=== PATIENT | female | born 1950 | race Caucasian/White ===

== ENCOUNTER 2019-11-17 14:35 | Emergency (ER) | payer OTHER, SELFPAY ==
--- NOTE | ~2019-11-17 | XR_ITS ---
XR chest 2V 11/17/2019 15:33 Indication: Cough for 2 weeks Procedure: 2 view chest Comparison: No prior studies for comparison. Findings: There are spinal rods overlying the thoracic spine. There is a defibrillator lead, presumab ly in the right ventricle. Heart size normal. No focal air space disease, pulmonary edema, pleural ef fusion or suspected pneumothorax. There are compression fractures of the mid thoracic spine which killian ear chronic. Impression: 1: No acute cardiopulmonary disease. Reviewed, dictated and finalized at location A. Impression: 1: No acute cardiopulmonary disease.
[2019-11-17 14:52] VITALS: BP 100/62; PULSE 72; RESP 20; TEMP 37.1; O2SAT 97
--- NOTE | 2019-11-17 15:07 | ED.URI ---
HPI - URI/Sore Throat General Chief Complaint: Upper Respiratory Infection Stated Complaint: cough Time Seen by Provider: 11/17/19 15:07 Source: patient and RN notes reviewed History of Present Illness HPI Narrative: Patient is a 69-year-old female that presents the urgent care with complaints of a cough. Patient states is been ongoing for approximately 1 month. Patient states that it has gotten deeper and is now coughing up productive yellow phlegm . Patient denies any shortness of breath or wheezing that is consistent. However, she says she does hear herself wheeze at times . Patient and daughter state that her inhalers do help. 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 Patient denies any fever, chills, nausea, vomiting, upper respiratory type symptoms. Denies of any recent use of antibiotics. States that she has spoke to her PCP regarding her symptoms and they advised her to use Coricidin HBP [id number]. Daughter states that that has not been helping her and she has been up all night coughing . Patient denies of any chest pain. No other acute complaints. No acute distress noted. Patient and daughter aware of the plan of care. Related Data Home Medications Medication Instructions Recorded Confirmed amitriptyline 75 mg tablet 75 mg PO ONCE 09/14/19 11/17/19 atorvastatin 40 mg tablet 40 mg PO DAILY 09/14/19 11/17/19 calcium carbonate 600 mg calcium 600 mg PO DAILY 09/14/19 11/17/19 (1,500 mg) tablet cholecalciferol (vitamin D3) 10 10 mcg PO DAILY 09/14/19 11/17/19 mcg (400 unit) capsule cyanocobalamin (vitamin B-12) 500 500 mcg PO DAILY 09/14/19 11/17/19 mcg lozenges lisinopril 2.5 mg tablet 1.25 mg PO DAILY 09/14/19 11/17/19 omega 5-dll-vmf-fish oil 1,000 mg 1 cap PO DAILY 09/14/19 11/17/19 (120 mg-180 mg) capsule spironolactone 25 mg tablet 25 mg PO DAILY 09/14/19 11/17/19 Adult One Daily Multivitamin 1 tab/day PO DAILY 11/17/19 11/17/19 acetaminophen [Tylenol] 325 mg PO ONCE PRN 11/17/19 11/17/19 albuterol sulfate 2 puff INHALATION QID PRN 11/17/19 11/17/19 aspirin [Aspirin Childrens] 81 mg PO DAILY 11/17/19 11/17/19 carvedilol 25 mg PO BID 11/17/19 11/17/19 cranberry 500 mg PO BID 11/17/19 11/17/19 donepezil 10 mg PO HS 11/17/19 11/17/19 ferrous sulfate [High Potency Iron] 27 mg PO DAILY 11/17/19 11/17/19 fluticasone furoate-vilanterol 1 inh INHALATION DAILY 11/17/19 11/17/19 [Breo Ellipta] furosemide 20 mg PO DAILY 11/17/19 11/17/19 furosemide 40 mg PO DAILY 11/17/19 11/17/19 melatonin 5 mg PO HS PRN 11/17/19 11/17/19 metoclopramide HCl 5 mg PO DAILY 11/17/19 11/17/19 pregabalin [Lyrica] 75 mg PO BID 11/17/19 11/17/19 Allergies Allergy/AdvReac Type Severity Reaction Status Date / Time ibuprofen Allergy Unknown Verified 06/29/11 14:28 morphine AdvReac Intermediate Nausea and Verified 04/22/17 15:50 Vomiting Review of Systems Review of Systems: Narrative: CONSTITUTIONAL: Denies fever, chills, or sweats. EYES: Denies visual changes, redness, or discharge. ENT: Denies rhinorrhea, congestion, sore throat, or otalgia. CARDIOVASCULAR: Denies chest pain, palpitations, or edema. RESPIRATORY: Reports a persistent cough with intermittent wheezing GASTROINTESTINAL: Denies abdominal pain, nausea, vomiting, or diarrhea. GENITOURINARY: Denies dysuria or hematuria. SKIN: Denies rash or itching. MUSCULOSKELETAL: Denies back pain, joint pain, or myalgia. NEUROLOGIC: Denies headache, numbness, or weakness. All other systems reviewed are negative, except as documented in HPI. ON LICENSE OF [facility] Past Medical History Medical History (Updated 11/17/19 @ 15:46 by RANDEE Morelos) Arthritis Back pain Carotid artery disease Headache Hx of migraines Stroke Surgical History Surgical History (Updated 09/14/19 @ 11:39 by Ashley Bass [employer]ET[employer]) History of back surgery Family History Family History (Updated 02/10
== END 2019-11-17 15:55 | disposition home or self-care (01) ==
PROVIDERS: Emergency Provider Nurse Practitioner Family; PCP Family Medicine
DX: R05 Cough (principal); J98.4 Other disorders of lung; M19.90 Unspecified osteoarthritis, unspecified site; I25.10 Atherosclerotic heart disease of native coronary artery without angina pectoris; Z86.73 Personal history of transient ischemic attack (TIA), and cerebral infarction without residual deficits; Z87.891 Personal history of nicotine dependence
CPT/HCPCS: 71046; 99213; G0463

== ENCOUNTER 2021-12-11 15:14 | Emergency (ER) | payer OTHER, SELFPAY ==
[2021-12-11] VITALS (17 sets, daily range): BP systolic 102–152; BP diastolic 44–58; PULSE 56–100; RESP 13–27; TEMP 36.9; O2SAT 92–98
--- NOTE | ~2021-12-11 | CT_ITS ---
EXAMINATION: CT diagnostic chest wo con DATE: 12/11/2021 18:00 INDICATION: Left-sided chest pain TECHNIQUE: Computed tomography (CT) of the chest was performed without intravenous contrast. The dose -length product (DLP) was 366.32 mGy-cm. Automated exposure control and iterative reconstruction tech nique were employed. COMPARISON: None FINDINGS: The lungs are free of acute opacities. There is no pleural effusion or pneumothorax. Cardio megaly is noted. A single lead pacemaker of the left chest wall ends with its lead in the right ventr icle. Calcified pulmonary nodules are consistent with old granulomatous disease. There is a mildly en larged right lower paratracheal lymph node, likely reactive. Calcified coronary artery atherosclerosi s is noted. There are healed left-sided rib fractures. There is posterior thoracic orthopedic hardwar e from T6 through the upper lumbar spine except at the T9 and T10 vertebral bodies where there are ch ronic burst fractures. IMPRESSION: 1. No CT correlate for the patient's symptoms. 2. Mild mediastinal lymphadenopathy, likely reactive. Reviewed, dictated and finalized at location F.
--- NOTE | ~2021-12-11 | XR_ITS ---
EXAMINATION: XR chest 2V DATE: 12/11/2021 15:49 INDICATION: Left chest pain TECHNIQUE: AP and lateral views of the chest are obtained. COMPARISON: 11/17/2019 FINDINGS: The lungs are free of acute opacities. There is no pleural effusion or pneumothorax. Cardio megaly is noted. There are changes of posterior thoracolumbar fusion. A single lead pacemaker of the left chest wall ends with its lead in the right ventricle. IMPRESSION: 1. Cardiomegaly Reviewed, dictated and finalized at location F. IMPRESSION: 1. Cardiomegaly
--- NOTE | 2021-12-11 15:16 | ECG_ITS ---
Measurements Intervals [place] Rate: 70 P: 42 WV: 142 QRS: -24 QRSD: 139 T: 122 QT: 387 QTc: 420 Interpretive Statements SINUS RHYTHM WITH OCCASIONAL SUPRAVENTRICULAR PREMATURE COMPLEXES INTRAVENTRICULAR CONDUCTION DELAY [130+ ms QRS DURATION] LEFT VENTRICULAR HYPERTROPHY AND ST-T CHANGE [VOLTAGE CRITERIA PLUS ST/T ABNORMALITY] CANNOT RULE OUT ANTEROSEPTAL INFARCTION, OF INDETERMINATE AGE ABNORMAL ECG NO PREVIOUS ECG AVAILABLE FOR COMPARISON Electronically Signed On 12-11-2021 17:58:59 CDT by Candido Massey M.D.
--- NOTE | 2021-12-11 15:19 | ED.GENADULT ---
HPI - General Adult General Chief complaint: Unspecified Stated complaint: LEFT RIB PAIN Time Seen by Provider: 12/11/21 15:16 History of Present Illness HPI narrative: Pt presents with pain in her left lower ribs today. Pt does not remember specific injury but is worse with palpation and movement. Pt denies cough or fever or SOB. Related Data Home Medications Medication Instructions Recorded Confirmed calcium carbonate 600 mg calcium 600 mg PO DAILY 09/14/19 12/01/21 (1,500 mg) tablet (Calcium) omega 2-fmu-chv-fish oil 1,000 mg 1 cap PO DAILY 09/14/19 12/01/21 (120 mg-180 mg) capsule (Fish Oil) spironolactone 25 mg tablet 25 mg PO DAILY 09/14/19 12/01/21 Adult One Daily Multivitamin 1 tab/day PO DAILY 11/17/19 12/01/21 acetaminophen 325 mg tablet 325 mg PO ONCE PRN pain 11/17/19 12/01/21 (Tylenol) albuterol sulfate 90 mcg/actuation 2 puff inhalation QID PRN sob 11/17/19 12/01/21 aerosol inhaler aspirin 81 mg chewable tablet 81 mg PO DAILY 11/17/19 12/01/21 (Aspirin Childrens) carvedilol 25 mg tablet 25 mg PO BID 11/17/19 12/01/21 cranberry 500 mg capsule 500 mg PO BID 11/17/19 12/01/21 donepezil 10 mg tablet 10 mg PO HS 11/17/19 12/01/21 fluticasone furoate 100 1 inh inhalation DAILY 11/17/19 12/01/21 mcg-vilanterol 25 mcg/dose inhalation powder (Breo Ellipta) amitriptyline 75 mg tablet 75 mg PO QPM 11/30/19 12/01/21 atorvastatin 40 mg tablet (Lipitor) 40 mg PO QPM 11/30/19 12/01/21 cholecalciferol (vitamin D3) 10 400 unit PO DAILY 11/30/19 12/01/21 mcg (400 unit) capsule furosemide 40 mg tablet See Rx Instructions PO .COMPLEX 06/13/20 12/01/21 steroid injections IM 12/01/21 12/01/21 Allergies Allergy/AdvReac Type Severity Reaction Status Date / Time ibuprofen Allergy Unknown Nausea and Verified 12/01/21 13:02 Vomiting morphine AdvReac Intermediate Nausea and Verified 12/01/21 13:02 Vomiting Review of Systems Review of Systems: All systems reviewed & are unremarkable except as noted in HPI and below PMFSH Past Medical History Medical History Arthritis Back pain Carotid artery disease Essential hypertension Headache Hx of migraines Hyperlipidemia Peripheral neuropathy Stroke Type 2 diabetes mellitus with hyperglycemia, with long-term current use of insulin Surgical History Surgical History History of back surgery History of heart surgery defibrillator Family History Family History Father Family history of heart disease in male family member before age 55 Social History Social History Smoking packs per day: 1.5 Smoking cigarettes per day: 30.0 Years smoked: 30 Smoking pack-years: 45.00 Smoking status: Former smoker Smoking end date: 07/12/99 Alcohol intake: never Substance use: never Exam Const: General: cooperative and uncomfortable Nutritional Appearance: well nourished Orientation/consciousness: patient oriented x3 Limitations: no limitations Neck: Neck: normal visual inspection and full ROM Chest: Chest palpation & inspection: localized rib tenderness with anteroposterior compression (lower left ribs) Resp: Effort & Inspection: normal respiratory effort Auscultation: clear to auscultation bilaterally Cardio: Rate: regular rate Rhythm: regular rhythm GI: Inspection: normal to inspection GI Palp: Yes Soft to palpation Auscultation: normal bowel sounds Skin: General skin exam: normal color Neuro: General: patient oriented x3 and no focal motor deficits Extrem: General: normal to inspection and no clubbing, cyanosis or edema Psych: Appearance: grossly normal Mental Status: mental status grossly normal Speech and movement: Normal speech and movement present Affect: normal affect At
[2021-12-11] MEDS: fentaNYL CITRATE INJ (*CRX) 100 MCG/2 ML VIAL 25 MCG IV PUSH (15:28)
--- NOTE | 2021-12-11 15:43 | PC.NURSE ---
PT to xray via stretcher
[2021-12-11] MEDS: HYDROmorphone HCL INJ (*CRX) 1 MG/ML SYR 0.5 MG IV PUSH (16:42)
[2021-12-11 17:43] LABS: Glucose Point of Care 86 mg/dl (65-105)
[2021-12-11 17:50] LABS: Basophils Absolute Auto 0.1 K/mm3 (0.0-0.1); Basophils Percent Auto 0.6 % (0.2-1.2); Eosinophils Absolute Auto 0.4 K/mm3 (0-0.3); Eosinophils Percent Auto 3.9 % (0-4.4); Hematocrit 39.9 % (37.0-47.0); Hemoglobin 12.8 g/dL (12.0-15.0); Immature Granulocyte Absolute 0.04 K/mm3 (0.00-0.031); Immature Granulocyte Percent A 0.4 % (0-0.5); Lymphocytes Absolute Auto 1.67 K/mm3 (0.9-3.2); Lymphocytes Percent Auto 17.6 % (18.3-44.2); Mean Corpuscular HGB Conc 32.1 g/dl (32-36); Mean Corpuscular Volume 93.4 fl (80-100); Mean Platelet Volume 9.6 fl (7.4-10.4); Monocytes Absolute Auto 0.7 K/mm3 (0.1-0.6); Monocytes Percent Auto 7.2 % (2.6-8.5); Neutrophils Absolute Auto 6.7 K/mm3 (1.3-6.7); Neutrophils Percent Auto 70.3 % (45.5-73.1); Platelet Count Result 250 k/mm3 (150-375); Red Blood Count 4.27 M/mm3 (4.2-5.4); Red Cell Distribution Width 14.4 % (11.5-14.5); White Blood Count 9.5 K/mm3 (4.5-10.0)
[2021-12-11 18:02] LABS: Alanine Aminotransferase 29 U/L (6-35); Albumin Level 4.6 g/dL (3.5-5.1); Alkaline Phosphatase 103 U/L (38-126); Anion Gap 10 mmol/L (8-16); Aspartate Amino Transferase 30 U/L (14-36); Bilirubin,Total 0.2 mg/dL (0.2-1.3); Blood Urea Nitrogen 32 mg/dL (7-17); Calcium 10.1 mg/dL (8.4-10.2); Carbon Dioxide 29 mmol/L (22-30); Chloride 99 mmol/L (98-107); Estimated CRCL calculation 42 ml/min; Estimated Glomerular Filt Rate 40; Glucose 85 mg/dL (65-110); Potassium 4.1 mmol/L (3.4-5.0); Sodium 138 mmol/L (137-145)
[2021-12-11 18:14] LABS: Troponin I < 0.012 ng/mL (0.000-0.034)
[2021-12-11] MEDS: KETOROLAC 15 MG/ML VIAL (*BKC) IV PUSH (18:47)
== END 2021-12-11 19:21 | disposition home or self-care (01) ==
PROVIDERS: Emergency Provider Emergency Medicine; PCP Family Medicine
DX: R07.89 Other chest pain (principal); I25.10 Atherosclerotic heart disease of native coronary artery without angina pectoris; I10 Essential (primary) hypertension; E78.5 Hyperlipidemia, unspecified; E11.42 Type 2 diabetes mellitus with diabetic polyneuropathy; M19.90 Unspecified osteoarthritis, unspecified site; Z86.73 Personal history of transient ischemic attack (TIA), and cerebral infarction without residual deficits; Z95.810 Presence of automatic (implantable) cardiac defibrillator; Z87.891 Personal history of nicotine dependence; I49.1 Atrial premature depolarization; I45.9 Conduction disorder, unspecified; I51.7 Cardiomegaly; R94.31 Abnormal electrocardiogram [ECG] [EKG]; Z79.82 Long term (current) use of aspirin; Z79.84 Long term (current) use of oral hypoglycemic drugs; Z79.4 Long term (current) use of insulin
CPT/HCPCS: 36415; 71046; 71250; 80053; 82948; 84484; 85025; 93005; 96374; 96375; 99284; J1170; J1885; J3010

== ENCOUNTER 2022-02-06 12:04 | Inpatient (IN) | payer OTHER, SELFPAY ==
[2022-02-06 12:05] VITALS: BP 104/51; PULSE 83; RESP 20; TEMP 36.6; O2SAT 99
--- NOTE | 2022-02-06 12:08 | ECG_ITS ---
Measurements Intervals [place] Rate: 81 P: 47 [place]: 181 QRS: -18 QRSD: 141 T: 93 QT: 398 QTc: 465 Interpretive Statements SINUS RHYTHM INTRAVENTRICULAR CONDUCTION DELAY MINIMAL Q WAVES- HIGH LATERAL LEADS CANNOT RULE OUT SEPTAL INFARCT, AGE INDETERMINATE BORDERLINE ST-T WAVE ABNORMALITY- HIGH LATERAL LEADS BORDERLINE ECG Electronically Signed On 02-06-2022 13:27:59 CDT by Nathaniel Jeffries D.O.
[2022-02-06 12:15] LABS: Glucose Point of Care 371 mg/dl (65-105)
--- NOTE | 2022-02-06 12:32 | ED.WEAKNESS ---
HPI - Weakness General Chief complaint: Weakness Stated complaint: weak - pale, cool, diaphoretic History of Present Illness HPI Narrative: Patient is a 71-year-old female who presents to the ER with weakness and nausea. Reports she woke up this morning with nausea and has been persistent. No vomiting. No abdominal discomfort or diarrhea. No known sick contacts. She has no runny nose or sore throat or productive cough no chest pain or chest pressure. No dyspnea. No rotational dizziness. Nausea does sometimes worsen when she sits up. No alleviating factors. Related Data Home Medications Medication Instructions Recorded Confirmed calcium carbonate 600 mg calcium 600 mg PO TID PRN Heartburn 09/14/19 02/06/22 (1,500 mg) tablet (Calcium) omega 8-etp-exu-fish oil 1,000 mg 1 cap PO DAILY 09/14/19 02/06/22 (120 mg-180 mg) capsule (Fish Oil) spironolactone 25 mg tablet 25 mg PO DAILY 09/14/19 02/06/22 Adult One Daily Multivitamin 1 tab/day PO DAILY 11/17/19 02/06/22 acetaminophen 325 mg tablet 650 mg PO ONCE PRN pain 11/17/19 02/06/22 (Tylenol) albuterol sulfate 90 mcg/actuation 2 puff inhalation QID PRN sob 11/17/19 02/06/22 aerosol inhaler aspirin 81 mg chewable tablet 81 mg PO DAILY 11/17/19 02/06/22 (Aspirin Childrens) carvedilol 25 mg tablet 25 mg PO BID 11/17/19 02/06/22 cranberry 500 mg capsule 500 mg PO BID 11/17/19 02/06/22 donepezil 10 mg tablet 10 mg PO HS 11/17/19 02/06/22 fluticasone furoate 100 1 inh inhalation DAILY 11/17/19 02/06/22 mcg-vilanterol 25 mcg/dose inhalation powder (Breo Ellipta) amitriptyline 75 mg tablet 75 mg PO QPM 11/30/19 02/06/22 atorvastatin 40 mg tablet (Lipitor) 40 mg PO QPM 11/30/19 02/06/22 cholecalciferol (vitamin D3) 10 400 unit PO DAILY 11/30/19 02/06/22 mcg (400 unit) capsule furosemide 40 mg tablet 40 mg PO DAILY 06/13/20 02/06/22 clopidogrel 75 mg tablet (Plavix) 75 mg PO DAILY 02/06/22 02/06/22 insulin aspart U-100 100 unit/mL 15 unit subcut BID 02/06/22 02/06/22 subcutaneous solution metformin 500 mg tablet 500 mg PO BID 02/06/22 02/06/22 Allergies Allergy/AdvReac Type Severity Reaction Status Date / Time ibuprofen Allergy Unknown Nausea and Verified 12/01/21 13:02 Vomiting morphine AdvReac Intermediate Nausea and Verified 12/01/21 13:02 Vomiting Review of Systems Review of Systems: All systems reviewed & are unremarkable except as noted in HPI and below Constitutional: Constitutional: Denies chills, Reports fatigue, Denies fever(s) and Reports weakness ENT: Denies nasal congestion and Denies sore throat Cardiovascular: Cardiovascular: Denies chest pain, Denies rapid heart rate and Denies radiating jaw, neck or arm pain Respiratory: Respiratory: Denies cough and Denies dyspnea Gastrointestinal: Gastrointestinal: Denies abdominal pain, Denies diarrhea, Reports nausea and Denies vomiting Genitourinary: Genitourinary: Denies nocturia and Denies dysuria [facility] Past Medical History Medical History (Updated 02/07/22 @ 21:48 by Charles Sprague MD) Acute on chronic anemia Arthritis Cardiomyopathy Status post ICD insertion. Carotid artery disease Chronic kidney disease, stage 3 Coronary artery disease Depression with anxiety Essential hypertension Headache Hyperlipidemia Hypothyroidism Insulin dependent type 2 diabetes mellitus Peripheral neuropathy Peripheral vascular disease Stroke Surgical History Surgical History History of back surgery History of cardiac catheterization History of coronary artery stent placement History of hysterectomy History of implantable cardioverter-defibrillator (ICD) insertion History of vascular surgery (12/2021) Lower extremity stents. Family History Family History Father Family history of heart disease in male family member before age 55 Social History Social History (
[2022-02-06 12:43] LABS: Basophils Percent Auto 0.4 % (0.2-1.2); Eosinophils Absolute Auto 0.2 K/mm3 (0-0.3); Eosinophils Percent Auto 2.1 % (0-4.4); Hematocrit 23.9 % (37.0-47.0); Hemoglobin 7.2 g/dL (12.0-15.0); Immature Granulocyte Absolute 0.04 K/mm3 (0.00-0.031); Immature Granulocyte Percent A 0.5 % (0-0.5); Lymphocytes Absolute Auto 1.18 K/mm3 (0.9-3.2); Lymphocytes Percent Auto 13.9 % (18.3-44.2); Mean Corpuscular HGB Conc 30.1 g/dl (32-36); Mean Corpuscular Hemoglobin 29.4 pg (26-34); Mean Corpuscular Volume 97.6 fl (80-100); Mean Platelet Volume 9.8 fl (7.4-10.4); Monocytes Absolute Auto 0.5 K/mm3 (0.1-0.6); Monocytes Percent Auto 6.4 % (2.6-8.5); Neutrophils Absolute Auto 6.5 K/mm3 (1.3-6.7); Neutrophils Percent Auto 76.7 % (45.5-73.1); Platelet Count Result 156 k/mm3 (150-375); Red Blood Count 2.45 M/mm3 (4.2-5.4); Red Cell Distribution Width 14.3 % (11.5-14.5); White Blood Count 8.5 K/mm3 (4.5-10.0)
[2022-02-06 12:55] LABS: Alanine Aminotransferase 21 U/L (6-35); Albumin Level 2.7 g/dL (3.5-5.1); Alkaline Phosphatase 57 U/L (38-126); Anion Gap 6 mmol/L (8-16); Aspartate Amino Transferase 17 U/L (14-36); Bilirubin,Total 0.3 mg/dL (0.2-1.3); Blood Urea Nitrogen 53 mg/dL (7-17); Calcium 7.7 mg/dL (8.4-10.2); Carbon Dioxide 28 mmol/L (22-30); Chloride 103 mmol/L (98-107); Estimated Glomerular Filt Rate 37; Glucose 317 mg/dL (65-110); Potassium 6.3 mmol/L (3.4-5.0); Sodium 137 mmol/L (137-145)
[2022-02-06 13:17] LABS: Troponin I < 0.012 ng/mL (0.000-0.034)
[2022-02-06 13:35] LABS: Hematocrit 26.8 % (37.0-47.0); Hemoglobin 8.2 g/dL (12.0-15.0)
[2022-02-06] MEDS: INSULIN HUMAN REGULAR (*BKC) 100 UNITS/ML 10 UNITS IV PUSH (13:48)
[2022-02-06] MEDS: ONDANSETRON INJ 4 MG/2 ML VIAL IV PUSH ×2 (13:49→18:30)
[2022-02-06 14:30] LABS: SARS-CoV-2 RNA PCR Negative
[2022-02-06] MEDS: SODIUM CHLORIDE 0.9% IV 1,000 ML 999 ML IV CONT (14:59)
[2022-02-06 15:30] LABS: Anion Gap 5 mmol/L (8-16); Blood Urea Nitrogen 60 mg/dL (7-17); Calcium 8.1 mg/dL (8.4-10.2); Carbon Dioxide 30 mmol/L (22-30); Chloride 103 mmol/L (98-107); Estimated Glomerular Filt Rate 40; Glucose 272 mg/dL (65-110); Potassium 5.6 mmol/L (3.4-5.0); Sodium 138 mmol/L (137-145)
--- NOTE | 2022-02-06 16:00 | PM.IMHP ---
H&P: HPI History of Present Illness Date/Time: 02/06/22 16:00 Chief Complaint: Weak and dizzy. Narrative: This is a pleasant 71-year-old female with history of stroke, congestive heart failure, cardiomyopathy status post ICD insertion, coronary artery disease, peripheral vascular disease, hypertension, diabetes, hypothyroidism, and chronic kidney disease who presented to the emergency department via EMS from home for evaluation of weakness and dizziness. She reports feeling in her usual state of health when she went to bed last night however when she woke up this morning she was feeling weak and dizzy which he further qualifies as lightheadedness upon standing. She was also feeling quite nauseated this morning along with feelings of indigestion. She reportedly became lethargic and EMS was summoned. She was reportedly hypotensive on their arrival though I do not have any specific numbers to me at the time of this dictation, and her glucose was 400. Blood pressure was at the low end of normal on arrival to the ER and has remained stable. Pertinent findings noted on workup include a hemoglobin and hematocrit of 8.2 in 26.8% respectively, and she is down 4 g when compared to a hemoglobin taken early last month. Her kidney function was a bit elevated from baseline but not significantly so though she was found to have hyperkalemia with a potassium of 6.3. Stool was Hemoccult negative on rectal exam done in the emergency department and she has not noticed any dark stools or bright red blood in her stools. With further questioning she was recently started on clopidogrel, apparently sometime last month after having a lower extremity stent placed. She has not been started on any other new medications that she can remember. She does have occasional GERD for which she will take Pepcid but she has not noticed any significant change in those symptoms. She also denies epigastric pain, abdominal pain, bloating, and belching. Review of Systems Review of Systems: Twelve systems were reviewed. She felt presyncopal earlier today but denies syncope. No falls. No headache. No sinus congestion, sore throat, or cough. No sick contacts. She denies chest pain pleuritic pain. No palpitations. No shortness of breath. She has had some nausea but no vomiting. No melena or hematochezia. No dysuria or hematuria. Except as documented, all other systems were reviewed and are negative. [facility] Past Medical History Medical History (Updated 02/06/22 @ 23:11 by Silvana Núñez PA-C) Arthritis Cardiomyopathy Status post ICD insertion. Carotid artery disease Chronic kidney disease, stage 3 Coronary artery disease Depression with anxiety Essential hypertension Headache Hyperlipidemia Hypothyroidism Insulin dependent type 2 diabetes mellitus Peripheral neuropathy Peripheral vascular disease Stroke Surgical History Surgical History (Updated 02/06/22 @ 23:07 by Silvana Núñez PA-C) History of back surgery History of cardiac catheterization History of coronary artery stent placement History of hysterectomy History of implantable cardioverter-defibrillator (ICD) insertion History of vascular surgery (12/2021) Lower extremity stents. Family History Family History Father Family history of heart disease in male family member before age 55 Social History Social History (Updated 02/06/22 @ 23:07 by Silvana Núñez PA-C) Social History: Surrogate medical decision maker: Berny Thompson, daughter. Code status: Full code. Smoking packs per day: 1.5 Smoking cigarettes per day: 30.0 Years smoked: 30 Smoking pack-years: 45.00 Smoking status: Former smoker Smoking end date: 07/12/99 Alcohol intake: never Substance use: never Additional living arrangements comments: The patient lives in her own home in [place]. Occupation/Education: retired Spiritual care concerns: No Meds Home Medic
--- NOTE | 2022-02-06 16:24 | PC.NURSE ---
Report received from [facility]. Awaiting for pt arrival.
--- NOTE | 2022-02-06 17:16 | PC.NURSE ---
pt takes 15 units of insulin bid with lunch and dinner
--- NOTE | 2022-02-06 17:44 | PC.NURSE ---
This patient, Jeanette Thompson, was admitted to [facility] Room 329-01. Patient/family oriented to hospital policies and general routines including ID bracelet, bed and alarms, visiting hours, pain management, procedures, bathroom and other care routines, personal items, smoking policy, room service/diet, and visiting hours. Information on how to activate the Rapid Response Team has been discussed. Patient/Family are encouraged to report perceived risks to care and to ask questions if they do not understand what they are told or what they should do. arrived at 1651 report received from [facility], no fall hx, able to ambulate to restroom with walker x1 assist. Medication clarified with daughter via telephone.
--- NOTE | 2022-02-06 17:45 | PC.NURSE ---
pt states just started on plavix r/t cardiac stent placement recently
[2022-02-06 21:51] LABS: Lipase 71 U/L (23-300)
[2022-02-06 22:00] VITALS: BP 124/51; PULSE 100; RESP 20; TEMP 36.1; O2SAT 96
[2022-02-06 23:56] LABS: Iron 120 ug/dL (37-170)
[2022-02-07] VITALS (19 sets, daily range): BP systolic 112–143; BP diastolic 41–85; PULSE 89–120; RESP 14–20; TEMP 35.7–36.6; O2SAT 93–100
[2022-02-07 00:02] LABS: Hemoglobin A1C 7.4 % (<5.7)
[2022-02-07 00:06] LABS: Percent Iron Saturation 35 % (20-50)
[2022-02-07 00:48] LABS: Folic Acid > 20.0 ng/mL (2.76->20)
[2022-02-07 02:21] LABS: Anion Gap 8 mmol/L (8-16); Blood Urea Nitrogen 50 mg/dL (7-17); Calcium 8.1 mg/dL (8.4-10.2); Carbon Dioxide 25 mmol/L (22-30); Chloride 106 mmol/L (98-107); Estimated Glomerular Filt Rate 44; Glucose 196 mg/dL (65-110); Potassium 4.7 mmol/L (3.4-5.0); Sodium 139 mmol/L (137-145)
[2022-02-07 06:26] LABS: Hematocrit 23.8 % (37.0-47.0); Hemoglobin 7.3 g/dL (12.0-15.0); Mean Corpuscular HGB Conc 30.7 g/dl (32-36); Mean Corpuscular Hemoglobin 29.6 pg (26-34); Mean Corpuscular Volume 96.4 fl (80-100); Mean Platelet Volume 10.3 fl (7.4-10.4); Platelet Count Result 191 k/mm3 (150-375); Red Blood Count 2.47 M/mm3 (4.2-5.4); Red Cell Distribution Width 14.5 % (11.5-14.5); White Blood Count 7.4 K/mm3 (4.5-10.0)
[2022-02-07 06:31] LABS: Alanine Aminotransferase 22 U/L (6-35); Albumin Level 3.1 g/dL (3.5-5.1); Alkaline Phosphatase 72 U/L (38-126); Anion Gap 6 mmol/L (8-16); Aspartate Amino Transferase 20 U/L (14-36); Bilirubin,Total 0.1 mg/dL (0.2-1.3); Blood Urea Nitrogen 42 mg/dL (7-17); Calcium 8.2 mg/dL (8.4-10.2); Carbon Dioxide 24 mmol/L (22-30); Chloride 108 mmol/L (98-107); Estimated Glomerular Filt Rate 49; Glucose 183 mg/dL (65-110); Magnesium 2.1 mg/dL (1.6-2.3); Potassium 4.3 mmol/L (3.4-5.0); Sodium 138 mmol/L (137-145)
[2022-02-07] MEDS: ALBUTEROL SULFATE (*SP) AEROSOL 1 PUFF 2 PUFF INHALATION (07:53)
[2022-02-07] MEDS: FLUTICASONE/SALMETEROL 115-21 MCG INHALER 1 PUFF 2 PUFF INHALATION ×2 (07:53→20:40)
[2022-02-07 08:05] LABS: Glucose Point of Care 194 mg/dl (65-105)
[2022-02-07] MEDS: FAMOTIDINE 20 MG/2 ML VIAL IV PUSH ×2 (08:12→20:12)
--- NOTE | 2022-02-07 11:23 | PC.NURSE ---
no plans for gi scope today or tomorrow, trending H&H, pt ok'd to have diet, possible Scope Wednesday per MD Albright
[2022-02-07 11:43] LABS: Glucose Point of Care 240 mg/dl (65-105)
--- NOTE | 2022-02-07 12:00 | PM.IMPN ---
Progress Note: A&P Assessment and Plan (1) Symptomatic anemia: Code(s): D64.9 - Anemia, unspecified Status: Acute Assessment and Plan: - Likely an acute on chronic issue for patient. - Steady decline in Hgb noted with a decline just from yesterday 8.2-->7.3. - Transfuse prn - Stool for occult blood. - GI consult is pending. Appreciate their recommendations as I suspicion pt is losing blood slowly per GI tract since starting Plavix. - Anemia panel ordered. - Avoid any blood thinning agents for now and hold Plavix in light of current Hgb. (2) Hyperkalemia: Code(s): E87.5 - Hyperkalemia Status: Resolved Assessment and Plan: - Spironolactone and Lasix are currently being held. Restart tomorrow. Currently does not appear fluid overloaded and she does not have IVF running. - Potassium is normal today at 4.3. - Continue to monitor. (3) Protein calorie malnutrition: Code(s): E46 - Unspecified protein-calorie malnutrition Status: Acute Assessment and Plan: - Dietitian consulted for recommendations. (4) Type 2 diabetes mellitus with hyperglycemia, with long-term current use of insulin: Code(s): E11.65 - Type 2 diabetes mellitus with hyperglycemia; Z79.4 - rn long term care (current) use of insulin Status: Chronic Assessment and Plan: - Continue SSI - Continue accu checks. - Continue diabetic diet - Continue hyperglycemic protocol. - Check A1C, was last checked in 05/2021 and was 7.3 then. (5) Essential hypertension: Code(s): I10 - Essential (primary) hypertension Status: Chronic Assessment and Plan: - Blood pressures have been running on the low end of normal and her antihypertensives are currently being held. Monitor. (6) Chronic kidney disease, stage 3: Code(s): N18.30 - Chronic kidney disease, stage 3 unspecified Status: Chronic Assessment and Plan: - Appears to be currently at baseline. - Monitor labs and VS (7) Cardiomyopathy: Code(s): I42.9 - Cardiomyopathy, unspecified Status: Chronic Assessment and Plan: - Status post ICD insertion. She is euvolemic currently. (8) Hypothyroidism: Code(s): E03.9 - Hypothyroidism, unspecified Status: Chronic Assessment and Plan: - Continue levothyroxine and check TSH. (9) Peripheral vascular disease: Code(s): I73.9 - Peripheral vascular disease, unspecified Status: Chronic Assessment and Plan: - Patient reportedly had a stent placed in her lower extremities about a month ago. Due to the drop in hemoglobin and concerns for occult GI blood loss, her clopidogrel will be held but we will continue with the aspirin. Time Spent With Patient Time: 25 minutes Subjective Date/time seen: 02/07/22 1006 this very pleasant 71-year-old female patient is examined at the bedside today in interval assessment after being admitted to the hospital for feeling weak and dizzy and then further being admitted for acute on chronic anemia as well as hyperkalemia. Patient's hemoglobin has slowly declined and even from yesterday to today it further declined to 7.3. There has been no overt bleeding identified, in patient denies any melena, hematochezia any even denies any gum bleeding. She denies any acute pain at this current time. She does note that she has been recently started on Plavix for stents placed in her legs. Occult blood was negative. A GI consult was placed and is currently pending. Suspicious for acute GI bleed given that she has been on Plavix. Patient denies any chest pain, dyspnea, nausea, vomiting, diarrhea, dizziness, lightheadedness, headache, urinary complaints of burning, urgency, frequency, hematuria or dysuria in general. She is agreeable to transfusion if necessary. Review of Systems Review of Systems: A 12 point review of systems was performed. All systems reviewed & are unremarkable exce
[2022-02-07 12:26] LABS: Hematocrit 23.6 % (37.0-47.0); Hemoglobin 7.1 g/dL (12.0-15.0)
[2022-02-07 12:44] LABS: Transferrin 234 mg/dL (206-381)
[2022-02-07 12:46] LABS: Hemoglobin A1C 7.3 % (<5.7)
--- NOTE | 2022-02-07 13:13 | WPDGICN ---
Assessment and Plan Assessment and plan (1) Acute on chronic anemia: Code(s): D64.9 - Anemia, unspecified Status: Acute Assessment and Plan: no overt gib but hb down since using plavix will do egd and colonoscopy wednesday to assess if any source of gi loss (2) Chronic kidney disease, stage 3: Code(s): N18.30 - Chronic kidney disease, stage 3 unspecified Status: Chronic (3) Cardiomyopathy: Code(s): I42.9 - Cardiomyopathy, unspecified Status: Chronic Assessment and Plan: more symptomatic because anemia (4) Type 2 diabetes mellitus with hyperglycemia, with long-term current use of insulin: Code(s): E11.65 - Type 2 diabetes mellitus with hyperglycemia; Z79.4 - correction (current) use of insulin Status: Chronic Assessment and Plan: on treatment GI Consult Note Consult date/time: 02/07/22 13:13 Reason for consult: symptomatic anemia HPI: Jeanette Thompson is a 71 year old female with history of stroke, congestive heart failure, DM, cardiomyopathy status post ICD insertion, coronary artery disease, peripheral vascular disease started on plavix about 2 months ago who presented to the emergency department via EMS from home for progressive weakness and dizziness. Recently also has been lightheaded upon standing and nauseated, EMS found glucose was 400. She had worsening anemia with hemoglobin 8.2, hyperkalemia with a potassium of 6.3. Never had EGD and says that last colonoscopy 10 years ago, denies overt gib Review of Systems Constitutional: Constitutional: Reports fatigue, Denies headache(s) and Reports lethargy Eyes: Eyes: Denies blurry vision ENT: Reports Normal hearing present, Denies headache(s) and Denies neck pain Cardiovascular: Cardiovascular: Denies chest pain and Denies dyspnea Respiratory: Respiratory: Denies dyspnea Gastrointestinal: Gastrointestinal: Reports no additional gastrointestinal complaints Genitourinary: Genitourinary: Denies dysuria Musculoskeletal: Musculoskeletal: Denies neck pain Integumentary/Breasts: Skin/Breast: Denies dry skin Neurologic: Reports Normal hearing present, Denies headache(s) and Denies weakness Psychiatric: Psychiatric: Denies anxiety Endocrine: Endocrine: Denies change in body appearance Hematologic/Lymphatic: Hematologic/Lymphatic: Denies easy bleeding Allergic/Immunologic: Allergic/Immunologic: Denies urticaria PMFSH Past Medical History Medical History (Updated 02/07/22 @ 13:16 by Rico Jones MD) Acute on chronic anemia Arthritis Cardiomyopathy Status post ICD insertion. Carotid artery disease Chronic kidney disease, stage 3 Coronary artery disease Depression with anxiety Essential hypertension Headache Hyperlipidemia Hypothyroidism Insulin dependent type 2 diabetes mellitus Peripheral neuropathy Peripheral vascular disease Stroke Surgical History Surgical History History of back surgery History of cardiac catheterization History of coronary artery stent placement History of hysterectomy History of implantable cardioverter-defibrillator (ICD) insertion History of vascular surgery (12/2021) Lower extremity stents. Family History Family History Father Family history of heart disease in male family member before age 55 Social History Social History Social History: Surrogate medical decision maker: Berny Thompson, daughter. Code status: Full code. Smoking packs per day: 1.5 Smoking cigarettes per day: 30.0 Years smoked: 30 Smoking pack-years: 45.00 Smoking status: Former smoker Smoking end date: 07/12/99 Alcohol intake: never Substance use: never Additional living arrangements comments: The patient lives in her own home in [place]. Occupation/Education: retired Spi
--- NOTE | 2022-02-07 13:20 | PC.NURSE ---
recollected wound swab r ring finger sent to lab for analysis
--- NOTE | 2022-02-07 13:28 | PC.NURSE ---
occult stool sent to lab for analysis
[2022-02-07 14:07] LABS: Iron 34 ug/dL (37-170)
[2022-02-07 14:17] LABS: Percent Iron Saturation 9 % (20-50)
[2022-02-07] MEDS: SODIUM CHLORIDE 0.9% IV 250 ML 30 ML IV CONT (14:20)
[2022-02-07 14:27] LABS: IFOB Positive Control Positive; Immunochemical Fecal Occult Bl Positive (N)
--- NOTE | 2022-02-07 14:59 | PC.NURSE ---
awaiting blood to be ready.
--- NOTE | 2022-02-07 16:01 | PC.NURSE ---
occult stool positive this shift
--- NOTE | 2022-02-07 16:03 | PC.NURSE ---
consent signed for blood.
[2022-02-07] MEDS: INSULIN ASPART (*BKC) 100 UNITS/ML SUB-Q (17:03)
[2022-02-07] MEDS: ATORVASTATIN 40 MG TABLET PO (17:04)
[2022-02-07 17:05] LABS: Glucose Point of Care 303 mg/dl (65-105)
--- NOTE | 2022-02-07 17:23 | PC.NURSE ---
1 unit of blood started, no s/s of distress. No complaints after x15 minutes. tolerating tx well. Encouraged to use call light for assistance to restroom.
--- NOTE | 2022-02-07 17:42 | PC.NURSE ---
H&h ordered for 2100
--- NOTE | 2022-02-07 18:17 | PC.NURSE ---
lying 112/41 99% ra 97.1 113 18 sitting 143/51 110 98% RA 20 standing 135/43 100% RA 108 18 ortho's negative 02/07/22
--- NOTE | 2022-02-07 19:20 | PC.NURSE ---
blood finished H&H moved to 2018
[2022-02-07 20:05] LABS: Glucose Point of Care 411 mg/dl (65-105)
[2022-02-07] MEDS: GABAPENTIN 300 MG CAPSULE PO (20:12)
[2022-02-07] MEDS: AMITRIPTYLINE HCL 25 MG TABLET 75 MG PO (20:12)
[2022-02-07] MEDS: DONEPEZIL HCL 10 MG TABLET PO (20:12)
[2022-02-07 20:30] LABS: Hematocrit 25.3 % (37.0-47.0); Hemoglobin 7.9 g/dL (12.0-15.0)
[2022-02-07] MEDS: INSULIN GLARGINE (*BKC) 100 UNITS/ML 50 UNITS SUB-Q (20:31)
[2022-02-07] MEDS: INSULIN ASPART (*BKC) 100 UNITS/ML 12 UNITS SUB-Q (20:32)
[2022-02-07 22:26] LABS: Glucose Point of Care 300 mg/dl (65-105)
[2022-02-08] VITALS (13 sets, daily range): BP systolic 111–147; BP diastolic 42–71; PULSE 75–96; RESP 16; TEMP 36.1–37.4; O2SAT 90–100
[2022-02-08 06:30] LABS: Basophils Absolute Auto 0.1 K/mm3 (0.0-0.1); Basophils Percent Auto 0.8 % (0.2-1.2); Eosinophils Absolute Auto 0.4 K/mm3 (0-0.3); Eosinophils Percent Auto 4.7 % (0-4.4); Hematocrit 26.1 % (37.0-47.0); Hemoglobin 8.1 g/dL (12.0-15.0); Immature Granulocyte Absolute 0.07 K/mm3 (0.00-0.031); Immature Granulocyte Percent A 0.9 % (0-0.5); Lymphocytes Absolute Auto 1.63 K/mm3 (0.9-3.2); Mean Corpuscular Hemoglobin 29.8 pg (26-34); Mean Platelet Volume 9.7 fl (7.4-10.4); Monocytes Absolute Auto 0.6 K/mm3 (0.1-0.6); Monocytes Percent Auto 8.2 % (2.6-8.5); Neutrophils Absolute Auto 4.7 K/mm3 (1.3-6.7); Neutrophils Percent Auto 63.4 % (45.5-73.1); Platelet Count Result 166 k/mm3 (150-375); Red Blood Count 2.72 M/mm3 (4.2-5.4); Red Cell Distribution Width 14.8 % (11.5-14.5); White Blood Count 7.4 K/mm3 (4.5-10.0)
[2022-02-08 06:41] LABS: Alanine Aminotransferase 23 U/L (6-35); Albumin Level 3.4 g/dL (3.5-5.1); Alkaline Phosphatase 81 U/L (38-126); Anion Gap 5 mmol/L (8-16); Aspartate Amino Transferase 26 U/L (14-36); Bilirubin,Total 0.4 mg/dL (0.2-1.3); Blood Urea Nitrogen 23 mg/dL (7-17); Calcium 7.8 mg/dL (8.4-10.2); Carbon Dioxide 25 mmol/L (22-30); Chloride 110 mmol/L (98-107); Estimated Glomerular Filt Rate 55; Glucose 222 mg/dL (65-110); Magnesium 2.2 mg/dL (1.6-2.3); Sodium 140 mmol/L (137-145)
[2022-02-08 08:01] LABS: Glucose Point of Care 207 mg/dl (65-105)
[2022-02-08] MEDS: FAMOTIDINE 20 MG/2 ML VIAL IV PUSH ×2 (08:02→20:17)
[2022-02-08] MEDS: INSULIN ASPART (*BKC) 100 UNITS/ML SUB-Q ×3 (08:02→17:07)
[2022-02-08] MEDS: ASPIRIN 81 MG CHEWABLE TABLET PO (08:02)
[2022-02-08] MEDS: FLUTICASONE/SALMETEROL 115-21 MCG INHALER 1 PUFF 2 PUFF INHALATION ×2 (08:25→21:19)
[2022-02-08 11:40] LABS: Glucose Point of Care 364 mg/dl (65-105)
--- NOTE | 2022-02-08 11:54 | PC.NURSE ---
bowel prep ordered for pt.
--- NOTE | 2022-02-08 11:55 | WPDGIPROGNO ---
Progress Note: A&P Assessment and Plan (1) Acute on chronic anemia: Code(s): D64.9 - Anemia, unspecified Status: Acute Assessment and Plan: will assess with egd and colonoscopy tomorrow to check if any source of gi loss (2) Acute hyperkalemia: Code(s): E87.5 - Hyperkalemia Status: Acute Assessment and Plan: treated (3) Chronic kidney disease, stage 3: Code(s): N18.30 - Chronic kidney disease, stage 3 unspecified Status: Chronic Assessment and Plan: monitor (4) Cardiomyopathy: Code(s): I42.9 - Cardiomyopathy, unspecified Status: Chronic Assessment and Plan: plavix on hold in setting of acute anemia (5) Type 2 diabetes mellitus with hyperglycemia, with long-term current use of insulin: Code(s): E11.65 - Type 2 diabetes mellitus with hyperglycemia; Z79.4 - remote computer terminal operator (current) use of insulin Status: Chronic Subjective Date/time seen: 02/08/22 11:55 Interval history: no changes, denies overt gib Review of Systems Review of Systems: All systems reviewed & are unremarkable except as noted in HPI and below Exam Narrative: General: Chronically ill-appearing female sitting up in bed. HEENT: PERRL, EOMI. Pale conjunctiva. Tacky mucous membranes. Neck: Supple. Respiratory: Lungs are clear to auscultation bilaterally. Cardiovascular: Regular rate and rhythm with S1-S2. Gastrointestinal: Abdomen is soft, nontender, and nondistended with positive bowel sounds. Skin: Warm and dry. Generalized pallor. Extremities: No cyanosis, clubbing, or edema. Peripheral pulses intact; pedal pulses diminished but palpable. Feet are cool but perfused with capillary refill of approximately 3 seconds. Neurological: Alert. Cranial nerves 2-12 are grossly intact. No gross focal deficits to casual conversation. Psychiatric: Pleasant and cooperative with appropriate mood and affect. Objective Data Vital Signs Vital Signs: Vital Signs - 24 hr 02/07/22 12:00 02/07/22 16:00 02/07/22 16:59 Temperature 96.9 F L Pulse Rate 93 94 120 H Respiratory Rate 20 Blood Pressure 125/44 L Pulse Oximetry 98 Oxygen Delivery 02/07/22 14:00 02/07/22 17:16 02/07/22 18:19 Temperature 97.9 F 96.5 F L 97.1 F L Pulse Rate 94 101 H 113 H Respiratory Rate 18 20 18 Blood Pressure 112/44 L 138/85 112/41 L Pulse Oximetry 93 98 99 Oxygen Delivery 02/07/22 18:21 02/07/22 18:21 02/07/22 18:16 Temperature 97.1 F L 97.1 F L 97.1 F L Pulse Rate 110 H 108 H 108 H Respiratory Rate 20 18 20 Blood Pressure 143/51 H 135/43 L 135/43 L Pulse Oximetry 98 100 100 Oxygen Delivery 02/07/22 19:16 02/07/22 20:40 02/07/22 22:00 Temperature 96.3 F L 97.2 F L Pulse Rate 92 89 93 Respiratory Rate 20 17 14 Blood Pressure 118/55 L 143/51 H Pulse Oximetry 97 96 Oxygen Delivery 02/07/22 20:16 02/07/22 20:00 02/07/22 20:00 Temperature 97.0 F L Pulse Rate 91 90 Respiratory Rate 18 Blood Pressure 124/54 L Pulse Oximetry 96 Oxygen Delivery Room Air 02/08/22 00:00 02/08/22 04:00 02/08/22 06:00 Temperature 99.4 F Pulse Rate 90 88 96 Respiratory Rate 16 Blood Pressure 112/71 Pulse Oximetry 90 Oxygen Delivery 02/08/22 07:30 02/08/22 08:27 02/08/22 10:30 Temperature Pulse Rate 96 Respiratory Rate 16 Blood Pressure 127/53 L Pulse Oximetry 90 96 Oxygen Delivery Room Air Room Air 02/08/22 10:30 02/08/22 10:30 02/08/22 08:00 Temperature Pulse Rate 80 Respiratory Rate Blood Pressure 126/53 L 129/42 L Pulse Oximetry Oxygen Delivery Intake/Output Intake/Output: Intake & Output 02/05/22 02/06/22 02/07/22 02/08/22 23:59 23:59 23:59 23:59 Intake Total 1790 1490 580 Output Total 2500 400 Balance 1790 -1010 180 Meds/Results Medications: Active Medications Generic Name Dose Route Start Last Admin Trade Name Freq PRN Reason Stop Dose Admin Acetaminophen 650
--- NOTE | 2022-02-08 12:25 | PM.IMPN ---
Progress Note: A&P Assessment and Plan (1) Symptomatic anemia: Code(s): D64.9 - Anemia, unspecified Status: Acute Assessment and Plan: - Likely an acute on chronic issue for patient. - Transfused 1 unit last evening. - Stool for occult blood was positive. - GI consulted and pt. will be having a bi-directional scope tomorrow. - Anemia panel ordered. - Avoid any blood thinning agents for now and hold Plavix in light of current Hgb. - Iron and ferritin are marginally low. Will start supplemental iron. (2) Hyperkalemia: Code(s): E87.5 - Hyperkalemia Status: Resolved Assessment and Plan: - Spironolactone and Lasix are currently being held. Restart tomorrow. Currently does not appear fluid overloaded and she does not have IVF running. - Potassium is normal today at 4.0. - Continue to monitor. (3) Protein calorie malnutrition: Code(s): E46 - Unspecified protein-calorie malnutrition Status: Acute Assessment and Plan: - Dietitian consulted for recommendations. (4) Type 2 diabetes mellitus with hyperglycemia, with long-term current use of insulin: Code(s): E11.65 - Type 2 diabetes mellitus with hyperglycemia; Z79.4 - rodent exterminator (current) use of insulin Status: Chronic Assessment and Plan: - Continue SSI - Continue accu checks. - Continue diabetic diet - Continue hyperglycemic protocol. - Check A1C, was last checked in 05/2021 and was 7.3 then. (5) Essential hypertension: Code(s): I10 - Essential (primary) hypertension Status: Chronic Assessment and Plan: - Blood pressures have been running on the low end of normal and her antihypertensives are currently being held. Monitor. (6) Chronic kidney disease, stage 3: Code(s): N18.30 - Chronic kidney disease, stage 3 unspecified Status: Chronic Assessment and Plan: - Appears to be currently at baseline. - Monitor labs and VS (7) Cardiomyopathy: Code(s): I42.9 - Cardiomyopathy, unspecified Status: Chronic Assessment and Plan: - Status post ICD insertion. She is euvolemic currently. (8) Hypothyroidism: Code(s): E03.9 - Hypothyroidism, unspecified Status: Chronic Assessment and Plan: - Normal at 1.160. (9) Peripheral vascular disease: Code(s): I73.9 - Peripheral vascular disease, unspecified Status: Chronic Assessment and Plan: - Patient reportedly had a stent placed in her lower extremities about a month ago. Due to the drop in hemoglobin and concerns for occult GI blood loss, her clopidogrel will be held but we will continue with the aspirin. Time Spent With Patient Time: 15 minutes Subjective Date/time seen: 02/08/22 0983 This pleasant female patient was examined at the bedside today in interval assessment. She received one unit of PRBC's yesterday for an acute drop in Hgb from 8.2-->7.3-->7.1-->then after transfusion was 7.9 and this morning is 8.1. She had an occult stool sample obtained that was positive for Occult blood. She has been evaluated by GI and is going to have a Bi-directional scope tomorrow according to their notes. The patient denies any abdominal pain, overt bleeding or any other complaints at this time such as CP, dyspnea, N/V/D or any urinary complaints. Review of Systems Review of Systems: All systems reviewed & are unremarkable except as noted in HPI and below Exam Const: General: comfortable and no acute distress Other: obese HENMT: Ears: TM's normal bilaterally General nose exam: Normal nares present and no epistaxis Mouth: Yes moist mucous membranes Other: no ulcerations or lesions in the oral mucosa. Eyes: General: appearance normal, both eyes and all related structures Sclera: sclerae normal and normal sclerae Pupils: Equal, round and reactive pupils present EOM: EOMs intact bilaterally Neck: Neck: supple and no JVD Thyroid: thyroid no
[2022-02-08] MEDS: BISACODYL 5 MG TABLET EC 20 MG PO (16:24)
[2022-02-08] MEDS: polyethylene glycoL 3350 238 GM BOTTLE PO (16:42)
[2022-02-08 16:53] LABS: Glucose Point of Care 255 mg/dl (65-105)
--- NOTE | 2022-02-08 18:49 | PC.NURSE ---
bowel prep start this evening, EGD and colonoscopy planned for tomorrow, consents signed.
[2022-02-08] MEDS: ATORVASTATIN 40 MG TABLET PO (19:01)
[2022-02-08] MEDS: AMITRIPTYLINE HCL 25 MG TABLET 75 MG PO (20:20)
[2022-02-08] MEDS: GABAPENTIN 300 MG CAPSULE PO (20:20)
[2022-02-08] MEDS: DONEPEZIL HCL 10 MG TABLET PO (20:20)
[2022-02-08] MEDS: INSULIN GLARGINE (*BKC) 100 UNITS/ML 50 UNITS SUB-Q (20:22)
[2022-02-08 20:48] LABS: Glucose Point of Care 356 mg/dl (65-105)
[2022-02-09] VITALS (16 sets, daily range): BP systolic 105–149; BP diastolic 55–72; PULSE 77–100; RESP 16–30; TEMP 36.6–36.9; O2SAT 94–100; BMI 33.1
[2022-02-09] MEDS: polyethylene glycoL 3350 238 GM BOTTLE PO (05:13)
[2022-02-09 06:16] LABS: Basophils Percent Auto 0.5 % (0.2-1.2); Eosinophils Absolute Auto 0.4 K/mm3 (0-0.3); Eosinophils Percent Auto 4.6 % (0-4.4); Hematocrit 27.8 % (37.0-47.0); Hemoglobin 8.7 g/dL (12.0-15.0); Immature Granulocyte Absolute 0.06 K/mm3 (0.00-0.031); Immature Granulocyte Percent A 0.7 % (0-0.5); Lymphocytes Absolute Auto 1.52 K/mm3 (0.9-3.2); Lymphocytes Percent Auto 17.9 % (18.3-44.2); Mean Corpuscular HGB Conc 31.3 g/dl (32-36); Mean Corpuscular Volume 95.9 fl (80-100); Mean Platelet Volume 9.9 fl (7.4-10.4); Monocytes Absolute Auto 0.6 K/mm3 (0.1-0.6); Monocytes Percent Auto 6.5 % (2.6-8.5); Neutrophils Absolute Auto 5.9 K/mm3 (1.3-6.7); Neutrophils Percent Auto 69.8 % (45.5-73.1); Platelet Count Result 205 k/mm3 (150-375); Red Cell Distribution Width 14.5 % (11.5-14.5); White Blood Count 8.5 K/mm3 (4.5-10.0)
[2022-02-09 06:39] LABS: Alanine Aminotransferase 32 U/L (6-35); Alkaline Phosphatase 97 U/L (38-126); Anion Gap 7 mmol/L (8-16); Aspartate Amino Transferase 33 U/L (14-36); Bilirubin,Total 0.4 mg/dL (0.2-1.3); Blood Urea Nitrogen 12 mg/dL (7-17); Calcium 8.9 mg/dL (8.4-10.2); Carbon Dioxide 29 mmol/L (22-30); Chloride 102 mmol/L (98-107); Estimated Glomerular Filt Rate 55; Glucose 270 mg/dL (65-110); Magnesium 2.2 mg/dL (1.6-2.3); Potassium 3.8 mmol/L (3.4-5.0); Sodium 138 mmol/L (137-145)
[2022-02-09 07:59] LABS: Glucose Point of Care 448 mg/dl (65-105)
[2022-02-09] MEDS: FLUTICASONE/SALMETEROL 115-21 MCG INHALER 1 PUFF 2 PUFF INHALATION ×2 (08:48→22:15)
[2022-02-09 11:35] LABS: Glucose Point of Care 319 mg/dl (65-105)
[2022-02-09 12:05] LABS: Glucose Point of Care 330 mg/dl (65-105)
--- NOTE | 2022-02-09 12:06 | PM.IMPN ---
Progress Note: A&P Assessment and Plan (1) Symptomatic anemia: Code(s): D64.9 - Anemia, unspecified Status: Acute Assessment and Plan: - Likely an acute on chronic issue for patient. - Transfused 1 unit PRBC's two days ago. Her Hgb has interval increase today from 8.1 yesterday, and is 8.7 today. - Stool for occult blood was positive. - GI consulted and evaluated and pt. is having a Bi-directional scope today. - Anemia panel ordered. - Avoid any blood thinning agents for now and hold Plavix in light of current Hgb. - GI please advise on restarting of Plavix. - Continue supplemental Iron. (2) Hyperkalemia: Code(s): E87.5 - Hyperkalemia Status: Resolved Assessment and Plan: - Potassium is normal today at 3.8. - Diuretics have been restarted. - Continue to monitor. (3) Protein calorie malnutrition: Code(s): E46 - Unspecified protein-calorie malnutrition Status: Acute Assessment and Plan: - Dietitian consulted for recommendations. (4) Type 2 diabetes mellitus with hyperglycemia, with long-term current use of insulin: Code(s): E11.65 - Type 2 diabetes mellitus with hyperglycemia; Z79.4 - floatlight powder mixer (current) use of insulin Status: Chronic Assessment and Plan: - Continue SSI - Continue accu checks. - Continue diabetic diet - Continue hypoglycemic protocol. - A1C remains 7.3. - Glucose levels are still running high here. Will change from low dose insulin to moderate dose insulin sliding scale. (5) Essential hypertension: Code(s): I10 - Essential (primary) hypertension Status: Chronic Assessment and Plan: - Stable at 105/59 (6) Chronic kidney disease, stage 3: Code(s): N18.30 - Chronic kidney disease, stage 3 unspecified Status: Chronic Assessment and Plan: - Appears to be currently at baseline. - Monitor labs and VS (7) Cardiomyopathy: Code(s): I42.9 - Cardiomyopathy, unspecified Status: Chronic Assessment and Plan: - Status post ICD insertion. She is euvolemic currently. (8) Hypothyroidism: Code(s): E03.9 - Hypothyroidism, unspecified Status: Chronic Assessment and Plan: - Normal at 1.160. (9) Peripheral vascular disease: Code(s): I73.9 - Peripheral vascular disease, unspecified Status: Chronic Assessment and Plan: - Patient reportedly had a stent placed in her lower extremities about a month ago. Due to the drop in hemoglobin and concerns for occult GI blood loss, her clopidogrel will be held but we will continue with the aspirin. - Appreciate GI input for when to restart Plavix. Time Spent With Patient Time with patient: 15 - 25 minutes Subjective Date/time seen: 02/09/22 1030 This patient is examined at the bedside today in interval assessment. She has no acute complaints of pain, specifically abdominal pain. She also has no overt melena or hematochezia. She has no other issues to report. She is having a Bi-directional scope today to assess for her GI bleed. Review of Systems Review of Systems: All systems reviewed & are unremarkable except as noted in HPI and below Exam Const: General: comfortable and no acute distress Other: obese HENMT: Ears: TM's normal bilaterally General nose exam: Normal nares present and no epistaxis Mouth: Yes moist mucous membranes Other: no ulcerations or lesions in the oral mucosa. Eyes: General: appearance normal, both eyes and all related structures Sclera: sclerae normal and normal sclerae Pupils: Equal, round and reactive pupils present EOM: EOMs intact bilaterally Neck: Neck: supple and no JVD Thyroid: thyroid normal Carotids: no bruits Lymphatic: lymphadenopathy not noted Resp: Effort & Inspection: normal respiratory effort Auscultation: clear to auscultation bilaterally Cardio: Rate: regular rate Rhythm: regular rhythm Heart sounds: no gallops, no mu
[2022-02-09] MEDS: LACTATED RINGERS 1,000 ML 150 ML IV CONT (12:09)
--- NOTE | 2022-02-09 12:26 | WPDANESEPPF ---
Anes - Initial Pre Proc Eval Procedure: Operation Date: 02/09/22 14:30 Proposed Procedures p Esophagogastroduodenoscopy & Colonoscopy - Rico Jones MD Date/Time: 02/09/22 12:26 Surgeon: GABRIEL Solo Pre Op Diagnosis: Hyperkalemia/dehydration/anemia Patient Data Age: 71 Gender: F Height: Weight: 96 kg Last Vital Signs Temp 97.8 F 02/09/22 12:07 Pulse 95 02/09/22 12:07 Resp 17 02/09/22 12:07 BP 105/59 L 02/09/22 12:07 Pulse Ox 97 02/09/22 12:07 O2 Del Method Room Air 02/09/22 12:07 Allergies Allergy/AdvReac Type Severity Reaction Status Date / Time ibuprofen Allergy Unknown Nausea and Verified 12/01/21 13:02 Vomiting morphine AdvReac Intermediate Nausea and Verified 12/01/21 13:02 Vomiting Home Medications Medication Instructions Recorded Confirmed Type calcium carbonate 600 mg calcium 600 mg PO TID PRN Heartburn 09/14/19 02/06/22 History (1,500 mg) tablet (Calcium) omega [id number]-nyy-[id number]-fish oil 1,000 mg 1 cap PO DAILY 09/14/19 02/06/22 History (120 mg-180 mg) capsule (Fish Oil) spironolactone 25 mg tablet 25 mg PO DAILY 09/14/19 02/06/22 History Adult One Daily Multivitamin 1 tab/day PO DAILY 11/17/19 02/06/22 History acetaminophen 325 mg tablet 650 mg PO ONCE PRN pain 11/17/19 02/06/22 History (Tylenol) albuterol sulfate 90 mcg/actuation 2 puff inhalation QID PRN sob 11/17/19 02/06/22 History aerosol inhaler aspirin 81 mg chewable tablet 81 mg PO DAILY 11/17/19 02/06/22 History (Aspirin Childrens) carvedilol 25 mg tablet 25 mg PO BID 11/17/19 02/06/22 History cranberry 500 mg capsule 500 mg PO BID 11/17/19 02/06/22 History donepezil 10 mg tablet 10 mg PO HS 11/17/19 02/06/22 History fluticasone furoate 100 1 inh inhalation DAILY 11/17/19 02/06/22 History mcg-vilanterol 25 mcg/dose inhalation powder (Breo Ellipta) amitriptyline 75 mg tablet 75 mg PO QPM 11/30/19 02/06/22 History atorvastatin 40 mg tablet (Lipitor) 40 mg PO QPM 11/30/19 02/06/22 History cholecalciferol (vitamin D3) 10 400 unit PO DAILY 11/30/19 02/06/22 History mcg (400 unit) capsule furosemide 40 mg tablet 40 mg PO DAILY 06/13/20 02/06/22 History gabapentin 300 mg capsule 300 mg PO QHS 90 days #90 caps 12/01/21 02/06/22 Rx insulin glargine 100 unit/mL 50 unit (0.5 mL) subcut DAILY 90 01/09/22 02/06/22 Rx subcutaneous solution (Lantus days #50 mL U-100 Insulin) clopidogrel 75 mg tablet (Plavix) 75 mg PO DAILY 02/06/22 02/06/22 History insulin aspart U-100 100 unit/mL 15 unit subcut BID 02/06/22 02/06/22 History subcutaneous solution metformin 500 mg tablet 500 mg PO BID 02/06/22 02/06/22 History Laboratory Tests 02/08/22 02/08/22 02/09/22 16:50 20:16 05:45 WBC 8.5 K/mm3 K/mm3 (4.5-10.0) RBC 2.90 M/mm3 L M/mm3 (4.2-5.4) Hgb 8.7 g/dL L g/dL (12.0-15.0) Hct 27.8 % L % (37.0-47.0) MCV 95.9 fl fl (80-100) MCH 30.0 pg pg (26-34) MCHC 31.3 g/dl L g/dl (32-36) RDW 14.5 % % (11.5-14.5) Plt Count 205 k/mm3 k/mm3 (150-375) MPV 9.9 fl fl (7.4-10.4) Immature Gran % (Auto) 0.7 % H % (0-0.5) Neut % (Auto) 69.8 % % (45.5-73.1) Lymph % (Auto) 17.9 % L % (18.3-44.2) [place] % (Auto) 6.5 % % (2.6-8.5) Eos % (Auto) 4.6 % H % (0-4.4) Baso % (Auto) 0.5 % % (0.2-1.2) Lymph # (Auto) 1.52 K/mm3 K/mm3 (0.9-3.2) [place] # (Auto) 0.6 K/mm3 K/mm3 (0.1-0.6) Eos # (Auto) 0.4 K/mm3 H K/mm3 (0-0.3) Baso # (Auto) 0.0 K/mm3 K/mm3 (0.0-0.1) Abs Immat Gran (auto) 0.06 K/mm3 H K/mm3 (0.00-0.031) Absolute Neuts (auto) 5.9 K/mm3 K/mm3 (1.3-6.7) Absolute Nucleated RBC 0.0 K/mm3 K/mm3 (0.0-0.012) Nucleated RBC % 0.0 % % (0.0-0.2) Sodium Potassium Chloride Carbon
[2022-02-09] MEDS: INSULIN ASPART (*BKC) 100 UNITS/ML SUB-Q ×2 (12:31→17:36)
--- NOTE | 2022-02-09 13:10 | SUR.OPER ---
EGD [id number] COLON [id number]
--- NOTE | 2022-02-09 13:18 | SUR.OPER ---
NOTIFIED DR. DRISCOLL OF POSITIVE [facility]
[2022-02-09 13:28] LABS: Glucose Point of Care 267 mg/dl (65-105)
[2022-02-09 16:53] LABS: Glucose Point of Care 212 mg/dl (65-105)
[2022-02-09] MEDS: ATORVASTATIN 40 MG TABLET PO (17:35)
[2022-02-09] MEDS: AMITRIPTYLINE HCL 25 MG TABLET 75 MG PO (20:55)
[2022-02-09] MEDS: GABAPENTIN 300 MG CAPSULE PO (20:55)
[2022-02-09] MEDS: CLARITHROMYCIN 500 MG TABLET PO (20:56)
[2022-02-09] MEDS: AMOXICILLIN 500 MG CAPSULE 1000 MG PO (20:56)
[2022-02-09] MEDS: PANTOPRAZOLE 40 MG TABLET PO (20:57)
[2022-02-09] MEDS: DONEPEZIL HCL 10 MG TABLET PO (20:58)
[2022-02-09] MEDS: INSULIN GLARGINE (*BKC) 100 UNITS/ML 50 UNITS SUB-Q (21:02)
[2022-02-09 21:08] LABS: Glucose Point of Care 304 mg/dl (65-105)
[2022-02-10] VITALS (11 sets, daily range): BP systolic 123–135; BP diastolic 46–94; PULSE 87–124; RESP 18–20; TEMP 35.8–37.4; O2SAT 90–97
[2022-02-10 06:47] LABS: Basophils Percent Auto 0.5 % (0.2-1.2); Eosinophils Absolute Auto 0.3 K/mm3 (0-0.3); Eosinophils Percent Auto 4.1 % (0-4.4); Hematocrit 25.6 % (37.0-47.0); Hemoglobin 7.8 g/dL (12.0-15.0); Immature Granulocyte Absolute 0.04 K/mm3 (0.00-0.031); Immature Granulocyte Percent A 0.6 % (0-0.5); Lymphocytes Absolute Auto 1.42 K/mm3 (0.9-3.2); Lymphocytes Percent Auto 21.8 % (18.3-44.2); Mean Corpuscular HGB Conc 30.5 g/dl (32-36); Mean Corpuscular Hemoglobin 29.4 pg (26-34); Mean Corpuscular Volume 96.6 fl (80-100); Monocytes Absolute Auto 0.5 K/mm3 (0.1-0.6); Monocytes Percent Auto 7.1 % (2.6-8.5); Neutrophils Absolute Auto 4.3 K/mm3 (1.3-6.7); Neutrophils Percent Auto 65.9 % (45.5-73.1); Platelet Count Result 196 k/mm3 (150-375); Red Blood Count 2.65 M/mm3 (4.2-5.4); Red Cell Distribution Width 14.6 % (11.5-14.5); White Blood Count 6.5 K/mm3 (4.5-10.0)
[2022-02-10 07:12] LABS: Alanine Aminotransferase 30 U/L (6-35); Albumin Level 3.5 g/dL (3.5-5.1); Alkaline Phosphatase 89 U/L (38-126); Anion Gap 4 mmol/L (8-16); Aspartate Amino Transferase 36 U/L (14-36); Bilirubin,Total 0.4 mg/dL (0.2-1.3); Blood Urea Nitrogen 5 mg/dL (7-17); Calcium 8.5 mg/dL (8.4-10.2); Carbon Dioxide 29 mmol/L (22-30); Chloride 105 mmol/L (98-107); Estimated CRCL calculation 53 ml/min; Estimated Glomerular Filt Rate 55; Glucose 184 mg/dL (65-110); Magnesium 1.9 mg/dL (1.6-2.3); Potassium 3.8 mmol/L (3.4-5.0); Sodium 138 mmol/L (137-145)
--- NOTE | 2022-02-10 07:14 | WPDANESPN ---
Anes - Prog Note Post-Op Date/Time: 02/10/22 07:14 Cardiovascular status: normal Respiratory status: normal Airway patency: baseline Mental status: baseline Post-Op hydration status: normal Vital Signs: Last Vital Signs Temp 37.0 C 02/10/22 05:41 Pulse 124 H 02/10/22 05:41 Resp 20 02/10/22 05:41 BP 123/94 H 02/10/22 05:41 Pulse Ox 93 02/10/22 05:41 O2 Del Method Room Air 02/09/22 22:18 Pain Score (VAS): 1 I/O: Intake & Output 02/09/22 02/09/22 02/10/22 15:59 23:59 07:59 Intake Total 0 400 Balance 0 400 Laboratory Tests 02/10/22 05:57 02/10/22 05:57 02/09/22 02/09/22 02/09/22 07:56 11:27 12:03 WBC RBC Hgb Hct MCV MCH MCHC RDW Plt Count MPV Immature Gran % (Auto) Neut % (Auto) Lymph % (Auto) [place] % (Auto) Eos % (Auto) Baso % (Auto) Lymph # (Auto) [place] # (Auto) Eos # (Auto) Baso # (Auto) Abs Immat Gran (auto) Absolute Neuts (auto) Absolute Nucleated RBC Nucleated RBC % Sodium Potassium Chloride Carbon Dioxide Anion Gap BUN Creatinine Estim Creat Clear Calc Estimated GFR Glucose POC Capillary Glucose 448 H 319 H 330 H Calcium Magnesium Total Bilirubin AST ALT Alkaline Phosphatase Total Protein Albumin 02/09/22 02/09/22 02/09/22 13:26 16:51 21:01 WBC RBC Hgb Hct MCV MCH MCHC RDW Plt Count MPV Immature Gran % (Auto) Neut % (Auto) Lymph % (Auto) [place] % (Auto) Eos % (Auto) Baso % (Auto) Lymph # (Auto) [place] # (Auto) Eos # (Auto) Baso # (Auto) Abs Immat Gran (auto) Absolute Neuts (auto) Absolute Nucleated RBC Nucleated RBC % Sodium Potassium Chloride Carbon Dioxide Anion Gap BUN Creatinine Estim Creat Clear Calc Estimated GFR Glucose POC Capillary Glucose 267 H 212 H 304 H Calcium Magnesium Total Bilirubin AST ALT Alkaline Phosphatase Total Protein Albumin 02/10/22 02/10/22 05:57 05:57 WBC 6.5 RBC 2.65 L Hgb 7.8 L Hct 25.6 L MCV 96.6 MCH 29.4 MCHC 30.5 L RDW 14.6 H Plt Count 196 MPV 10.0 Immature Gran % (Auto) 0.6 H Neut % (Auto) 65.9 Lymph % (Auto) 21.8 [place] % (Auto) 7.1 Eos % (Auto) 4.1 Baso % (Auto) 0.5 Lymph # (Auto) 1.42 [place] # (Auto) 0.5 Eos # (Auto) 0.3 Baso # (Auto) 0.0 Abs Immat Gran (auto) 0.04 H Absolute Neuts (auto) 4.3 Absolute Nucleated RBC 0.0 Nucleated RBC % 0.0 Sodium 138 Potassium 3.8 Chloride 105 Carbon Dioxide 29 Anion Gap 4 L BUN 5 L D Creatinine 1.00 Estim Creat Clear Calc 53 Estimated GFR 55 L Glucose 184 H POC Capillary Glucose Calcium 8.5 Magnesium 1.9 Total Bilirubin 0.4 AST 36 ALT 30 Alkaline Phosphatase 89 Total Protein 6.0 L Albumin 3.5 Patient Feedback: Patient satisfied with anesthetic care.
[2022-02-10 07:54] LABS: Glucose Point of Care 167 mg/dl (65-105)
[2022-02-10] MEDS: FUROSEMIDE 40 MG TABLET PO (08:24)
[2022-02-10] MEDS: AMOXICILLIN 500 MG CAPSULE 1000 MG PO (08:24)
[2022-02-10] MEDS: CLARITHROMYCIN 500 MG TABLET PO (08:25)
[2022-02-10] MEDS: SPIRONOLACTONE 25 MG TABLET PO (08:25)
[2022-02-10] MEDS: CLOPIDOGREL BISULFATE 75 MG TABLET PO (08:25)
[2022-02-10] MEDS: PANTOPRAZOLE 40 MG TABLET PO (08:25)
[2022-02-10] MEDS: POLYSACCHARIDE IRON COMPLEX 150 MG CAPSULE PO (08:25)
[2022-02-10] MEDS: FLUTICASONE/SALMETEROL 115-21 MCG INHALER 1 PUFF 2 PUFF INHALATION (08:33)
[2022-02-10 11:49] LABS: Glucose Point of Care 442 mg/dl (65-105)
[2022-02-10] MEDS: INSULIN ASPART (*BKC) 100 UNITS/ML 11 UNITS SUB-Q (12:03)
[2022-02-10 12:08] LABS: Hematocrit 27.5 % (37.0-47.0); Hemoglobin 8.4 g/dL (12.0-15.0)
--- NOTE | 2022-02-10 14:19 | PM.DS ---
DS: Admitting Diagnosis Discharge Date 02/10/2022 Admitting Diagnosis Symptomatic Anemia, Hyperkalemia, CKD3, DM2, Protein Calorie Malnutrition, HTN, Cardiomyopathy, Hypothyroidism, PVD DS: Discharge Diagnosis Discharge Diagnosis (1) Symptomatic anemia: Code(s): D64.9 - Anemia, unspecified Status: Acute Assessment and Plan: - Pt. with low Hgb here on admission. Was transfused 1 unit PRBC's. She had EGD and Colonoscopy that showed a Gastric ulcer without any active bleeding. Biopsy sent for H.pylori. Pt. started on Biaxin and Amoxicillin by GI until 02/23/22. Hgb has remained stable and even increased on it's own today. She is stable, without complaint and is being discharged at this time. Will have pt. follow up with GI services in three months for a repeat EGD to evaluate for healing of ulceration. She will continue to use her PPI, eat a bland diet as well as also have a CBC checked in three days as an outpatient and pt. is to follow up with her PCP. (2) Hyperkalemia: Code(s): E87.5 - Hyperkalemia Status: Resolved Assessment and Plan: - Resolved (3) Protein calorie malnutrition: Code(s): E46 - Unspecified protein-calorie malnutrition Status: Acute Assessment and Plan: - Diabetic diet as outpatient. (4) Type 2 diabetes mellitus with hyperglycemia, with long-term current use of insulin: Code(s): E11.65 - Type 2 diabetes mellitus with hyperglycemia; Z79.4 - senior living (current) use of insulin Status: Chronic Assessment and Plan: - Continue home diabetic treatment regimen. - A1C remains 7.3. - Glucose levels are still running high here. Will change from low dose insulin to moderate dose insulin sliding scale. (5) Essential hypertension: Code(s): I10 - Essential (primary) hypertension Status: Chronic Assessment and Plan: - Stable during admission. (6) Chronic kidney disease, stage 3: Code(s): N18.30 - Chronic kidney disease, stage 3 unspecified Status: Chronic Assessment and Plan: - Remained at baseline during admission. (7) Cardiomyopathy: Code(s): I42.9 - Cardiomyopathy, unspecified Status: Chronic Assessment and Plan: - Pt. remained Euvolemic. (8) Hypothyroidism: Code(s): E03.9 - Hypothyroidism, unspecified Status: Chronic Assessment and Plan: - Normal TSH at 1.160. (9) Peripheral vascular disease: Code(s): I73.9 - Peripheral vascular disease, unspecified Status: Chronic Assessment and Plan: - Patient reportedly had a stent placed in her lower extremities about a month ago. Due to the drop in hemoglobin and concerns for occult GI blood loss, her clopidogrel was held until this AM. It will be continued for home use daily as her Hgb has stabilized and increased on it's own. DS: Summary Hospital Course Reason for hospitalization: Weakness and anemia Hospital Course: See above Plan of Care for complete Hospital Course. Status at Discharge Functional status at discharge: independent ambulation Overall status at discharge: patient is back to baseline Time Spent with Patient Time attestation: Total time spent providing and/or coordinating discharge services: Time spent: Greater than 30 minutes Exam Const: General: comfortable and no acute distress Other: obese HENMT: Ears: TM's normal bilaterally General nose exam: Normal nares present and no epistaxis Mouth: Yes moist mucous membranes Other: no ulcerations or lesions in the oral mucosa. Eyes: General: appearance normal, both eyes and all related structures Sclera: sclerae normal and normal sclerae Pupils: Equal, round and reactive pupils present EOM: EOMs intact bilaterally Neck: Neck: supple and no JVD Thyroid: thyroid normal Carotids: no bruits Lymphatic: lymphadenopathy not noted Resp: Effort & Inspection: normal respiratory effort Auscultation: paresh
== END 2022-02-10 15:05 | disposition home or self-care (01) | DRG 384 ==
LOC: ANHED 13:20 → ANH3MEDSUR 15:31
PROVIDERS: Internal Medicine Gastroenterology; Physician Assistant; Admitting Provider Chiropractor; Emergency Provider Emergency Medicine; PCP Family Medicine; Visit Provider Nurse Practitioner Adult Health
PROC: 0DJ08ZZ Inspection of Upper Intestinal Tract, Via Natural or Artificial Opening Endoscopic (ICD-10-PCS; CPT 43235; principal; 2022-02-09 14:30)
DX: K25.9 Gastric ulcer, unspecified as acute or chronic, without hemorrhage or perforation (principal); I42.9 Cardiomyopathy, unspecified; I13.0 Hypertensive heart and chronic kidney disease with heart failure and stage 1 through stage 4 chronic kidney disease, or unspecified chronic kidney disease; E46 Unspecified protein-calorie malnutrition; D64.9 Anemia, unspecified; E87.5 Hyperkalemia; E11.22 Type 2 diabetes mellitus with diabetic chronic kidney disease; N18.30 Chronic kidney disease, stage 3 unspecified; I50.9 Heart failure, unspecified; E86.0 Dehydration; E11.65 Type 2 diabetes mellitus with hyperglycemia; E03.9 Hypothyroidism, unspecified; K63.5 Polyp of colon; I73.9 Peripheral vascular disease, unspecified; Z20.822 Contact with and (suspected) exposure to COVID-19; M19.90 Unspecified osteoarthritis, unspecified site; I25.10 Atherosclerotic heart disease of native coronary artery without angina pectoris; F41.8 Other specified anxiety disorders; E78.5 Hyperlipidemia, unspecified; E11.42 Type 2 diabetes mellitus with diabetic polyneuropathy; Z79.4 Long term (current) use of insulin; Z79.82 Long term (current) use of aspirin; Z95.820 Peripheral vascular angioplasty status with implants and grafts; Z95.810 Presence of automatic (implantable) cardiac defibrillator; Z86.73 Personal history of transient ischemic attack (TIA), and cerebral infarction without residual deficits; Z95.5 Presence of coronary angioplasty implant and graft; Z90.710 Acquired absence of both cervix and uterus; Z87.891 Personal history of nicotine dependence
CPT/HCPCS: 36415; 36430; 80048; 80053; 82274; 82607; 82728; 82746; 82948; 83036; 83540; 83550; 83690; 83735; 84443; 84466; 84484; 85014; 85018; 85025; 85027; 86850; 86900; 86901; 86920; 87081; 88305; 88312; 88342; 93005; 94640; 96361; 96374; 96375; 96376; 99285; A9270; C9803; G0378; J1815; J2405; J2704; J7030; J7050; J7120; P9016; U0003; U0005

== ENCOUNTER 2022-02-11 13:28 | Inpatient (IN) | payer OTHER, SELFPAY ==
[2022-02-11] VITALS (9 sets, daily range): BP systolic 92–115; BP diastolic 33–58; PULSE 63–82; RESP 14–24; TEMP 36.3–36.7; O2SAT 95–99; BMI 31.4
--- NOTE | ~2022-02-11 | XR_ITS ---
EXAMINATION: XR chest 2V DATE: 02/13/2022 11:45 INDICATION: Dyspnea. TECHNIQUE: Frontal and lateral views of the chest were obtained. COMPARISON: Chest 2 views 12/11/2021, chest CT 12/11/2021 FINDINGS: There is a diffuse interstitial pattern, consistent with mild pulmonary edema. There are ai rspace opacities at left lung base. There are small pleural effusions. No pneumothorax. The heart siz e is normal. There is a left chest pacer/defibrillator with lead in right ventricle. There are change s of posterior fusion procedure in thoracolumbar spine. IMPRESSION: 1. Mild pulmonary edema. 2. Airspace opacities at left lung base, consistent with atelectasis versus pneumonia. 3. Small pleural effusions. Reviewed, dictated and finalized at location A. IMPRESSION: 1. Mild pulmonary edema. 2. Airspace opacities at left lung base, consistent with atelectasis versus pne umonia. 3. Small pleural effusions.
[2022-02-11 14:33] LABS: Basophils Percent Auto 0.5 % (0.2-1.2); Eosinophils Absolute Auto 0.2 K/mm3 (0-0.3); Eosinophils Percent Auto 3.3 % (0-4.4); Hematocrit 23.6 % (37.0-47.0); Hemoglobin 7.5 g/dL (12.0-15.0); Immature Granulocyte Absolute 0.08 K/mm3 (0.00-0.031); Immature Granulocyte Percent A 1.1 % (0-0.5); Lymphocytes Absolute Auto 0.78 K/mm3 (0.9-3.2); Lymphocytes Percent Auto 10.6 % (18.3-44.2); Mean Corpuscular HGB Conc 31.8 g/dl (32-36); Mean Corpuscular Hemoglobin 30.2 pg (26-34); Mean Corpuscular Volume 95.2 fl (80-100); Mean Platelet Volume 9.9 fl (7.4-10.4); Monocytes Absolute Auto 0.6 K/mm3 (0.1-0.6); Monocytes Percent Auto 7.5 % (2.6-8.5); Neutrophils Absolute Auto 5.7 K/mm3 (1.3-6.7); Nucleated Red Blood Cells Perc 0.5 % (0.0-0.2); Platelet Count Result 177 k/mm3 (150-375); Red Blood Count 2.48 M/mm3 (4.2-5.4); Red Cell Distribution Width 14.8 % (11.5-14.5); White Blood Count 7.4 K/mm3 (4.5-10.0)
[2022-02-11 14:45] LABS: Alanine Aminotransferase 34 U/L (6-35); Albumin Level 3.1 g/dL (3.5-5.1); Alkaline Phosphatase 79 U/L (38-126); Anion Gap 6 mmol/L (8-16); Aspartate Amino Transferase 42 U/L (14-36); Bilirubin,Total 0.5 mg/dL (0.2-1.3); Blood Urea Nitrogen 13 mg/dL (7-17); Calcium 8.1 mg/dL (8.4-10.2); Carbon Dioxide 24 mmol/L (22-30); Chloride 102 mmol/L (98-107); Estimated CRCL calculation 44 ml/min; Estimated Glomerular Filt Rate 44; Glucose 217 mg/dL (65-110); Lipase 66 U/L (23-300); Potassium 3.7 mmol/L (3.4-5.0); Sodium 132 mmol/L (137-145)
[2022-02-11 14:53] LABS: INR 1.1
[2022-02-11 14:54] LABS: Partial Thromboplastin Time 25.2 SECONDS (22.3-36.8)
[2022-02-11] MEDS: SODIUM CHLORIDE 0.9% IV 1,000 ML 999 ML IV CONT (15:20)
--- NOTE | 2022-02-11 15:33 | ED.GIBLEED ---
HPI - GI Bleed General Chief complaint: GI Bleed Stated complaint: weakness, ?GI bld Time Seen by Provider: 02/11/22 13:38 Source: RN notes reviewed History of Present Illness HPI Narrative: Patient presents emergency department from home for blood in stool. Patient states that this morning she had 2 black bowel movements. States that with this she has been feeling generally weak. The patient was just discharged from the hospital yesterday for a GI bleed she states at that time she had been transfused 1 unit of packed red blood cells she states she had not had any black bowel movement so she had been in the hospital. She denies any fevers or chills chest pain shortness of breath she denies any abdominal pain Related Data Home Medications Medication Instructions Recorded Confirmed calcium carbonate 600 mg calcium 600 mg PO TID PRN Heartburn 09/14/19 02/06/22 (1,500 mg) tablet (Calcium) omega 4-vdj-cdb-fish oil 1,000 mg 1 cap PO DAILY 09/14/19 02/06/22 (120 mg-180 mg) capsule (Fish Oil) spironolactone 25 mg tablet 25 mg PO DAILY 09/14/19 02/06/22 Adult One Daily Multivitamin 1 tab/day PO DAILY 11/17/19 02/06/22 acetaminophen 325 mg tablet 650 mg PO ONCE PRN pain 11/17/19 02/06/22 (Tylenol) albuterol sulfate 90 mcg/actuation 2 puff inhalation QID PRN sob 11/17/19 02/06/22 aerosol inhaler aspirin 81 mg chewable tablet 81 mg PO DAILY 11/17/19 02/06/22 (Aspirin Childrens) carvedilol 25 mg tablet 25 mg PO BID 11/17/19 02/06/22 cranberry 500 mg capsule 500 mg PO BID 11/17/19 02/06/22 donepezil 10 mg tablet 10 mg PO HS 11/17/19 02/06/22 fluticasone furoate 100 1 inh inhalation DAILY 11/17/19 02/06/22 mcg-vilanterol 25 mcg/dose inhalation powder (Breo Ellipta) amitriptyline 75 mg tablet 75 mg PO QPM 11/30/19 02/06/22 atorvastatin 40 mg tablet (Lipitor) 40 mg PO QPM 11/30/19 02/06/22 cholecalciferol (vitamin D3) 10 400 unit PO DAILY 11/30/19 02/06/22 mcg (400 unit) capsule furosemide 40 mg tablet 40 mg PO DAILY 06/13/20 02/06/22 clopidogrel 75 mg tablet (Plavix) 75 mg PO DAILY 02/06/22 02/06/22 insulin aspart U-100 100 unit/mL 15 unit subcut BID 02/06/22 02/06/22 subcutaneous solution metformin 500 mg tablet 500 mg PO BID 02/06/22 02/06/22 Allergies Allergy/AdvReac Type Severity Reaction Status Date / Time ibuprofen Allergy Unknown Nausea and Verified 12/01/21 13:02 Vomiting morphine AdvReac Intermediate Nausea and Verified 12/01/21 13:02 Vomiting Review of Systems Review of Systems: Gen.: Denies fevers or chills ENT: Denies congestion Respiratory: Denies shortness of breath or cough CV: Denies chest pain or palpitations GI: See HPI denies burning, urgency, frequency or hematuria Musculoskeletal: Denies back pain or muscle pain Neuro: Denies numbness, tingling, weakness or focal weakness Skin: Denies rash Except as documented, all other systems reviewed and negative [facility] Past Medical History Medical History Acute on chronic anemia Arthritis Cardiomyopathy Status post ICD insertion. Carotid artery disease Chronic kidney disease, stage 3 Coronary artery disease Depression with anxiety Essential hypertension Headache Hyperlipidemia Hypothyroidism Insulin dependent type 2 diabetes mellitus Peripheral neuropathy Peripheral vascular disease Stroke Surgical History Surgical History History of back surgery History of cardiac catheterization History of coronary artery stent placement History of hysterectomy History of implantable cardioverter-defibrillator (ICD) insertion History of vascular surgery (12/2021) Lower extremity stents. Family History Family History Father Family history of heart disease in male family member before age 55 Social History Social History (Reviewed 02/11/22 @ 15:34 by John Diop
[2022-02-11] MEDS: PANTOPRAZOLE SODIUM IV 40 MG VIAL IV PUSH ×2 (15:34→20:52)
[2022-02-11 15:40] LABS: Lactic Acid Reflex 1.2 mmol/L (0.7-2.0)
[2022-02-11] MEDS: TUBING, BLOOD SET 1 EACH XX (15:55)
[2022-02-11] MEDS: SODIUM CHLORIDE 0.9% IV 250 ML 30 ML IV CONT (15:56)
--- NOTE | 2022-02-11 16:36 | ADMGEN ---
This patient, Jeanette Thompson, was admitted to 2 Medical Room 242-. Patient/family oriented to hospital policies and general routines including ID bracelet, bed and alarms, visiting hours, pain management, procedures, bathroom and other care routines, personal items, smoking policy, room service/diet, and visiting hours. Information on how to activate the Rapid Response Team has been discussed. Patient/Family are encouraged to report perceived risks to care and to ask questions if they do not understand what they are told or what they should do.
[2022-02-11 21:04] LABS: Glucose Point of Care 163 mg/dl (65-105)
--- NOTE | 2022-02-11 21:53 | PM.IMHP ---
H&P: HPI History of Present Illness Date/Time: 02/11/22 21:53 Chief Complaint: black stool Narrative: this is a 71-year-old female patient who was just discharged from the hospitalist services on 02/10/2022. she is here with symptomatic anemia. She had an EGD and colonoscopy that showed a gastric ulcer without any active bleeding. She had a biopsy that was sent for H pylori eye. She was started on Biaxin and amoxicillin by GI on 02/23/2022. According to the notes the patient's H&H remained stable and she was discharged to home and to continue with her PPI in eat bland diet as well as having her CBG checked in 3 days. She was also treated for hyperkalemia at that time. The patient had been on Plavix for stent that was placed in her leg. That was on hold until the day of discharge. Today the patient had 2 black bowel movements and she stated that she felt really weak and dizzy. Patient was transfused today. She denies any fever chills or any shortness of breath. Her H&H is 7.5 in 23.6 yesterday he had been 8.4 And 27.5. creatinine came back up to 1. 2. Blood sugar 270. patient's potassium was normal. GI has been consulted and the patient is being admitted for observation status on 02/11/22 Review of Systems Review of Systems: All systems reviewed & are unremarkable except as noted in HPI and below Constitutional: Constitutional: Reports as per HPI and Reports no additional constitutional complaints Eyes: Eyes: Reports as per HPI and Reports no additional eye complaints ENT: Reports system reviewed and no additional complaints, except as documented and Reports Normal hearing present Cardiovascular: Cardiovascular: Reports no additional cardiovascular complaints Respiratory: Respiratory: Reports no additional respiratory complaints and Reports no additional respiratory complaints Gastrointestinal: Gastrointestinal: Reports as per HPI and Reports no additional gastrointestinal complaints Musculoskeletal: Musculoskeletal: Reports no additional musculoskeletal complaints Integumentary/Breasts: Skin/Breast: Reports system reviewed and no additional complaints, except as docu and Reports as per HPI Neurologic: Reports system reviewed and no additional complaints, except as documented, Reports as per HPI and Reports Normal hearing present Psychiatric: Psychiatric: Reports no additional psychiatric complaints and Reports as per HPI Endocrine: Endocrine: Reports no additional endocrine complaints Hematologic/Lymphatic: Hematologic/Lymphatic: Reports no additional hematologic/lymphatic complaints Allergic/Immunologic: Allergic/Immunologic: Reports no additional allergic/immunologic complaints [facility] Past Medical History Medical History (Updated 02/11/22 @ 22:29 by Cece Herrera NP) Acute on chronic anemia Arthritis Cardiomyopathy Status post ICD insertion. Carotid artery disease Chronic kidney disease, stage 3 Coronary artery disease Dementia Depression with anxiety Essential hypertension Headache Hyperlipidemia Hypothyroidism Insulin dependent type 2 diabetes mellitus Peptic ulcer Peripheral neuropathy Peripheral vascular disease Stroke Surgical History Surgical History History of back surgery History of cardiac catheterization History of coronary artery stent placement History of hysterectomy History of implantable cardioverter-defibrillator (ICD) insertion History of vascular surgery (12/2021) Lower extremity stents. Family History Family History Father Family history of heart disease in male family member before age 55 Social History Social History Social History: Surrogate medical decision maker: Berny Thompson, daughter. Code status: Full code. Smoking packs per day: 1.5 Smoking cigarettes per day: 30.0 Years smoked: 30
[2022-02-11] MEDS: GABAPENTIN 300 MG CAPSULE PO (23:30)
[2022-02-11] MEDS: carvediloL 25 MG TABLET PO (23:30)
[2022-02-11] MEDS: AMOXICILLIN 500 MG CAPSULE 1000 MG PO (23:30)
[2022-02-11] MEDS: ATORVASTATIN 40 MG TABLET PO (23:31)
[2022-02-11] MEDS: DONEPEZIL HCL 10 MG TABLET PO (23:31)
[2022-02-11] MEDS: CLARITHROMYCIN 500 MG TABLET PO (23:31)
[2022-02-11] MEDS: AMITRIPTYLINE HCL 25 MG TABLET 75 MG PO (23:31)
[2022-02-11 23:45] LABS: Hematocrit 28.1 % (37.0-47.0); Hemoglobin 8.9 g/dL (12.0-15.0)
[2022-02-12] VITALS (15 sets, daily range): BP systolic 109–132; BP diastolic 31–66; PULSE 64–82; RESP 18; TEMP 36.4–36.9; O2SAT 90–96
[2022-02-12 05:31] LABS: Basophils Absolute Auto 0.1 K/mm3 (0.0-0.1); Basophils Percent Auto 0.7 % (0.2-1.2); Eosinophils Absolute Auto 0.5 K/mm3 (0-0.3); Hematocrit 27.8 % (37.0-47.0); Hemoglobin 8.7 g/dL (12.0-15.0); Immature Granulocyte Absolute 0.07 K/mm3 (0.00-0.031); Immature Granulocyte Percent A 0.9 % (0-0.5); Lymphocytes Absolute Auto 1.22 K/mm3 (0.9-3.2); Lymphocytes Percent Auto 16.2 % (18.3-44.2); Mean Corpuscular HGB Conc 31.3 g/dl (32-36); Mean Corpuscular Hemoglobin 29.7 pg (26-34); Mean Corpuscular Volume 94.9 fl (80-100); Mean Platelet Volume 9.3 fl (7.4-10.4); Monocytes Absolute Auto 0.6 K/mm3 (0.1-0.6); Monocytes Percent Auto 7.5 % (2.6-8.5); Neutrophils Absolute Auto 5.2 K/mm3 (1.3-6.7); Neutrophils Percent Auto 68.7 % (45.5-73.1); Nucleated Red Blood Cells Perc 0.4 % (0.0-0.2); Platelet Count Result 214 k/mm3 (150-375); Red Blood Count 2.93 M/mm3 (4.2-5.4); Red Cell Distribution Width 15.7 % (11.5-14.5); White Blood Count 7.6 K/mm3 (4.5-10.0)
[2022-02-12 05:47] LABS: Anion Gap 5 mmol/L (8-16); Blood Urea Nitrogen 10 mg/dL (7-17); Calcium 8.5 mg/dL (8.4-10.2); Carbon Dioxide 29 mmol/L (22-30); Chloride 107 mmol/L (98-107); Estimated CRCL calculation 44 ml/min; Estimated Glomerular Filt Rate 44; Glucose 129 mg/dL (65-110); Potassium 3.7 mmol/L (3.4-5.0); Sodium 141 mmol/L (137-145)
[2022-02-12 06:08] LABS: Glucose Point of Care 132 mg/dl (65-105)
[2022-02-12] MEDS: ACETAMINOPHEN 325 MG TABLET 650 MG PO (07:11)
[2022-02-12] MEDS: carvediloL 25 MG TABLET PO ×2 (08:39→17:17)
[2022-02-12] MEDS: AMOXICILLIN 500 MG CAPSULE 1000 MG PO (08:39)
[2022-02-12] MEDS: CLARITHROMYCIN 500 MG TABLET PO (08:40)
[2022-02-12] MEDS: FUROSEMIDE 40 MG TABLET PO (08:40)
[2022-02-12] MEDS: PANTOPRAZOLE SODIUM IV 40 MG VIAL IV PUSH ×2 (08:40→17:17)
--- NOTE | 2022-02-12 09:00 | PM.IMPN ---
Progress Note: A&P Assessment and Plan (1) Symptomatic anemia: Code(s): D64.9 - Anemia, unspecified Status: Acute Assessment and Plan: - Interval drop in Hgb since her discharge the day prior in the setting of prescribed Plavix for vascular stents. - Continue H&H every 6 hours. - Continue PPI Therapy - Hold Plavix in presence and setting of reported black, tarry stools. - GI service is consulted for co-management and we appreciate their input. - Pt. received one unit of PRBC's in ED for Hgb of 7.5. She was 8.4 the day prior at the time of discharge. - Will obtain another stool to test for occult blood. (2) Peptic ulcer: Code(s): K27.9 - Peptic ulcer, site unspecified, unspecified as acute or chronic, without hemorrhage or perforation Status: Acute Assessment and Plan: - continue with PPI therapy. - GI consult with Dr. Love. Appreciate continued recommendations. - NS at 75 ml/hr. - STOP BIAXIN AND AMOXICILLIN THE PATHOLOGY REPORT FROM THE EGD AND COLON ARE NEGATIVE FOR H.PYLORI. (3) Peripheral vascular disease: Code(s): I73.9 - Peripheral vascular disease, unspecified Status: Chronic Assessment and Plan: - Patient had been on Plavix and aspirin for recent vascular stent <3 mos ago. - Plavix and aspirin are on hold at this time secondary to suspected GI bleed. (4) Chronic kidney disease, stage 3: Code(s): N18.30 - Chronic kidney disease, stage 3 unspecified Status: Chronic Assessment and Plan: - creatinine at baseline of 1.2 currently. - Monitor labs and vitals and adjust plan of care accordingly. 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 - HgbA1C = 7.0. (6) Essential hypertension: Code(s): I10 - Essential (primary) hypertension Status: Chronic Assessment and Plan: - continue home medications and monitor. (7) Hyperlipidemia: Code(s): E78.5 - Hyperlipidemia, unspecified Status: Acute Assessment and Plan: - Continue home medications. (8) Peripheral neuropathy: Code(s): G62.9 - Polyneuropathy, unspecified Status: Acute Assessment and Plan: - continue with gabapentin (9) Dementia: Code(s): F03.90 - Unspecified dementia without behavioral disturbance Status: Acute Assessment and Plan: - amitriptyline - continue with Aricept Time Spent With Patient Time with patient: 15 - 25 minutes Subjective Date/time seen: 02/12/22 0800 This pt. was examined at the bedside today in interval assessment after being admitted with a GI bleed. She was previously discharged two days ago for the same diagnosis, and at the time of her discharge, she had been restarted on her Plavix for her vascular stents in her legs and her Hgb had increased on it's own from 7.8-->8.4, even after restarting the Plavix. She was given Amoxicillin and Clarithromycin for the findings of her Gastric ulcer that was found on Bi-directional scope performed 02/09/[address] Love. There was no identification of any acute bleeding on either the EGD or the Colonoscopy on that day. She currently reports feeling weak and having two black appearing stools. Her Plavix is back on hold again. She needs some type of anti-platelet aggregator as she has new vascular stents in the lower extremities that are <3 mos old. She was transfused one unit in the ER for her Hgb of 7.5 and admitted to the hospitalist service for continued management. Review of Systems Review of Systems: All systems reviewed & are unremarkable except as noted in HPI and below Exam Const: General: comfortable and no acute distress Other: l
[2022-02-12 09:53] LABS: Hematocrit 27.3 % (37.0-47.0); Hemoglobin 8.6 g/dL (12.0-15.0)
[2022-02-12] MEDS: FLUTICASONE/SALMETEROL 115-21 MCG INHALER 1 PUFF 2 PUFF INHALATION ×2 (10:04→21:15)
[2022-02-12] MEDS: SODIUM CHLORIDE 0.9% IV 1,000 ML 75 ML IV CONT ×2 (10:29→23:23)
[2022-02-12 12:03] LABS: Glucose Point of Care 229 mg/dl (65-105)
[2022-02-12] MEDS: INSULIN ASPART (*BKC) 100 UNITS/ML SUB-Q ×2 (12:04→17:22)
[2022-02-12] MEDS: ATORVASTATIN 40 MG TABLET PO (17:18)
[2022-02-12 17:22] LABS: Glucose Point of Care 255 mg/dl (65-105)
[2022-02-12 17:32] LABS: Hematocrit 30.9 % (37.0-47.0); Hemoglobin 9.6 g/dL (12.0-15.0)
[2022-02-12] MEDS: AMITRIPTYLINE HCL 25 MG TABLET 75 MG PO (20:22)
[2022-02-12] MEDS: DONEPEZIL HCL 10 MG TABLET PO (20:23)
[2022-02-12] MEDS: GABAPENTIN 300 MG CAPSULE PO (20:23)
[2022-02-12 21:05] LABS: Glucose Point of Care 296 mg/dl (65-105)
[2022-02-13] VITALS (14 sets, daily range): BP systolic 100–116; BP diastolic 40–42; PULSE 61–92; RESP 17–20; TEMP 36.4–36.8; O2SAT 89–97
[2022-02-13] MEDS: ALBUTEROL SULFATE (*SP) AEROSOL 1 PUFF 2 PUFF INHALATION (03:40)
--- NOTE | 2022-02-13 03:54 | PCRCNOTE ---
RN called to inform RT of pt's desat. When Sp02 was checked, it was 79%. Pt was instructed to take deep breaths, where pt increased to 87%. Pt was placed on 2L at this time where pt increased to 93%.
[2022-02-13 05:53] LABS: Basophils Percent Auto 0.4 % (0.2-1.2); Eosinophils Absolute Auto 0.4 K/mm3 (0-0.3); Eosinophils Percent Auto 5.4 % (0-4.4); Hematocrit 27.3 % (37.0-47.0); Hemoglobin 8.4 g/dL (12.0-15.0); Immature Granulocyte Absolute 0.04 K/mm3 (0.00-0.031); Immature Granulocyte Percent A 0.6 % (0-0.5); Lymphocytes Absolute Auto 0.99 K/mm3 (0.9-3.2); Lymphocytes Percent Auto 13.7 % (18.3-44.2); Mean Corpuscular HGB Conc 30.8 g/dl (32-36); Mean Corpuscular Hemoglobin 29.7 pg (26-34); Mean Corpuscular Volume 96.5 fl (80-100); Mean Platelet Volume 9.8 fl (7.4-10.4); Monocytes Absolute Auto 0.6 K/mm3 (0.1-0.6); Monocytes Percent Auto 8.9 % (2.6-8.5); Neutrophils Absolute Auto 5.1 K/mm3 (1.3-6.7); Nucleated Red Blood Cells Perc 0.3 % (0.0-0.2); Platelet Count Result 222 k/mm3 (150-375); Red Blood Count 2.83 M/mm3 (4.2-5.4); Red Cell Distribution Width 15.4 % (11.5-14.5); White Blood Count 7.2 K/mm3 (4.5-10.0)
[2022-02-13 06:08] LABS: Alanine Aminotransferase 30 U/L (6-35); Albumin Level 3.3 g/dL (3.5-5.1); Alkaline Phosphatase 88 U/L (38-126); Anion Gap 5 mmol/L (8-16); Aspartate Amino Transferase 29 U/L (14-36); Bilirubin,Total 0.6 mg/dL (0.2-1.3); Blood Urea Nitrogen 9 mg/dL (7-17); Calcium 8.1 mg/dL (8.4-10.2); Carbon Dioxide 29 mmol/L (22-30); Chloride 102 mmol/L (98-107); Estimated CRCL calculation 48 ml/min; Estimated Glomerular Filt Rate 49; Glucose 246 mg/dL (65-110); Magnesium 1.6 mg/dL (1.6-2.3); Sodium 136 mmol/L (137-145)
[2022-02-13] MEDS: FLUTICASONE/SALMETEROL 115-21 MCG INHALER 1 PUFF 2 PUFF INHALATION ×2 (07:52→20:21)
[2022-02-13] MEDS: FUROSEMIDE 40 MG TABLET PO (08:31)
[2022-02-13] MEDS: carvediloL 25 MG TABLET PO ×2 (08:31→16:35)
[2022-02-13] MEDS: PANTOPRAZOLE SODIUM IV 40 MG VIAL IV PUSH ×2 (08:32→16:36)
[2022-02-13] MEDS: INSULIN ASPART (*BKC) 100 UNITS/ML SUB-Q ×3 (08:36→16:44)
[2022-02-13 08:48] LABS: Glucose Point of Care 232 mg/dl (65-105)
--- NOTE | 2022-02-13 10:58 | PM.IMPN ---
Progress Note: A&P Assessment and Plan (1) Symptomatic anemia: Code(s): D64.9 - Anemia, unspecified Status: Acute Assessment and Plan: - Interval drop in Hgb since her discharge the day prior in the setting of prescribed Plavix for vascular stents. Her surgeon who placed the stent is Dr. Bobby Judd from [facility]. His phone number for existing patients is [phone]. - Continue H&H every 6 hours. - Continue PPI Therapy - Hold Plavix in presence and setting of reported black, tarry stools. - GI service is consulted for co-management and we appreciate their input. - Pt. received one unit of PRBC's in ED for Hgb of 7.5. She was 8.4 the day prior at the time of discharge. Yesterday her Hgb had risen to 9.6, but it is now back to 8.4. - No overt bleeding identified. - Will obtain another stool to test for occult blood, it was positive prior to previous scope. - Monitor labs and VS. (2) Peptic ulcer: Code(s): K27.9 - Peptic ulcer, site unspecified, unspecified as acute or chronic, without hemorrhage or perforation Status: Acute Assessment and Plan: - continue with PPI therapy. - GI consult with Dr. Love. Appreciate continued recommendations. - Fluids being discontinued at this time. - STOP BIAXIN AND AMOXICILLIN THE PATHOLOGY REPORT FROM THE EGD AND COLON ARE NEGATIVE FOR H.PYLORI. (3) Peripheral vascular disease: Code(s): I73.9 - Peripheral vascular disease, unspecified Status: Chronic Assessment and Plan: - Patient had been on Plavix and aspirin for recent vascular stent <3 mos ago. - Plavix and aspirin are on hold at this time secondary to suspected GI bleed. - See Problem #1 for vascular surgeon name and contact information. (4) Chronic kidney disease, stage 3: Code(s): N18.30 - Chronic kidney disease, stage 3 unspecified Status: Chronic Assessment and Plan: - creatinine at baseline of 1.10 currently. - Monitor labs and vitals and adjust plan of care accordingly. 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 - HgbA1C = 7.0. - We verified patients dose of home Lantus and she confirmed that it was 54 units at bedtime. This is re-ordered at this time. I discussed with Kaya in pharmacy. (6) Essential hypertension: Code(s): I10 - Essential (primary) hypertension Status: Chronic Assessment and Plan: - continue home medications and monitor. (7) Hyperlipidemia: Code(s): E78.5 - Hyperlipidemia, unspecified Status: Acute Assessment and Plan: - Continue home medications. (8) Peripheral neuropathy: Code(s): G62.9 - Polyneuropathy, unspecified Status: Acute Assessment and Plan: - continue with gabapentin (9) Dementia: Code(s): F03.90 - Unspecified dementia without behavioral disturbance Status: Acute Assessment and Plan: - amitriptyline - continue with Aricept (10) Dyspnea: Code(s): R06.00 - Dyspnea, unspecified Status: Acute Assessment and Plan: - Overnight patient began requiring supplemental oxygen as her sats were found to be at 89%. She endorses some occasional wheezing and also some occasional dyspnea. - Pt. reports that she is very tired because she goes to sleep late, took her Gabapentin last evening and she is being woke up all night. - No cough or infectious symptoms. WBC count is normal at 7.2. - CXR 2-view ordered stat and IVF discontinued at this time. - Continue to monitor VS. Time Spent With Patient Time with patient: 25 - 35 minutes Subjective Date/time seen: 02/13/22 1015 This pt. was examined at the bedside
[2022-02-13 12:04] LABS: Glucose Point of Care 380 mg/dl (65-105)
[2022-02-13] MEDS: ACETAMINOPHEN 325 MG TABLET 650 MG PO (14:51)
[2022-02-13 16:46] LABS: Glucose Point of Care 383 mg/dl (65-105)
[2022-02-13] MEDS: FUROSEMIDE INJ 40 MG/4 ML VIAL IV PUSH (17:00)
[2022-02-13] MEDS: ATORVASTATIN 40 MG TABLET PO (17:02)
[2022-02-13] MEDS: AMITRIPTYLINE HCL 25 MG TABLET 75 MG PO (21:32)
[2022-02-13] MEDS: GABAPENTIN 300 MG CAPSULE PO (21:33)
[2022-02-13] MEDS: DONEPEZIL HCL 10 MG TABLET PO (21:33)
[2022-02-13] MEDS: INSULIN GLARGINE (*BKC) 100 UNITS/ML 54 UNITS SUB-Q (21:34)
[2022-02-13 22:37] LABS: Glucose Point of Care 393 mg/dl (65-105)
[2022-02-14] VITALS (9 sets, daily range): BP systolic 112–121; BP diastolic 60–87; PULSE 60–82; RESP 16; TEMP 36–36.7; O2SAT 91–98
[2022-02-14 05:03] LABS: Basophils Percent Auto 0.5 % (0.2-1.2); Eosinophils Absolute Auto 0.3 K/mm3 (0-0.3); Eosinophils Percent Auto 5.2 % (0-4.4); Hematocrit 27.4 % (37.0-47.0); Hemoglobin 8.9 g/dL (12.0-15.0); Immature Granulocyte Absolute 0.02 K/mm3 (0.00-0.031); Immature Granulocyte Percent A 0.4 % (0-0.5); Lymphocytes Absolute Auto 1.12 K/mm3 (0.9-3.2); Lymphocytes Percent Auto 20.1 % (18.3-44.2); Mean Corpuscular HGB Conc 32.5 g/dl (32-36); Mean Corpuscular Hemoglobin 29.9 pg (26-34); Mean Corpuscular Volume 91.9 fl (80-100); Mean Platelet Volume 9.6 fl (7.4-10.4); Monocytes Absolute Auto 0.6 K/mm3 (0.1-0.6); Monocytes Percent Auto 10.6 % (2.6-8.5); Neutrophils Absolute Auto 3.5 K/mm3 (1.3-6.7); Neutrophils Percent Auto 63.2 % (45.5-73.1); Platelet Count Result 219 k/mm3 (150-375); Red Blood Count 2.98 M/mm3 (4.2-5.4); White Blood Count 5.6 K/mm3 (4.5-10.0)
[2022-02-14 05:17] LABS: Alanine Aminotransferase 27 U/L (6-35); Albumin Level 3.4 g/dL (3.5-5.1); Alkaline Phosphatase 86 U/L (38-126); Anion Gap 4 mmol/L (8-16); Aspartate Amino Transferase 41 U/L (14-36); Bilirubin,Total 0.6 mg/dL (0.2-1.3); Blood Urea Nitrogen 10 mg/dL (7-17); Calcium 8.3 mg/dL (8.4-10.2); Carbon Dioxide 35 mmol/L (22-30); Chloride 96 mmol/L (98-107); Estimated CRCL calculation 44 ml/min; Estimated Glomerular Filt Rate 44; Glucose 289 mg/dL (65-110); Magnesium 1.5 mg/dL (1.6-2.3); Potassium 3.5 mmol/L (3.4-5.0); Sodium 135 mmol/L (137-145)
[2022-02-14 07:41] LABS: Glucose Point of Care 245 mg/dl (65-105)
[2022-02-14] MEDS: FLUTICASONE/SALMETEROL 115-21 MCG INHALER 1 PUFF 2 PUFF INHALATION (08:17)
[2022-02-14] MEDS: carvediloL 25 MG TABLET PO (08:52)
[2022-02-14] MEDS: PANTOPRAZOLE SODIUM IV 40 MG VIAL IV PUSH (08:52)
[2022-02-14] MEDS: FUROSEMIDE 40 MG TABLET PO (08:52)
[2022-02-14] MEDS: MAGNESIUM SULF 1 GM/D5W 100 ML 1 GM/100 ML BAG IVPB (08:52)
[2022-02-14] MEDS: INSULIN ASPART (*BKC) 100 UNITS/ML SUB-Q ×2 (08:53→12:22)
--- NOTE | 2022-02-14 09:42 | WPDGICN ---
Assessment and Plan Assessment and plan (1) Gastric ulcer: Code(s): K25.9 - Gastric ulcer, unspecified as acute or chronic, without hemorrhage or perforation Status: Acute Assessment and Plan: Patient found to have a gastric ulcer 1 week ago. Readmitted to the hospital with weakness, persistent anemia, and dark stools. This is likely elimination of old blood. Low hemoglobin likely related to equilabration at the present time would recommend advancing to a bland diet. Continue proton pump inhibitors. Avoid NSAIDs. Follow-up EGD suggested in 2-3 months under the direction of Dr. Love. May discharge if diet tolerated in no bleeding. As she has not had recent stools perhaps a suppository may be beneficial or milk of magnesia. (2) History of colon polyps: Code(s): Z86.010 - Personal history of colonic polyps Status: Acute Assessment and Plan: Patient identified as having colon polyps at time of endoscopy earlier this week. These were benign. Suggest follow-up colonoscopy at 5 year intervals. (3) Acute on chronic anemia: Code(s): D64.9 - Anemia, unspecified Status: Acute Assessment and Plan: Patient with chronic anemia. Appears to have worsened with recent bleeding from Gastric ulcer. Plan to monitor conservatively as an outpatient. Perhaps follow-up CBC 1 week after discharge and then as per primary care service. (4) Chronic kidney disease, stage 3: Code(s): N18.30 - Chronic kidney disease, stage 3 unspecified Status: Chronic (5) Dementia: Code(s): F03.90 - Unspecified dementia without behavioral disturbance Status: Acute GI Consult Note Consult date/time: 02/14/22 09:42 Reason for consult: Gastric ulcer. HPI: Jeanette Thompson is a 71 year old female I am asked to see in the absence of Dr. Love because of a gastric ulcer. Patient presented to the hospital 1 week ago with GI blood loss and anemia. GI endoscopy was performed on Wednesday. Patient found to have a gastric ulcer with clean base. It was felt this was the source of recent GI blood loss. Colonoscopy revealed small benign colon polyp that was removed. Patient did well and was sent home Wednesday. Patient ultimately readmit to the hospital on 02/11/2022. Patient at that point had continued to pass black stools and anemia remained. Patient was transfused in initial unit of packed red blood cells. Patient subsequently has done well. She has minimal to no abdominal pain. Currently tolerating liquid diet. She has had no recent bowel movements. Review of Systems Review of Systems: Review of systems noncontributory. [facility] Past Medical History Medical History (Updated 02/14/22 @ 09:47 by Jaydon Waters MD) Acute on chronic anemia Arthritis Cardiomyopathy Status post ICD insertion. Carotid artery disease Chronic kidney disease, stage 3 Coronary artery disease Dementia Depression with anxiety Essential hypertension Headache Hyperlipidemia Hypothyroidism Insulin dependent type 2 diabetes mellitus Peptic ulcer Peripheral neuropathy Peripheral vascular disease Stroke Surgical History Surgical History History of back surgery History of cardiac catheterization History of coronary artery stent placement History of hysterectomy History of implantable cardioverter-defibrillator (ICD) insertion History of vascular surgery (12/2021) Lower extremity stents. Family History Family History Father Family history of heart disease in male family member before age 55 Social History Social History Social History: Surrogate medical decision maker: Berny Thompson, daughter. Code status: Full code. Smoking packs per day: 1.5 Smoking cigarettes per day: 30.0 Years smoked: 30 Smoking pack-years: 4
[2022-02-14 12:19] LABS: Glucose Point of Care 306 mg/dl (65-105)
--- NOTE | 2022-02-14 13:48 | PM.DS ---
DS: Admitting Diagnosis Discharge Date 02/14/2022 Admitting Diagnosis Symptomatic Anemia, PUD, Anemia, PVD, CKD3, Hypothyroidism, DM2, HTN, HLD, Neuropathy DS: Discharge Diagnosis Discharge Diagnosis Plan Assessment and Plan (1) Symptomatic anemia: ?Code(s): D64.9 - Anemia, unspecified ?Status:?Acute ?Assessment and Plan: - Interval drop in Hgb since her discharge the day prior in the setting of prescribed Plavix for vascular stents. Her surgeon who placed the stent is?Dr. Bobby Judd from [facility]. His phone number for existing patients is [phone]. - GI finally consulted again and recommendations are to proceed with repeat EGD in two weeks time. They recommend that the patient not have Plavix if at all possible. So, I called the patient's Vascular surgeon and spoke with the electrician supervisor substation physician, Dr. Decker, and he recommends that it is OK to hold the Plavix for two weeks until the pt. has a repeat EGD. - Pt. is stable for discharge at this time. -? Continue PPI Therapy - Pt. received one unit of PRBC's in ED for Hgb of 7.5. She received a unit of blood and has been waxing and waning with Hgb levels since then. Her Plavix has been held and her Hgb is maintaining with it being 8.9 today. - No overt bleeding identified. (2) Peptic ulcer: ?Code(s): K27.9 - Peptic ulcer, site unspecified, unspecified as acute or chronic, without hemorrhage or perforation ?Status:?Acute ?Assessment and Plan: - continue with PPI therapy. - STOP BIAXIN AND AMOXICILLIN THE PATHOLOGY REPORT FROM THE EGD AND COLON ARE NEGATIVE FOR H.PYLORI. (3) Peripheral vascular disease: ?Code(s): I73.9 - Peripheral vascular disease, unspecified ?Status:?Chronic ?Assessment and Plan: -? Patient had been on Plavix and aspirin for recent vascular stent <3 mos ago. - Plavix and aspirin are on hold at this time secondary to suspected GI bleed. - See Problem #1 for vascular surgeon name and contact information. (4) Chronic kidney disease, stage 3: ?Code(s): N18.30 - Chronic kidney disease, stage 3 unspecified ?Status:?Chronic ?Assessment and Plan: - creatinine at baseline of 1.20 currently. (5) Type 2 diabetes mellitus with hyperglycemia, with long-term current use of insulin: ?Code(s): E11.65 - Type 2 diabetes mellitus with hyperglycemia; Z79.4 - medical terminologist (current) use of insulin ?Status:?Chronic ?Assessment and Plan: -Continue home regimen. (6) Essential hypertension: ?Code(s): I10 - Essential (primary) hypertension ?Status:?Chronic ?Assessment and Plan: - continue home medications (7) Hyperlipidemia: ?Code(s): E78.5 - Hyperlipidemia, unspecified ?Status:?Acute ?Assessment and Plan: - Continue home medications. (8) Peripheral neuropathy: ?Code(s): G62.9 - Polyneuropathy, unspecified ?Status:?Acute ?Assessment and Plan: - continue with gabapentin (9) Dementia: ?Code(s): F03.90 - Unspecified dementia without behavioral disturbance ?Status:?Acute ?Assessment and Plan: - amitriptyline - continue with Aricept (10) Dyspnea: ?Code(s): R06.00 - Dyspnea, unspecified ?Status:?Acute ?Assessment and Plan: - Pt. without any signs of acute infection to continue with IV abx. She also received 40 mg Lasix last evening and she has had interval improvement with the ability to wean oxygen to room air. She is stable. DS: Summary Hospital Course Reason for hospitalization: Weakness, Symptomatic Anemia. Hospital Course: This 71 year old female patient with significant PMH of acute on chronic anemia with GI bleed, arthritis, Cardiomypathy s/p ICD insertion, Carotid artery disease, Dementia, Depression, HTN, Headache, HLD, hypothyroidism, IDDM, PUD, PN, PVD and Stroke was re-admitted to the hospital for a second time in two weeks with weakness, and symptomatic anemia. She had returned home after an acut
== END 2022-02-14 16:06 | disposition home or self-care (01) | DRG 812 ==
LOC: ANHED 15:35 → ANH2MED 15:55
PROVIDERS: Nurse Practitioner; Nurse Practitioner Adult Health; Admitting Provider Internal Medicine; Emergency Provider Emergency Medicine; PCP Family Medicine; Visit Provider Family Medicine
DX: D64.9 Anemia, unspecified (principal); I42.9 Cardiomyopathy, unspecified; K27.9 Peptic ulcer, site unspecified, unspecified as acute or chronic, without hemorrhage or perforation; R06.00 Dyspnea, unspecified; E11.65 Type 2 diabetes mellitus with hyperglycemia; E11.22 Type 2 diabetes mellitus with diabetic chronic kidney disease; I12.9 Hypertensive chronic kidney disease with stage 1 through stage 4 chronic kidney disease, or unspecified chronic kidney disease; E11.51 Type 2 diabetes mellitus with diabetic peripheral angiopathy without gangrene; E11.42 Type 2 diabetes mellitus with diabetic polyneuropathy; N18.30 Chronic kidney disease, stage 3 unspecified; F03.90 Unspecified dementia, unspecified severity, without behavioral disturbance, psychotic disturbance, mood disturbance, and anxiety; E78.5 Hyperlipidemia, unspecified; E03.9 Hypothyroidism, unspecified; F41.8 Other specified anxiety disorders; I25.10 Atherosclerotic heart disease of native coronary artery without angina pectoris; M19.90 Unspecified osteoarthritis, unspecified site; Z79.02 Long term (current) use of antithrombotics/antiplatelets; Z79.4 Long term (current) use of insulin; Z79.82 Long term (current) use of aspirin; Z79.84 Long term (current) use of oral hypoglycemic drugs; Z79.899 Other long term (current) drug therapy; Z86.010 Personal history of colon polyps; Z86.73 Personal history of transient ischemic attack (TIA), and cerebral infarction without residual deficits; Z95.5 Presence of coronary angioplasty implant and graft; Z95.810 Presence of automatic (implantable) cardiac defibrillator; Z95.828 Presence of other vascular implants and grafts
CPT/HCPCS: 36415; 36430; 71046; 80048; 80053; 82948; 83036; 83605; 83690; 83735; 85014; 85018; 85025; 85610; 85730; 86850; 86900; 86901; 86920; 94640; 96361; 96374; 96376; 99285; A9270; C9113; G0378; J0456; J0696; J1815; J1940; J3475; J7030; J7050; P9016

== ENCOUNTER 2022-05-18 00:20 | Day surgery (SDC) | payer OTHER, SELFPAY ==
[2022-05-13 14:41] VITALS: BMI 28.3
[2022-05-18 12:37] VITALS: BP 146/55; PULSE 71; RESP 18; TEMP 36.1; O2SAT 94; BMI 30.1
[2022-05-18] MEDS: LACTATED RINGERS 1,000 ML 150 ML IV CONT (12:47)
[2022-05-18 12:48] LABS: Glucose Point of Care 132 mg/dl (65-105)
--- NOTE | 2022-05-18 13:13 | PM.HPGS ---
History of Present Illness History of Present Illness Consent: Risks, benefits, and alternatives have been discussed and questions answered. Patient agrees to proceed with procedure. Chief complaint: gastric ulcer Narrative: Jeanette Thompson is a 71 year old female with gastric ulcers 02/2022, not longer using ppi, denies gib Review of Systems Constitutional: Constitutional: Denies headache(s) and Denies weakness Eyes: Eyes: Denies blurry vision ENT: Reports Normal hearing present, Denies headache(s) and Denies neck pain Cardiovascular: Cardiovascular: Denies chest pain and Denies dyspnea Respiratory: Respiratory: Denies dyspnea Gastrointestinal: Gastrointestinal: Reports no additional gastrointestinal complaints Genitourinary: Genitourinary: Denies dysuria Musculoskeletal: Musculoskeletal: Denies neck pain Integumentary/Breasts: Skin/Breast: Denies dry skin Neurologic: Reports Normal hearing present, Denies headache(s) and Denies weakness Psychiatric: Psychiatric: Denies anxiety Endocrine: Endocrine: Denies change in body appearance Hematologic/Lymphatic: Hematologic/Lymphatic: Denies easy bleeding Allergic/Immunologic: Allergic/Immunologic: Denies urticaria PMFSH Past Medical History Medical History Acute hyperkalemia Acute on chronic anemia Arthritis Cardiomyopathy Status post ICD insertion. Carotid artery disease Chronic kidney disease, stage 3 Coronary artery disease Dementia Depression with anxiety Essential hypertension Gastric ulcer Headache History of colon polyps Hyperlipidemia Hypothyroidism Insulin dependent type 2 diabetes mellitus Peptic ulcer Peripheral neuropathy Peripheral vascular disease Stroke Type 2 diabetes mellitus with hyperglycemia, with long-term current use of insulin Surgical History Surgical History History of back surgery History of cardiac catheterization History of coronary artery stent placement History of hysterectomy History of implantable cardioverter-defibrillator (ICD) insertion History of intravascular stent placement 12/2021, bilaterally in legs History of vascular surgery (12/2021) Lower extremity stents. Family History Family History Father Family history of heart disease in male family member before age 55 Social History Social History Social History: Surrogate medical decision maker: Berny Thompson, daughter. Code status: Full code. Smoking packs per day: 1.5 Smoking cigarettes per day: 30.0 Years smoked: 30 Smoking pack-years: 45.00 Smoking status: Never smoker Tobacco type: cigarettes Alcohol intake: never Substance use: never Substance use type: does not use Living arrangements: with family Additional living arrangements comments: The patient lives in her own home in [place]. Spiritual care concerns: No Meds Home Medications and Allergies Home Medications Medication Instructions Recorded Confirmed Type calcium carbonate 600 mg calcium 600 mg PO BID 09/14/19 05/18/22 History (1,500 mg) tablet (Calcium) omega 2-mma-owe-fish oil 1,000 mg 1 cap PO BID 09/14/19 05/18/22 History (120 mg-180 mg) capsule (Fish Oil) spironolactone 25 mg tablet 25 mg PO DAILY 09/14/19 05/18/22 History Adult One Daily Multivitamin 1 tab/day PO DAILY 11/17/19 05/18/22 History acetaminophen 325 mg tablet 650 mg PO ONCE PRN pain 11/17/19 05/18/22 History (Tylenol) albuterol sulfate 90 mcg/actuation 2 puff inhalation QID PRN sob 11/17/19 05/18/22 History aerosol inhaler aspirin 81 mg chewable tablet 81 mg PO DAILY 11/17/19 05/18/22 History (Aspirin Childrens) carvedilol 25 mg tablet 25 mg PO BID 11/17/19 05/18/22 History cranberry 500 mg capsule 500 mg PO DAILY 11/17/19 1
--- NOTE | 2022-05-18 13:16 | WPDANESEPPF ---
Anes - Initial Pre Proc Eval Procedure: Operation Date: 05/18/22 13:45 Proposed Procedures p Esophagogastroduodenoscopy EGD - Rico Jones MD Date/Time: 05/18/22 13:16 Surgeon: Rico Jones MD Pre Op Diagnosis: gastric ulcer Patient Data Age: 71 Gender: F Height: 1.7 m Weight: 87.2 kg Last Vital Signs Temp 96.9 F L 05/18/22 12:37 Pulse 71 05/18/22 12:37 Resp 18 05/18/22 12:37 BP 146/55 H 05/18/22 12:37 Pulse Ox 94 05/18/22 12:37 O2 Del Method Room Air 05/18/22 12:37 Allergies Allergy/AdvReac Type Severity Reaction Status Date / Time morphine AdvReac Intermediate Nausea and Verified 05/18/22 12:35 Vomiting clopidogrel [From Plavix] AdvReac Unknown GI bleeding Verified 05/18/22 12:35 ibuprofen AdvReac Unknown Nausea and Verified 05/18/22 12:35 Vomiting Home Medications Medication Instructions Recorded Confirmed Type calcium carbonate 600 mg calcium 600 mg PO BID 09/14/19 05/18/22 History (1,500 mg) tablet (Calcium) omega 6-qsf-zmw-fish oil 1,000 mg 1 cap PO BID 09/14/19 05/18/22 History (120 mg-180 mg) capsule (Fish Oil) spironolactone 25 mg tablet 25 mg PO DAILY 09/14/19 05/18/22 History Adult One Daily Multivitamin 1 tab/day PO DAILY 11/17/19 05/18/22 History acetaminophen 325 mg tablet 650 mg PO ONCE PRN pain 11/17/19 05/18/22 History (Tylenol) albuterol sulfate 90 mcg/actuation 2 puff inhalation QID PRN sob 11/17/19 05/18/22 History aerosol inhaler aspirin 81 mg chewable tablet 81 mg PO DAILY 11/17/19 05/18/22 History (Aspirin Childrens) carvedilol 25 mg tablet 25 mg PO BID 11/17/19 05/18/22 History cranberry 500 mg capsule 500 mg PO DAILY 11/17/19 05/18/22 History donepezil 10 mg tablet 10 mg PO HS 11/17/19 05/18/22 History fluticasone furoate 100 1 inh inhalation HS 11/17/19 05/18/22 History mcg-vilanterol 25 mcg/dose inhalation powder (Breo Ellipta) amitriptyline 75 mg tablet 75 mg PO QHS 11/30/19 05/18/22 History atorvastatin 40 mg tablet (Lipitor) 40 mg PO QPM 11/30/19 05/18/22 History furosemide 40 mg tablet 40 mg PO DAILY 06/13/20 05/18/22 History gabapentin 300 mg capsule 300 mg PO QHS 90 days #90 caps 12/01/21 05/18/22 Rx insulin glargine 100 unit/mL 50 unit subcut QHS 02/11/22 05/18/22 History subcutaneous solution (Lantus U-100 Insulin) insulin syringe-needle U-100 0.5 #400 ea 03/03/22 05/18/22 Rx mL 31 gauge x 5/16 (BD Insulin Syringe Ultra-Fine) metformin 500 mg tablet 500 mg PO BID 90 days #180 tabs 03/03/22 05/18/22 Rx insulin aspart U-100 100 unit/mL 15 unit (0.15 mL) subcut BID 90 04/06/22 05/18/22 Rx subcutaneous solution days #30 mL blood sugar diagnostic (Contour #450 strips 04/23/22 05/18/22 Rx Next Test Strips) Laboratory Tests 05/18/22 12:42 POC Capillary Glucose 132 mg/dl H mg/dl (65-105) Patient hx anesthesia problems: none Family hx anesthesia problems: none Results Review: All pre-operative results and documents have been reviewed as part of the pre-operative evaluation. [facility] Past Medical History Medical History Acute hyperkalemia Acute on chronic anemia Arthritis Cardiomyopathy Status post ICD insertion. Carotid artery disease Chronic kidney disease, stage 3 Coronary artery disease Dementia Depression with anxiety Essential hypertension Gastric ulcer Headache History of colon polyps Hyperlipidemia Hypothyroidism Insulin dependent type 2 diabetes mellitus Peptic ulcer Peripheral neuropathy Peripheral vascular disease Stroke Type 2 diabetes mellitus with hyperglycemia, with long-term current use of insulin Surgical History Surgical History History of back surgery History of cardiac catheterization History of coronary artery stent placement History of hysterectomy History of implantable cardioverter-defi
[2022-05-18 13:25] VITALS: BP 135/90; PULSE 89; RESP 31; TEMP 36.1; O2SAT 100
[2022-05-18 13:35] VITALS: BP 155/61; PULSE 89; RESP 16; TEMP 36.1; O2SAT 97
[2022-05-18 13:45] VITALS: BP 159/68; PULSE 63; RESP 14; TEMP 36.1; O2SAT 99
[2022-05-18 13:53] LABS: Glucose Point of Care 124 mg/dl (65-105)
== END 2022-05-18 14:00 | disposition home or self-care (01) ==
PROVIDERS: PCP Family Medicine; Visit Provider Internal Medicine Gastroenterology
PROC: 0DJ08ZZ Inspection of Upper Intestinal Tract, Via Natural or Artificial Opening Endoscopic (ICD-10-PCS; CPT 43235; principal; 2022-05-18 13:45)
DX: K25.9 Gastric ulcer, unspecified as acute or chronic, without hemorrhage or perforation (principal); K29.70 Gastritis, unspecified, without bleeding; N18.30 Chronic kidney disease, stage 3 unspecified; I25.10 Atherosclerotic heart disease of native coronary artery without angina pectoris; I12.9 Hypertensive chronic kidney disease with stage 1 through stage 4 chronic kidney disease, or unspecified chronic kidney disease; E78.5 Hyperlipidemia, unspecified; E03.9 Hypothyroidism, unspecified; E11.22 Type 2 diabetes mellitus with diabetic chronic kidney disease; Z79.4 Long term (current) use of insulin
CPT/HCPCS: 43235; 82948; J7120

== ENCOUNTER 2022-10-11 16:37 | Emergency (ER) | payer OTHER, SELFPAY ==
[2022-10-11 16:48] VITALS: BP 104/46; PULSE 67; RESP 18; TEMP 36.3; O2SAT 98
--- NOTE | 2022-10-11 17:27 | ECG_ITS ---
Measurements Intervals [place] Rate: 70 P: 32 [place]: 150 QRS: -42 QRSD: 136 T: 121 QT: 422 QTc: 456 Interpretive Statements SINUS RHYTHM WITH OCCASIONAL SUPRAVENTRICULAR PREMATURE COMPLEXES MARKED LEFT AXIS DEVIATION [QRS AXIS < -30] INTRAVENTRICULAR CONDUCTION DELAY [130+ ms QRS DURATION] LEFT VENTRICULAR HYPERTROPHY AND ST-T CHANGE [VOLTAGE CRITERIA PLUS ST/T ABNORMALITY] ANTEROLATERAL MYOCARDIAL INFARCTION , OF INDETERMINATE AGE [40+ ms Q WAVE IN I/aVL/V3- V6] COMPARED TO ECG 02/06/2022 12:10:53 NO SIGNIFICANT CHANGES Electronically Signed On 10-12-2022 12:16:29 CDT by Luis Angel Morocho M.D.
[2022-10-11 17:44] LABS: Basophils Percent Auto 0.5 % (0.2-1.2); Eosinophils Absolute Auto 0.3 K/mm3 (0-0.3); Eosinophils Percent Auto 3.6 % (0-4.4); Hematocrit 34.9 % (37.0-47.0); Hemoglobin 11.2 g/dL (12.0-15.0); Immature Granulocyte Absolute 0.03 K/mm3 (0.00-0.031); Immature Granulocyte Percent A 0.4 % (0-0.5); Lymphocytes Percent Auto 24.5 % (18.3-44.2); Mean Corpuscular HGB Conc 32.1 g/dl (32-36); Mean Corpuscular Hemoglobin 26.9 pg (26-34); Mean Corpuscular Volume 83.9 fl (80-100); Mean Platelet Volume 9.9 fl (7.4-10.4); Monocytes Absolute Auto 0.8 K/mm3 (0.1-0.6); Monocytes Percent Auto 9.7 % (2.6-8.5); Neutrophils Absolute Auto 4.8 K/mm3 (1.3-6.7); Neutrophils Percent Auto 61.3 % (45.5-73.1); Platelet Count Result 275 k/mm3 (150-375); Red Blood Count 4.16 M/mm3 (4.2-5.4); Red Cell Distribution Width 17.6 % (11.5-14.5); White Blood Count 7.8 K/mm3 (4.5-10.0)
[2022-10-11 17:55] LABS: Alanine Aminotransferase 32 U/L (6-35); Albumin Level 4.3 g/dL (3.5-5.1); Alkaline Phosphatase 107 U/L (38-126); Anion Gap 8 mmol/L (8-16); Aspartate Amino Transferase 31 U/L (14-36); Bilirubin,Total 0.4 mg/dL (0.2-1.3); Blood Urea Nitrogen 20 mg/dL (7-17); Calcium 10.2 mg/dL (8.4-10.2); Carbon Dioxide 33 mmol/L (22-30); Chloride 95 mmol/L (98-107); Estimated Glomerular Filt Rate 34; Glucose 93 mg/dL (65-110); Potassium 4.1 mmol/L (3.4-5.0); Sodium 136 mmol/L (137-145)
--- NOTE | 2022-10-11 18:54 | PC.NURSE ---
Pt seen being wheeled out to the parking lot by daughter.
== END 2022-10-11 19:00 | disposition left against medical advice (07) ==
LOC: ANHED 19:09
PROVIDERS: Family Medicine; PCP Family Medicine
DX: R53.1 Weakness (principal)
CPT/HCPCS: 36415; 80053; 85025; 93005; 99199

== ENCOUNTER 2025-02-20 21:42 | Emergency (ER) | payer OTHER, SELFPAY ==
--- NOTE | ~2025-02-20 | CT_ITS ---
EXAMINATION: CT lumbar spine wo con DATE: 02/21/2025 01:51 INDICATION: Low back pain TECHNIQUE: Computed tomography (CT) of the lumbar spine was performed without intravenous contrast. T he dose-length product was 1263.93 mGy-cm. Automated exposure control and iterative reconstruction te chnique were employed. COMPARISON: No prior studies for comparison. FINDINGS: There is a compression fracture of T10 transfixed by spinal rods and pedicular screws. Spin al rods only partially visualized. There is severe disc narrowing at L4-5 with mild endplate hypertro phy. Lung bases unremarkable. At L3-4 there is severe facet degenerative change and hypertrophy with annular disc bulging causing central canal and mild neural foraminal stenosis. There is additional fa cet degenerative changes at multiple lower lumbar levels. No acute fracture or traumatic malalignment is identified. IMPRESSION: 1. No acute abnormality of the lumbar spine. 2: Moderate-severe lumbar spondylosis. 3: Chronic T10 compression fracture transfixed by spinal rods and pedicular screws. Reviewed, dictated and finalized at location A. IMPRESSION: 1. No acute abnormality of the lumbar spine. 2: Moderate-severe lumbar spondylosis. 3: Chronic T10 compression fracture transfixed by spinal rods and pedicular scr ews.
[2025-02-20 21:44] VITALS: BP 131/56; PULSE 78; RESP 18; TEMP 36.8; O2SAT 100
--- OUTSIDE RECORDS SUMMARY | 2025-02-20 21:45 | XMS_ITS | Encounter Summary ---
Author Organization [facility] Healthcare Address [address] [place] [address] Care Team Providers Care Private Duty Lpn Name Role Phone Delilah Allison Primary Care Provider [phone] Marlene Oates MD Unavailable [phone] Jamil Syed MD Unavailable [phone] Nikole MartinezM Unavailable [phone] Aletha Arreola MD Unavailable [phone] Marilin Garcia Unavailable [phone] Natalie Denson [facility] Unavailable Leanne Martinez RN Unavailable [phone] Marika Gerardo RN Unavailable [phone] Kylee Gómez RN Unavailable Mone Dumont NP Primary Care Provider [phone] Emmanuel Thomas MD Primary Care Provider + Jacinta Dubois MA Unavailable Encounter Details Date Type Department Care Team (Late st Contact Info) Description 11/19/2021 Telephone [facility] [address] [place] [address] Leela Meredith, RT Social History Tobacco Use Types Packs/Day Years Used Date Smoking Tobacco: Former Cigarettes 1.5 30 1 970 - 2000 Smokeless Tobacco: Never Alcohol Use Standard Drinks/Week Comments No 0 (1 standard drink = 0.6 oz pur e alcohol) PHQ-2 Answer Date Recorded PHQ-2 Total Score (If total score is 3 or more points, staff should administer the PHQ-9) 0 06/13/2021 Comments No Sex and Gender Information Value Date Recorded Sex Assigned at Not on file Legal Sex Female 12:18 AM RECRUITING INTERN Gender Identity Not on file Sexual Orientation Not on file 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 Not on file Not on file Not on file documented as of this encounter Plan of Treatment Upcoming Encounters Date Type Department Care Team (Late st Contact Info) Description 02/21/2025 1:00 PM CDT Hospital Encounter [facility] [address] [place] [id number] Marlene Oates MD [address] [facility] [address] [place] [id number] PVT (paroxysmal ventricular tachycardia) (HCC); Chronic ischemic heart disease; 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) 02/21/2025 1:00 PM CDT Anesthesia Event [facility] [address] [place] [address] [place] [address] [address] 02/21/2025 1:00 PM CDT - 02/21/2025 4:05 PM CDT Surgery [facility] [address] [place] [address] Marlene Oates MD [address] [facility] [address] [place] [address] INSERT/REPLACE IMPLANTABLE CARDIOVERTER-DEFI BRILLATOR (ICD) DUAL CHAMBER SYSTEM [id number] documented as of this encounter Visit Diagnoses Not on filedocumented in this encounter Additional Health Concerns Infection Onset Date Last Indicated Resolved Time COVID: Suspected 01/12/2025 01/12/202501/12/2025 10:26 PM CDT documented as of this encounter Care Teams Private Duty Lpn Relationship Specialty Start Date End Date Delilah Allison DO PCP - General 10/08/17 12/08/23 Mone Dumont, RENUKA [address] [facility] [address] [place] [address] PCP - General Family Medicine 12/09/23 12/04/24 Emmanuel Thomas MD [address] [facility] [address] [place] [address] PCP - General Family Medicine 12/05/24 Marlene Oates MD [address] [place] [address] Consulting Physician Cardiology 11/01/18 Jamil Syed MD [address] [place] [address] Consulting Physician Neurology 11/01/18 Nikole Martinez, DPJoshua [address] [facility] [place] [address] Consulting Physician Foot and Ankle Surg 11/01/18 Aletha Arreola MD [address] [place] [address] [address] [place] [address] Consulting Physician Gastroenterology 04/29/20 Marilin Garcia PA [address] [place] [address] [address] [place] [address] Physician Scooter Mechanic Endocrinology 12/06/20 Natalie Denson, [address] [place] [address] Pharmacist Pharmacy 01/02/22 01/19/22 Leanne Martinez, RN [address] [place] [address] [address] [place] [address] Branch Operations Manager 02/11/22 02/11/22 Marika Gerardo, RN [address] [place] [address] [address] [place] [address] Branch Operations Manager 02/17/22 02/26/22 Kylee Gómez RN [address] [place] [address] [address] [place] [address] Branch Operations Manager 12/29/22 01/18/23 Jacinta Dubois MA [address] [place] [address] [address] [place] [address] [employer] Software Design Manager 01/17/25 01/17/25 documented as of this encounter
--- OUTSIDE RECORDS SUMMARY | 2025-02-20 21:45 | XMS_ITS | Encounter Summary ---
Author Organization [facility] Healthcare Address [address] [place] [address] Care Team Providers Care Lock Assembler Name Role Phone Marlene Oates MD Unavailable Jamil Syed MD Unavailable [phone] Nikole MartinezM Unavailable [phone] Aletha Arreola MD Unavailable [phone] Marilin Garcia Unavailable [phone] Emmanuel Thomas MD Primary Care Provider + Reason for Visit * Reason Onset Date Comments Med Refill 02/14/2025 Encounter Details Date Type Department Care Team (Late st Contact Info) Description 02/14/[address] [facility] Medical [facility] Primary Care at [address] [place] [address] Emmanuel Thomas MD [address] [place] [address] [address] [place] [address] Med Refill Social History Tobacco Use Types Packs/Day Years Used Date Smoking Tobacco: Former Cigarettes 1.5 30 1 970 - 1999 Smokeless Tobacco: Never Alcohol Use Standard Drinks/Week Comments No 0 (1 standard drink = 0.6 oz pur e alcohol) [facility] Utilities Answer Date Recorded In the past 12 months has [employer] gas, oil, or water company threatened to shut off services in your home? No 01/15/2025 Social Connection and Isolation Panel Answer Date Recorded In a typical week, how many times do you talk on the phone with family, friends, or neighbors? More than three times a week 01/15/2025 How often do you get togethe r with friends or relatives? Twice a week 01/15/2025 How often do you attend chur ch or hindu services? Never 01/15/2025 Do you belong to any clubs o r organizations such as restorationism groups, unions, fraternal or athletic groups, or school groups? No 01/15/2025 How often do you attend meet ings of the clubs or organizations you belong to? Never 01/15/2025 Are you , , di vorced, , never , or living with a partner? 01/15/2025 AUDIT-C Answer Date Recorded Q1: How often do you have a drink containing alc ohol? Never 12/19/2021 Average Number of Drinks Not on file 022 Q3: How often do you have si x or more drinks on one occasion? Never 12/19/2021 Overall Financial Resource Strain (CARDIA) Answe r Date Recorded How hard is it for you to pa y for the very basics like food, housing, medical care, and heating? Not hard at all 01/15/2025 PHQ-2 Answer Date Recorded PHQ-2 Total Score (If total score is 3 or more points, staff should administer the PHQ-9) 0 02/09/2025 Hunger Vital Sign Answer Date Recorded Within the past 12 months, y ou worried that your food would run out before you got the money to buy more. Never true 01/16/20 25 Within the past 12 months, t he food you bought just didn't last and you didn't have money to get more. Never true 01/15/2025 PRAPARE - Transportation Answer Date Re corded In the past 12 months, has l ack of transportation kept you from medical appointments or from getting medications? No 01/2025 In the past 12 months, has l ack of transportation kept you from meetings, work, or from getting things needed for daily living? No 01/15/2025 PHQ-9 Answer Date Recorded PHQ-9 Total Score 0 02/09/2025 Housing Stability Vital Sign Answer Rony e Recorded In the last 12 months, was t here a time when you were not able to pay the mortgage or rent on time? No 01/15/2025 In the past 12 months, how m any times have you moved where you were living? 0 01/15/2025 At any time in the past 12 m onths, were you homeless or living in a jail (including now)? No 01/15/2025 Personal Safety Answer Date Recorded Have you ever been in or are you currently in a harmful physical or emotional relationship or is someone making you feel afraid or unsafe? 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 Patient seen on 02/09 in our office and it is not on her med list. Will defer. * Telephone Encounter - Monserrat Crawford MA - 02/14/2025 3:51 PM CDT You seen her on 02/09 and according to your note she is on Jardiance. Please advise if she needs to be on Kerendia too? * Telephone Encounter - Kim Saucedo - 02/14/2025 9:24 AM CDT Prior Authorization for Medication Medication(s) Name/Dose: Kerendia 10mg Is the patient out of the medication? NA Pharmacy that medication was sent to: On file Is insurance in chart accurate? yes Additional Comments: Priya SANCHEZ with Cover My meds is calling because patient needs a PA renewal because the PA she has 12/10/24 and the refill was sent to [facility] on 02/01. Please call Priya back with any questions. The cover my meds fay code for this is [id number] Does message need to be routed? 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) 02/21/2025 1:00 PM CDT Anesthesia Event [facility] Electrophysiology Lab [address] [place] [address] [place] [address] [place] [address] 02/21/2025 1:00 PM CDT - 02/21/2025 4:05 PM CDT Surgery [facility] Electrophysiology Lab [address] [place] [id number] Marlene Oates MD [address] [place]IM [address] [place] [id number] INSERT/REPLACE IMPLANTABLE CARDIOVERTER-DEFI BRILLATOR (ICD) DUAL CHAMBER SYSTEM 6[address] documented as of this encounter Visit Diagnoses Not on filedocumented in this encounter Care Teams Lock Assembler Relationship Specialty Start Date End Date Emmanuel Thomas MD [address] [facility] [address] [place] [address] PCP - General Family Medicine 12/05/24 Marlene Oates MD [address] [place] [address] Consulting Physician Cardiology 11/01/18 Jamil Syed MD [address] [place] [address] Consulting Physician Neurology 11/01/18 Nikole Martinez DPM [address] [place] [address] Consulting Physician Foot and Ankle Surg 11/01/18 Aletha Arreola MD [address] [place] [address] Consulting Physician Gastroenterology 04/29/20 Marilin Garcia PA [address] [place] [address] Physician Assurance Sourcing Manager Endocrinology 12/06/20 documented as of this encounter
--- OUTSIDE RECORDS SUMMARY | 2025-02-20 21:45 | XMS_ITS | Clinical Summary ---
Author Organization [facility] Address [address] [place] [address] Care Team Providers [place] Scaler Name Role Phone Marlene Oates MD Unavailable Jamil Syed MD Unavailable [phone] Nikole Martinez DPM Unavailable [phone] Aletha Arreola MD Unavailable [phone] Marilin Garcia Unavailable [phone] Emmanuel Thomas MD Primary Care Provider + Allergies Active Allergy Reactions Criticality Noted Date Comments Ibuprofen Other (See comments),Nausea only,Vomiting Low Reaction: NAUSEA;, , Reaction: Nausea, , , , , Reaction: other, , Morphine Other (See comments),Vomiting,Nause a only Low Reaction: NAUSEA;, , Reaction: vomit, Medications fish oil-dha-epa 1,200-144-216 mg capsule otc 1 capsule 017 Active Additional Information Patient taking differently: 1 capsule oral Daily, otc, Informant: Child, Reported on 02/19/2025 calcium carbonate-vitamin D3 1,250mg (500mg elemental) - 5 mcg (200 units) per tablet Take 1 tablet by mouth 2 (two) times a day with meals Active meclizine (ANTIVERT) 25 mg tablet Take 1 tablet (25 mg total) by mouth daily Active albuterol HFA (PROVENTIL HFA,VENTOLIN HFA,PROAIR HFA) 90 mcg/actuation inhalerIndications :Centrilobular emphysema (HCC) TAKE 2 PUFFS BY MOUTH EVERY 4 HOURS NEEDED FOR WHEEZE 25.5 each 2 Active spironolactone (ALDACTONE) 25 mg tablet Take 1 tablet (25 mg total) by mouth daily 90 tablet 3 024 2024 Active Breo Ellipta 100-25 mcg/dose diskus inhalerIndications :Centrilobular emphysema (HCC) INHALE 1 PUFF BY MOUTH DAILY. RINSE MOUTH WITH WATER AFTER USE. DO NOT SWALLOW. 180 each 3 Active SEMGLEE-yfgn 100 unit/mL vial for injection Inject 25 Units under the skin nightly Active gabapentin (NEURONTIN) 300 mg capsule Take 1 capsule (300 mg total) by mouth nightly as needed Active semaglutide (OZEMPIC) 1 mg/dose (4 mg/3 mL) pen injector injection Inject 1 mg under the skin once a week Wednesday Active memantine (NAMENDA) 10 mg tabletIndications: Late onset Alzheimer's dementia without behavioral disturbance TAKE 1 TABLET BY MOUTH TWICE A DAY 180 tablet 025 Active atorvastatin (LIPITOR) 40 mg tabletIndications: Atherosclerosis of [place] coronary artery of [place] heart with stable angina pectoris TAKE 1 TABLET BY MOUTH EVERY DAY 90 tablet 1 025 Active amitriptyline (ELAVIL) 75 mg tabletIndications: Diabetic polyneuropathy associated with type 2 diabetes mellitus (HCC) TAKE 1 TABLET BY MOUTH EVERY DAY AT NIGHT 90 tablet 025 Active apixaban (ELIQUIS) 5 mg tablet Take 1 tablet (5 mg total) by mouth 2 (two) times a day 60 tablet 11 025 2025 Active carvediloL (COREG) 25 mg tabletIndications: Essential hypertension TAKE 1 TABLET BY MOUTH TWICE A DAY WITH FOOD 180 tablet 3 025 Active furosemide (LASIX) 40 mg tablet TAKE 1 TABLET BY MOUTH EVERY MORNING AND 1/2 TABLET EVERY EVENING 135 tablet 3 025 Active donepeziL (ARICEPT) 10 mg tabletIndications: Late onset Alzheimer's dementia without behavioral disturbance Take 1 tablet (10 mg total) by mouth nightly 90 tablet 1 025 2024 Active levothyroxine (SYNTHROID) 50 mcg tablet Take 1 tablet (50 mcg total) by mouth daily 30 tablet 1 025 2024 Active hydrALAZINE (APRESOLINE) 10 mg tabletIndications: hypertension Take 1 tablet (10 mg total) by mouth 3 (three) times a day Active midodrine (PROAMATINE) 5 mg tabletIndications: Symptomatic Orthostatic Hypotension Take 1 tablet (5 mg total) by mouth 3 (three) times a day 270 tablet 3 025 2025 Active isosorbide dinitrate (ISORDIL) 5 mg tablet Take 1 tablet (5 mg total) by mouth 2 (two) times a day 60 tablet 025 Active empagliflozin (JARDIANCE) 10 mg tabletIndications: Heart Failure,heart failure associated with type 2 diabetes mellitus Take 1 tablet (10 mg total) by mouth daily 30 tablet 025 Active sacubitriL-valsart an (ENTRESTO) 24-26 mg tabletIndications: chronic heart failure Take 1 tablet by mouth 2 (two) times a day 60 tablet 025 Active sertraline (ZOLOFT) 50 mg tabletIndications: Generalized Anxiety Disorder Take 1/2 tab (25mg) for 7 days and then take full tab (50mg) daily after. 180 tablet 025 Active Additional Information Patient taking differently: 50 mg oral Daily, Take 1/2 tab (25mg) for 7 days and then take full tab (50mg) daily after., Indications: Generalized Anxiety Disorder, Informant: Child, Reported on 02/19/2025 insulin lispro (HumaLOG, ADMELOG) 100 unit/mL vial for injection Inject 10 Units under the skin 2 (two) times a day with lunch and dinner Active famotidine (PEPCID) 20 mg tablet Take 1 tablet (20 mg total) by mouth daily Active multivitamin tabletIndications: Vitamin Deficiency Prevention Take 1 tablet by mouth daily Active cranberry fruit extract (CRANBERRY CONCENTRATE ORAL) Take 1 capsule by mouth daily Active aspirin 81 mg enteric coated tabletIndications: Cerebral Thromboembolism Prevention Take 1 tablet (81 mg total) by mouth daily 90 tablet 3 023 2024 Discontinued FIASP 100 unit/mL (3 mL) pen for injection Inject 10 Units under the skin 2 (two) times a day 024 2024 Discontinued levothyroxine (SYNTHROID) 25 mcg tabletIndications: Acquired hypothyroidism TAKE 1 TABLET (25 MCG TOTAL) BY MOUTH [employer] SUPER[employer]OR BEFORE BREAKFAST 30 tablet 025 2024 Discontinued(O ther) isosorbide dinitrate (ISORDIL) 5 mg tablet Take 1 tablet (5 mg total) by mouth 2 (two) times a day 60 tablet 025 2024 Discontinued(R eorder) empagliflozin (JARDIANCE) 10 mg tabletIndications: Heart Failure,heart failure associated with type 2 diabetes mellitus Take 1 tablet (10 mg total) by mouth daily 30 tablet 025 2024 Discontinued(R eorder) sacubitriL-valsart an (ENTRESTO) 24-26 mg tabletIndications: chronic heart failure Take 1 tablet by mouth 2 (two) times a day 60 tablet 025 2024 Discontinued(R eorder) sertraline (ZOLOFT) 50 mg tabletIndications: Anxiety with Depression Take 1/2 tab (25mg) for 7 days and then take full tab (50mg) daily after. 90 tablet 025 2024 Discontinued(R eorder) Active Problems Problem Noted Date Diagnosed Date PVT (paroxysmal ventricular tachycardia) Assessment & Plan (02/11/2025 10:14 AM CDT): Chronic combined systolic and diastolic heart fa ilure 02/09/2025 Assessment & Plan (02/11/2025 10:07 AM CDT): A-fib 01/14/2025 Assessment & Plan (02/11/2025 10:07 AM CDT): Shortness of breath 01/13/2025 COPD (chronic obstructive pulmonary disease) 11/2024 High serum lactate 01/13/2025 Elevated troponin 01/13/2025 Elevated brain natriuretic peptide (BNP) level 0 01/13/2025 Microalbuminuria due to type 2 diabetes mellitus 12/10/2023 Diabetes mellitus with stage 3 chronic kidney di sease 12/10/2023 Assessment & Plan (02/11/2025 10:14 AM CDT): Mixed hyperlipidemia 12/09/2023 Assessment & Plan (12/09/2023 3:50 PM CDT): Continue to limit fats in diet and take atorvastatin 40 mg daily PVD (peripheral vascular disease) 12/17/2021 Overview (12/17/2021): Added automatically from request for surgery [id number] Assessment & Plan (02/11/2025 10:14 AM CDT): Trochanteric bursitis 10/07/2021 Radiculopathy, lumbosacral region 07/31/2021 Postlaminectomy syndrome, lumbar 07/31/2021 Spinal stenosis of lumbar re gion with neurogenic claudication 07/31/2021 Electrolyte abnormality 06/16/2021 Acquired hypothyroidism 06/16/2021 Assessment & Plan (12/09/2023 3:49 PM CDT): Patient reports that she picked up the medication from the pharmacy but has not started taking it yet. She was waiting to come back from a vacation before taking it in case she had a reaction. She will resume it and contact our office to get her TSH level drawn in about 8 weeks. Assessment & Plan (06/10/2023 1:04 PM MENTAL HEALTH UNIT LEAD PSYCHOLOGIST): Asymptomatic. Stable. Continue current prescription medications, levothyroxine. Left hip pain 06/13/2021 Assessment & Plan (06/18/2021 2:34 PM MENTAL HEALTH UNIT LEAD PSYCHOLOGIST): X-rays ordered of lumbar spine, left hip, in left knee. Medrol Dosepak prescribed. Referred pain management. Elevated TSH 06/13/2021 Assessment & Plan (06/18/2021 2:34 PM MENTAL HEALTH UNIT LEAD PSYCHOLOGIST): Repeat TSH. Chronic left-sided low back pain with left-sided sciatica 06/13/2021 Assessment & Plan (06/18/2021 2:34 PM MENTAL HEALTH UNIT LEAD PSYCHOLOGIST): X-rays ordered of lumbar spine, left hip, in left knee. Medrol Dosepak prescribed. Referred pain management. DDD (degenerative disc disease), lumbar 06/13/20 Assessment & Plan (06/18/2021 2:34 PM MENTAL HEALTH UNIT LEAD PSYCHOLOGIST): X-rays ordered of lumbar spine, left hip, in left knee. Medrol Dosepak prescribed. Referred pain management. BMI 28.0-28.9,adult 04/29/2020 Assessment & Plan (12/09/2023 3:53 PM CDT): BMI 28.65. Continue healthy diet, increase exercise, encourage weight loss Assessment & Plan (06/18/2021 2:34 PM MENTAL HEALTH UNIT LEAD PSYCHOLOGIST): Weight reduction, daily exercise and dietary modifications recommended. Assessment & Plan (11/25/2020 10:34 PM CDT): Weight reduction, daily exercise and dietary modifications recommended. Tremor 09/13/2018 Assessment & Plan (06/10/2023 1:02 PM MENTAL HEALTH UNIT LEAD PSYCHOLOGIST): Stable. On B-andrew. Assessment & Plan (04/29/2020 4:17 PM CDT): Unchanged, no meds. No further f/u with neurology. Assessment & Plan (04/05/2019 9:32 AM CDT): Stable. Monitored by neurology. Presence of automatic (implantable) cardiac defi brillator 10/25/2017 Assessment & Plan (04/29/2020 4:21 PM CDT): Managed by cardiology. Assessment & Plan (04/05/2019 9:23 AM CDT): No discharges, monitored by cardiology. Assessment & Plan (10/25/2017 12:05 PM CDT): No discharges since implantation. History of myocardial infarction 10/25/2017 Assessment & Plan (02/11/2025 10:14 AM CDT): Assessment & Plan (04/05/2019 9:23 AM CDT): Asx. Assessment & Plan (10/25/2017 12:05 PM CDT): Asx. Chronic bilateral thoracic back pain 10/25/2017 Overview (10/25/2017): s/p thoracic surgery requiring plates Assessment & Plan (04/29/2020 4:16 PM CDT): Managed with occasional acetaminophen, maybe weekly. Assessment & Plan (04/05/2019 9:24 AM CDT): Tolerable, takes acetaminophen prn. Assessment & Plan (10/25/2017 12:04 PM CDT): Unable to take NSAIDs secondary to CKD. Referred to pain mgmt for further eval/tx. Centrilobular emphysema 03/05/2017 Assessment & Plan (12/09/2023 3:52 PM CDT): Stable. Has albuterol HFA rescue inhaler p.r.n. Assessment & Plan (06/10/2023 1:03 PM MENTAL HEALTH UNIT LEAD PSYCHOLOGIST): Asymptomatic, at baseline, continue albuterol, Breo. Assessment & Plan (06/18/2021 2:33 PM MENTAL HEALTH UNIT LEAD PSYCHOLOGIST): At baseline, continue current prescription medications. Assessment & Plan (11/25/2020 10:29 PM CDT): At baseline, cont current meds. Assessment & Plan (04/29/2020 4:29 PM CDT): Clinically improved, continue current meds. Assessment & Plan (12/08/2019 11:08 AM CDT): Clinically improved, continue current meds. Assessment & Plan (08/02/2019 2:23 PM MENTAL HEALTH UNIT LEAD PSYCHOLOGIST): Asx. Continue current therapy. Assessment & Plan (04/05/2019 9:27 AM CDT): More trouble at night, has been using albuterol HFA daily 2 - 4 times a day. Does not have a maintenance inhaler, use to be on Advair years ago. Willing to try new maintenance inhaler. Will prescribe Breo. Assessment & Plan (12/03/2018 8:45 PM CDT): She has 40 pack year smoking history. She was diagnosed with COPD long time ago based on history of smoking and clinical examination; however Pulmonary function testing on September 14, 2018 has shown no evidence of emphysema: 1. No obstructive or restrictive ventilatory defect, 2. Moderate impairment of diffusion capacity, 3. Normal airway resistance. Assessment & Plan (08/22/2018 9:56 PM MENTAL HEALTH UNIT LEAD PSYCHOLOGIST): She has 40 pack year smoking history. She quit in 1999. She was diagnosed with COPD long time ago based on history of smoking and clinical examination however she has never had a PFT done. Currently she is on combination of Combivent and albuterol inhaler as needed. Her inhaler technique was reviewed and correct technique was clearly explained and demonstrated. Pulmonary function testing, 6 min walk test and chest x-ray were ordered. Assessment & Plan (06/23/2018 2:04 PM MENTAL HEALTH UNIT LEAD PSYCHOLOGIST): Referred to Pulmonology for further mgmt of COPD. Discussed appropriate use of rescue inhaler. Will defer maintenance treatment until after patient has been seen and eval. By Pulmonology. Assessment & Plan (10/25/2017 11:59 AM CDT): COPD is improving with treatment. Warning signs of respiratory distress were reviewed with the patient. Continue current medications. Osteopenia of both lower legs 03/05/2017 Assessment & Plan (04/29/2020 4:30 PM CDT): On calcium. Assessment & Plan (04/05/2019 9:30 AM CDT): On calcium and vit d supp. Stable. Stage 3b chronic kidney disease 05/18/2016 Overview (10/15/2016): Stage 3 chronic kidney disease Assessment & Plan (06/10/2023 12:58 PM MENTAL HEALTH UNIT LEAD PSYCHOLOGIST): Worsening, on Losartan, admits to drinking 64 ounces of water daily, continue. Labs ordered, will follow. Assessment & Plan (06/18/2021 2:36 PM MENTAL HEALTH UNIT LEAD PSYCHOLOGIST): Increase water intake. Managed blood pressure and keep tight control of blood sugars. Continue current prescription medications. Assessment & Plan (11/25/2020 10:33 PM CDT): Increase water intake, cont current meds. Assessment & Plan (04/29/2020 4:19 PM CDT): Stable, increase daily water intake. Cont Losartan. Assessment & Plan (12/08/2019 11:07 AM CDT): Stable. Increase daily water intake. Assessment & Plan (04/05/2019 9:34 AM CDT): Stable, on TABITHA-I. Assessment & Plan (04/27/2018 12:29 PM CDT): Stable, cont current medications, avoid NSAIDs. Assessment & Plan (10/25/2017 12:04 PM CDT): Consider referral to nephrology. History of CVA (cerebrovascular accident) 2015 Overview (10/15/2016): Stroke Assessment & Plan (02/11/2025 10:14 AM CDT): Assessment & Plan (04/05/2019 9:23 AM CDT): No residual effects affecting ADLs. Monitored by neurology. Assessment & Plan (10/25/2017 12:03 PM CDT): Asx. Stenosis of carotid artery 02/20/2015 Assessment & Plan (04/29/2020 4:26 PM CDT): F/u with neurology for further eval/mgmt. Diabetic neuropathy 10/08/2014 Overview (10/15/2016): Diabetic neuropathy Assessment & Plan (12/09/2023 3:50 PM CDT): Scored 8 of 10 bilaterally on monofilament test. Continue gabapentin 100 mg daily. New Rx sent to pharmacy Assessment & Plan (06/18/2021 2:35 PM MENTAL HEALTH UNIT LEAD PSYCHOLOGIST): Currently on gabapentin. Encourage tight control of blood sugars. Assessment & Plan (11/25/2020 10:34 PM CDT): On amitriptyline, managed, cont current meds. Assessment & Plan (08/02/2019 2:24 PM MENTAL HEALTH UNIT LEAD PSYCHOLOGIST): Stable. Cont. Current meds. Assessment & Plan (04/05/2019 9:29 AM CDT): Unchanged, on Vit B12 supp and amitriptyline. Assessment & Plan (10/25/2017 12:02 PM CDT): On Lyrica and amitriptyline, doing well, refill given. Atherosclerosis of [place] co ronary artery of [place] heart with stable angina pectoris 11/25/2013 Overview (10/14/2016): CAD (coronary artery disease) Assessment & Plan (02/11/2025 10:07 AM CDT): Assessment & Plan (06/10/2023 1:03 PM MENTAL HEALTH UNIT LEAD PSYCHOLOGIST): Asymptomatic. Stable. Continue current prescription medications, carvedilol, atorvastatin. ASA. Assessment & Plan (06/18/2021 2:35 PM MENTAL HEALTH UNIT LEAD PSYCHOLOGIST): Asymptomatic. Continue current prescription medications. Assessment & Plan (11/25/2020 10:30 PM CDT): Asx. Cont current meds. Assessment & Plan (04/29/2020 4:20 PM CDT): Stable. Cont. Current meds. Managed by cardiology. Assessment & Plan (12/08/2019 11:09 AM CDT): Asx. Continue current therapy. Managed by cardiology. Assessment & Plan (04/05/2019 9:24 AM CDT): Stable, continue current meds. Assessment & Plan (04/27/2018 12:30 PM CDT): Cont daily ASA, followed by cardiology. Assessment & Plan (10/25/2017 12:03 PM CDT): Coronary artery disease is improving with treatment. Continue current treatment regimen. Dietary sodium restriction. Weight loss. Regular aerobic exercise. Continue current medications. Cardiac status will be reassessed in 6 months. Managed by cardiology. Osteoarthritis 11/25/2013 Overview (10/14/2016): Osteoarthritis Assessment & Plan (04/29/2020 4:16 PM CDT): Managed with occasional acetaminophen, maybe weekly. Assessment & Plan (04/05/2019 9:34 AM CDT): Exercise as tolerated, cont acetaminophen a\prn. Hypertension associated with diabetes 11/25/2013 Overview (04/27/2018): Assessment & Plan (02/11/2025 10:14 AM CDT): Assessment & Plan (12/09/2023 3:51 PM CDT): At goal. BP 122/68. Continue to limit salt in diet and continue current medications. This is managed per Cardiology Assessment & Plan (06/10/2023 12:59 PM MENTAL HEALTH UNIT LEAD PSYCHOLOGIST): Blood pressure at goal less than 140/90, continue current prescription medications, carvedilol, furosemide, losartan, spironolactone. Assessment & Plan (06/18/2021 2:36 PM MENTAL HEALTH UNIT LEAD PSYCHOLOGIST): Clinically improved, continue current prescription medications. Assessment & Plan (11/25/2020 10:30 PM CDT): Controlled, cont current meds. Assessment & Plan (04/29/2020 4:21 PM CDT): Stable. Cont. Current meds. Managed by cardiology. Assessment & Plan (12/08/2019 11:07 AM CDT): Stable. Cont. Current meds. Assessment & Plan (08/02/2019 2:22 PM MENTAL HEALTH UNIT LEAD PSYCHOLOGIST): Within normal range. Cont current meds. Assessment & Plan (04/05/2019 9:30 AM CDT): Clinically improved, continue current meds. Assessment & Plan (04/27/2018 12:27 PM CDT): Hypertension is improving with treatment. Continue current treatment regimen. Dietary sodium restriction. Regular aerobic exercise. Continue current medications. carvedilol 25 mg bid, furosemide 40mg qd, lisinopril 2.5mg qd, spironolactone 25 mg qd Blood pressure will be reassessed at the next regular appointment. Assessment & Plan (10/25/2017 11:58 AM CDT): Hypertension is improving with treatment. Continue current treatment regimen. Dietary sodium restriction. Weight loss. Regular aerobic exercise. Continue current medications. Blood pressure will be reassessed at the next regular appointment. Type 2 diabetes mellitus, [facility] long-term current use of insulin 11/25/2013 Overview (11/25/2020): Managed by Endocrinology Assessment & Plan (12/09/2023 3:48 PM CDT): Well controlled. Continue present medications. This is managed by endocrinology Assessment & Plan (06/10/2023 1:05 PM MENTAL HEALTH UNIT LEAD PSYCHOLOGIST): A1c at goal of less than 8.0, continue current prescription medications, Insulin, losartan, Ozempic. Assessment & Plan (02/16/2023 4:13 PM CDT): Suspect hypoglycemia. Recommend that they discontinue NovoLog, the mealtime insulin of 6 units at lunch and dinner. Encouraged daughter to contact patient's bag machine adjuster to let them know what occurred today. Recommend a quicker wean of Semglee. Patient's daughter last reduce her Semglee by 2 units about a month ago. Patient is currently on Ozempic 1 mg weekly. Go to nearest emergency room if signs or symptoms do not improve or if they worsen. Encouraged patient to eat a meal, as soon as she gets home. Assessment & Plan (06/18/2021 2:35 PM MENTAL HEALTH UNIT LEAD PSYCHOLOGIST): A1c well controlled. Managed by Endocrinology. Continue current prescription medications. Assessment & Plan (11/25/2020 10:32 PM CDT): Keep upcoming new pt appt with Endocrinology. Labs ordered, will follow. Assessment & Plan (05/01/2020 8:55 AM CDT): Stable. Managed by Endocrinology. Assessment & Plan (12/08/2019 11:08 AM CDT): Managed by endocrinology. Assessment & Plan (08/02/2019 2:23 PM MENTAL HEALTH UNIT LEAD PSYCHOLOGIST): Managed by endocrinology. Assessment & Plan (04/05/2019 9:33 AM CDT): Clinically improved, continue current meds. Managed by endocrinology. Assessment & Plan (04/27/2018 12:28 PM CDT): Managed by Endocrinology. Cont current meds Assessment & Plan (10/25/2017 12:00 PM CDT): Diabetes is unchanged. Continue current treatment regimen. Discussed foot care. Reminded to get yearly retinal exam. Managed by Endocrinology. Diabetes will be reassessed in 6 months. Late onset Alzheimer's demen tia without behavioral disturbance 08/01/2012 Overview (06/13/2021): Assessment & Plan (12/09/2023 3:48 PM CDT): Her daughter reports that she seems to be remaining stable with no further decline. Continue Aricept and Namenda. Assessment & Plan (06/10/2023 1:02 PM MENTAL HEALTH UNIT LEAD PSYCHOLOGIST): Stable. Cont. Current prescription medications, donepezil, memantine. Assessment & Plan (06/18/2021 2:33 PM MENTAL HEALTH UNIT LEAD PSYCHOLOGIST): Add Namenda, continued Aricept. Assessment & Plan (11/25/2020 10:30 PM CDT): Stable. Cont. Current meds. Assessment & Plan (04/29/2020 4:19 PM CDT): On donepezil Assessment & Plan (12/08/2019 11:07 AM CDT): Stable. Cont. Current meds. Assessment & Plan (04/05/2019 9:37 AM CDT): Stable. Cont. Current meds. Paroxysmal ventricular tachycardia 07/26/2012 Assessment & Plan (12/09/2023 3:53 PM CDT): Patient is asymptomatic with RRR upon examination. Managed per Cardiology Assessment & Plan (11/25/2020 10:31 PM CDT): RR currently. Asx. Cont current meds. Assessment & Plan (04/29/2020 4:21 PM CDT): Rate-controlled. Cont. Current meds. Managed by cardiology. Assessment & Plan (04/05/2019 9:33 AM CDT): Stable, on Beta-andrew, managed by cardiology. Weakness generalized Assessment & Plan (02/16/2023 4:14 PM CDT): Recommended going to the emergency room, patient refused. Most likely having hypoglycemic episodes. Patient is currently on Ozempic as well as seemingly and NovoLog. She is been working with her bag machine adjuster to try to wean off insulin. Adjustments have not been made for about 1 month. Resolved Problems Problem Noted Date Diagnosed Date Resolved Date SIRS (systemic inflammatory response syndrome) 01/13/2025 01/14/2025 Increased anion gap metabolic acidosis 01/13/2025 01/14/2025 Chronic diastolic congestive heart failure 01/13/2025 02/11/2025 Cough 12/06/2019 04/29/2020 Class 1 obesity due to exces s calories with serious comorbidity and body mass index (BMI) of 30.0 to 30.9 in adult 08/22/2018 04/29/2020 Assessment & Plan (08/02/2019 2:24 PM MENTAL HEALTH UNIT LEAD PSYCHOLOGIST): Worsening. Encouraged patient to decrease weight, increase daily exercise, and modify diet. Assessment & Plan (12/03/2018 8:36 PM CDT): Stable BMI. No significant weight loss over the past 6 months. Assessment & Plan (08/22/2018 9:58 PM MENTAL HEALTH UNIT LEAD PSYCHOLOGIST): BMI is 30.22 kg/m2. Weight management counseling was provided for 10 min. Lifestyle change and diet modification were discussed with the patient in detail. Slow transit constipation 10/25/2017 Overview (10/25/2017): Followed by GI Assessment & Plan (10/25/2017 12:00 PM CDT): Doing well on Miralax, refill given. Hyperlipidemia associated wi th type 2 diabetes mellitus 10/08/2014 04/05/2019 Overview (04/27/2018): Assessment & Plan (04/27/2018 12:28 PM CDT): Lipid abnormalities are improving with treatment. Nutritional counseling was provided. and Pharmacotherapy as ordered. lipitor 40mg qd Lipids will be reassessed 4 months. Assessment & Plan (10/25/2017 11:58 AM CDT): Lipid abnormalities are improving with treatment. Nutritional counseling was provided. and Pharmacotherapy as ordered. Lipids will be reassessed in 6 months. Migraine 01/23/2014 04/05/2019 Overview (10/15/2016): MIGRNE UNSP WO NTRC MGRN Gastroesophageal reflux disease 11/25/2013 04/29/2020 Overview (10/14/2016): ESOPHAGEAL REFLUX Assessment & Plan (04/05/2019 9:36 AM CDT): Clinically improved, OTC meds prn. Assessment & Plan (10/25/2017 11:59 AM CDT): Stable. Cont. Current meds. Asthma 11/25/2013 03/05/2017 Overview (10/16/2016): Asthma Heart failure with preserved left ventricular function 11/25/2013 02/11/2025 Overview (06/23/2018): s/p implantable defibrillator; managed by cardiology- Dr. aOtes Assessment & Plan (12/09/2023 3:51 PM CDT): Stable. Managed by Cardiology Assessment & Plan (11/25/2020 10:31 PM CDT): At baseline, cont current meds. Managed by cardiology. Assessment & Plan (04/29/2020 4:20 PM CDT): Stable. Cont. Current meds. Managed by cardiology. Assessment & Plan (04/05/2019 9:36 AM CDT): Stable. Cont. Current meds. Managed by cardiology. Assessment & Plan (12/03/2018 8:47 PM CDT): Echocardiogram on September 07, 2018 has shown: 1. Estimated ejection fraction 45-50%, 2. Diastolic dysfunction stage I, The patient was advised to continue with combination of carvedilol and furosemide. Assessment & Plan (08/22/2018 9:53 PM MENTAL HEALTH UNIT LEAD PSYCHOLOGIST): Currently the patient is on combination of carvedilol, furosemide and spironolactone. We will obtain a copy of his echocardiogram for review. Assessment & Plan (06/23/2018 2:07 PM MENTAL HEALTH UNIT LEAD PSYCHOLOGIST): Appears to be at baseline. Rx given for furosemide, patient nor her daughter knew if patient has been taking it. Cautioned patient's daughter to check home medications against the list printed on her AVS today prior to given new dose of furosemide 20 mg qd. Patient will f/u with Cardiology for medical mgmt of her CHF. Assessment & Plan (04/27/2018 12:29 PM CDT): At baseline, managed by Cardiology. Assessment & Plan (10/25/2017 12:03 PM CDT): Congestive heart failure due to coronary artery disease (CAD) and hypertension. Heart failure is improving with treatment. Continue current treatment regimen. Dietary sodium restriction. Encouraged daily monitoring of the patient's weight. Regular aerobic exercise. Continue current medications. Heart failure will be reassessed in 6 months. Managed by Cardiology. Chronic ischemic heart disease 11/25/2013 02/11/2025 Overview (10/16/2016): CHR ISCHEMIC HRT DIS NOS Assessment & Plan (04/29/2020 4:20 PM CDT): Stable. Cont. Current meds. Managed by cardiology. Assessment & Plan (04/05/2019 9:34 AM CDT): Stable, cont current meds. Diabetic gastroparesis 11/25/201304/29 Overview (10/25/2017): Followed by GI Assessment & Plan (04/05/2019 9:35 AM CDT): Clinically improved. Assessment & Plan (04/27/2018 12:34 PM CDT): Improved with Reglan and Zofran. Refill given. Assessment & Plan (10/25/2017 12:01 PM CDT): Reglan helps, Refill given. Vitamin B deficiency 11/25/2013 019 Overview (10/16/2016): VITAMIN B DEFICIENCY NOS Vitamin D deficiency 11/25/2013 019 Overview (10/16/2016): VITAMIN D DEFICIENCY NOS Acute cystitis without hematuria 04/05/2019 Encounters Date Type Department Care Team Description 02/14/2025 Telephone [facility] at [address] [phone] Emmanuel Thomas MD Med Refill 02/12/2025 ACO Outreach [facility] Accountable Care Organization [address] [place] [id number] Gigi Morrison RN 02/09/2025 10:00 AM CDT Office Visit [facility] at [address] [phone] Emmanuel Thomas MD Atherosclerosis of [place] coronary artery of [place] heart with stable angina pectoris (Primary Dx); Chronic combined systolic and diastolic heart failure (HCC); Longstanding persistent atrial fibrillation (HCC); PVT (paroxysmal ventricular tachycardia) (HCC); PVD (peripheral vascular disease); History of CVA (cerebrovascular accident); History of myocardial infarction; Hypertension associated with diabetes (HCC); Diabetes mellitus with stage 3 chronic kidney disease (HCC); Hyperlipidemia associated with type 2 diabetes mellitus (HCC); Anxiety 02/08/2025 9:00 AM CDT Ancillary Procedure [place] at [address] [place] [address] Cardiomyopathy, ischemic; Paroxysmal VT (HCC); Automatic implantable cardiac defibrillator in situ 02/08/2025 9:00 AM CDT Office Visit [place] [employer] at [address] [place] [address] Marlene Oates MD Chronic ischemic heart disease (Primary Dx); Heart failure with preserved left ventricular function (HCC); Bilateral carotid bruits; Atherosclerosis of [place] arteries of extremities with intermittent claudication, bilateral legs 02/05/2025 Telephone [facility] at [address] [phone] Emmanuel Thomas MD 01/29/2025 Orders Only [facility] at [address] [phone] Mone Dumont NP Acquired hypothyroidism (Primary Dx) 01/17/2025 Telephone [facility] at [address] [phone] Emmanuel Thomas MD [facility] appointment 01/17/2025 [facility] IP Outreach [facility] Accountable Care Organization [address] [place] [phone] Jacinta Dubois MA 01/17/2025 [facility] IP Outreach [address] [address] Jacinta Dubois MA 01/16/2025 11:10 AM CDT - 01/16/2025 12:15 PM CDT Surgery [facility] Cardiac Catheterization [address] [place] [address] Marianela Denson MD LEFT HEART CATHETERIZATION WITH CORONARY ANGIOGRAPHY AND WITH OR WITHOUT LEFT VENTRICULOGRAM [id number] 01/12/2025 9:18 PM CDT - 01/16/2025 6:35 PM CDT Hospital Encounter [facility] Acute Medicine [address] [place] [address] Yulisa Franklin MD Galicia, Edgar E., MD Huynh, Kiet T., Lelea Donaldson, MD Valente, Sandeep Zambrano Jr., MD Shortness of breath (Primary Dx); Acute on chronic systolic congestive heart failure (HCC); SIRS (systemic inflammatory response syndrome) (HCC); Elevated brain natriuretic peptide (BNP) level; Chronic obstructive pulmonary disease, unspecified COPD type (HCC); Chronic diastolic congestive heart failure (HCC); Elevated troponin; Hypertension associated with diabetes (HCC); Increased anion gap metabolic acidosis; High serum lactate; Stage 3b chronic kidney disease (HCC); Mixed hyperlipidemia; History of myocardial infarction; Presence of automatic (implantable) cardiac defibrillator; Acute on chronic diastolic (congestive) heart failure (HCC); Acute on chronic combined systolic and diastolic congestive heart failure (HCC); History of CVA (cerebrovascular accident) [Z86.73] Discharge Disposition: Discharge to home or self care 12/27/2024 Results Follow-Up [place] [employer] [facility] at [address] [place] [phone] Linda Bates MA DEVICE CHECK - REMOTE 12/27/2024 Orders Only [place] [employer] at [address] [phone] Marlene Oates MD Heart failure with preserved left ventricular function (HCC) (Primary Dx); Chronic ischemic heart disease; Atherosclerosis of [place] coronary artery of [place] heart with stable angina pectoris 12/25/2024 8:15 AM CDT Ancillary Procedure [place] [address] [place] [phone] Cardiomyopathy, ischemic; Paroxysmal VT (HCC); Automatic implantable cardiac defibrillator in situ 12/06/2024 Results Follow-Up [facility] Primary Care at [address] [place] [phone] Emmanuel Thomas MD Hemoglobin A1c, Thyroid Function [place], Lipid panel, Additional followed-up results: 10 12/05/2024 9:30 AM CDT Lab [facility] Outpatient Lab - Outpatient Center at [address] [address] Type 2 diabetes mellitus with diabetic polyneuropathy, with long-term current use of insulin (HCC); Elevated TSH; Mixed hyperlipidemia; Stage 3b chronic kidney disease (HCC); History of CVA (cerebrovascular accident); Iron deficiency anemia due to chronic blood loss; Vitamin D deficiency 12/05/2024 9:00 AM CDT Office Visit [facility] Primary Care at [address] [phone] Emmanuel Thomas MD Encounter for screening mammogram for malignant neoplasm of breast (Primary Dx); History of CVA (cerebrovascular accident); History of myocardial infarction; Heart failure with preserved left ventricular function (HCC); Hypertension associated with diabetes (HCC); Diabetes mellitus treated with insulin (HCC); Type 2 diabetes mellitus with diabetic polyneuropathy, with long-term current use of insulin (HCC); Hyperlipidemia associated with type 2 diabetes mellitus (HCC); Microalbuminuria due to type 2 diabetes mellitus (HCC); Diabetes mellitus with stage 3 chronic kidney disease (HCC); Weakness generalized; Centrilobular emphysema (HCC); Elevated TSH; Iron deficiency anemia due to chronic blood loss; Vitamin B12 deficiency; Vitamin D deficiency; Late onset Alzheimer's dementia without behavioral disturbance (HCC) from Last 3 Months Immunizations Immunization Administration Dates Next Due Influenza, Quadrivalent, Hig h Dose, Preservative Free, Intrr 06/13/2021,04/29/2020 Influenza, Quadrivalent, Spl it, Intramuscular 04/06/2014 Influenza, Quadrivalent, Spl it, Preservative Free, Intradermal 06/21/2015 Influenza, Split 04/14/2012,06/25/2011, 0 Influenza, Trivalent, High D ose, Split, Preservative Free, Intramuscular 04/05/2019,04/27/2018,05/17/2017,04/1204/27/2019 Influenza, Trivalent, IM (MDV) 05/17/2008,2006 Influenza, Unspecified 06/06/2024(Deferr ed: Patient Refused),06/10/2023(Deferred: Patient Refused),04/19/2023(Deferred: Patient Refused),02/16/2023(Deferred: Patient Refused),02/09/2023(Deferred: Patient Refused),09/16/2022(Deferred: Patient Refused),06/10/2022(Deferred: Patient Refused),04/11/2016 Pfizer SARS-CoV-2 Monovalent Vaccination (12+ Yrs) PURPLE 11/28/2020,11/22/2020,10/31/2020 Pneumococcal Conjugate PCV 13 01/04/2015 Pneumococcal Polysaccharide PPV23 04/27/2018,07/2004 Tdap 04/03/2010,04/03/2010 ZOSTER LIVE 12/29/2013 Surgical History Surgery Date Site/Laterality Comments OTHER SURGICAL HISTORY knee problem: Knee surgery OTHER SURGICAL HISTORY fibroids: Hysterectomy OTHER SURGICAL HISTORY CHF: defibrillator placed OTHER SURGICAL HISTORY 07/12/2007 - 07/11/2008 right foot disorder: surgical repair OTHER SURGICAL HISTORY CHF ischemic: defibrillater OTHER SURGICAL HISTORY rt heel surgery FOOT SURGERY 07/12/2007 - 07/11/2008 foot surgery KNEE SURGERY 07/12/2004 - 07/11/2005 Knee surgery OTHER SURGICAL HISTORY 07/12/2006 - 07/11/2007 cardiac surgery OTHER SURGICAL HISTORY Cardiac arrythmia: ICD insertion KNEE ARTHROSCOPY Arthroscopy knee CATARACT EXTRACTION Cataract extraction OTHER SURGICAL HISTORY 07/12/2011 - 07/11/2012 b/l cataract sx OTHER SURGICAL HISTORY left knee sx OTHER SURGICAL HISTORY laser surgery to eyes for scar tissue TOTAL ABDOMINAL HYSTERECTOMY W/ BILATERAL SALPINGOOPHORECTOMY Hysterectomy, total abdominal, BSO OTHER SURGICAL HISTORY 07/12/1988 - 07/11/1989 : TOTAL ABDOMINAL HYSTERECTOMY W/ BILATERAL SALPINGOOPHORECTOMY NATHANIEL with BSO OTHER SURGICAL HISTORY Defibrillator Implant OTHER SURGICAL HISTORY Dr. Palomino/gyne OTHER SURGICAL HISTORY Dr. Quiñones/nephrology CARDIAC DEFIBRILLATOR PLACEMENT 12/30/2016 SPINAL FUSION 05/12/2016 - 06/10/2016 T6-L1 fusion s/p fracture from falling down steps. CARDIAC STENT PLACEMENT LAD CARDIAC CATHETERIZATION 01/16/2025 Groin/Right Procedure: LEFT HEART CATHETERIZATION WITH CORONARY ANGIOGRAPHY AND WITH OR WITHOUT LEFT VENTRICULOGRAM 22561; Surgeon: Marianela Denson MD; Location: [facility] CARDIAC LOCATOR; Service: Cardiovascular; Laterality: Right; Medical devices from this surgery are in the Medical Devices section. Medical History Medical History Date Comments Hx Other Medical knee problem Hx Other Medical fibroids Hx Other Medical CHF Hx Other Medical right foot diso rder Diabetes mellitus (HCC) Diabetes Hx Other Medical neuropathy Hx Other Medical foot and knee s urgery Hx Other Medical defribilator Hypertension Hypertension Hx Other Medical Headache, migra ine Chronic coronary artery disease Coronary artery disease Hyperlipidemia Hyperlipidemia Hx Other Medical Vitamin D Defic iency Hx Other Medical vit B12 deficie ncy Hx Other Medical chronic cough s yndrome Hx Other Medical diabetic neurop athy Hx Other Medical Hypertension re solved Hx Other Medical CHF ischemic Chronic obstructive pulmonary disease (HCC) COPD Myocardial infarction (HCC) Myoc ardial infarction Gastroesophageal reflux disease GERD Type 2 diabetes mellitus Diabete s type 2 Diabetes mellitus (HCC) 1999 Diabetes mellitus Myocardial infarction (HCC) 1999 Myoc ardial infarction Congestive heart failure (HCC) C ongestive heart failure Cerebrovascular accident (CVA) (HCC) Cerebrovascular accident Atrial arrhythmia Cardiac arryth radha Hx Other Medical CVA (Stroke) Hx Other Medical Dr. Arreola/G I Hx Other Medical Dr. Hurst/Endo Hx Other Medical Dr. Narciso Orozco/N eurology. Hx Other Medical ; Outc ome: 8lb(s) Female Hx Other Medical Dr. Oates/Car diology Hx Other Medical Spinal fusion PONV (postoperative nausea and vomiting) Motion sickness Atrial fibrillation (HCC) VT (ventricular tachycardia) Chronic kidney disease Hypothyroidism History of transfusion Family History Medical History Relation Name Comments Heart attack Brother 1 jillian Other Brother 1 jillian Alive and well; Coronary artery disease Brother 3 Grace nary artery disease; Hypertension Brother 4 Hypertension; Coronary artery disease Brother 5 jami Grace nary artery disease, premature; Heart attack Brother 5 jami Stroke Brother 6 evelin Stroke; Neuropathy Brother 7 Neuropathy; Cau se of : Neuropathy COPD Father COPD; Coronary artery disease Father Gracepeggy deleon artery disease; Diabetes Father Diabetes mellit us; Diabetes type II Father Diabetes -T ype II; Heart disease Father Heart disease; Cause of : Heart disease Coronary artery disease Mother Grace nary artery disease; Heart attack Mother Myocardial infa rction; Cause of : Myocardial infarction/Myocardial infarction; Hypertension Mother Hypertension; Diabetes type II Other 1 Family hist ory of Diabetes -Type II; Hyperlipidemia Other 2 Family histor y of Hyperlipidemia; Hypertension Other 3 Family history of Hypertension; Relation Name Status Comments Brother 1 jillian Brother 2 Brother 3 Brother 4 Brother 5 jami Brother 6 evelin Brother 7 Father Mother Other 1 Other 2 Other 3 Social History Tobacco Use Types Packs/Day Years Used Date Smoking Tobacco: Former Cigarettes 1.5 30 1 970 - 1999 Smokeless Tobacco: Never Tobacco Cessation:Counseling Given: Not Answered Alcohol Use Standard Drinks/Week Comments Never 0 (1 standard drink = 0.6 oz pur e alcohol) [facility] Utilities Answer Date Recorded In the past 12 months has [employer], oil, or water [employer] threatened to shut off services in your [...] often do you attend chur ch or restorationist services? Never 01/15/2025 Do you belong to any clubs o r organizations such as baptism groups, unions, fraternal or athletic groups, or school groups? No 01/15/2025 How often do you attend meet ings of the clubs or organizations you belong to? Never 01/15/2025 Are you , , di vorced, , never , or living with a partner? 01/15/2025 Overall Financial Resource Strain (CARDIA) Answe r [...] any time in the past 12 m [facility], were you homeless or living in a alf (including now)? No 01/15/2025 AUDIT-C Answer Date Recorded Q1: How often do you have a drink containing alcohol? Never 02/19/2025 Q2: How many drinks containi ng alcohol do you have on a typical day when you are drinking? Patient does not drink Q3: How often do you have si x or more drinks on one occasion? Never 02/19/2025 Personal Safety Answer Date Recorded Have you ever been in or are you currently in a harmful physical or emotional relationship or is someone making you feel afraid or unsafe? 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 Not on file Not on file Not on file Obstetrics History Last Filed Vital Signs Vital Sign Reading Time Taken Comments Blood Pressure 98/72 02/09/2025 9:55 AM CDT Pulse 66 02/09/2025 9:55 AM CDT Temperature 36.5 C (97.7 F) 02/09/2025 9:55 AM CDT Respiratory Rate 16 02/09/2025 9:55 AM CDT Oxygen Saturation 98% 02/09/2025 9:55 AM CDT Inhaled Oxygen Concentration - - Weight 79.8 kg (176 lb) 02/09/2025 9:55 AM CDT Height 170.2 cm (5' 7) 02/09/2025 9:55 AM CDT Body Mass Index 27.57 02/09/2025 9:55 AM CDT Plan of Treatment Upcoming Encounters Date Type Department Care Team (Late st Contact Info) Description 02/21/2025 1:00 PM CDT Hospital Encounter [facility] Electrophysiology Lab [address] [place] [phone] Marlene Oates MD [address] [facility] [address] [place] [id number] PVT (paroxysmal ventricular tachycardia) (HCC); Chronic ischemic heart disease; 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) 02/21/2025 1:00 PM CDT Anesthesia Event [facility] Electrophysiology Lab [address] [place] [address] [place] [address] [address] 02/21/2025 1:00 PM CDT - 02/21/2025 4:05 PM CDT Surgery [facility] Electrophysiology Lab [address] [place] [phone] Marlene Oates MD [address] [facility] [address] [place] [id number] INSERT/REPLACE IMPLANTABLE CARDIOVERTER-DEFI BRILLATOR (ICD) DUAL CHAMBER SYSTEM 58398 Health Maintenance Due Date Last Done Comments Hepatitis B Screening 1968 Breast Cancer Screening-Mammogram 04/23/2016 04/23/2015, 04/23/2015 DTaP/Tdap/Td Vaccine (3 - Td or Tdap) 04/03/2020 04/03/2010, 04/03/2010 Colon Cancer Screening-Colonoscopy 05/19/2020 05/19/2017, 05/19/2017, 12/08/2011, Additional history exists Dilated Eye Exam 12/18/2021 12/18/2020, 08/2018, 02/28/2018, Additional history exists Covid-19 Vaccine ( season) 2024 11/28/2020, 11/22/2020, 10/31/2020 Well Visit 65+ 06/10/2024 06/10/2023, 1209/2020, 04/29/2020, Additional history exists Foot Exam 12/08/2024 12/09/2023, 1209/2020, 04/05/2019, Additional history exists Influenza Vaccine (#1) 2025 , 04/29/2020, 04/05/2019, Additional history exists Zoster Vaccine (2 of 3) 06/06/2025 12/29/2013 Post poned from 02/23/2014 (Patient declined, but will receive in the future) Hemoglobin A1C 06/07/2025 12/05/2024, 3 , 06/13/2021, Additional history exists Albumin Creatinine Ratio, Urine 12/05/2025 12/05/2024, 12/09/2023, 06/13/2021 Lipid Panel 12/05/2025 12/05/2024, 3 , 06/13/2021, Additional history exists TSH Level 12/05/2025 12/05/2024, 053 , 06/13/2021, Additional history exists eGFR 01/16/2026 01/16/2025, 07/0 12/2024, 01/13/2025, Additional history exists Depression Screening 02/09/2026 02/09/2025, 02/09/2025, 12/05/2024, Additional history exists Fall Risk Assessment 02/19/2026 02/19/2025, 12/05/2024, 06/10/2023, Additional history exists Osteoporosis Screening-Bone Density Scan 05/28/2027 05/29/2015 Postponed from 05/29/2017 (Patient does not have time) Hepatitis C Screening Completed 05/04/2016, 016 Colon Cancer Screening-CT Colonography Discontinued 05/19/2017, 05/19/2017, 12/08/2011, Additional history exists Colon Cancer Screening-DNA Stool Discontinued 05/19/2017, 05/19/2017, 12/08/2011, Additional history exists Colon Cancer Screening-FIT Discontinued 05/19, 05/19/2017, 12/08/2011, Additional history exists Colon Cancer Screening-Sigmoidoscopy Discontinued 05/19/2017, 05/19/2017, 12/08/2011, Additional history exists Pneumococcal vaccine 65+ Completed 018, 01/04/2015, 07/12/2004 Medical Devices Implanted Type [employer] Device Identifier Shelf Expiration Date Model / Serial / Lot [employer] Lifestream 8mm 58mm 80cm Balloon Expandable Low Profile Cover [id number] - [id number] Implanted:Qty: 1 on 12/19/2021 by Bobby Judd MD at [facility] [employer] 09/08/2024 [id number] / / [id number] [employer] Lifestream 8mm 26mm 80cm Balloon Expandable Low Profile Cover [id number] - [id number] Implanted:Qty: 1 on 12/19/2021 by Bobby Judd MD at [facility] [employer] 04/10/2024 [id number] / / [id number] Angio-Seal Evolution 6fr Vascular Closure [id number] - [id number] Implanted:Qty: 1 on 12/19/2021 by Bobby Judd MD at [facility] [employer] 06/10/2022 [id number] / / [id number] [employer] Angio-Seal Vip 6fr Closere Device [id number] - [id number] Implanted:Qty: 1 on 01/16/2025 by Marianela Denson MD at [facility] Right: Groin [employer] 07/25/2025 [id number] / / [id number] Procedures Procedure Name Priority Date/Time Associated Diagnosis Comments DEVICE CHECK - IN OFFICE Routine 02/08/2025 8:52 AM CDT Cardiomyopathy, ischemic Paroxysmal VT (HCC) Automatic implantable cardiac defibrillator in situ POCT GLUCOSE DEVICE Routine 01/16/2025 4 :41 PM CDT POCT GLUCOSE DEVICE Routine 01/16/2025 1 :01 PM CDT LEFT HEART CATHETERIZATION WITH CORONARY ANGIOGRAPHY AND WITH AND WITHOUT LEFT VENTRICULOGRAM Routine 01/16/2025 12:06 PM CDT Acute on chronic combined systolic and diastolic congestive heart failure (HCC) POCT GLUCOSE DEVICE Routine 01/16/2025 1 1:08 AM CDT POCT GLUCOSE DEVICE Routine 01/16/2025 8 :51 AM CDT EGFR Routine 01/16/2025 3:02 AM CDT BASIC METABOLIC PANEL Routine 01/16/2025 3:02 AM CDT POCT GLUCOSE DEVICE Routine 01/16/2025 2 :31 AM CDT POCT GLUCOSE DEVICE Routine 01/15/2025 8 :00 PM CDT POCT GLUCOSE DEVICE Routine 01/15/2025 4 :42 PM CDT POCT GLUCOSE DEVICE Routine 01/15/2025 1 1:28 AM CDT TRANSTHORACIC ECHO (TTE) COMPLETE W DOPPLER/CF WO CONTRAST Routine 01/15/2025 8:15 AM CDT POCT GLUCOSE DEVICE Routine 01/15/2025 8 :05 AM CDT POCT GLUCOSE DEVICE Routine 01/15/2025 2 :54 AM CDT POCT GLUCOSE DEVICE Routine 01/14/2025 8 :24 PM CDT POCT GLUCOSE DEVICE Routine 01/14/2025 4 :46 PM CDT POCT GLUCOSE DEVICE Routine 01/14/2025 4 :43 PM CDT POCT GLUCOSE DEVICE Routine 01/14/2025 1 1:13 AM CDT SEPSIS LACTATE WITH REFLEX Add-On 01/14/2025 9:43 AM CDT POCT GLUCOSE DEVICE Routine 01/14/2025 7 :36 AM CDT EGFR Routine 01/14/2025 4:14 AM CDT BASIC METABOLIC PANEL Routine 01/14/2025 4:14 AM CDT POCT GLUCOSE DEVICE Routine 01/14/2025 3 :38 AM CDT POCT GLUCOSE DEVICE Routine 01/13/2025 7 :55 PM CDT POCT GLUCOSE DEVICE Routine 01/13/2025 4 :04 PM CDT POCT GLUCOSE DEVICE Routine 01/13/2025 1 1:28 AM CDT POCT GLUCOSE DEVICE Routine 01/13/2025 7 :[address] CHEST PE W CONTRAST IP Routine 7:01 AM CDT EGFR Routine 01/13/2025 4:14 AM CDT BASIC METABOLIC PANEL Routine 01/13/2025 4:14 AM CDT D-DIMER, QUANTITATIVE Routine 01/13/2025 4:14 AM CDT TROPONIN T HIGH-SENSITIVITY 6-HOUR Timed 01/13/2025 4:14 AM CDT POCT GLUCOSE DEVICE Routine 01/13/2025 2 :02 AM CDT TROPONIN T HIGH-SENSITIVITY 4-HR Timed 01/13/2025 1:27 AM CDT SEPSIS LACTATE WITH REFLEX Timed 01/13/2025 12:58 AM CDT URINALYSIS AND REFLEX TO MICROSCOPIC AND CULTURE STAT 01/12/2025 11:50 PM CDT TROPONIN T HIGH-SENSITIVITY 2-HOUR Timed 01/12/2025 11:38 PM CDT ECG 12-LEAD STAT 01/12/2025 11:32 PM CDT XR CHEST 1 VIEW ED 01/12/2025 10:02 PM CDT SEPSIS LACTATE WITH REFLEX Timed 01/12/2025 9:46 PM CDT EGFR STAT 01/12/2025 9:35 PM CDT DIFFERENTIAL AUTO STAT 01/12/2025 9:3 5 PM CDT MAGNESIUM Routine 01/12/2025 9:35 PM CDT TROPONIN T HIGH-SENSITIVITY SERIES (BASELINE, 2HR, 4HR, 6HR) STAT 01/12/2025 9:35 PM CDT SEPSIS LACTATE WITH REFLEX STAT 01/12/2025 9:35 PM CDT PROTIME-INR STAT 01/12/2025 9:35 PM CDT COMPREHENSIVE METABOLIC PANEL STAT 01/12/2025 9:35 PM CDT CBC WITH AUTO DIFFERENTIAL STAT 01/12/2025 9:35 PM CDT PRO B-TYPE NATRIURETIC PEPTIDE STAT 01/12/2025 9:35 PM CDT INFLUENZA A/B, RSV, AND COVID-19 PCR STAT 01/12/2025 9:35 PM CDT ECG 12-LEAD STAT 01/12/2025 9:32 PM CDT DEVICE CHECK - REMOTE Routine 12/25/2024 11:22 AM CDT Cardiomyopathy, ischemic Paroxysmal VT (HCC) Automatic implantable cardiac defibrillator in situ EGFR Routine 12/05/2024 9:33 AM CDT Stage 3b chronic kidney disease (HCC) T4, FREE Routine 12/05/2024 9:33 AM CDT Elevated TSH DIFFERENTIAL AUTO Routine 12/05/2024 9:3 3 AM CDT History of CVA (cerebrovascular accident) VITAMIN B12 Routine 12/05/2024 9:33 AM CDT Iron deficiency anemia due to chronic blood loss VITAMIN D 25 HYDROXY Routine 12/05/2024 9:33 AM CDT Iron deficiency anemia due to chronic blood loss Vitamin D deficiency FERRITIN Routine 12/05/2024 9:33 AM CDT Iron deficiency anemia due to chronic blood loss IRON PROFILE W/ IBC Routine 12/05/2024 9 :33 AM CDT Iron deficiency anemia due to chronic blood loss CBC WITH AUTO DIFFERENTIAL Routine 12/05/2024 9:33 AM CDT History of CVA (cerebrovascular accident) ALBUMIN CREATININE RATIO, URINE Routine 12/05/2024 9:33 AM CDT Type 2 diabetes mellitus with diabetic polyneuropathy, with long-term current use of insulin (HCC) COMPREHENSIVE METABOLIC PANEL Routine 12/05/2024 9:33 AM CDT Stage 3b chronic kidney disease (HCC) LIPID PANEL Routine 12/05/2024 9:33 AM CDT Mixed hyperlipidemia THYROID FUNCTION CASCADE Routine 12/05/2024 9:33 AM CDT Elevated TSH HEMOGLOBIN A1C Routine 12/05/2024 9:33 AM CDT Type 2 diabetes mellitus with diabetic polyneuropathy, with long-term current use of insulin (HCC) DIABETIC EYE EXAM Routine 12/18/2020 DIABETES FOOT EXAM Routine 04/05/2019 COLONOSCOPY REPORT 05/19/2017 HM HEPATITIS C SCREENING Routine 05/04/2016 DEXA SCAN Routine 05/29/2015 MAMMOGRAPHY Routine 04/23/2015 from Last 3 Months or Most Recently Relevant to Health Maintenance Results * DEVICE CHECK - IN OFFICE (02/08/2025 8:52 AM CDT) Anatomical Region Laterality Modality Other Narrative 02/08/2025 2:03 PM CDT Images from the original result were not included. 02/08/2025 [employer] [facility] in-office device check The complete report is attached to this R esult Text in Substitute Teacher us Marlene Oates MD CV CARDIAC SERVICES MT OCEDURES Final Result * POCT glucose (01/16/2025 4:41 PM CDT) Glucose, POC 157 70 - 199 mg/dL Blood 01/16/2025 4:41 PM CDT 01/16/2025 4:41 PM CDT us Sandeep Valente Jr., MD LAB POCT ORDERABLES - DEVICE Final Result [facility] ([place]) [facility] [place] [address] * POCT glucose (01/16/2025 1:01 PM CDT) Glucose, POC 147 70 - 199 mg/dL Blood 01/16/2025 1:01 PM CDT 01/16/2025 1:01 PM CDT Sandeep Valente Jr., MD LAB POCT ORDERABLES - DEVICE Final Result [facility] ([place]) [facility] [place] [address] * LEFT HEART CATHETERIZATION WITH CORONARY ANGIOGRAPHY AND WITH AND WITHOUT LEFT VENTRICULOGRAM (01/16/2025 12:06 PM CDT) Anatomical Region Laterality Modality X-Ray Angiograph y Narrative 01/17/2025 11:36 AM CDT CARDIAC CATHETERIZATION BRIEF CLINICAL HISTORY Ms. Juan Thompson is a very pleasant 74-year-old woman referred for a cardiac catheterization following her presentation with history of cardiomyopathy, status post ICD, coronary artery disease status post stent to screen for progressive coronary artery disease. Cardiac catheterization/intervention procedures were discussed in detail with the patient. The indications, risks, benefits and alternatives were discussed. The risks include, but are not limited to, , stroke, myocardial infarction, need for emergency bypass surgery, pericardial tamponade, allergy to contrast/ anaesthetic agents, contrast induced nephropathy that may require temporary or permanent dialysis, radiation injury, vascular complications, including bleeding that may require blood transfusions, retroperitoneal hematoma that may be fatal, pseudoaneurysm formation, loss of limb; arrhythmias/ respiratory failure that may need cardioversion, intubation, CPR; and possible need for repeat procedures. Patient verbalizes understanding of the risks and benefits and patient is willing to proceed with it. PROCEDURES PERFORMED 1. Left heart catheterization. 2. Selective coronary angiography. 3. Angio-Seal/manual closure device/manual compression for hemostasis to the right femoral arteriotomy site. GROIN Right groin. SHEATH A 5-Cuban sheath in the right femoral artery. MODERATE SEDATION: Patient received 2 mg of Versed and 50 mcg of fentanyl were utilized to induce moderate sedation for a procedure duration of 15 minutes that was completely supervised. PROCEDURE DETAILS After obtaining informed consent and administering lidocaine to the right groin, a 5-Cuban sheath was introduced into the right femoral artery using modified Selinger technique. Over a J-tip guidewire, a left Sherry catheter, a right Sherry catheter and a pigtail catheter were used in sequence to perform left coronary angiography, right coronary angiography and left ventriculography. Left ventricular hemodynamic studies were performed including pressure gradient across the aortic valve. Patient in general tolerated the procedure well. No immediate complications were noted. FINDINGS 1. Left main is a large caliber vessel, has an ostial stenosis of maybe about 40-50% but eccentric, only visible in one view, rest of the view showing a large vessel with no obstructive anatomy. 2. Left anterior descending artery shows a good caliber vessel with a type 1 anatomy that wraps around the apex. There is a stent in the mid segment possibly encompassing both the diagonal branches, appears patent. First diagonal branch is angiographically normal. Second diagonal branch may have an ostial stenosis of about 90% as it is jailed in the stent. The distal left anterior descending artery shows a small caliber but no angiographically observable plaque. 3. Left circumflex artery is good calibered and possibly co dominant, has angiographic normal appearance including a 1st obtuse marginal branch, a 2nd obtuse marginal branch and a distal circumflex artery then continues into the posterolateral ventricular branch distribution to a certain extent. 4. Right coronary artery is a good caliber vessel, dominant, has what appears to be a chronic total occlusion in the mid segment over a short length, with a large bridging collateral reconstituting the distal right coronary artery. There was a 40-50% stenosis in the distal vessel. Other than calcification through most of its length, otherwise angiographically normal. Posterior descending artery small caliber normal. Posterolateral branch is a relatively good caliber vessel and is angiographically normal. 5. [id number]-[id number] collaterals show competitive flow in what appears to be a posterior descending artery branch of the RCA. 6. Elevated left ventricle filling pressures, end-diastolic pressure 15-20 millimeter of mercury. SUMMARY OF FINDINGS 1. Widely patent stent in the mid left anterior descending artery. 2. RUBBER WASHER RCA mid segment, with a large bridging collateral reconstituting the distal vessel. 3. Possibly intermediate severe ostial left main coronary artery disease, does not appear flow limiting. 4. Elevated LV filling pressures, LVEDP 15-20 millimeter of mercury PLAN Angio-Seal did not deploy, right femoral arteriotomy site is managed with manual compression with hemostasis. Bed rest for 4 hours. IVF 0.9 NS 100 cc/hr for 2 hours. Risk factor modification strategy discussed with the patient. It included weight reduction through exercise and dietary discretion, optimal control of hypertension, lipid status. Discussed with the patient about the details of the procedure, the results, post cath care instructions including activity limitations explained. The right coronary artery stenosis appears complex not only from a calcific vessel but also with a large bridging collateral reconstituting a RUBBER WASHER. Needs a high-risk PCI. Marianela Denson MD John Domínguez MD CV CARDIAC CATH PROCEDURES Fi nal Result * (ABNORMAL) POCT glucose (01/16/2025 11:08 AM CDT) Glucose, POC 225(H) 70 - 199 mg/dL Blood 01/16/2025 11:0 8 AM CDT 01/16/2025 11:08 AM CDT Sandeep Valente Jr., MD LAB POCT ORDERABLES - DEVICE Final Result Performing Organization Address [facility] Co de Phone Number [facility] ([place]) [address] [place] [address] [place] [address] * POCT glucose (01/16/2025 8:51 AM CDT) [facility] Glucose, POC 182 70 - 199 mg/dL Blood 01/16/2025 8:51 AM CDT 01/16/2025 8:51 AM CDT Sandeep Valente Jr., MD LAB POCT ORDERABLES - DEVICE Final Result Performing Organization Address City/[facility] Co de Phone Number [facility] ([place]) 1 [facility] [place] [address] * (ABNORMAL) eGFR (01/16/2025 3:02 AM CDT) eGFR 48(L) >=60 mL/min/1. 73 m2 Comment: Interpretive Data Reference Interval Normal >/= 90 mL/min/1.73m2 Mildly decreased* 60 - 89 mL/min/1.73m2 Mildly to moderately decreased 45 - 59 mL/min/1.73m2 Moderately to severely decreased 30 - 44 mL/min/1.73m2 Severely decreased 15 - 29 mL/min/1.73m2 Kidney Failure < 15 mL/min/1.73m2 *Relative to young adult level Estimated glomerular filtration rate is determined by the 2020 CKD-EPI equation recommended by the National Kidney Foundation (A Unifying Approach to GFR Estimation: Recommendations of the NKF-ASK Task Force on Reassessing the Inclusion of Race in Diagnosing Kidney Disease, JASN 2020). The CKD-EPI equation should not be used for patients with unstable renal function and has not been validated in children and those over 70. Current interpretive data was last reviewed 2021. Blood 01/16/2025 3:02 AM CDT 01/16/2025 4:14 AM CDT us Leela Tobin MD LAB BLOOD ORDERABLES Susan benz Result [facility] ([place]) 1 [facility] Department of Laboratories [place], [place] [id number] * (ABNORMAL) Basic metabolic panel (01/16/2025 3:02 AM CDT) Sodium 143 135 - 145 mmol/L Potassium, pl 4.2 3.3 - 4.9 mmol/L [facility] ([place]) Chloride 102 97 - 110 mmol/L [facility] ([place] CO2 27 22 - 32 mmol/L [facility] ([place]) Anion gap 14 2 - 15 mmol/L [facility] ([place] BUN 19 6 - 25 mg/dL [facility] ([place]) Creatinine 1.20(H) 0.60 - 1.10 mg/dL [facility] ([place]) Glucose 157 70 - 199 mg/dL [facility] ([place]) Comment: Interpretive Data Fasting glucose >/= 126 mg/dl is diagnostic for diabetes. Fasting is defined as no caloric intake for at least 8 hours. Fasting glucose between 100 mg/dl to 125 mg/dl is diagnostic of prediabetes. In a patient with classic symptoms of hyperglycemia or hyperglycemic crisis, a random glucose >/= 200 mg/dl is diagnostic for diabetes. In the absence of unequivocal hyperglycemia, results should be confirmed by repeat testing. The classification and Diagnosis of Diabetes Diabetes Care 2021; 46: S19-S40. Current interpretive data was last revised 2022. Calcium 10.2 8.5 - 10.3 mg/dL [facility] ([place]) Blood 01/16/2025 3:02 AM CDT 01/16/2025 4:14 AM CDT Leela Tobin MD LAB BLOOD ORDERABLES Susan l Result [facility] ([place]) [address] [facility] [employer] [place] [id number] * POCT glucose (01/16/2025 2:31 AM CDT) Glucose, POC 160 70 - 199 mg/dL Blood 01/16/2025 2:31 AM CDT 01/16/2025 2:31 AM CDT Sandeep Valente Jr., MD LAB POCT ORDERABLES - DEVICE Final Result [facility] ([place]) [address] [facility] [place] [address] * (ABNORMAL) POCT glucose (01/15/2025 8:00 PM CDT) Glucose, POC 258(H) 70 - 199 mg/dL Blood 01/15/2025 8:00 PM CDT 01/15/2025 8:00 PM CDT Leela Tobin MD LAB POCT ORDERABLES - DEV ICE Final Result [facility] ([place]) [address] [place] [address] * POCT glucose (01/15/2025 4:42 PM CDT) Glucose, POC 194 70 - 199 mg/dL Blood 01/15/2025 4:42 PM CDT 01/15/2025 4:42 PM CDT Leela Tobin MD LAB POCT ORDERABLES - DEV ICE Final Result Performing Organization Address [facility]/ZIP Co de Phone Number [facility] ([place]) [address] [place] [address] * (ABNORMAL) POCT glucose (01/15/2025 11:28 AM CDT) [facility] Glucose, POC 283(H) 70 - 199 mg/dL Blood 01/15/2025 11:2 8 AM CDT 01/15/2025 11:28 AM CDT Leela Tobin MD LAB POCT ORDERABLES - DEV ICE Final Result Performing Organization Address City/[facility] Co de Phone Number [facility] ([place]) [address] [place] [address] * TRANSTHORACIC ECHO (TTE) COMPLETE W DOPPLER/CF WO CONTRAST (01/15/2025 8:15 AM CDT) [facility] Estimated EF 20-25 % CONS SCIMAGE Anatomical Region Laterality Modality Ultrasound 01/15/2025 7:47 AM CDT Narrative 01/15/2025 2:46 PM CDT [address] [address] Echocardiogram Report Patient Name: JUAN THOMPSON : 1950 Study Date: 01/15/2025 7:47:03 AM Gender: F Tech: NABIL Location: [id number] Ref Provider: WILLI GUZMAN Height(Cm): BSA: Weight(Kg): Quality: Adequate Order Provider: WILLI GUZMAN PROCEDURES: Echocardiographic Report: Transthoracic echocardiogram with complete 2D, M-Mode, and color Doppler examination. INDICATIONS: Heart Failure; Shortness of breath; SOB at rest with elevated proBNP, concern for worsening heart failure - MEASUREMENTS: 2D/MM Value Range Doppler Value Range EF Teich MM 34.3 % [ 54.0 - 74.0 ] NATHANIEL Vmax 2.02 cm2 Estimated EF 20-25 % AV Mean PG 4 mmHg LVIDd MM 6.35 cm [ 3.80 - 5.20 ] AV Peak Benny 1.31 m/s [ 1.00 - 1.70 ] LVIDs MM 5.28 cm [ 2.20 - 3.50 ] AV VTI 33.54 cm LVPWd MM 1.00 cm [ 0.60 - 0.90 ] LVOT Diam 2.12 cm IVSd MM 1.15 cm [ 0.60 - 0.90 ] LVOT Peak Benny 0.75 m/s [ 0.70 - 1.10 ] LA Dimension MM 3.07 cm [ 2.70 - 3.80 ] LVOT VTI 19.86 cm AoR Diam MM 3.22 cm [ 2.70 - 3.70 ] MV E Peak Benny 1.40 m/s [ 0.60 - 1.30 ] ACS MM 1.88 cm MV A Peak Benny 1.28 m/s [ 1.00 - 1.20 ] MV Mean PG 2 mmHg MV PHT 34 msec [ 20 - 100 ] MVA 6.40 MV Decel Time 119 msec [ 104 - 258 ] PV Peak Benny 0.96 m/s [ 0.40 - 0.80 ] MT Peak Benny 0.96 m/s TR Peak Benny 1.05 m/s [ 1.00 - 2.80 ] TR Peak PG 4 mmHg RVSP 12.00 mmHg [ 10.00 - 36.00 ] E` 0.04 m/s E/E` 33.82 [ <= 10.00 ] PA Pressure 12.00 mmHg [ 10.00 - 36.00 ] 2D/MM Value Range Doppler Value Range - FINDINGS: Atrial Septum: Normal atrial septum. Left Ventricle: Mild concentric left ventricular hypertrophy. Moderate enlargement of left ventricle cavity. Severe global left ventricular systolic dysfunction. Normal left ventricular diastolic function. Ejection Fraction is estimated to be 20-25 %. There is global hypokinesis involving all segments of the LV. Left Atrium: The left atrium is normal in size. Right Ventricle: Normal right ventricular size. Normal right ventricular systolic function. Linear artifact in right ventricle suggestive of catheter(s), pacemaker lead(s), or ICD lead(s). Right Atrium: The right atrium is normal in size. Linear artifact in right atrium suggestive of catheter(s), pacemaker lead(s), or ICD lead(s). Aortic Valve: No evidence of hemodynamically significant aortic stenosis by Doppler. Aortic cusps appear mildly sclerotic. Mitral Valve: Mitral valve leaflets appear mildly thickened. Mild to moderate mitral valve regurgitation. Pulmonic Valve: Normal structure of the pulmonic valve. Trivial regurgitation in the pulmonic valve. Tricuspid Valve: Normal structure of the tricuspid valve. Normal right ventricular systolic pressure. Trivial regurgitation in the tricuspid valve. Pericardium: Normal pericardium with no significant pericardial effusion. Aorta: There is mild atherosclerosis in the aortic root. IVC: Normal size and normal respiratory collapse consistent with normal right atrial pressure (<5 mmHg). Pulmonary Artery: Pulmonary artery not well visualized. CONCLUSIONS: Mild concentric left ventricular hypertrophy. Moderate enlargement of left ventricle cavity. Severe global left ventricular systolic dysfunction. Normal left ventricular diastolic function. Ejection Fraction is visually estimated to be 20-25 %. There is global hypokinesis involving all segments of the LV. No definite left ventricular thrombus noted. Normal right ventricular size. Normal right ventricular systolic function. Linear artifact in right ventricle suggestive of catheter(s), pacemaker lead(s), or ICD lead(s). Mitral valve leaflets appear mildly thickened. Mild to moderate mitral valve regurgitation. No evidence of hemodynamically significant aortic stenosis by Doppler. Aortic cusps appear mildly sclerotic. Normal structure of the tricuspid valve. Normal right ventricular systolic pressure. Trivial regurgitation in the tricuspid valve. Normal pericardium with no significant pericardial effusion. Electronically Signed By: Marianela Denson MD 01/15/2025 2:45:16 PM CDT Procedure Note Marianela Denson MD - 01/15/[address] [address] Echocardiogram Report Patient Name: JUAN THOMPSON : 1950 Study Date: 01/15/2025 7:47:03 AM Gender: F Tech: NABIL Location: [id number] Ref Provider: WILLI GUZMAN Height(Cm): BSA: Weight(Kg): Quality: Adequate Order Provider: WILLI GUZMAN PROCEDURES: Echocardiographic Report: Transthoracic echocardiogram with complete 2D, M-Mode, and color Dopplerexamination. INDICATIONS: Heart Failure; Shortness of breath; SOB at rest with elevated proBNP,concern for worsening heart failure - MEASUREMENTS: 2D/MM Value Range Doppler ValueRange EF Teich MM 34.3 % [ 54.0 - 74.0 ] NATHANIEL Vmax 2.02cm2 Estimated EF 20-25 % AV Mean PG 4 mmHg LVIDd MM 6.35 cm [ 3.80 - 5.20 ] AV Peak Benny 1.31 m/s[ 1.00 - 1.70 ] LVIDs MM 5.28 cm [ 2.20 - 3.50 ] AV VTI 33.54cm LVPWd MM 1.00 cm [ 0.60 - 0.90 ] LVOT Diam 2.12cm IVSd MM 1.15 cm [ 0.60 - 0.90 ] LVOT Peak Benny 0.75 m/s[ 0.70 - 1.10 ] LA Dimension MM 3.07 cm [ 2.70 - 3.80 ] LVOT VTI 19.86cm AoR Diam MM 3.22 cm [ 2.70 - 3.70 ] MV E Peak Benny 1.40 m/s[ 0.60 - 1.30 ] ACS MM 1.88 cm MV A Peak Benny 1.28 m/s[ 1.00 - 1.20 ] MV Mean PG 2 mmHg MV PHT 34 msec [ 20 - 100 ] MVA 6.40 MV Decel Time 119 msec [ 104 - 258 ] PV Peak Benny 0.96 m/s [ 0.40 - 0.80 ] MT Peak Benny 0.96 m/s TR Peak Benny 1.05 m/s [ 1.00 - 2.80 ] TR Peak PG 4 mmHg RVSP 12.00 mmHg [ 10.00 - 36.00 ] E` 0.04 m/s E/E` 33.82 [ <= 10.00 ] PA Pressure 12.00 mmHg [ 10.00 - 36.00 ] 2D/MM Value Range Doppler ValueRange - FINDINGS: Atrial Septum: Normal atrial septum. Left Ventricle: Mild concentric left ventricular hypertrophy. Moderate enlargement of leftventricle cavity. Severe global left ventricular systolic dysfunction. Normal leftventricular diastolic function. Ejection Fraction is estimated to be 20-25 %. There isglobal hypokinesis involving all segments of the LV. Left Atrium: The left atrium is normal in size. Right Ventricle: Normal right ventricular size. Normal right ventricular systolic function.Linear artifact in right ventricle suggestive of catheter(s), pacemaker lead(s),or ICD lead(s). Right Atrium: The right atrium is normal in size. Linear artifact in right atriumsuggestive of catheter(s), pacemaker lead(s), or ICD lead(s). Aortic Valve: No evidence of hemodynamically significant aortic stenosis by Doppler.Aortic cusps appear mildly sclerotic. Mitral Valve: Mitral valve leaflets appear mildly thickened. Mild to moderate mitralvalve regurgitation. Pulmonic Valve: Normal structure of the pulmonic valve. Trivial regurgitation in thepulmonic valve. Tricuspid Valve: Normal structure of the tricuspid valve. Normal right ventricular systolicpressure. Trivial regurgitation in the tricuspid valve. Pericardium: Normal pericardium with no significant pericardial effusion. Aorta: There is mild atherosclerosis in the aortic root. IVC: Normal size and normal respiratory collapse consistent with normal rightatrial pressure (<5 mmHg). Pulmonary Artery: Pulmonary artery not well visualized. CONCLUSIONS: Mild concentric left ventricular hypertrophy. Moderate enlargement of leftventricle cavity. Severe global left ventricular systolic dysfunction. Normal leftventricular diastolic function. Ejection Fraction is visually estimated to be 20-25 %.There is global hypokinesis involving all segments of the LV. No definite leftventricular thrombus noted. Normal right ventricular size. Normal right ventricular systolic function.Linear artifact in right ventricle suggestive of catheter(s), pacemaker lead(s),or ICD lead(s). Mitral valve leaflets appear mildly thickened. Mild to moderate mitralvalve regurgitation. No evidence of hemodynamically significant aortic stenosis by Doppler.Aortic cusps appear mildly sclerotic. Normal structure of the tricuspid valve. Normal right ventricular systolicpressure. Trivial regurgitation in the tricuspid valve. Normal pericardium with no significant pericardial effusion. Electronically Signed By: Marianela Denson MD 01/15/2025 2:45:16 PM CDT Willi Guzman MD CV ECHO PROCEDURES Final Result * POCT glucose (01/15/2025 8:05 AM CDT) Glucose, POC 171 70 - 199 mg/dL Blood 01/15/2025 8:05 AM CDT 01/15/2025 8:05 AM CDT us Leela Tobin MD LAB POCT ORDERABLES - DEV ICE Final Result [facility] [place] [facility] [place] [address] * POCT glucose (01/15/2025 2:54 AM CDT) Glucose, POC 177 70 - 199 mg/dL Blood 01/15/2025 2:5 4 AM CDT 01/15/2025 2:54 AM CDT Leela Tobin MD LAB POCT ORDERABLES - DEV ICE Final Result Performing Organization Address City/[facility] Co de Phone Number [facility] ([place]) 1 [facility] [place] [address] * (ABNORMAL) POCT glucose (01/14/2025 8:24 PM CDT) Glucose, POC 298(H) 70 - 199 mg/dL Comment:Glu2: RN/MD Notified Blood 01/14/2025 8:24 PM CDT 01/14/2025 8:24 PM CDT Leela Tobin MD LAB POCT ORDERABLES - DEV ICE Final Result Performing Organization Address [facility] Co de Phone Number [facility] ([place]) 1 [facility] [place] [address] * (ABNORMAL) POCT glucose (01/14/2025 4:46 PM CDT) Glucose, POC 252(H) 70 - 199 mg/dL Blood 01/14/2025 4:46 PM CDT 01/14/2025 4:46 PM CDT Leela Tobin MD LAB POCT ORDERABLES - DEV ICE Final Result Performing Organization Address City/[facility] Co de Phone Number [facility] ([place]) 1 [facility] [place] [address] * (ABNORMAL) POCT glucose (01/14/2025 4:43 PM CDT) Glucose, POC 301(H) 70 - 199 mg/dL Blood 01/14/2025 4:43 PM CDT 01/14/2025 4:43 PM CDT Leela Tobin MD LAB POCT ORDERABLES - DEV ICE Final Result [facility] ([place]) 1 [facility] [place] [address] * POCT glucose (01/14/2025 11:13 AM CDT) Glucose, POC 184 70 - 199 mg/dL Blood 01/14/2025 11:1 3 AM CDT 01/14/2025 11:13 AM CDT Leela Tobin MD LAB POCT ORDERABLES - DEV ICE Final Result Performing Organization Address City/[facility]/ZIP Co de Phone Number [facility] ([place]) 1 [facility] [place] [address] * Sepsis Lactate w/ Reflex (01/14/2025 9:43 AM CDT) Sepsis Lactate 1.4 0.7 - 2.0 mmol/L Blood 01/14/2025 9:43 AM CDT 01/14/2025 9:55 AM CDT Leela Tobin MD LAB BLOOD ORDERABLES Susan l Result Performing Organization Address City/[facility]/ZIP Co de Phone Number [facility] ([place]) 1 [facility] [place] [address] * POCT glucose (01/14/2025 7:36 AM CDT) Glucose, POC 161 70 - 199 mg/dL Blood 01/14/2025 7:36 AM CDT 01/14/2025 7:36 AM CDT Leela Tobin MD LAB POCT ORDERABLES - DEV ICE Final Result [facility] ([place]) 1 [facility] [place] [address] * (ABNORMAL) eGFR (01/14/2025 4:14 AM CDT) eGFR 41(L) >=60 mL/min/1. 73 m2 Comment: Interpretive Data Reference Interval Normal >/= 90 mL/min/1.73m2 Mildly decreased* 60 - 89 mL/min/1.73m2 Mildly to moderately decreased 45 - 59 mL/min/1.73m2 Moderately to severely decreased 30 - 44 mL/min/1.73m2 Severely decreased 15 - 29 mL/min/1.73m2 Kidney Failure < 15 mL/min/1.73m2 *Relative to young adult level Estimated glomerular filtration rate is determined by the 2020 CKD-EPI equation recommended by the National Kidney Foundation (A Unifying Approach to GFR Estimation: Recommendations of the NKF-ASK Task Force on Reassessing the Inclusion of Race in Diagnosing Kidney Disease, JASN 2020). The CKD-EPI equation should not be used for patients with unstable renal function and has not been validated in children and those over 70. Current interpretive data was last reviewed 2021. Blood 01/14/2025 4:14 AM CDT 01/14/2025 4:18 AM CDT us Willi Guzman MD LAB BLOOD ORDERABLES Final Resu lt [facility] ([place]) [facility] [place] [address] * (ABNORMAL) Basic metabolic panel (01/14/2025 4:14 AM CDT) Sodium 139 135 - 145 mmol/L Potassium, pl 3.7 3.3 - 4.9 mmol/L [facility] ([place]) Chloride 101 97 - 110 mmol/L [facility] CO2 24 22 - 32 mmol/L [facility] [place]) Anion gap 14 2 - 15 mmol/L [facility] [place] BUN 19 6 - 25 mg/dL [facility] Creatinine 1.36(H) 0.60 - 1.10 mg/dL [facility] [place] Glucose 142 70 - 199 mg/dL [facility] [place] Comment: Interpretive Data Fasting glucose >/= 126 mg/dl is diagnostic for diabetes. Fasting is defined as no caloric intake for at least 8 hours. Fasting glucose between 100 mg/dl to 125 mg/dl is diagnostic of prediabetes. In a patient with classic symptoms of hyperglycemia or hyperglycemic crisis, a random glucose >/= 200 mg/dl is diagnostic for diabetes. In the absence of unequivocal hyperglycemia, results should be confirmed by repeat testing. The classification and Diagnosis of Diabetes Diabetes Care 2021; 46: S19-S40. Current interpretive data was last revised 2022. Calcium 9.4 8.5 - 10.3 mg/dL [facility] ([place]) Blood 01/14/2025 4:14 AM CDT 01/14/2025 4:18 AM CDT us Willi Guzman MD LAB BLOOD ORDERABLES Final Resu lt Performing Organization Address City/[facility]/ZIP Co de Phone Number [facility] ([place]) [address] [facility] [place] [address] * POCT glucose (01/14/2025 3:38 AM CDT) Glucose, POC 173 70 - 199 mg/dL Blood 01/14/2025 3:38 AM CDT 01/14/2025 3:38 AM CDT us Leela Tobin MD LAB POCT ORDERABLES - DEV ICE Final Result [facility] ([place]) [address] [facility] [place] [address] * (ABNORMAL) POCT glucose (01/13/2025 7:55 PM CDT) Glucose, POC 257(H) 70 - 199 mg/dL Blood 01/13/2025 7:55 PM CDT 01/13/2025 7:55 PM CDT Leela Tobin MD LAB POCT ORDERABLES - DEV ICE Final Result [facility] ([place]) 1 [facility] [place] [address] * POCT glucose (01/13/2025 4:04 PM CDT) Glucose, POC 186 70 - 199 mg/dL Blood 01/13/2025 4:04 PM CDT 01/13/2025 4:04 PM CDT us Leela oTbin MD LAB POCT ORDERABLES - DEV ICE Final Result Performing Organization Address [facility] Co de Phone Number [facility] ([place]) [address] [facility] [place] [address] * (ABNORMAL) POCT glucose (01/13/2025 11:28 AM CDT) Glucose, POC 315(H) 70 - 199 mg/dL Blood 01/13/2025 11:2 8 AM CDT 01/13/2025 11:28 AM CDT Leela Tobin MD LAB POCT ORDERABLES - DEV ICE Final Result Performing Organization Address City/[facility]/ZIP Co de Phone Number [facility] ([place]) [address] [facility] [place] [address] * POCT glucose (01/13/2025 7:30 AM CDT) Glucose, POC 145 70 - 199 mg/dL Blood 01/13/2025 7:30 AM CDT 01/13/2025 7:30 AM CDT us Willi Guzman MD LAB POCT ORDERABLES - DEVICE Fi nal Result [facility] ([place]) [address] [facility] [place] [address] * CT Chest PE (CTA) W Contrast (01/13/2025 7:01 AM CDT) Anatomical Region Laterality Modality Body N/A Computed Tomogra phy 01/13/2025 2:43 PM CDT Narrative 01/13/2025 2:50 PM CDT EXAM DESCRIPTION: CT CHEST PE (CTA) W CONTRAST REASON FOR STUDY: Pulmonary embolism (PE) suspected, high prob R/o blood clots in chest TECHNIQUE: CT angiogram of the chest performed with intravenous contrast using helical scanning technique with dynamic intravenous contrast injection. Reconstructed coronal and sagittal MPR images reviewed. All images stored on PACS. 3D MIP images rendered on scanning unit and reviewed at time of interpretation. Automated exposure control was used as a dose optimization technique for this examination. CONTRAST TYPE/DOSE: 75mL of IOVERSOL 350 MG IODINE/ML INTRAVENOUS SYRINGE injected via intravenous COMPARISON: CT chest 06/06/2016 FINDINGS: VASCULATURE: No identified pulmonary emboli. No thoracic aortic aneurysm or dissection. LUNGS: Mild pulmonary emphysema. No evidence of pneumonia. No suspicious pulmonary nodules. PLEURA: No effusion. No pneumothorax. MEDIASTINUM/ОЛЬГА: No identified masses or abnormal nodes. HEART: Heart size is normal with no pericardial effusion. Left chest cardiac pacer device. AXILLA: No adenopathy. CHEST WALL: No masses. No subcutaneous air. HARDWARE/LINES/TUBES: None. UPPER ABDOMEN: No significant abnormality. MUSCULOSKELETAL: No acute fracture or suspicious osseous lesions. Chronic compression fractures of the T9 and T10 vertebral bodies, posterior instrumented fusion of the thoracolumbar spine. OTHER: No significant abnormality. IMPRESSION: No evidence of pulmonary embolism. No acute findings of the chest. THIS IS AN ELECTRONICALLY VERIFIED FINAL REPORT 01/13/2025 2:50 PM - Electronically signed by William Holbrook M.D. KR: XAVIER Report ID: [id number] Reading Location: [id number] Procedure Note William Holbrook MD - 01/13/2025 EXAM DESCRIPTION: CT CHEST PE (CTA) W CONTRAST REASON FOR STUDY: Pulmonary embolism (PE) suspected, high prob R/o blood clots in chest TECHNIQUE: CT angiogram of the chest performed with intravenous contrastusing helical scanning technique with dynamic intravenous contrast injection. Reconstructed coronal and sagittal MPR images reviewed. All images storedon PACS. 3D MIP images rendered on scanning unit and reviewed at time of interpretation. Automated exposure control was used as a doseoptimization technique for this examination. CONTRAST TYPE/DOSE: 75mL of IOVERSOL 350 MG IODINE/ML INTRAVENOUSSYRINGE injected via intravenous COMPARISON: CT chest 06/06/2016 FINDINGS: VASCULATURE: No identified pulmonary emboli. No thoracic aorticaneurysm or dissection. LUNGS: Mild pulmonary emphysema. No evidence of pneumonia. Nosuspicious pulmonary nodules. PLEURA: No effusion. No pneumothorax. MEDIASTINUM/ОЛЬГА: No identified masses or abnormal nodes. HEART: Heart size is normal with no pericardial effusion. Left chest cardiac pacer device. AXILLA: No adenopathy. CHEST WALL: No masses. No subcutaneous air. HARDWARE/LINES/TUBES: None. UPPER ABDOMEN: No significant abnormality. MUSCULOSKELETAL: No acute fracture or suspicious osseous lesions.Chronic compression fractures of the T9 and T10 vertebral bodies, posterior instrumented fusion of the thoracolumbar spine. OTHER: No significant abnormality. IMPRESSION: No evidence of pulmonary embolism. No acute findings of the chest. THIS IS AN ELECTRONICALLY VERIFIED FINAL REPORT 01/13/2025 2:50 PM - Electronically signed by William Holbrook M.D. KR: XAVIER Report ID: [id number] Reading Location: [place] [address] us Willi Guzman MD IM CT PROCEDURES Final Result * (ABNORMAL) Troponin T high-sensitivity 6-hour (01/13/2025 4:14 AM CDT) Trop T hs 19(H) <=14 ng/L Comment: Interpretive Data For further hscTnT resources including the diagnostic algorithm and an aid in interpretation, copy and paste this link: https://nrl.testcatalog.org/show/hsTrop Current Interpretive Data last revised 2020. Trop T hs delta 2 ng/L [facility]) Trop T hs interp Insignificant [facility] Blood 01/13/2025 4:14 AM CDT 01/13/2025 4:34 AM CDT us Yulisa Franklin MD LAB BLOOD ORDERABLE S Final Result Performing Organization Address City/[facility] Co de Phone Number [facility] ([place]) [address] [facility] [place] [address] * (ABNORMAL) eGFR (01/13/2025 4:14 AM CDT) eGFR 38(L) >=60 mL/min/1. 73 m2 Comment: Interpretive Data Reference Interval Normal >/= 90 mL/min/1.73m2 Mildly decreased* 60 - 89 mL/min/1.73m2 Mildly to moderately decreased 45 - 59 mL/min/1.73m2 Moderately to severely decreased 30 - 44 mL/min/1.73m2 Severely decreased 15 - 29 mL/min/1.73m2 Kidney Failure < 15 mL/min/1.73m2 *Relative to young adult level Estimated glomerular filtration rate is determined by the 2020 CKD-EPI equation recommended by the National Kidney Foundation (A Unifying Approach to GFR Estimation: Recommendations of the NKF-ASK Task Force on Reassessing the Inclusion of Race in Diagnosing Kidney Disease, JASN 2020). The CKD-EPI equation should not be used for patients with unstable renal function and has not been validated in children and those over 70. Current interpretive data was last reviewed 2021. Blood 01/13/2025 4:14 AM CDT 01/13/2025 4:34 AM CDT us Willi Guzman MD LAB BLOOD ORDERABLES Final Resu lt Performing Organization Address City/[facility]/ZIP Co de Phone Number [facility] ([place]) [address] [facility] [place] [address] * (ABNORMAL) D-dimer, quantitative (01/13/2025 4:14 AM CDT) D-Dimer 832(H) <=499 ng/mL FEU [facility] ([place]) Comment: Interpretive data FDA approved the D-dimer, in conjunction with a low or moderate pretest probability score, to exclude venous thromboembolic events (VTE) (PE and DVT) in outpatients when the D-dimer result is < 500 ng/ml FEU. Evidence supports using an age-adjusted D-dimer cut-off for outpatients older than 50 (age x 10) to improve specificity without sacrificing sensitivity. Example: age 68, VTE cut-off 680 ng/ml FEU. References; Schouten HT et al. Brit Med J. 2013;346:f2492. Marta et al. Annals Int Med. 2015;163:701-11. Current interpretive data was last revised on 2019. Blood 01/13/2025 4:14 AM CDT 01/13/2025 4:35 AM CDT us Willi Guzman MD LAB BLOOD ORDERABLES Final Resu lt [facility] ([place]) [address] [facility] [place] [address] * (ABNORMAL) Basic metabolic panel (01/13/2025 4:14 AM CDT) Sodium 140 135 - 145 mmol/L Potassium, pl 3.6 3.3 - 4.9 mmol/L [facility] ([place]) Chloride 102 97 - 110 mmol/L [facility] [place] CO2 22 22 - 32 mmol/L [facility] ([place] Anion gap 16(H) 2 - 15 mmol/L [facility] ([place] BUN 19 6 - 25 mg/dL [facility] ([place]) Creatinine 1.44(H) 0.60 - 1.10 mg/dL [facility] ([place]) Glucose 166 70 - 199 mg/dL [facility] ([place] Comment: Interpretive Data Fasting glucose >/= 126 mg/dl is diagnostic for diabetes. Fasting is defined as no caloric intake for at least 8 hours. Fasting glucose between 100 mg/dl to 125 mg/dl is diagnostic of prediabetes. In a patient with classic symptoms of hyperglycemia or hyperglycemic crisis, a random glucose >/= 200 mg/dl is diagnostic for diabetes. In the absence of unequivocal hyperglycemia, results should be confirmed by repeat testing. The classification and Diagnosis of Diabetes Diabetes Care 2021; 46: S19-S40. Current interpretive data was last revised 2022. Calcium 9.7 8.5 - 10.3 mg/dL [facility] ([place]) Blood 01/13/2025 4:14 AM CDT 01/13/2025 4:34 AM CDT Willi Guzman MD LAB BLOOD ORDERABLES Final Resu lt Performing Organization Address [facility]/ZIP Co de Phone Number [facility] ([place]) [address] [facility] [place] [address] * POCT glucose (01/13/2025 2:02 AM CDT) Glucose, POC 143 70 - 199 mg/dL Blood 01/13/2025 2:02 AM CDT 01/13/2025 2:02 AM CDT Willi Guzman MD LAB POCT ORDERABLES - DEVICE Fi nal Result Performing Organization Address [facility]/ZIP Co de Phone Number [facility] ([place]) 1 [facility] [place] [address] * (ABNORMAL) Troponin T high-sensitivity 4-hour (01/13/2025 1:27 AM CDT) Trop T hs 21(H) <=14 ng/L Comment: Interpretive Data For further hscTnT resources including the diagnostic algorithm and an aid in interpretation, copy and paste this link: https://nrl.testcatalog.org/show/hsTrop Current Interpretive Data last revised 2020. Trop T hs delta 4 ng/L [facility] Trop T hs interp Insignificant [facility] Blood 01/13/2025 1:27 AM CDT 01/13/2025 1:32 AM CDT Yulisa Franklin MD LAB BLOOD ORDERABLE S Final Result Performing Organization Address City/[facility]/ZIP Co de Phone Number [facility] ([place]) 1 [facility] [place] [address] * (ABNORMAL) Sepsis Lactate w/ Reflex (01/13/2025 12:58 AM CDT) Sepsis Lactate 2.6(H) 0.7 - 2.0 mmol/L Blood 01/13/2025 12:5 8 AM CDT 01/13/2025 1:02 AM CDT Yulisa Franklin MD LAB BLOOD ORDERABLE S Final Result Performing Organization Address City/[facility]/ZIP Co de Phone Number [facility] ([place]) [address] [facility] [place] [address] * Urinalysis reflex to microscopic and culture Urine (01/12/2025 11:50 PM CDT) Color, ur Straw Yellow Clarity, ur Clear Clear [facility] ([place]) Specific gravity, ur 1.005 1.003 - 1.030 [facility] ([place]) pH, urine 8.0 [facility] ([place] Comment: Interpretive Data U rine pH is affected by diet, medications, systemic acid-base disturbances, and renal tubular function. pH may affect urinary stone formation. For example, urine pH below 6.0 may help reduce the tendency for calcium phosphate stones and pH greater than 6.0 may reduce the tendency for uric acid stone formation. Source: [facility] [employer] Current Interpretive Data was last revised on 2017 Protein, ur ql Negative Negative [facility] ([place] Glucose, ur ql Negative Negative [facility] ([place] Ketones, ur Negative Negative [facility] ([place]) Bilirubin, ur Negative Negative [facility] Blood, ur Negative Negative [facility] Urobilinogen, ur <2.0 <2.0 mg/dL [facility] ([place]) Nitrite, ur Negative Negative [facility]) Leukocyte esterase, ur Negative Negative [facility]) UA reflex comment Reflex conditions for microscopic UA and culture not met. [facility] Urine 01/12/2025 11:5 0 PM CDT 01/12/2025 11:53 PM CDT Yulisa Franklin MD LAB MICROBIOLOGY - GENERAL ORDERABLES Final Result Performing Organization Address City/[facility]/ZIP Co de Phone Number [facility] ([place]) [address] [facility] [place] [address] * (ABNORMAL) Troponin T high-sensitivity 2-hour (01/12/2025 11:38 PM CDT) Trop T hs 17(H) <=14 ng/L Comment: Hemolysis present. Results may be affected. Interpretive Data For further hscTnT resources including the diagnostic algorithm and an aid in interpretation, copy and paste this link: https://nrl.testcatalog.org/show/hsTrop Current Interpretive Data last revised 2020. Trop T hs delta 0 ng/L [facility] ([place] Trop T hs interp Insignificant [facility] ([place] Blood 01/12/2025 11:3 8 PM CDT 01/12/2025 11:40 PM CDT Yulisa Franklin MD LAB BLOOD ORDERABLE S Final Result [facility] ([place]) [address] [facility] [place] [address] * ECG 12 lead (01/12/2025 11:32 PM CDT) 01/12/2025 11:3 2 PM CDT Narrative [facility] - 01/13/2025 8:08 PM CDT Vent Rate: 90 bpm RR Interval: 660 msec MT Interval: 165 msec QRS Duration: 141 msec QT Interval: 354 msec QTC Interval: 402 msec P-R-T [place]: 57 - -43 - 105 degrees IMPRESSION: SINUS RHYTHM POSSIBLE LEFT ATRIAL ENLARGEMENT [-0.1mV P-WAVE IN V1/V2] LEFT AXIS DEVIATION [QRS AXIS < -30] INTRAVENTRICULAR CONDUCTION DELAY [130+ ms QRS DURATION] LATERAL MYOCARDIAL INFARCTION , PROBABLYold NO CHANGE FROM PREVIOUS TRACING NOTED Electronically Signed By: Bobby Judd MD us Yulisa Franklin MD ECG ORDERABLES Fin al Result [facility] * XR Chest 1 Vw Portable (01/12/2025 10:02 PM CDT) Anatomical Region Laterality Modality Body, Chest N/A Computed Radiogr aphy 01/12/2025 10:4 7 PM CDT Narrative 01/12/2025 10:47 PM CDT EXAM DESCRIPTION: XR CHEST 1 VIEW REASON FOR STUDY: sob SOB TECHNIQUE: Portable upright AP view of the chest. COMPARISON: 07/11/2021 FINDINGS: LUNGS AND PLEURA: No focal opacity, large effusion, or pneumothorax identified. HEART/MEDIASTINUM: Trachea midline. Cardiac silhouette normal in size. Mediastinal contours appear normal. BONES: Spinal hardware. CHEST WALL: Unremarkable. UPPER ABDOMEN: Unremarkable. IMPRESSION: No acute abnormality identified. THIS IS AN ELECTRONICALLY VERIFIED FINAL REPORT 01/12/2025 10:47 PM - Electronically signed by Aden Horn M.D. AR: BARBARA Report ID: [id number] Reading Location: [id number] Procedure Note Aden Horn MD - 01/12/2025 EXAM DESCRIPTION: XR CHEST 1 VIEW REASON FOR STUDY: sob SOB TECHNIQUE: Portable upright AP view of the chest. COMPARISON: 07/11/2021 FINDINGS: LUNGS AND PLEURA: No focal opacity, large effusion, or pneumothorax identified. HEART/MEDIASTINUM: Trachea midline. Cardiac silhouette normal in size. Mediastinal contours appear normal. BONES: Spinal hardware. CHEST WALL: Unremarkable. UPPER ABDOMEN: Unremarkable. IMPRESSION: No acute abnormality identified. THIS IS AN ELECTRONICALLY VERIFIED FINAL REPORT 01/12/2025 10:47 PM - Electronically signed by Aden Horn M.D. AR: BARBARA Report ID: [id number] Reading Location: [place] [address] Yulisa Franklin MD IMG XR PROCEDURES F inal Result * (ABNORMAL) Sepsis Lactate w/ Reflex (01/12/2025 9:46 PM CDT) Sepsis Lactate 3.0(H) 0.7 - 2.0 mmol/L Blood 01/12/2025 9:46 PM CDT 01/12/2025 9:48 PM CDT Yulisa Franklin MD LAB BLOOD ORDERABLE S Final Result Performing Organization Address [facility]/State/ZIP Co de Phone Number [facility] [place]) [address] [facility] Department of Laboratories [place] [id number] * (ABNORMAL) Troponin T high-sensitivity series (baseline, 2hr, 4hr, 6hr) (01/12/2025 9:35 PM CDT) Pathologist [facility] Trop T hs 17(H) <=14 ng/L Comment: Interpretive Data For further hscTnT resources including the diagnostic algorithm and an aid in interpretation, copy and paste this link: https://nrl.testcatalog.org/show/hsTrop Current Interpretive Data last revised 2020. Blood 01/12/2025 9:35 PM CDT 01/12/2025 9:39 PM CDT Yulisa Franklin MD LAB BLOOD ORDERABLE S Final Result Performing Organization Address [facility]/ZIP Co de Phone Number [facility] ([place]) [address] [facility] [place] [address] * Influenza A/B, RSV, and COVID-19 PCR Nasopharyngeal (01/12/2025 9:35 PM CDT) [facility] COVID-19 RNA Negative Negative Influenza A RNA Negative Negative [facility] ([place]) Influenza B RNA Negative Negative [facility] ([place]) RSV RNA Negative Negative [facility] ([place]) Comment: Interpretive data: Testing performed by [facility]. This test is performed using the [employer] Xpert Xpress CoV-2/Flu/RSV plus assay. This is a multiplex, real- time reverse transcriptase PCR assay intended for the qualitative detection of nucleic acid from SARS-CoV-2, influenza A, influenza B, and respiratory syncytial virus. This assay has been cleared by the [place] Food and Drug administration. The performance characteristics have been verified by the [facility]. Results must be considered in the clinical context, and a negative result does not rule out infection. Interpretive Data last revised 2023 Nasopharyngeal 01/12/2025 9: 35 PM CDT 01/12/2025 9:41 PM CDT Narrative [facility] - 01/12/2025 10:25 PM CDT Is the Patient experiencing symptoms consistent with COVID?->Yes us Yulisa Franklin MD LAB MICROBIOLOGY - GENERAL ORDERABLES Final Result Performing Organization Address City/[facility]/ZIP Co de Phone Number [facility] ([place]) [address] [facility] [place] [address] * (ABNORMAL) Sepsis Lactate w/ Reflex (01/12/2025 9:35 PM CDT) [facility] Sepsis Lactate 4.4(C) 0.7 - 2.0 mmol/L Comment:Critical result call ed to and read back by vanna tran (er) on 01/12/2025 21:43:52 CDT to kate salcedo. Blood 01/12/2025 9:35 PM CDT 01/12/2025 9:39 PM CDT Yulisa Franklin MD LAB BLOOD ORDERABLE S Final Result [facility] ([place]) [address] [facility] [place] [address] * (ABNORMAL) eGFR (01/12/2025 9:35 PM CDT) eGFR 41(L) >=60 mL/min/1. 73 m2 Comment: Interpretive Data Reference Interval Normal >/= 90 mL/min/1.73m2 Mildly decreased* 60 - 89 mL/min/1.73m2 Mildly to moderately decreased 45 - 59 mL/min/1.73m2 Moderately to severely decreased 30 - 44 mL/min/1.73m2 Severely decreased 15 - 29 mL/min/1.73m2 Kidney Failure < 15 mL/min/1.73m2 *Relative to young adult level Estimated glomerular filtration rate is determined by the 2020 CKD-EPI equation recommended by the National Kidney Foundation (A Unifying Approach to GFR Estimation: Recommendations of the NKF-ASK Task Force on Reassessing the Inclusion of Race in Diagnosing Kidney Disease, JASN 2020). The CKD-EPI equation should not be used for patients with unstable renal function and has not been validated in children and those over 70. Current interpretive data was last reviewed 2021. Blood 01/12/2025 9:35 PM CDT 01/12/2025 9:39 PM CDT Yulisa Franklin MD LAB BLOOD ORDERABLE S Final Result [facility] ([place]) [address] [facility] [place] [address] * Differential, auto (01/12/2025 9:35 PM CDT) Neutrophil abs 4.04 1.50 - 6.50 K/cumm Imm gran abs 0.02 0.00 - 0.10 K/cumm [facility]) Lymphocyte abs 2.29 0.80 - 3.30 K/cumm [facility] ([place] Monocyte abs 0.72 0.20 - 0.80 K/cumm [facility] ([place] Eosinophil abs 0.12 0.00 - 0.50 K/cumm [facility] ([place] Basophil abs 0.05 0.00 - 0.10 K/cumm [facility] ([place] Neutrophil pct 55.8 % [facility] ([place] Comment: Interpretive Data Percent cell count reference ranges are not reported, since discordance with absolute values may lead to misinterpretation of CBC data. Current Interpretive Data was last revised on 2017. Imm gran pct 0.3 % [facility] ([place] Comment: Interpretive Data Percent cell count reference ranges are not reported, since discordance with absolute values may lead to misinterpretation of CBC data. Current Interpretive Data was last revised on 2017. Lymphocyte pct 31.6 % [facility] ([place] Comment: Interpretive Data Percent cell count reference ranges are not reported, since discordance with absolute values may lead to misinterpretation of CBC data. Current Interpretive Data was last revised on 2017. Monocyte pct 9.9 % [facility] ([place] Comment: Interpretive Data Percent cell count reference ranges are not reported, since discordance with absolute values may lead to misinterpretation of CBC data. Current Interpretive Data was last revised on 2017. Eosinophil pct 1.7 % [facility] ([place] Comment: Interpretive Data Percent cell count reference ranges are not reported, since discordance with absolute values may lead to misinterpretation of CBC data. Current Interpretive Data was last revised on 2017. Basophil pct 0.7 % [facility] ([place] Comment: Interpretive Data Percent cell count reference ranges are not reported, since discordance with absolute values may lead to misinterpretation of CBC data. Current Interpretive Data was last revised on 2017. Blood 01/12/2025 9:35 PM CDT 01/12/2025 9:39 PM CDT Yulisa Franklin MD LAB BLOOD ORDERABLE S Final Result [facility] ([place]) [address] [facility] [place] [address] * (ABNORMAL) Pro B-type natriuretic peptide (01/12/2025 9:35 PM CDT) NT-proBNP 699(H) <=300 pg/mL Comment: Interpretive Comments: A. Dyspnea in Acute Care Setting All Ages: < 300 pg/ml, acute heart failure unlikely. < 50 yrs: 300 - 450 pg/ml, further investigation warranted. > 450 pg/ml, acute heart failure likely. 50 - 74 yrs: 300 - 900 pg/ml, further investigation warranted. > 900 pg/ml, acute heart failure likely . > or = 75 yrs: 450 - 1800 pg/ml, further investigation warranted. > 1800 pg/ml, acute heart failure likely. B. Non-acute Setting < 75 yrs < 125 pg/ml, rules out heart failure. > or = 125 pg/ml, further investigation warranted. > or = 75 yrs < 450 pg/ml, rules out heart failure. > or = 450 pg/ml, further investigation warranted. - Knowledge of each individual patient's NT-proBNP range may be more useful than using similar cut-points for every patient. Please note that marked elevations in NT-proBNP levels may be observed in state other than Left Ventricular Congestive Failure, including: acute coronary syndromes, right heart strain/failure (including pulmonary embolism and cor pulmonale), critical illness, renal failure, as well as advanced age. - References: 1. Blanca ESPINOSA et.al. Eur Heart J. 2006:27:330-337. 2. Cj RW, Ambrosio CARRION. J. AM Cathy Cardiol: Cardiovasc Imag. 2009;2: 216- 225. Interpretive Data Last Revised Date: 2018. Blood 01/12/2025 9:35 PM CDT 01/12/2025 9:39 PM CDT Yulisa Franklin MD LAB BLOOD ORDERABLE S Final Result Performing Organization Address [facility]/ZIP Co de Phone Number ELOY HILL ([place]) 1 [facility] Department [place] [address] * CBC with auto differential (01/12/2025 9:35 PM CDT) Pathologist [facility] WBC 7.24 3.80 - 9.90 K/cumm Hgb 14.0 11.9 - 15.5 g/dL [facility] ([place]) Hct 42.1 35.6 - 45.5 % [facility] ([place]) Plt 252 150 - 400 K/cumm [facility] ([place]) MPV 9.9 9.1 - 12.3 fL [facility] ([place]) RBC 4.55 3.90 - 5.20 M/cumm [facility] ([place]) MCV 92.5 81.3 - 96.4 fL [facility] ([place]) MCH 30.8 27.1 - 33.3 pg [facility] ([place]) MCHC 33.3 32.3 - 35.7 g/dL [facility] ([place]) RDW CV 12.7 11.1 - 14.9 % [facility] ([place]) RDW SD 43.6 35.7 - 48.1 fL [facility] ([place]) NRBC abs 0.00 0.00 - 0.01 K/cumm [facility] ([place]) Blood 01/12/2025 9:35 PM CDT 01/12/2025 9:39 PM CDT us Yulisa Franklin MD LAB BLOOD ORDERABLE S Final Result ELOY HILL ([place]) 1 [facility] Department [place] [address] * (ABNORMAL) Protime-INR (01/12/2025 9:35 PM CDT) Pathologist [facility] PT 16.0(H) 9.7 - 13.0 sec [facility] ([place]) INR 1.47(H) 0.90 - 1.20 [facility] ([place]) Comment: Interpretive data Oral anticoagulant therapeutic ranges: Venous thromboembolism prophylaxis or treatment: 2.0-3.0 CARDIOLOGY Standard range: 2.0-3.0 High-intensity range: 2.5-3.5 Refer to indication-specific guidelines for appropriate target ranges for prosthetic heart valve replacement. Current interpretive data was last revised on 2019. Blood 01/12/2025 9:35 PM CDT 01/12/2025 9:39 PM CDT Yulisa Franklin MD LAB BLOOD ORDERABLE S Final Result ELOY HILL ([place]) 1 [facility] [place] [address] * Magnesium (01/12/2025 9:35 PM CDT) Pathologist [facility] Magnesium 2.0 1.4 - 2.5 mg/dL Blood 01/12/2025 9:35 PM CDT 01/12/2025 9:39 PM CDT Yulisa Franklin MD LAB BLOOD ORDERABLE S Final Result Performing Organization Address City/[facility] Co de Phone Number ELOY HILL ([place]) 1 [facility] [place] [address] * (ABNORMAL) Comprehensive metabolic panel (01/12/2025 9:35 PM CDT) Sodium 135 135 - 145 mmol/L Potassium, pl 3.7 3.3 - 4.9 mmol/L [facility] Chloride 96(L) 97 - 110 mmol/L [facility] ([place]) CO2 22 22 - 32 mmol/L [facility] ([place]) Anion gap 17(H) 2 - 15 mmol/L [facility] ([place]) BUN 18 6 - 25 mg/dL [facility] ([place]) Creatinine 1.36(H) 0.60 - 1.10 mg/dL [facility] ([place]) Glucose 186 70 - 199 mg/dL [facility] ([place]) Comment: Interpretive Data Fasting glucose >/= 126 mg/dl is diagnostic for diabetes. Fasting is defined as no caloric intake for at least 8 hours. Fasting glucose between 100 mg/dl to 125 mg/dl is diagnostic of prediabetes. In a patient with classic symptoms of hyperglycemia or hyperglycemic crisis, a random glucose >/= 200 mg/dl is diagnostic for diabetes. In the absence of unequivocal hyperglycemia, results should be confirmed by repeat testing. The classification and Diagnosis of Diabetes Diabetes Care 2021; 46: S19-S40. Current interpretive data was last revised 2022. Calcium 10.0 8.5 - 10.3 mg/dL [facility] ([place]) Bilirubin, total 0.3 0.1 - 1.2 mg/dL [facility] ([place]) Protein, pl 7.3 6.5 - 8.5 g/dL [facility] ([place]) Albumin 4.5 3.5 - 5.0 g/dL [facility] ([place]) Alk phos 128 40 - 130 Units/L [facility] ([place]) ALT 43 7 - 45 Units/L [facility] ([place]) AST 41 10 - 45 Units/L [facility] ([place]) Comment: Hemolysis present. Results may be affected. Slightly Hemolyzed Specimen Blood 01/12/2025 9:35 PM CDT 01/12/2025 9:39 PM CDT us Yulisa Franklin MD LAB BLOOD ORDERABLE S Final Result ELOY [facility] ([place]) 1 [facility] Department [place] [address] * ECG 12 lead (01/12/2025 9:32 PM CDT) 01/12/2025 9:32 PM CDT Narrative [facility] - 01/13/2025 8:10 PM CDT Vent Rate: 83 bpm RR Interval: 716 msec MT Interval: 165 msec QRS Duration: 142 msec QT Interval: 404 msec QTC Interval: 444 msec P-R-T [place]: 47 - -45 - 106 degrees IMPRESSION: SINUS RHYTHM WITH baseline artifact INTRAVENTRICULAR CONDUCTION DELAY [130+ ms QRS DURATION] LATERAL MYOCARDIAL INFARCTION , PROBABLY old Recommend repeat EKG with stable baseline Electronically Signed By: Bobby Judd MD us Ronaldo Ramey MD ECG ORDERABLES Final Result [facility] * DEVICE CHECK - REMOTE (12/25/2024 11:22 AM CDT) Anatomical Region Laterality Modality Other Narrative 12/27/2024 11:42 AM CDT Images from the original result were not included. 12/25/2024 [employer] quarterly remote device check NOTE The following shows snippets from the complete quarterly report. 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 She has not been seen in-office is > 2 yrs RVp < 0.1% No Alerts Device Nurse Review and Recommendations below Reviewed By Angelina Ortiz [employer] at 9:35 AM Review and Recommendations below (please forward an in-basket message to your MA if check requires attention) Patient has atrial fibrillation needs to start Eliquis 5 mg twice a day if she is on aspirin she can discontinue it because she is also on Plavix Schedule an echocardiogram T4 TSH Office visit-with device check after the above ATTESTATION I have reviewed the device interrogation report associated with this encounter in detail. I agree with the documentation recorded/scanned into the electronic medical record. Recommendations: Continue current device follow-up. Marlene Oates MD us Marlene Oates MD CV CARDIAC SERVICES MT OCEDURES Final Result * (ABNORMAL) eGFR (12/05/2024 9:33 AM CDT) eGFR 52(L) >=60 mL/min/1. 73 m2 Comment: Interpretive Data Reference Interval Normal >/= 90 mL/min/1.73m2 Mildly decreased* 60 - 89 mL/min/1.73m2 Mildly to moderately decreased 45 - 59 mL/min/1.73m2 Moderately to severely decreased 30 - 44 mL/min/1.73m2 Severely decreased 15 - 29 mL/min/1.73m2 Kidney Failure < 15 mL/min/1.73m2 *Relative to young adult level Estimated glomerular filtration rate is determined by the 2020 CKD-EPI equation recommended by the National Kidney Foundation (A Unifying Approach to GFR Estimation: Recommendations of the NKF-ASK Task Force on Reassessing the Inclusion of Race in Diagnosing Kidney Disease, JASN 2020). The CKD-EPI equation should not be used for patients with unstable renal function and has not been validated in children and those over 70. Current interpretive data was last reviewed 2021. Testing performed by: [address] [address] Blood 12/05/2024 9:33 AM CDT 12/05/2024 2:49 PM CDT Emmanuel Thomas MD LAB BLOOD ORDERABLES [facility] al Result Performing Organization Address City/State/[facility] Co de Phone Number [facility] [address] [place] [address] * Differential, auto (12/05/2024 9:33 AM CDT) Pathologist [facility] Neutrophil abs 3.44 1.50 - 6.50 K/cumm Comment:Testing performed by : [facility], [address] [place] [address]., [address] Imm gran abs 0.02 0.00 - 0.10 K/cumm ELOY Comment:Testing performed by : [facility], [address] [place] [address]., [address] Lymphocyte abs 1.74 0.80 - 3.30 K/cumm ELOY Comment:Testing performed by : [address] [address] Monocyte abs 0.50 0.20 - 0.80 K/cumm CERNER CH Comment:Testing performed by : [facility], [address] [place] [address]., [address] Eosinophil abs 0.30 0.00 - 0.50 K/cumm [facility]ER CH Comment:Testing performed by : [facility], [address] [place] [address]., [address] Basophil abs 0.05 0.00 - 0.10 K/cumm [facility] CH Comment:Testing performed by : [address] [address] Neutrophil pct 56.8 % [facility] CH Comment: Interpretive Data Percent cell count reference ranges are not reported, since discordance with absolute values may lead to misinterpretation of CBC data. Current Interpretive Data was last revised on 2017. Testing performed by: [address] [address] Imm gran pct 0.3 % [facility] CH Comment: Interpretive Data Percent cell count reference ranges are not reported, since discordance with absolute values may lead to misinterpretation of CBC data. Current Interpretive Data was last revised on 2017. Testing performed by: [address] [address] Lymphocyte pct 28.8 % [facility] CH Comment: Interpretive Data Percent cell count reference ranges are not reported, since discordance with absolute values may lead to misinterpretation of CBC data. Current Interpretive Data was last revised on 2017. Testing performed by: [address] [address] Monocyte pct 8.3 % [facility] CH Comment: Interpretive Data Percent cell count reference ranges are not reported, since discordance with absolute values may lead to misinterpretation of CBC data. Current Interpretive Data was last revised on 2017. Testing performed by: [address] [address] Eosinophil pct 5.0 % [facility] CH Comment: Interpretive Data Percent cell count reference ranges are not reported, since discordance with absolute values may lead to misinterpretation of CBC data. Current Interpretive Data was last revised on 2017. Testing performed by: [address] [address] Basophil pct 0.8 % [facility] CH Comment: Interpretive Data Percent cell count reference ranges are not reported, since discordance with absolute values may lead to misinterpretation of CBC data. Current Interpretive Data was last revised on 2017. Testing performed by: [address] [address] Blood 12/05/2024 9:33 AM CDT 12/05/2024 2:35 PM CDT Emmanuel Thomas MD LAB BLOOD ORDERABLES Fin al Result Performing Organization Address [facility] de Phone Number ELOY [phone] [place] [address] [place] [address] * (ABNORMAL) Thyroid Function [place] (12/05/2024 9:33 AM CDT) TSH 4.25(H) 0.30 - 4.20 mcIUnit/mL Comment:Testing performed by : [address] [address] Blood 12/05/2024 9:33 AM CDT 12/05/2024 2:35 PM CDT Emmanuel Thomas MD LAB BLOOD ORDERABLES Fin al Result Performing Organization Address [facility] Co de Phone Number ELOY [address] [facility] [place] [address] * Iron profile w/ IBC (12/05/2024 9:33 AM CDT) Iron 140 35 - 145 mcg/dl Comment:Testing performed by : [address] [address] TIBC 279 250 - 400 mcg/dL ELOY Comment:Testing performed by : [address] [address] Transferrin saturation 50 20 - 50 % ELOY Comment:Testing performed by : [address] [address] Blood 12/05/2024 9:33 AM CDT 12/05/2024 2:35 PM CDT us Emmanuel Thomas MD LAB BLOOD ORDERABLES [facility] al Result [address] Department [place] [address] * CBC with auto differential (12/05/2024 9:33 AM CDT) WBC 6.05 3.80 - 9.90 K/cumm Comment:Testing performed by : [address], [address] Hgb 12.9 11.9 - 15.5 g/dL [facility] CH Comment:Testing performed by : [address], [address] Hct 40.0 35.6 - 45.5 % [facility] CH Comment:Testing performed by : [address], [address] Plt 203 150 - 400 K/cumm [facility] CH Comment:Testing performed by : [address], [address] MPV 11.0 9.1 - 12.3 fL [facility] CH Comment:Testing performed by : [address], [address] RBC 4.16 3.90 - 5.20 M/cumm [facility] CH Comment:Testing performed by : [address], [address] MCV 96.2 81.3 - 96.4 fL [facility] CH Comment:Testing performed by : [address], [address] MCH 31.0 27.1 - 33.3 pg [facility]ER CH Comment:Testing performed by : [address], [address] MCHC 32.3 32.3 - 35.7 g/dL [facility] CH Comment:Testing performed by : [address], [address] RDW CV 13.2 11.1 - 14.9 % [facility] CH Comment:Testing performed by : [address], [address] RDW SD 47.0 35.7 - 48.1 fL ELOY Comment:Testing performed by : [facility], [address] [place] [address]., [address] NRBC abs 0.00 0.00 - 0.01 K/cumm ELOY Comment:Testing performed by : [facility], [address] [place] [address]., [address] Blood 12/05/2024 9:33 AM CDT 12/05/2024 2:35 PM CDT Emmanuel Thomas MD LAB BLOOD ORDERABLES Fin al Result Performing Organization Address City/[facility]/ZIP Co de Phone Number [id number] [place] [address] * (ABNORMAL) Albumin Creatinine Ratio, Urine (12/05/2024 9:33 AM CDT) Albumin Ur 21.3 mg/L Comment: Interpretive Data No reference range established. Current interpretive data was last revised 2018. Testing performed by: [facility], [address] [place] [address]., [address] Creatinine Ur 25.2 mg/dL ELOY Comment: Interpretive Data No reference range established. Current interpretive data was last revised 2018. Testing performed by: [address] [address] Albumin Creatinine Ratio, Ur 85(H) 1 - 29 mg/g ELOY Comment:Testing performed by : [address], [address] Urine 12/05/2024 9:33 AM CDT 12/05/2024 2:35 PM CDT Emmanuel Thomas MD LAB URINE ORDERABLES Fin al Result Performing Organization Address City/[facility]/ZIP Co de Phone Number [facility] [phone] [facility] [place] [address] * Vitamin D 25 hydroxy (12/05/2024 9:33 AM CDT) Pathologist [facility] Vitamin D 25-OH 56 30 - 80 ng/mL Comment:Testing performed by : [address] [address] Blood 12/05/2024 9:33 AM CDT 12/05/2024 2:35 PM CDT Emmanuel Thomas MD LAB BLOOD ORDERABLES Fin al Result Performing Organization Address City/[facility] Co de Phone Number ELOY [address] [facility] [place] [address] * T4, free (12/05/2024 9:33 AM CDT) [facility] Free T4 0.99 0.90 - 1.70 ng/dL Comment:Testing performed by : [address] [address] Blood 12/05/2024 9:33 AM CDT 12/05/2024 2:49 PM CDT Emmanuel Thomas MD LAB BLOOD ORDERABLES Fin al Result Performing Organization Address [facility] de Phone Number ELOY [phone] [facility] [place] [address] * (ABNORMAL) Hemoglobin A1c (12/05/2024 9:33 AM CDT) [facility] Hgb A1C 9.0(H) 4.0 - 5.6 % Comment:Testing performed by : [address] [address] Estimated Average Glucose 212 mg/dL ELOY Comment: The ADA recommends reporting an estimated Average Glucose (eAG) with all Hemoglobin A1c results using the equation derived from a study of 507 normal and diabetic adults. Minority populations were underrepresented and children were not included. (Diabetes Care 31:6865-1864, 2008). The eAG is not equivalent to a fasting glucose. Testing performed by: [address] [address] Blood 12/05/2024 9:33 AM CDT 12/05/2024 2:35 PM CDT Emmanuel Thomas MD LAB BLOOD ORDERABLES Fin al Result Performing Organization Address [facility] Co de Phone Number ELOY [address] [facility] [place] [address] * (ABNORMAL) Ferritin (12/05/2024 9:33 AM CDT) Ferritin 277(H) 15 - 150 ng/mL Comment:Testing performed by : [facility], [address] [place] [address], [address] Blood 12/05/2024 9:33 AM CDT 12/05/2024 2:35 PM CDT Emmanuel Thomas MD LAB BLOOD ORDERABLES Fin al Result Performing Organization Address [facility] de Phone Number ELOY [facility] [place] [address] * Vitamin B12 (12/05/2024 9:33 AM CDT) Vitamin B12 807 230 - 1,250 pg/mL Comment:Testing performed by : [facility], [address] [place] [address], [address] Blood 12/05/2024 9:33 AM CDT 12/05/2024 2:35 PM CDT Emmanuel Thomas MD LAB BLOOD ORDERABLES Fin al Result Performing Organization Address [facility] Co de Phone Number ELOY [phone] [facility] [place] [address] * (ABNORMAL) Lipid panel (12/05/2024 9:33 AM CDT) Cholesterol 156 30 - 199 mg/dL Comment: Interpretive Data Ages < or = 19 years Acceptable: <170 mg/dL Borderline high: 170-199 mg/dL High: >or= 200 mg/dL Ages > or = 20 years Desirable: <200 mg/dL Borderline high: 200-239 mg/dL High: >or= 240 mg/dL Literature References: 1. Expert Panel on Integrated Guidelines for Cardiovascular Health and Risk Reduction in Children and Adolescents. Pediatrics 2011;128:S213 2. NCEP Expert Panel. Circulation 2004;110:227 Current Interpretive Data was last revised on 2018. Testing performed by: [facility], [address] [place] [address]., [address] Triglycerides 163(H) <=149 mg/dL ELOY Comment: Interpretive Data Ages < or = 9 years Acceptable: <75 mg/dL Borderline high: 75-99 mg/dL High: >or= 100 mg/dL Ages 10 to 20 years Acceptable: <90 mg/dL Borderline high: 90-129 mg/dL High: >or= 130 mg/dL Ages > or = 20 years Desirable: <150 mg/dL Borderline high: 150-199 mg/dL High: 200-499 mg/dL Very high: >or= 499 mg/dL Literature References: 1. Expert Panel on Integrated Guidelines for Cardiovascular Health and Risk Reduction in Children and Adolescents. Pediatrics 2011;128:S213 2. NCEP Expert Panel. Circulation 2004;110:227 Current Interpretive Data was last revised on 2018. Testing performed by: [facility], [address] [place] [address]., [address] HDL 57 >=40 mg/dL ELOY Comment: Interpretive Data Ages < or = 19 years Acceptable: >45 mg/dL Borderline low: 40-45 mg/dL Low: <40 mg/dL Ages > or = 20 years Desirable: >or= 60 mg/dL Low: <40 mg/dL Literature References: 1. Expert Panel on Integrated Guidelines for Cardiovascular Health and Risk Reduction in Children and Adolescents. Pediatrics 2011;128:S213 2. NCEP Expert Panel. Circulation 2004;110:227 Current Interpretive Data was last revised on 2018. Testing performed by: [facility], [address] [place] [address]., [address] LDL, calculated 71 <=129 mg/dL [facility] Comment: Interpretive Data Ages < or = 19 years Acceptable: <110 mg/dL Borderline high: 110-129 mg/dL High: >or= 130 mg/dL Ages > or = 20 years Optimal: <100 mg/dL Near optimal: 100-129 mg/dL Borderline high: 130-159 mg/dL High: >160 mg/dL Calculated using the Cameron LDL-C estimating equation. This equation was implemented on 2024. Prior to this date LDL-C was estimated using the Friedewald equation. Literature References: 1. Expert Panel on Integrated Guidelines for Cardiovascular Health and Risk Reduction in Children and Adolescents. Pediatrics 2011;128:S213 2. NCEP Expert Panel. Circulation 2004;110:227 3. Cameron Lewis et al. SERENA Cardiol. 2020 November 09;5(5):540-548. doi: 10.1001/[email or web address].2020.0013 Current Interpretive Data was last revised on 2024. Testing performed by: [address] [address] Non-HDL Cholesterol 99 mg/dL ELOY CRENSHAW Comment: Interpretive Data Ages < or = 19 years Acceptable: <120 mg/dL Borderline high: 120-144 mg/dL High: >145 mg/dL Ages > or = 20 years When triglycerides are >200 mg/dL, Non-HDL cholesterol is a secondary target of therapy with treatment goals that are 30 mg/dL greater than the LDL cholesterol target. Literature References: 1. Expert Panel on Integrated Guidelines for Cardiovascular Health and Risk Reduction in Children and Adolescents. Pediatrics 2011;128:S213 2. NCEP Expert Panel. Circulation 2004;110:227 Current Interpretive Data was last revised on 2018. Testing performed by: [address] [address] Chol/HDL ratio 3 ELOY CRENSHAW Comment:Testing performed by : [address] [address] Blood 12/05/2024 9:33 AM CDT 12/05/2024 2:35 PM CDT us Emmanuel Thomas MD LAB BLOOD ORDERABLES Fin al Result ELOY CRENSHAW [address] [place] [address] Department of Laboratories [place], [place] [id number] * (ABNORMAL) Comprehensive metabolic panel (12/05/2024 9:33 AM CDT) [facility] Signature Sodium 138 135 - 145 mmol/L Comment:Testing performed by : [facility], [address] [place] [address]., [address] Potassium, pl 4.3 3.3 - 4.9 mmol/L CERNER CH Comment:Testing performed by : [address] [address] Chloride 99 97 - 110 mmol/L CERNER CH Comment:Testing performed by : [address] [address] CO2 29 22 - 32 mmol/L C[facility]ER CH Comment:Testing performed by : [facility], [address] [place] [address], [address] Anion gap 10 2 - 15 mmol/L CERNER CH Comment:Testing performed by : [address] [address] BUN 23 6 - 25 mg/dL CERNER CH Comment:Testing performed by : [address] [address] Creatinine 1.12(H) 0.60 - 1.10 mg/dL CERNER CH Comment:Testing performed by : [address], [address] Glucose 213(H) 70 - 199 mg/dL CERNER Comment: Interpretive Data Fasting glucose >/= 126 mg/dl is diagnostic for diabetes. Fasting is defined as no caloric intake for at least 8 hours. Fasting glucose between 100 mg/dl to 125 mg/dl is diagnostic of prediabetes. In a patient with classic symptoms of hyperglycemia or hyperglycemic crisis, a random glucose >/= 200 mg/dl is diagnostic for diabetes. In the absence of unequivocal hyperglycemia, results should be confirmed by repeat testing. The classification and Diagnosis of Diabetes Diabetes Care 202; 46: S19-S40. Current interpretive data was last revised 2022. Testing performed by: [address] [address] Calcium 10.2 8.5 - 10.3 mg/dL CERNER CH Comment:Testing performed by : [address], [address] Bilirubin, total 0.3 0.1 - 1.2 mg/dL CERNER CH Comment:Testing performed by : [address] [address] Protein, pl 7.0 6.5 - 8.5 g/dL C[facility]ER CH Comment:Testing performed by : [address] [address] Albumin 4.3 3.5 - 5.0 g/dL CERNER CH Comment:Testing performed by : [address] [address] Alk phos 108 40 - 130 Units/L C[facility]ER CH Comment:Testing performed by : [address], [address] ALT 43 7 - 45 Units/L CERNER CH Comment:Testing performed by : [address], [address] AST 40 10 - 45 Units/L CERNER CH Comment:Testing performed by : [address] [address] Blood 12/05/2024 9:33 AM CDT 12/05/2024 2:35 PM CDT Emmaunel Thomas MD LAB BLOOD ORDERABLES Fin al Result [address] Department [place] [address] * Diabetic Eye Exam (12/18/2020) Narrative Rosa Welsh MA - 12/18/2020 Vision Source Examination Historical Provider HEALTH MAINTENANCE Final Result * DIABETES FOOT EXAM (04/05/2019) Pathologist [facility] Diabetic Foot Exam Abnormal Historical Provider HEALTH MAINTENANCE Final Result * COLONOSCOPY REPORT (05/19/2017) Anatomical Region Laterality Modality Other Provider Scanning GI PROCEDURE ORDERABLES Final Result * HEPATITIS C SCREENING (05/04/2016) Pathologist [facility] HEP C Normal Comment:Negative Historical Provider HEALTH MAINTENANCE Final Result * DEXA SCAN (05/29/2015) DEXA Scan Abnormal Comment:Osteopenia Historical Provider HEALTH MAINTENANCE Final Result * MAMMOGRAPHY (04/23/2015) Mammogram Normal Historical Provider HEALTH MAINTENANCE Final Result from Last 3 Months or Most Recently Relevant to Health Maintenance Insurance [employer] [address] [facility] [place] [id number] [facility] MEDICARE [facility] Advance Directives For more information, please contact: [phone] * Full Code (Latest Code Status on File) Date Activated Date Inactivated Comments 01/13/2025 1:22 AM 01/16/2025 10:40 PM * Full Code Date Activated Date Inactivated Comments 12/19/2021 4:12 PM 12/20/2021 12:40 AM * Full Code Date Activated Date Inactivated Comments 01/19/2019 6:21 PM 01/20/2019 6:57 PM Care Teams Landing Scaler Relationship Specialty Start Date End Date Emmaneul Thomas MD [address] [address] PCP - General Family Medicine 12/05/24 Marlene Oates MD [address] [place] [address] Consulting Physician Cardiology 11/01/18 Jamil Syed MD [address] [place] [address] Consulting Physician Neurology 11/01/18 Nikole Martinez DPM [address] [place] [address] Consulting Physician Foot and Ankle Surg 11/01/18 Aletha Arreola MD [address] [facility] [address] [place] [address] Consulting Physician Gastroenterology 04/29/20 Marilin aGrcia PA [address] [facility] [address] [place] [address] Physician Lathe Hand Endocrinology 12/06/20
[2025-02-21 00:30] LABS: Add Urine Microscopic? YES; Appearance Urine Clear (Clear); Glucose Urine UA 2+ mg/dL (Negative); Leukocyte Esterase Ur Negative LEU/UL (Negative); Nitrate Urine Negative (Negative); Non Pathogenic Casts 0-2; Specific Grav Ur 1.013 (1.001-1.035)
[2025-02-21 00:52] VITALS: BP 144/60; PULSE 74; RESP 20; O2SAT 100
[2025-02-21 01:39] LABS: Hematocrit 35.2 % (37.0-47.0); Hemoglobin 11.7 g/dL (12.0-15.0); Immature Granulocyte Percent A 0.2 % (0-0.5); Lymphocytes Absolute Auto 1.89 K/mm3 (0.9-3.2); Mean Corpuscular HGB Conc 33.2 g/dl (32-36); Mean Corpuscular Hemoglobin 30.5 pg (26-34); Mean Corpuscular Volume 91.9 fl (80-100); Nucleated Red Blood Cells Absolute Auto 0.000 K/mm3 (0.0-0.012); Nucleated Red Blood Cells Perc 0.0 % (0.0-0.2); Platelet Count Result 184 k/mm3 (150-375); Red Blood Count 3.83 M/mm3 (4.2-5.4); White Blood Count 8.5 K/mm3 (4.5-10.0)
--- NOTE | 2025-02-21 01:39 | ED_ITS ---
HPI - Back Pain/Injury General Chief Complaint: Back Pain/Injury Stated Complaint: R lower back pain, 3-4hr constant Time Seen by Provider: 02/21/25 01:05 History of Present Illness HPI Narrative: 74-year-old female with a past medical history including CHF with defibrillator implant, COPD. Degenerative disc disease. She presents to the emergency department with right-sided low flank pain. Family states that it feels like it could just be musculoskeletal in nature but he has also had urinary tract infections before that presented similar. No history of kidney stones. Patient denies any traumatic injuries normally is ambulatory without any assistance but today he has been having some muscle spasms in her right lower back that does not radiate anywhere. She is having some limited range of motion right lower extremity secondary to pain but not weakness. No chest pain shortness a breath, no abdominal discomfort, nausea, vomiting. She has tried some conservative therapies including Vicodin, Tylenol, tramadol without any relief of symptoms. Was otherwise in her normal state of health. No falls or injuries. No radiating pain down the leg and no pain wrapping around to the groin. No weakness but pain is reproducible with position changes as well as with lifting her right leg against gravity. No strength or sensory deficits appreciated. Related Data Home Medications ?Medication ?Instructions ?Recorded ?Confirmed ?Last Taken ?Type calcium carbonate (Calcium 600) 600 mg PO BID 09/14/19 12/12/24 02/11/22 11:00 History omega [id number]-fish oil 1,000 mg 1 cap PO BID 09/14/19 12/12/24 Unknown History (120 mg-180 mg) capsule (Fish Oil) spironolactone 25 mg tablet 25 mg PO DAILY 09/14/19 12/12/24 02/11/22 11:00 History Adult One Daily Multivitamin 1 tab/day PO DAILY 11/17/19 12/12/24 02/11/22 11:00 History acetaminophen 325 mg tablet 650 mg PO ONCE PRN pain 11/17/19 12/12/24 Unknown History (Tylenol) albuterol sulfate 90 mcg/actuation 2 puff inhalation QID PRN sob 11/17/19 12/12/24 Unknown History aerosol inhaler aspirin 81 mg chewable tablet 81 mg PO DAILY 11/17/19 12/12/24 02/11/22 11:00 History (Aspirin Childrens) carvedilol 25 mg tablet 25 mg PO BID 11/17/19 12/12/24 02/11/22 11:00 History cranberry 500 mg capsule 500 mg PO DAILY 11/17/19 12/12/24 02/11/22 11:00 History donepezil 10 mg tablet 10 mg PO HS 11/17/19 12/12/24 02/11/22 11:00 History fluticasone furoate 100 1 inh inhalation HS 11/17/19 12/12/24 Unknown History mcg-vilanterol 25 mcg/dose inhalation powder (Breo Ellipta) amitriptyline 75 mg tablet 75 mg PO QHS 11/30/19 12/12/24 02/10/22 22:00 History atorvastatin 40 mg tablet (Lipitor) 40 mg PO QPM 11/30/19 12/12/24 Unknown History furosemide 40 mg tablet 40 mg PO DAILY 06/13/20 12/12/24 02/11/22 11:00 History finerenone 10 mg tablet (Kerendia) 10 mg PO DAILY 01/24/24 12/12/24 Unknown History Allergies Allergy/AdvReac Type Severity Reaction Status Date / Time morphine AdvReac Intermediate Nausea and Verified 12/11/24 14:25 Vomiting clopidogrel (From Plavix) AdvReac Unknown GI bleeding Verified 12/11/24 14:25 ibuprofen AdvReac Unknown Nausea and Verified 12/11/24 14:25 Vomiting Review of Systems 2 Review of Systems: As reviewed above in [facility] Past Medical History Medical History History of colon polyps Gastric ulcer Dementia Peptic ulcer Acute hyperkalemia Acute on chronic anemia Peripheral vascular disease Chronic kidney disease, stage 3 Depression with anxiety Hypothyroidism Cardiomyopathy Status post ICD insertion. Coronary artery disease Insulin dependent type 2 diabetes mellitus Peripheral neuropathy Hyperlipidemia Essential hypertension Type 2 diabetes mellitus with hyperglycemia, with long-term current use of insulin Headache Stroke Carotid artery disease Arthritis Surgical History Surgical History History of intravascular stent placement 12/2021, bilaterally in legs History of coronary artery stent placement History of cardiac catheterization History of hysterectomy History of vascular surgery (12/2021) Lower extremity stents. History of implantable cardioverter-defibrillator (ICD) insertion History of back surgery Family History Family History Father Family history of heart disease in male family member before age 55 Social History Social History Social History: Surrogate medical decision maker: Berny Thompson, daughter. Code status: Full code. Smoking packs per day: 1.5 Smoking cigarettes per day: 30.0 Years smoked: 30 Smoking pack-years: 45.00 Smoking status: Former smoker Tobacco type: cigarettes Smoking end date: 04/15/00 Alcohol intake: never Substance use: never Substance use type: does not use Living arrangements: with family Additional living arrangements comments: The patient lives in her own home in [place]. Occupation/Education: retired Spiritual care concerns: No Exam 2 Narrative: GENERAL: [Well-appearing, well-nourished, and in no acute distress.] HEAD: [Normocephalic, atraumatic.] EYES: [PERRLA and EOMI.] ENT: Nares clear, no rhinorrhea or epistaxis. Mucous membranes moist. NECK: Supple. CHEST: [Clear to auscultation. No respiratory distress.] HEART: [Regular rate and rhythm]. No murmur heard. [Normal peripheral pulses.] ABDOMEN: [Soft, nondistended], [nontender], [No rigidity or guarding] EXTREMITIES: Reproducible tenderness to palpation the right lower lumbar region without any stent midline step-offs deformities. Positive straight leg raise on the right leg, EHL and FHL with full 5/5 strength. Able to lift the leg against gravity. Range of motion the right leg elicits pain in the right low back. No contralateral straight leg raise pain. Sensation intact throughout both extremities with good strength distally. Neurovascularly intact with good pulses. SKIN: Warm, dry, no rash. NEURO: [No focal deficits]. Alert and oriented [x3.] PSYCH: [Normal mood and affect.] Course Vital Signs Vital signs: Vital Signs Temperature 36.8 C 02/20/25 21:44 Pulse Rate 78 02/20/25 21:44 Respiratory Rate 18 02/20/25 21:44 Blood Pressure 131/56 L 02/20/25 21:44 Pulse Oximetry 100 02/20/25 21:44 Oxygen Delivery Room Air 02/20/25 21:44 Temperature 36.8 C 02/20/25 21:44 Pulse Rate 74 02/21/25 00:52 Respiratory Rate 20 02/21/25 00:52 Blood Pressure 144/60 H 02/21/25 00:52 Pulse Oximetry 100 02/21/25 00:52 Oxygen Delivery Room Air 02/20/25 21:44 MDM - Back Pain/Injury MDM Narrative Medical decision making narrative: 74-year-old female with a past medical history including CHF with defibrillator implant, COPD. Degenerative disc disease. She presents to the emergency department with right-sided low flank pain. Family states that it feels like it could just be musculoskeletal in nature but he has also had urinary tract infections before that presented similar. No history of kidney stones. Patient denies any traumatic injuries normally is ambulatory without any assistance but today he has been having some muscle spasms in her right lower back that does not radiate anywhere. She is having some limited range of motion right lower extremity secondary to pain but not weakness. No chest pain shortness a breath, no abdominal discomfort, nausea, vomiting. She has tried some conservative therapies including Vicodin, Tylenol, tramadol without any relief of symptoms. Was otherwise in her normal state of health. No falls or injuries. No radiating pain down the leg and no pain wrapping around to the groin. No weakness but pain is reproducible with position changes as well as with lifting her right leg against gravity. No strength or sensory deficits appreciated. Exam reproducible tenderness to palpation the right lower lumbar region without any stent midline step-offs deformities. Positive straight leg raise on the right leg, EHL and FHL with full 5/5 strength. Able to lift the leg against gravity. Range of motion the right leg elicits pain in the right low back. No contralateral straight leg raise pain. Sensation intact throughout both extremities with good strength distally. Neurovascularly intact with good pulses. Reassuring set of vitals and clinical examination. Suspicion for intra-abdominal process such as kidney stone urinary tract infection is low and most likely symptoms are musculoskeletal in nature and secondary degenerative disc disease and disc bulging. CT of the lumbar spine was obtained as well as intravenous therapies with Valium. Urinalysis and basic laboratory studies obtained. She was placed on powerplant operator pulse oximetry and lidocaine patch also applied to the area. Workup shows no leukocytosis or significant anemia. Normal platelet count. Slightly low potassium but repleted with oral dose. Creatinine at her baseline. Mildly elevated glucose. Negative lactic acid. LFTs unremarkable. Urinalysis with no signs of infection. Patient re-evaluated after initial therapies and felt better but not fully improved. CT scan showed severe canal stenosis at L3-L4 with degenerative changes as well as postop changes from previous surgical or parasites. Patient has no red flag signs or symptoms on her examination consistent with cauda equina or conus medullaris syndrome and her pain is improved with current regimen. I discussed extensively with the patient and the daughter at bedside who helps manage her medications and treatments. Next steps would likely be for outpatient neurosurgical evaluation given patient's CT findings without any red flags for emergent or urgent concerns. We discussed treatment regimen including low-dose muscle relaxer such as Valium in addition to a steroid burst for 5 days. Patient's family is aware that her sugars will get elevated and the daughter is comfortable managing the elevated blood sugars with increased insulin dosages as she is already used to this from previous experiences. I felt like this was an appropriate regimen for the patient so we will send her home with a 5 day course of steroid 50 mg of prednisone daily in addition to short course of Valium as needed with lidocaine patches as well. Patient and the family were comfortable with the plan. She was given a 40 mg IV dose of steroid here as well as a 0.5 mg IV Dilaudid dose, briefly observed, discharge shortly thereafter with no difficulty. Medical Records Attestation: I reviewed the patient's medical records. Lab Data Attestation: I reviewed the patient's lab results. 02/21/25 01:27 02/21/25 01:27 Labs: Lab Results 02/21/25 02/21/25 Range/Units 00:17 01:27 WBC 8.5 (4.5-10.0) K/mm3 RBC 3.83 L (4.2-5.4) M/mm3 Hgb 11.7 L (12.0-15.0) g/dL Hct 35.2 L (37.0-47.0) % MCV 91.9 (80-100) fl MCH 30.5 (26-34) pg MCHC 33.2 (32-36) g/dl RDW 13.2 (11.5-14.5) % Plt Count 184 (150-375) k/mm3 MPV 9.8 (7.4-10.4) fl Immature Gran % (Auto) 0.2 (0-0.5) % Neut % (Auto) 67.3 (45.5-73.1) % Lymph % (Auto) 22.3 (18.3-44.2) % Moore % (Auto) 9.4 H (2.6-8.5) % Eos % (Auto) 0.4 (0-4.4) % Baso % (Auto) 0.4 (0.2-1.2) % Lymph # (Auto) 1.89 (0.9-3.2) K/mm3 Moore # (Auto) 0.8 H (0.1-0.6) K/mm3 Eos # (Auto) 0.0 (0-0.3) K/mm3 Baso # (Auto) 0.0 (0.0-0.1) K/mm3 Abs Immat Gran (auto) 0.02 (0.00-0.031) K/mm3 Absolute Neuts (auto) 5.7 (1.3-6.7) K/mm3 Absolute Nucleated RBC 0.000 (0.0-0.012) K/mm3 Nucleated RBC % 0.0 (0.0-0.2) % Sodium 133 L (137-145) mmol/L Potassium 3.0 L (3.4-5.0) mmol/L Chloride 100 (98-107) mmol/L Carbon Dioxide 23 (22-30) mmol/L Anion Gap 10 (4-12) mmol/L BUN 17 (7-17) mg/dL Creatinine 1.19 H (0.7-1.0) mg/dL Estim Creat Clear Calc 40 ml/min Estimated GFR 44 L (59 - ) Glucose 219 H (65-110) mg/dL Lactic Acid 1.7 (0.7-2.0) mmol/L Calcium 9.6 (8.4-10.2) mg/dL Total Bilirubin 0.6 (0.2-1.3) mg/dL AST 34 (14-36) U/L ALT 37 H (6-35) U/L Alkaline Phosphatase 93 (38-126) U/L Total Protein 7.0 (6.3-8.2) g/dL Albumin 4.1 (3.5-5.1) g/dL Urine Color Yellow (Yellow) Urine Appearance Clear (Clear) Urine pH 8.0 (5.0-9.0) Ur Specific Runnells 1.013 (1.001-1.035) Urine Protein 1+ H (Negative) mg/dL Urine Glucose (UA) 2+ H (Negative) mg/dL Urine Ketones Negative (Negative) mg/dL Ur Blood (Man) Negative (Negative) Urine Nitrate Negative (Negative) Urine Bilirubin Negative (Negative) Urine Urobilinogen 1.0 (<2.0) mg/dL Leukocyte Esterase Rfl Negative (Negative) LEA/UL Urine RBC 0-2 (0-2) /hpf Urine WBC 0-5 (0-3) /hpf Ur Squamous Epith Cells None seen (Few) /hpf Urine Bacteria None seen /hpf Urine Casts 0-2 Imaging Data Attestation: I personally reviewed and interpreted this imaging study as follows: My impression: L3-L4 spinal canal stenosis, postop changes Discharge Plan Discharge Clinical Impression: Acute right-sided back pain, Muscle spasm, Degenerative disc disease Patient Disposition: Home Condition: Stable Instructions: Antibiotic Form, Acute Low Back Pain (ED) Additional Instructions: You have significant spinal canal stenosis at the L3-L4 level which is likely causing her symptoms. We will refer you to a neurosurgeon for outpatient evaluation. Contact their office for close follow-up appointment. Continue your current medication regimen at home and we will treat you with a short course of steroids as well as Valium for muscle relaxation. Be mindful that the steroids will increase her blood sugar and this needs to be covered with additional insulin dosing regimen. Return to the ER if you have increased pain in your back, you develop lower extremity weakness/numbness/paralysis, you have numbness or tingling in your private parts, or you are unable to control your ability to urinate/stool. Patient Language: Lithuanian Prescriptions: New diazepam [Valium] 2 mg tablet 2 mg PO TID PRN (Reason: muscle spasm) Qty: 14 0RF prednisone 50 mg tablet 50 mg PO DAILY 5 Days Qty: 5 0RF lidocaine 5 % adhesive patch,medicated 1 patch topical DAILY Qty: 15 0RF Rx Instructions: leave on most painful area for up to 12 hrs No Action aspirin [Aspirin Childrens] 81 mg Tablet,Chewable 81 mg PO DAILY Adult One Daily Multivitamin 1 tab/day PO DAILY acetaminophen [Tylenol] 325 mg Tablet 650 mg PO ONCE PRN (Reason: pain) cranberry 500 mg Capsule 500 mg PO DAILY carvedilol 25 mg Tablet 25 mg PO BID donepezil 10 mg Tablet 10 mg PO HS albuterol sulfate 90 mcg/actuation Hfa Aerosol Inhaler 2 puff INHALATION QID PRN (Reason: sob) fluticasone furoate-vilanterol [Breo Ellipta] 100-25 mcg/dose Blister With Device 1 inh INHALATION HS amitriptyline 75 mg tablet 75 mg PO QHS atorvastatin [Lipitor] 40 mg tablet 40 mg PO QPM furosemide 40 mg tablet 40 mg PO DAILY Kerendia 10 mg tablet 10 mg PO DAILY Ozempic 1 mg/dose (4 mg/3 mL) pen injector 1 mg subcut WEEKLY 90 Days Qty: 9 4RF (DME) OneTouch Verio test strips Strip See Rx Instructions .Route Qty: 100 0RF Rx Instructions: As directed test 5 time a day (DME) lancets [OneTouch Delica Plus Lancet] 33 gauge misc See Rx Instructions .ROUTE .MEDSUPPLY Qty: 400 1RF Rx Instructions: Check glucose 3-5 times calcium carbonate [Calcium 600] 600 mg calcium (1,500 mg) tablet 600 mg PO BID omega 8-ueq-qjo-fish oil [Fish Oil] 1,000 mg (120 mg-180 mg) capsule 1 cap PO BID spironolactone 25 mg tablet 25 mg PO DAILY (DME) insulin syringe-needle U-100 [BD Insulin Syringe Ultra-Fine] 0.5 mL 31 gauge x 5/16 syringe See Rx Instructions .Route Qty: 400 0RF Rx Instructions: Use to admister insulin upt to 4 times a day gabapentin 300 mg capsule See Rx Instructions .ROUTE .COMPLEX Qty: 90 3RF Dose Instruction: TAKE 1 CAPSULE BY MOUTH AT BEDTIME Rx Instructions: TAKE 1 CAPSULE BY MOUTH AT BEDTIME insulin lispro [Humalog KwikPen Insulin] 100 unit/mL insulin pen See Rx Instructions subcut TIDWMEAL MDD 30 Qty: 45 1RF Rx Instructions: subcutaneously 3 times per day with meals; take insulin via SSI before meals; 180-220: take 5 units 221-270: take 6 units 271-320: take 7 units 321-370: take 8 units 371-420: take 9 units >421: take 10 units insulin glargine U-300 conc [Toujeo SoloStar U-300 Insulin] 300 unit/mL (1.5 mL) insulin pen 40 unit subcut DAILY 90 Days Qty: 12 2RF (DME) blood-glucose meter Misc See Rx Instructions .Route Qty: 1 0RF Rx Instructions: As directed to monitor blood sugars (DME) blood sugar diagnostic Strip See Rx Instructions .Route Qty: 300 0RF Rx Instructions: As directed 3 times a day to check blood sugars (DME) insulin syringe-needle U-100 1 mL 31 gauge x 5/16 syringe See Rx Instructions .ROUTE .COMPLEX Qty: 400 0RF Dose Instruction: USE TO ADMISTER INSULIN UPT TO 4 TIMES A DAY Rx Instructions: USE TO ADMISTER INSULIN UPT TO 4 TIMES A DAY (DME) pen needle, diabetic 32 gauge x 5/32 needle See Rx Instructions .ROUTE .COMPLEX Qty: 300 0RF Dose Instruction: USE 3 TIMES A DAY WITH INSULIN Rx Instructions: USE 3 TIMES A DAY WITH INSULIN Follow-up/Referrals: PHYSICIAN NOT ON STAFF,NONSTAFF [Primary Care Provider] - Blayne Emmanuel MD [Physician] - 1 Week (l3/l4 stenosis, pain management) Mar Novak MD [Physician] - 1 Week (l3/l4 stenosis) Time of Disposition: 02:45
--- OUTSIDE RECORDS SUMMARY | 2025-02-21 01:40 | XMS_ITS | Encounter Summary ---
Author Organization [facility] Healthcare Address [address] [place] [address] Care Team Providers Care Business Reporting Developer Name Role Phone Marlene Oates MD Unavailable [phone] Jamil Syed MD Unavailable [phone] Nikole MartinezM Unavailable [phone] Aletha Arreola MD Unavailable [phone] Marilin Garcia Unavailable Emmanuel Thomas MD Primary Care Provider + Encounter Details Date Type Department Care Team (Latest Contact Info) Description 02/21/2025 1:00 PM CDT Anesthesia Event [facility] Electrophysiology Lab [address] [place] [address] Bay Cordova MD [address] [place], [place] [id number] Anesthesia Record Procedure Summary Procedure Name Responsible Anesthesiologist Anesthesia Start Time Anesthesia Stop Time INSERT/REPLACE IMPLANTABLE CARDIOVERTER-DEFIBRIL LATOR (ICD) DUAL CHAMBER SYSTEM 76660 Events No events on file. Meds * Agents No agents on file. * Blood No blood administrations on file. Lines, Drains, and Airways No LDAs on file. documented in this encounter Social History Tobacco Use Types Packs/Day Years Used Date Smoking Tobacco: Former Cigarettes 1.5 30 1 970 - 2000 Smokeless Tobacco: Never Alcohol Use Standard Drinks/Week Comments Never 0 (1 standard drink = 0.6 oz pur e alcohol) [facility] Utilities Answer Date Recorded In the past 12 months has th e electric, gas, oil, or water company threatened to [...] often do you attend chur ch or sikh services? Never 01/15/2025 Do you belong to any clubs o r organizations such as adventism groups, unions, fraternal or athletic groups, or [...] any time in the past 12 m [facility], were you homeless or living in a intermediate (including now)? 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 Anesthesia Evaluation Jeanette Thompson is a 74 y.o. female INSERT/REPLACE IMPLANTABLE CARDIOVERTER-DEFIBRILLATOR (ICD) DUAL CHAMBER SYSTEM 83170 INSERT LV LEAD W PACEMAKER (PPM) OR IMPLANTABLE CARDIOVERTER-DEFIBRILLATOR (ICD) PLACEMENT (+) [id number] Pre-Op Diagnosis Codes: * PVT (paroxysmal ventricular tachycardia) [I47.20] * Chronic ischemic heart disease [I25.9] * 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) [I50.43] HISTORY Past Medical History Information obtained from: chart. Neurological + CVA/Stroke + ICA stenosis Cardiovascular + Hypertension + Hyperlipidemia + CAD + UT + CHF LVEF: 20-30%. + Atrial fibrillation/flutter - Current Rhythm: atrial fibrillation. + Pacemaker/ICD - single lead ICD (w/pacing functions). Respiratory + COPD Gastrointestinal + GERD - on daily therapy. Renal / + Renal disease - CKD Endocrine / Other + Diabetes mellitus - Diabetes type 2. Outpatient insulin use: current. + Thyroid disease Patient Active Problem List Diagnosis Date Noted PVT (paroxysmal ventricular tachycardia) 02/09/2025 Chronic combined systolic and diastolic heart failure ([facility]) 02/09/2025 A-fib ([facility]) 01/14/2025 Shortness of breath 01/13/2025 COPD (chronic obstructive pulmonary disease) 01/13/2025 High serum lactate 01/13/2025 Elevated troponin 01/13/2025 Elevated brain natriuretic peptide (BNP) level 01/13/2025 Microalbuminuria due to type 2 diabetes mellitus ([facility]) 12/10/2023 Diabetes mellitus with stage 3 chronic kidney disease ([facility]) 12/10/2023 Mixed hyperlipidemia 12/09/2023 PVD (peripheral vascular disease) 12/17/2021 Trochanteric bursitis 10/07/2021 Radiculopathy, lumbosacral region 07/31/2021 Postlaminectomy syndrome, lumbar 07/31/2021 Spinal stenosis of lumbar region with neurogenic claudication 07/31/2021 Electrolyte abnormality 06/16/2021 Acquired hypothyroidism 06/16/2021 Left hip pain 06/13/2021 Elevated TSH 06/13/2021 Chronic left-sided low back pain with left-sided sciatica 06/13/2021 DDD (degenerative disc disease), lumbar 06/13/2021 BMI 28.0-28.9,adult 04/29/2020 Weakness generalized Tremor 09/13/2018 Presence of automatic (implantable) cardiac defibrillator 10/25/2017 History of myocardial infarction 10/25/2017 Chronic bilateral thoracic back pain 10/25/2017 Centrilobular emphysema ([facility]) 03/05/2017 Osteopenia of both lower legs 03/05/2017 Stage 3b chronic kidney disease ([facility]) 05/18/2016 History of CVA (cerebrovascular accident) 04/30/2016 Stenosis of carotid artery 02/20/2015 Diabetic neuropathy ([facility]) 10/08/2014 Atherosclerosis of three affiliated coronary artery of three affiliated heart with stable angina pectoris 11/25/2013 Osteoarthritis 11/25/2013 Hypertension associated with diabetes ([facility]) 11/25/2013 Type 2 diabetes mellitus, without long-term current use of insulin ([facility]) 11/25/2013 Late onset Alzheimer's dementia without behavioral disturbance 08/01/2012 Paroxysmal ventricular tachycardia (HCC) 07/26/2012 Past Medical History: Diagnosis Date Atrial arrhythmia Cardiac arrythmia Atrial fibrillation (HCC) Cerebrovascular accident (CVA) (HCC) Cerebrovascular accident Chronic coronary artery disease Coronary artery disease Chronic kidney disease Chronic obstructive pulmonary disease (HCC) COPD Congestive heart failure (HCC) Congestive heart failure Diabetes mellitus (HCC) Diabetes Diabetes mellitus (HCC) 2000 Diabetes mellitus Gastroesophageal reflux disease GERD History of transfusion HX OTHER MEDICAL knee problem HX OTHER MEDICAL fibroids HX OTHER MEDICAL CHF HX OTHER MEDICAL right foot disorder HX OTHER MEDICAL neuropathy HX OTHER MEDICAL foot and knee surgery HX OTHER MEDICAL defribilator HX OTHER MEDICAL Headache, migraine HX OTHER MEDICAL Vitamin D Deficiency HX OTHER MEDICAL vit B12 deficiency HX OTHER MEDICAL chronic cough syndrome HX OTHER MEDICAL diabetic neuropathy HX OTHER MEDICAL Hypertension resolved HX OTHER MEDICAL CHF ischemic HX OTHER MEDICAL CVA (Stroke) HX OTHER MEDICAL Dr. Arreola/GI HX OTHER MEDICAL Dr. Hurst/Endo HX OTHER MEDICAL Dr. Narciso Orozco/Neurology. HX OTHER MEDICAL ; Outcome: 8lb(s) Female HX OTHER MEDICAL Dr. Oates/Cardiology HX OTHER MEDICAL Spinal fusion Hyperlipidemia Hyperlipidemia Hypertension Hypertension Hypothyroidism Motion sickness Myocardial infarction (HCC) Myocardial infarction Myocardial infarction (HCC) 1999 Myocardial infarction PONV (postoperative nausea and vomiting) Type 2 diabetes mellitus Diabetes type 2 VT (ventricular tachycardia) Past Surgical History: Procedure Laterality Date CARDIAC CATHETERIZATION Right 01/16/2025 Procedure: LEFT HEART CATHETERIZATION WITH CORONARY ANGIOGRAPHY AND WITH OR WITHOUT LEFT VENTRICULOGRAM [id number]; Surgeon: Marianela Denson MD; Location: [facility] CARDIAC FICTION WRITER; Service: Cardiovascular; Laterality: Right; CARDIAC DEFIBRILLATOR PLACEMENT 12/30/2016 CARDIAC STENT PLACEMENT LAD CATARACT EXTRACTION Cataract extraction FOOT SURGERY 2008 foot surgery KNEE ARTHROSCOPY Arthroscopy knee KNEE SURGERY 2005 Knee surgery OTHER SURGICAL HISTORY knee problem: Knee surgery OTHER SURGICAL HISTORY fibroids: Hysterectomy OTHER SURGICAL HISTORY CHF: defibrillator placed OTHER SURGICAL HISTORY 2007 right foot disorder: surgical repair OTHER SURGICAL HISTORY CHF ischemic: defibrillater OTHER SURGICAL HISTORY rt heel surgery OTHER SURGICAL HISTORY 2007 cardiac surgery OTHER SURGICAL HISTORY Cardiac arrythmia: ICD insertion OTHER SURGICAL HISTORY 2011 b/l cataract sx OTHER SURGICAL HISTORY left knee sx OTHER SURGICAL HISTORY laser surgery to eyes for scar tissue OTHER SURGICAL HISTORY 1988 : OTHER SURGICAL HISTORY Defibrillator Implant OTHER SURGICAL HISTORY Dr. Palomino/gyne OTHER SURGICAL HISTORY Dr. Quiñones/nephrology SPINAL FUSION 05/2016 T6-L1 fusion s/p fracture from falling down steps. TOTAL ABDOMINAL HYSTERECTOMY W/ BILATERAL SALPINGOOPHORECTOMY Hysterectomy, total abdominal, BSO TOTAL ABDOMINAL HYSTERECTOMY W/ BILATERAL SALPINGOOPHORECTOMY NATHANIEL with BSO OB History No obstetric history on file. Allergies Allergen Reactions Ibuprofen Other (See comments), Nausea only and Vomiting Reaction: NAUSEA;, , Reaction: Nausea, , , , , Reaction: other, , Morphine Other (See comments), Vomiting and Nausea only Reaction: NAUSEA;, , Reaction: vomit, Med List Status: Nurse Complete Set By: Natasha Purdy RN at 02/19/2025 12:36 PM Taking? Last Dose Start Date End Date Provider albuterol HFA (PROVENTIL HFA,VENTOLIN HFA,PROAIR HFA) 90 mcg/actuation inhaler -- 01/04/24 -- Mone Dumont NP TAKE 2 PUFFS BY MOUTH EVERY 4 HOURS NEEDED FOR WHEEZE amitriptyline (ELAVIL) 75 mg tablet -- 12/18/24 -- Emmanuel Thomas MD TAKE 1 TABLET BY MOUTH EVERY DAY AT NIGHT apixaban (ELIQUIS) 5 mg tablet -- 12/27/24 12/27/25 Marlene Oates MD Take 1 tablet (5 mg total) by mouth 2 (two) times a day Notes: Per Dr Oates-pt to start Eliquis 5 mg BID and d/c ASA atorvastatin (LIPITOR) 40 mg tablet -- 12/18/24 -- Emmanuel Thomas MD TAKE 1 TABLET BY MOUTH EVERY DAY Breo Ellipta 100-25 mcg/dose diskus inhaler -- 06/05/24 -- Mone Dumont NP INHALE 1 PUFF BY MOUTH DAILY. RINSE MOUTH WITH WATER AFTER USE. DO NOT SWALLOW. calcium carbonate-vitamin D3 1,250mg (500mg elemental) - 5 mcg (200 units) per tablet -- -- -- ProviderDarlene MD carvediloL (COREG) 25 mg tablet -- 01/05/25 -- Marlene Oates MD TAKE 1 TABLET BY MOUTH TWICE A DAY WITH FOOD cranberry fruit extract (CRANBERRY CONCENTRATE ORAL) -- -- -- Darlene Hassan MD donepeziL (ARICEPT) 10 mg tablet -- 01/05/25 07/04/25 Emmanuel Thomas MD Take 1 tablet (10 mg total) by mouth nightly empagliflozin (JARDIANCE) 10 mg tablet -- 02/09/25 -- Marlene Oates MD Take 1 tablet (10 mg total) by mouth daily famotidine (PEPCID) 20 mg tablet -- -- -- Darlene Hassan MD fish oil-dha-epa 1,200-144-216 mg capsule -- 05/17/17 -- Sapphire Johnson MD otc Patient taking differently: Take 1 capsule by mouth daily otc furosemide (LASIX) 40 mg tablet -- 01/05/25 -- Marlene Oates MD TAKE 1 TABLET BY MOUTH EVERY MORNING AND 1/2 TABLET EVERY EVENING gabapentin (NEURONTIN) 300 mg capsule -- 05/20/24 -- Darlene Hassan MD hydrALAZINE (APRESOLINE) 10 mg tablet -- -- -- Darlene Hassan MD insulin lispro (HumaLOG, ADMELOG) 100 unit/mL vial for injection -- -- -- Darlene Hassan MD isosorbide dinitrate (ISORDIL) 5 mg tablet -- 02/09/25 -- Marlene Oates MD Take 1 tablet (5 mg total) by mouth 2 (two) times a day levothyroxine (SYNTHROID) 50 mcg tablet -- 01/29/25 03/30/25 Mone Dumont NP Take 1 tablet (50 mcg total) by mouth daily meclizine (ANTIVERT) 25 mg tablet -- -- -- Darlene Hassan MD memantine (NAMENDA) 10 mg tablet -- 12/18/24 -- Emmanuel Thomas MD TAKE 1 TABLET BY MOUTH TWICE A DAY midodrine (PROAMATINE) 5 mg tablet -- 02/08/25 02/08/26 Marlene Oates MD Take 1 tablet (5 mg total) by mouth 3 (three) times a day multivitamin tablet -- -- -- Darlene Hassan MD sacubitriL-valsartan (ENTRESTO) 24-26 mg tablet -- 02/09/25 -- Marlene Oates MD Take 1 tablet by mouth 2 (two) times a day semaglutide (OZEMPIC) 1 mg/dose (4 mg/3 mL) pen injector injection -- 07/14/24 -- Darlene Hassan MD SEMGLEE-yfgn 100 unit/mL vial for injection -- 06/28/24 -- Darlene Hassan MD sertraline (ZOLOFT) 50 mg tablet -- 02/09/25 -- Emmanuel Thomas MD Take 1/2 tab (25mg) for 7 days and then take full tab (50mg) daily after. Patient taking differently: Take 1 tablet (50 mg total) by mouth daily Take 1/2 tab (25mg) for 7 days and then take full tab (50mg) daily after. spironolactone (ALDACTONE) 25 mg tablet -- 03/21/24 03/21/25 Mone Dumont NP Take 1 tablet (25 mg total) by mouth daily No current facility-administered medications for this encounter. Current Outpatient Medications: albuterol HFA (PROVENTIL HFA,VENTOLIN HFA,PROAIR HFA) 90 mcg/actuation inhaler amitriptyline (ELAVIL) 75 mg tablet apixaban (ELIQUIS) 5 mg tablet atorvastatin (LIPITOR) 40 mg tablet Breo Ellipta 100-25 mcg/dose diskus inhaler calcium carbonate-vitamin D3 1,250mg (500mg elemental) - 5 mcg (200 units) per tablet carvediloL (COREG) 25 mg tablet cranberry fruit extract (CRANBERRY CONCENTRATE ORAL) donepeziL (ARICEPT) 10 mg tablet empagliflozin (JARDIANCE) 10 mg tablet famotidine (PEPCID) 20 mg tablet fish oil-dha-epa 1,200-144-216 mg capsule furosemide (LASIX) 40 mg tablet gabapentin (NEURONTIN) 300 mg capsule hydrALAZINE (APRESOLINE) 10 mg tablet insulin lispro (HumaLOG, ADMELOG) 100 unit/mL vial for injection isosorbide dinitrate (ISORDIL) 5 mg tablet levothyroxine (SYNTHROID) 50 mcg tablet meclizine (ANTIVERT) 25 mg tablet memantine (NAMENDA) 10 mg tablet midodrine (PROAMATINE) 5 mg tablet multivitamin tablet sacubitriL-valsartan (ENTRESTO) 24-26 mg tablet semaglutide (OZEMPIC) 1 mg/dose (4 mg/3 mL) pen injector injection SEMGLEE-yfgn 100 unit/mL vial for injection sertraline (ZOLOFT) 50 mg tablet spironolactone (ALDACTONE) 25 mg tablet Social History Tobacco Use Smoking Status Former Current packs/day: 0.00 Average packs/day: 1.5 packs/day for 30.0 years (45.0 ttl pk-yrs) Types: Cigarettes Start date: 1969 Quit date: 1999 Years since quittin.6 Smokeless Tobacco Never Alcohol Use: Not At Risk (02/19/2025) AUDIT-C Frequency of Alcohol Consumption: Never Average Number of Drinks: Patient does not drink Frequency of Binge Drinking: Never Substance and Sexual Activity Drug Use No Family History Problem Relation Age of Onset Heart attack Mother Myocardial infarction; Cause of : Myocardial infarction/Myocardial infarction; Coronary artery disease Mother Coronary artery disease; Hypertension Mother Hypertension; Diabetes type II Father Diabetes -Type II; Diabetes Father Diabetes mellitus; Heart disease Father Heart disease; Cause of : Heart disease Coronary artery disease Father Coronary artery disease; COPD Father COPD; Other Brother Alive and well; Heart attack Brother Diabetes type II Other Family history of Diabetes -Type II; Hyperlipidemia Other Family history of Hyperlipidemia; Hypertension Other Family history of Hypertension; Coronary artery disease Brother Coronary artery disease; Hypertension Brother Hypertension; Coronary artery disease Brother Coronary artery disease, premature; Heart attack Brother Stroke Brother Stroke; Neuropathy Brother Neuropathy; Cause of : Neuropathy There were no vitals filed for this visit. PT: No results found for requested labs within last 30 days. INR: No results found for requested labs within last 30 days. APTT: No results found for requested labs within last 30 days. Hgb A1C: No results found for requested labs within last 30 days. CBC RBC: No results found for requested labs within last 30 days. RDW: No results found for requested labs within last 30 days. MCHC: No results found for requested labs within last 30 days. MCH: No results found for requested labs within last 30 days. MCV: No results found for requested labs within last 30 days. Hct: No results found for requested labs within last 30 days. Hgb: No results found for requested labs within last 30 days. WBC: No results found for requested labs within last 30 days. MPV: No results found for requested labs within last 30 days. Platelets: No results found for requested labs within last 30 days. RDW CV: No results found for requested labs within last 30 days. RDW Sd: No results found for requested labs within last 30 days. BMP Glucose: No results found for requested labs within last 30 days. Calcium: No results found for requested labs within last 30 days. Sodium: No results found for requested labs within last 30 days. Potassium: No results found for requested labs within last 30 days. CO2: No results found for requested labs within last 30 days. Chloride: No results found for requested labs within last 30 days. BUN: No results found for requested labs within last 30 days. Creatinine: No results found for requested labs within last 30 days. documented in this encounter Plan of Treatment Not on file documented as of this encounter Visit Diagnoses Not on filedocumented in this encounter Care Teams Business Reporting Developer Relationship Specialty Start Date End Date Emmanuel Thomas MD [address] [facility] [address] [place] [address] PCP - General Family Medicine 12/05/24 Marlene Oates MD [address] [place] [address] Consulting Physician Cardiology 11/01/18 Jamil Syed MD [address] [place] [address] Consulting Physician Neurology 11/01/18 Nikole Martinez DPM [address] [place] [address] Consulting Physician Foot and Ankle Surg 11/01/18 Aletha Arreola MD [address] [facility] [address] [place] [address] Consulting Physician Gastroenterology 04/29/20 Marilin Garcia PA [address] [facility] [address] [place] [address] Physician Associate Civil Engineer Endocrinology 12/06/20 documented as of this encounter
--- OUTSIDE RECORDS SUMMARY | 2025-02-21 01:40 | XMS_ITS | Encounter Summary ---
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) PVT (paroxysmal ventricular tachycardia) [I47.20] Chronic ischemic heart disease [I25.9] 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) [I50.43] Procedures INSERT/REPLACE IMPLANTABLE CARDIOVERTER-DEFIBRILLATOR (ICD) DUAL CHAMBER SYSTEM 92146 INSERT LV LEAD W PACEMAKER (PPM) OR IMPLANTABLE CARDIOVERTER-DEFIBRILLATOR (ICD) PLACEMENT (+) [id number] Referral ID Status Reason Start Date Expiration Date Visits Re quested Visits Authorized [id number] 1 1 Encounter Details Date Type Department Care Team (Late st Contact Info) Description 02/21/2025 1:00 PM CDT Hospital Encounter [facility] Electrophysiology Lab [address] [place] [address] Marlene Oates MD [address] [place] [address] [address] [place] [id number] PVT (paroxysmal ventricular tachycardia) (HCC); Chronic ischemic heart disease; 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) Social History Tobacco Use Types Packs/Day Years Used Date Smoking Tobacco: Former Cigarettes 1.5 30 1 970 - 1999 Smokeless Tobacco: Never Tobacco Cessation:Counseling Given: Not Answered Alcohol Use Standard Drinks/Week Comments Never 0 (1 standard drink = 0.6 oz pur e alcohol) [facility] Utilities Answer Date Recorded In the past 12 months has [employer] electric, gas, oil, or water company threatened [...] any clubs o r organizations such as baptist groups, unions, fraternal or athletic groups, or [...] 0 02/09/2025 Housing Stability Vital Sign Answer Rnoy e Recorded In the last 12 months, was t here a time when you were not able to pay the mortgage or rent on time? No 01/15/2025 In the past 12 months, how m any times have you moved where you were living? 0 01/15/2025 At any time in the past 12 m [facility], were you homeless or living in a chcf (including now)? 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 Never 02/19/2025 12:39 PM Natasha Velázquez RN Q2: How many drinks containing alcohol do you have on a typical day when you are drinking? Patient does not drink 02/19/2025 12:39 PM Natasha Velázquez RN Q3: How often do you have six or more drinks on one occasion? Never 02/19/2025 12:39 PM CDT Natasha Purdy RN documented as of this encounter Miscellaneous Notes * Perioperative Nursing Note - Natasha Purdy RN - 02/19/2025 12:47 PM CDT Images from the original note were not included. Pre Anesthesia Testing Perioperative Nursing Note Telephone Preoperative Evaluation - TELEPHONE ONLY, NO PHYSICAL EXAM - [facility] Date: 02/19/25 PAT RN completed assessment with the patient's family member, daughter Oumar Thompson. Jeanette Thompson is a 74 y.o. 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 Social History Tobacco Use Smoking Status Former Current packs/day: 0.00 Average packs/day: 1.5 packs/day for 30.0 years (45.0 ttl pk-yrs) Types: Cigarettes Start date: 1969 Quit date: 2000 Years since quittin.6 Smokeless Tobacco Never Substance and Sexual Activity Drug Use No Alcohol Use Q1: How often do you have a drink containing alcohol?: Never Q2: How many drinks containing alcohol do you have on a typical day when you are drinking?: Patientdoes not drink Q3: How often do you have six or more drinks on one occasion?: Never Past Medical History: Diagnosis Date Atrial arrhythmia Cardiac arrythmia Atrial fibrillation (HCC) Cerebrovascular accident (CVA) (HCC) Cerebrovascular accident Chronic coronary artery disease Coronary artery disease Chronic kidney disease Chronic obstructive pulmonary disease (HCC) COPD Congestive heart failure (HCC) Congestive heart failure Diabetes mellitus (HCC) Diabetes Diabetes mellitus (HCC) 1999 Diabetes mellitus Gastroesophageal reflux disease GERD History [...] ANGIOGRAPHY AND WITH OR WITHOUT LEFT VENTRICULOGRAM [id number]; Surgeon: Marianela Denson MD; Location: [facility] CARDIAC ELECTRONICS RECYCLER; Service: Cardiovascular; Laterality: Right; CARDIAC DEFIBRILLATOR PLACEMENT [...] Nausea only Reaction: NAUSEA;, , Reaction: vomit, CURRENT MEDICATIONS Med List Status: Nurse Complete Set By: [...] diskus inhaler -- 06/05/24 -- Mone Dumont CHISELER HEAD INHALE 1 PUFF BY MOUTH DAILY. RINSE MOUTH WITH WATER AFTER USE. DO NOT SWALLOW. calcium carbonate-vitamin D3 1,250mg (500mg elemental) - 5 mcg (200 units) per tablet -- -- -- Darlene Hassan MD carvediloL (COREG) 25 mg tablet -- [...] injection -- 07/14/24 -- Darlene Hassan MD JADYN-yfgn 100 unit/mL vial for injection -- 06/28/24 [...] tablet (25 mg total) by mouth daily -- Patient not taking: -- Implants Type Not Specified Bard Per[employer] Vascular Lifestream 8mm 58mm 80cm Balloon Expandable Low Profile Cover [id number] - [id number] - Implanted Inventory item: BARD PERIPHERAL VASCULAR Lifestream 8mm 58mm 80cm Balloon Expandable Low Profile Cover [id number] Model/Cat number: [id number] Public Health Assistant: [employer] V[employer] Lot number: [id number] As of 12/19/2021 Status: Implanted [employer] Vascular Lifestream 8mm 26mm 80cm Balloon Expandable Low Profile Cover [id number] - [id number] - Implanted Inventory item: BARD PERIPHERAL VASCULAR Lifestream 8mm 26mm 80cm Balloon Expandable Low Profile Cover [id number] Model/Cat number: [id number] Public Health Assistant: [employer] V[employer] Lot number: [id number] As of 12/19/2021 Status: Implanted Angio-Seal Evolution 6fr Vascular Closure [id number] - [id number] - Implanted Inventory item: [employer] ANGIO-SEAL EVOLUTION 6FR VASCULAR CLOSURE [id number] Model/Cat number: [id number] Public Health Assistant: [employer] Lot number: [id number] As of 12/19/2021 Status: Implanted [employer] Angio-Seal Vip 6fr Closere Device [id number] - [id number] - Implanted (Right) Groin Inventory item: [employer] ANGIO-SEAL VIP 6FR CLOSERE DEVICE [id number] Model/Cat number: [id number] Public Health Assistant: [employer] Lot number: [id number] As of 01/16/2025 Status: Implanted TRAVEL/EXPOSURE Travel Screening Have you traveled outside the [place] in the last 6 months?: No SCREENINGS Matt Fall Risk Score (Score >= 45 places fall precaution order) : 55 Functional screening questions Demonstrates difficulty with ADL?: No Demonstrates difficulty communicating needs?: No Demonstrates difficulty with mobility?: Yes Self care- no restrictions: Yes Needs Total care: No NUTRITION BEARDEN Nutrition and Function History Questionnaire Is BMI < 20?: No Have you lost any weight in the past 6 months without trying? : No Have you eaten < 50% of normal in the past 2 weeks without trying?: No Have you experienced any of the following in the past month?: No Symptom Score: 0 Has your activity level decreased over the past 6 months or do you use an assistive device such as a walker, cane, or wheelchair?: Yes Total Score: 1 Nutrition Screen Have you had a recent weight gain/loss of 10lbs ?: No Do you have adequate intake?: Yes Do you have nutritional issues ?: None Do you take herbal supplements?: No Do you take diet pills?: No Are you on a special diet ?: No PATIENT CARE PLANNING Discharge Planning Type of Residence: Apartment Living Arrangements: Alone Support Systems: Children, Family members Assistance Needed: uses wheelchair when goes out of the home Patient expects to be discharged to: Other (Comment) (apartment) ADDITIONAL COMMENTS/ FOLLOW UP Surgery Date:02/21/2025 Surgery Time:1300 Arrival Time:1100 Home medications verified with the patient daughter Oumar. Patient daughter verbalized understanding of preadmission instructions and instructions sent to patients [facility] * Pre-Procedure Instructions - Natasha Purdy RN - 02/19/2025 12:40 PM CDT [address] [address] We are pleased that you and your doctor have chosen [facility] for your surgery. We hope that the following information will help make your visit a pleasant one. Surgery Date: 02/21/2025 Arrive for pre-op at 11:00 A.M. IMPORTANT INFORMATION ABOUT BLOOD THINNING MEDICATIONS: If you take any type of blood thinner, including ELIquis and ASPIRIN: YOU ARE RESPONSIBLE FOR CALLING your prescribing physician to determine if or when it should be held for your surgery. Before your surgery: Notify your doctor of ANY change in your health such as a cold, sore throat, fever, Rash, an infection, or a change in the problem for which you are having your surgery, if you were in the hospital or Emergency Room. Notify your surgeon if you test positive for COVID. Follow any instructions given to you by your doctor or surgeon. You are to STOP TAKING: ALL rnqz-lxn-pgsscaw vitamin/herbal supplements that have not been prescribed by a physician 14 days prior to surgery, or as soon as feasible. Any anti-inflammatory medicines, including Excedrin, Motrin/Advil (Ibuprofen), Aleve (Naproxen), Indocin (Indomethacin), Toradol (Ketorolac), Diclofenac (Voltaren) (both oral and topical), and/or Mobic (meloxicam) 7 days prior to surgery. If you have pain, you may take Tylenol/Extra Strength Tylenol (unless it is not recommended by yourphysician). 24 hours before your surgery: Hydrate yourself (water) - if no restrictions. No shaving for 24 hours prior to your surgery. Night before your surgery: DO NOT eat or drink anything after midnight. Nothing to eat includes hard candy, mints, gum, chewable antacids, and cough drops. Take only 80% of your normal PM Long-acting insulin dose. Take ONLY 80% of your normal dose of Semglee insulin. Follow surgeon's instructions for anti-bacterial (CHG) shower night before and morning of surgery. CHG/Hibiclens Soap maybe picked up at the Surgery Center Wednesday through Wednesday between 6 AM and 2 PM. Tell the person at the desk that you came to crop picker your soap for your surgery. Or you may purchase it from a pharmacy (it is over the counter). Surgery Center is Closed on Weekends and Major Holidays Shower Instructions: Clean your hair using normal shampoo and/or conditioner products. Using your own normal soap and one washcloth, wash your face. Move away from the shower stream. Using a second freshly washed washcloth and the CHG soap, thoroughly wash from neck down (avoid face, hair, and genital area). Use enough soap to thoroughly cover your body. You may need help if some areas cannot easily be reached, such as your back. Wash with the CHG soap for 2-3 minutes then Rinse thoroughly and dry with a clean towel (use a different freshly washed towel for each shower). Dress in clean, freshly washed pajamas or clothing. Do not use perfume/cologne, make-up, nail arabic, lotions, oil/Vaseline, or powders on your skin. Powder-free deodorant is permitted. No hair products (including hairspray, gel, mousse, etc) Do not shave below the neck on the night before or day of surgery The night before surgery sleep on clean linen, no pets. Day of surgery: Repeat your shower You may brush your teeth and rinse your mouth out. Do not swallow any extra water. Do not glue in dentures or partials. Wear comfortable clothes that will not be tight over the area of your surgery. Leave all valuables and jewelry (including all body piercing jewelry and permanent jewelry) at home. Do not wear make up or temporary/removable false eyelashes. You may shampoo/condition your hair, but do NOT use any other hair products, such as hairspray, mousse or gels. Please bring your photo ID, insurance cards, and medication list (including all iroi-baj-gkkbaxx medications) with you. If having outpatient surgery, please bring palma or preferred debit/credit card to pay for any prescriptions that the surgeon may write for you at discharge. If you have an implantable device with a remote, bring the remote with you. You may have up to 16 ounces of water until 10:00 A.M. the morning of your surgery. Do NOT take your AM short-acting insulin dose Humalog or Jardiance. ONLY take these pills with a small sip of water: Pre-Surgery Instructions Medication Instructions levothyroxine (SYNTHROID) Take with sip of water Follow Dr Oates instructions for all your other medications Side effects that you may have from surgery or anesthesia: Drowsiness Nausea, vomiting, gas/bloating, or headache Sore throat, dry mouth, or thirst Shivering or coldness Soreness or discomfort Inform your recovery or post-op nurse if you have any side effects If you are discharged to home after your Outpatient Surgery: You must have a responsible adult to drive you home, and stay with you the first 24 hours after surgery. You will not be allowed to drive, take a cab, or call an Uber home. If you do not have someone to drive you home and stay with you - please contact your surgeon's office PRIOR to the day of surgery. What to bring if you are spending the night with us: Bring toiletry items such as: robe, slippers, toothbrush, toothpaste, brush, or comb. Bring contact lens, hearing aids, glass case, and denture container. The hospital will provide you with a gown. If you use a CPAP machine, please bring it with you to wear after your surgery. Questions or concerns: If you have any questions, or concerns regarding your procedure, or to cancel your surgery/procedure - contact your surgeon as soon as possible. If you have questions regarding your Pre-Admission Screen/Testing, or these instructions, please call . * Perioperative Nursing Note - Natasha Purdy RN - 02/19/2025 8:[address] Oates office and spoke to Jose in the office and notified her that we have left messages for the patient with no return call. 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 documented in this encounter Admitting Diagnoses Diagnosis Chronic ischemic heart disease Unspecified chronic ischemic heart disease PVT (paroxysmal ventricular tachycardia) Paroxysmal ventricular tachycardia 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 cranberry fruit extract (CRANBERRY CONCENTRATE ORAL) Take 1 capsule by mouth daily multivitamin tabletIndications: Vitamin Deficiency Prevention Take 1 tablet by mouth daily famotidine (PEPCID) 20 mg tablet Take 1 tablet (20 mg total) by mouth daily insulin lispro (HumaLOG, ADMELOG) 100 unit/mL vial for injection Inject 10 Units under the skin 2 (two) times a day with lunch and dinner added in this encounter Care Teams Territory Development Manager Relationship Specialty Start Date End Date Emmanuel Thomas MD [address] [facility] [address] [place] [address] PCP - General Family Medicine 12/05/24 Marlene Oates MD [address] [place] [address] Consulting Physician Cardiology 11/01/18 Jamil Syed MD [address] [place] [address] Consulting Physician Neurology 11/01/18 Nikole Martinez, GERALD [address] [place] [address] Consulting Physician Foot and Ankle Surg 11/01/18 KarAletha hsu MD [address] [facility] [address] [place] [address] Consulting Physician Gastroenterology 04/29/20 Marilin Garcia PA [address] [facility] [address] [place] [address] Physician Research Consultant Endocrinology 12/06/20 documented as of this encounter
--- OUTSIDE RECORDS SUMMARY | 2025-02-21 01:40 | XMS_ITS | Encounter Summary ---
Author Organization [facility] Healthcare Address [address] [place] [address] Care Team Providers Care Product Safety And Standards Engineer Name Role Phone Delilah Allison Primary Care Provider [phone] Marlene Oates MD Unavailable [phone] Jamil Syed MD Unavailable [phone] Nikole MartinezM Unavailable [phone] Aletha Arreola MD Unavailable [phone] Marilin Garcia Unavailable [phone] Natalie Denson [facility] Unavailable Leanne Martinez RN Unavailable [phone] Marika Gerardo RN Unavailable [phone] Kylee Gómez RN Unavailable Mone Dumont NP Primary Care Provider [phone] Emmanuel Thomas MD Primary Care Provider + Jacinta Dubois MA Unavailable Encounter Details Date Type Department Care Team (Late st Contact Info) Description 11/19/2021 Telephone [facility] [address] [place] [address] Leela Meredith, RT Social History Tobacco Use [...] on file 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 Gender Identity Not on file Sexual Orientation Not on file 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 Not on file Not on file documented as of this encounter Plan of Treatment Not on file documented as of this encounter Visit Diagnoses Not on filedocumented in this encounter Additional Health Concerns Infection Onset Date Last Indicated Resolved Time COVID: Suspected 01/12/2025 01/12/2025 01/12/2025 10:26 PM CDT documented as of this encounter Care Teams Product Safety And Standards Engineer Relationship Specialty Start Date End Date Delilah Allison DO PCP - General 10/08/17 12/08/23 Mone Dumont NP [address] [facility] [address] [place] [address] PCP - General Family Medicine 12/09/23 12/04/24 Emmanuel Thomas MD [address] [facility] [address] [place] [address] PCP - General Family Medicine 12/05/24 Marlene Oates MD [address] [place] [address] Consulting Physician Cardiology 11/01/18 Jamil Syed MD [address] [place] [address] Consulting Physician Neurology 11/01/18 Nikole Martinez DPM #[address] [place] [address] Consulting Physician Foot and Ankle Surg 11/01/18 Aletha Arreola MD [address] [facility] [address] [place] [address] Consulting Physician Gastroenterology 04/29/20 Marilin Garcia PA [address] [facility] [address] [place] [address] Physician Clinical Technician Endocrinology 12/06/20 Natalie Denson [address] [place] [address] Pharmacist Pharmacy 01/02/22 01/19/22 Leanne Martinez RN [address] [place] [address] [address] [place] [address] Tool And Fixture Repairer 02/11/22 02/11/22 Marika Gerardo RN [address] [place] [address] [address] [place] [address] Tool And Fixture Repairer 02/17/22 02/26/22 Kylee Gómez RN [address] [place] [address] [address] [place] [address] Tool And Fixture Repairer 12/29/22 01/18/23 Jacinta Dubois MA [address] [place] [address] [address] [place] [address] ACO Care Landscape Painter 01/17/25 01/17/25 documented as of this encounter
--- OUTSIDE RECORDS SUMMARY | 2025-02-21 01:40 | XMS_ITS | Encounter Summary ---
Author Organization [facility] Healthcare Address [address] [place] [address] Care Team Providers Care Chair And Couch Maker Name Role Phone Marlene Oates MD Unavailable Jamil Syed MD Unavailable [phone] Nikole Martinez DPM Unavailable [phone] Aletha Arreola MD Unavailable [phone] Marilin Garcia Unavailable [phone] Emmanuel Thomas MD Primary Care Provider + [...] INSERT/REPLACE IMPLANTABLE CARDIOVERTER-DEFIBRILLATOR (ICD) DUAL CHAMBER SYSTEM 82345 INSERT LV LEAD W PACEMAKER (PPM) OR IMPLANTABLE CARDIOVERTER-DEFIBRILLATOR (ICD) PLACEMENT (+) [id number] Referral ID Status Reason Start Date Expiration Date Visits Re quested Visits Authorized [id number] 1 1 Encounter Details Date Type Department Care Team (Late st Contact Info) Description 02/21/2025 1:00 PM CDT - 02/21/2025 4:05 PM CDT Surgery [facility] Electrophysiology Lab [address] [place] [address] Marlene Oates MD [address] [place] [address] [place] [address] INSERT/REPLACE IMPLANTABLE CARDIOVERTER-DEFIBR ILLATOR (ICD) DUAL CHAMBER SYSTEM 23757 Social History Tobacco Use Types Packs/Day Years Used Date Smoking Tobacco: Former Cigarettes 1.5 30 1 970 - 1999 Smokeless Tobacco: Never Tobacco Cessation:Counseling Given: Not Answered Alcohol Use Standard Drinks/Week Comments Never 0 (1 standard drink = 0.6 oz pur e alcohol) [facility] Utilities Answer Date Recorded In the past 12 months has [employer], gas, oil, or water company threatened [...] often do you attend chur ch or zoroastrian services? Never 01/15/2025 Do you belong to any clubs o r organizations such as lutheran groups, unions, fraternal or athletic groups, or [...] any time in the past 12 m ont, were you homeless or living in a care home (including now)? 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 Jeanette Thompson is a 74 y.o. 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 RINSE [...] 58mm 80cm Balloon Expandable Low Profile Cover [id number] - [id number] - Implanted Inventory item: BARD PERIPHERAL VASCULAR Lifestream 8mm 58mm 80cm Balloon Expandable Low Profile Cover [id number] Model/Cat number: [id number] Director Of Occupational Health: Bard Peripheral Vascular Lot number: [id number] As of 12/19/2021 Status: Implanted Bard Peripheral Vascular Lifestream 8mm 26mm 80cm Balloon Expandable Low Profile Cover [id number] - [id number] - Implanted Inventory item: BARD PERIPHERAL VASCULAR Lifestream 8mm 26mm 80cm Balloon Expandable Low Profile Cover [id number] Model/Cat number: [id number] Director Of Occupational Health: Bard Peripheral Vascular Lot number: [id number] As of 12/19/2021 Status: Implanted Angio-Seal Evolution 6fr Vascular Closure [id number] - [id number] - Implanted Inventory item: [employer]ISHA ANGIO-SEAL EVOLUTION 6FR VASCULAR CLOSURE [id number] Model/Cat number: [id number] Director Of Occupational Health: [employer]Sport Lot number: [id number] As of 12/19/2021 Status: Implanted Ter[employer]o [employer] Aisha Angio-Seal Vip 6fr Closere Device [id number] - [id number] - Implanted (Right) Groin Inventory item: [employer] ANGIO-SEAL VIP 6FR CLOSERE DEVICE [id number] Model/Cat number: [id number] Director Of Occupational Health: [employer] Lot number: [id number] As of 01/16/2025 Status: Implanted TRAVEL/EXPOSURE Travel [...] [facility] * Pre-Procedure Instructions - Natasha Purdy RN - 02/19/2025 12:40 PM CDT [facility] Surgery [address] [address] We are pleased that you and your doctor have chosen [facility] for your surgery. We hope that the [...] surgeon. You are to STOP TAKING: ALL higu-vwn-ijwscrg vitamin/herbal supplements that have not been prescribed [...] at the desk that you came to tow picker your soap for your surgery. Or [...] clothing. Do not use perfume/cologne, make-up, nail syrian, lotions, oil/Vaseline, or powders on your skin. [...] insurance cards, and medication list (including all [id number] medications) with you. If having outpatient surgery, [...] chronic combined systolic and diastolic heart failure PVT (paroxysmal ventricular tachycardia) Paroxysmal ventricular tachycardia [...] dinner added in this encounter Care Teams Chair And Couch Maker Relationship Specialty Start Date End Date Emmanuel Thomas MD [address] [facility] [address] [place] [address] PCP - General Family Medicine 12/05/24 Marlene Oates MD [address] [place] [address] Consulting Physician Cardiology 11/01/18 Jamil Syed MD [address] [place] [address] Consulting Physician Neurology 11/01/18 Nikole Martinez, GERALD [address] [place] [address] Consulting Physician Foot and Ankle Surg 11/01/18 Aletha Arreola MD [address] [facility] [address] [place] [address] Consulting Physician Gastroenterology 04/29/20 Marilin Garcia PA [address] [facility] [address] [place] [address] Physician Shoe Repairer Apprentice Endocrinology 12/06/20 documented as of this encounter
--- OUTSIDE RECORDS SUMMARY | 2025-02-21 01:40 | XMS_ITS | Encounter Summary ---
Author Organization [facility] Healthcare Address [address] [place] [address] Care Team Providers Care Curtain Mender Name Role Phone Marlene Oates MD Unavailable Jamil Syed MD Unavailable [phone] Nikole MartinezM Unavailable [phone] Aletha Arreola MD Unavailable [phone] Marilin Garcia Unavailable [phone] Emmanuel Thomas MD Primary Care Provider + Reason for Visit * Reason Onset Date Comments Med Refill 02/14/2025 Encounter Details Date Type Department Care Team (Late st Contact Info) Description 02/14/2025 Telephone [facility] Primary Care at [address] [place] [address] Emmanuel Thomas MD [address] [place] [address] [address] [place] [address] Med Refill Social History Tobacco Use Types Packs/Day Years Used Date Smoking Tobacco: Former Cigarettes 1.5 30 1 970 - 1999 Smokeless Tobacco: Never Alcohol Use Standard Drinks/Week Comments No 0 (1 standard drink = 0.6 oz pur e alcohol) [facility] Utilities Answer Date Recorded In the past 12 months has [employer], gas, oil, or water company threatened to [...] often do you attend chur ch or yarsanism services? Never 01/15/2025 Do you belong to [...] were you homeless or living in a long term (including now)? No 01/15/2025 Personal Safety Answer Date Recorded Have you ever been in or are you currently in a harmful physical or emotional relationship or is someone making you feel afraid or unsafe? 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 Please call Priya back with any questions. The cover my meds fay code for this is [id number] Does message need to be routed? Yes-Action Needed documented in this encounter Plan of Treatment Not on file documented as of this encounter Visit Diagnoses Not on filedocumented in this encounter Care Teams Curtain Mender Relationship Specialty Start Date End Date Emmanuel Thomas MD [address] [facility] [address] [place] [address] PCP - General Family Medicine 12/05/24 Marlene Oates MD [address] [place] [address] Consulting Physician Cardiology 11/01/18 Jamil Syed MD [address] [place] [address] Consulting Physician Neurology 11/01/18 Nikole Martinez, GERALD [address] [place] [address] Consulting Physician Foot and Ankle Surg 11/01/18 Aletha Arreola MD [address] [place] [address] [address] [place] [address] Consulting Physician Gastroenterology 04/29/20 Marilin Garcia PA [address] [place] [address] [address] [place] [address] Physician Cloth Cutter Endocrinology 12/06/20 documented as of this encounter
--- OUTSIDE RECORDS SUMMARY | 2025-02-21 01:40 | XMS_ITS | Clinical Summary ---
Author Organization [facility] Address [address] [place] [address] Care Team Providers Care Services Advisor Name Role Phone Marlene Oates MD Unavailable Jamil Syed MD Unavailable [phone] Nikole Martinez DPM Unavailable [phone] Aletha Arreola MD Unavailable [phone] Marilin Garcia Unavailable [phone] Emmanuel Thomas MD Primary Care Provider + [...] atorvastatin (LIPITOR) 40 mg tabletIndications: Atherosclerosis of [place] coronary artery of [place] heart with stable angina pectoris TAKE 1 [...] 1 TABLET (25 MCG TOTAL) BY MOUTH PACKAGING OPERATOR BEFORE BREAKFAST 30 tablet 025 2024 Discontinued(O [...] (12/17/2021): Added automatically from request for surgery [id number] Assessment & Plan (02/11/2025 10:14 AM CDT): [...] weeks. Assessment & Plan (06/10/2023 1:04 PM HUMAN SERVICES CARE SPECIALIST): Asymptomatic. Stable. Continue current prescription medications, levothyroxine. Left hip pain 06/13/2021 Assessment & Plan (06/18/2021 2:34 PM HUMAN SERVICES CARE SPECIALIST): X-rays ordered of lumbar spine, left hip, in left knee. Medrol Dosepak prescribed. Referred pain management. Elevated TSH 06/13/2021 Assessment & Plan (06/18/2021 2:34 PM HUMAN SERVICES CARE SPECIALIST): Repeat TSH. Chronic left-sided low back pain with left-sided sciatica 06/13/2021 Assessment & Plan (06/18/2021 2:34 PM HUMAN SERVICES CARE SPECIALIST): X-rays ordered of lumbar spine, left hip, in left knee. Medrol Dosepak prescribed. Referred pain management. DDD (degenerative disc disease), lumbar 06/13/20 Assessment & Plan (06/18/2021 2:34 PM HUMAN SERVICES CARE SPECIALIST): X-rays ordered of lumbar spine, left hip, in left knee. Medrol Dosepak prescribed. Referred pain management. BMI 28.0-28.9,adult 04/29/2020 Assessment & Plan (12/09/2023 3:53 PM CDT): BMI 28.65. Continue healthy diet, increase exercise, encourage weight loss Assessment & Plan (06/18/2021 2:34 PM HUMAN SERVICES CARE SPECIALIST): Weight reduction, daily exercise and dietary modifications recommended. Assessment & Plan (11/25/2020 10:34 PM CDT): Weight reduction, daily exercise and dietary modifications recommended. Tremor 09/13/2018 Assessment & Plan (06/10/2023 1:02 PM HUMAN SERVICES CARE SPECIALIST): Stable. On B-andrew. Assessment & Plan (04/29/2020 [...] p.r.n. Assessment & Plan (06/10/2023 1:03 PM HUMAN SERVICES CARE SPECIALIST): Asymptomatic, at baseline, continue albuterol, Breo. Assessment & Plan (06/18/2021 2:33 PM HUMAN SERVICES CARE SPECIALIST): At baseline, continue current prescription medications. Assessment & Plan (11/25/2020 10:29 PM CDT): At baseline, cont current meds. Assessment & Plan (04/29/2020 4:29 PM CDT): Clinically improved, continue current meds. Assessment & Plan (12/08/2019 11:08 AM CDT): Clinically improved, continue current meds. Assessment & Plan (08/02/2019 2:23 PM HUMAN SERVICES CARE SPECIALIST): Asx. Continue current therapy. Assessment & Plan [...] resistance. Assessment & Plan (08/22/2018 9:56 PM HUMAN SERVICES CARE SPECIALIST): She has 40 pack year smoking history. [...] ordered. Assessment & Plan (06/23/2018 2:04 PM HUMAN SERVICES CARE SPECIALIST): Referred to Pulmonology for further mgmt of [...] disease Assessment & Plan (06/10/2023 12:58 PM HUMAN SERVICES CARE SPECIALIST): Worsening, on Losartan, admits to drinking 64 ounces of water daily, continue. Labs ordered, will follow. Assessment & Plan (06/18/2021 2:36 PM HUMAN SERVICES CARE SPECIALIST): Increase water intake. Managed blood pressure and [...] pharmacy Assessment & Plan (06/18/2021 2:35 PM HUMAN SERVICES CARE SPECIALIST): Currently on gabapentin. Encourage tight control of blood sugars. Assessment & Plan (11/25/2020 10:34 PM CDT): On amitriptyline, managed, cont current meds. Assessment & Plan (08/02/2019 2:24 PM HUMAN SERVICES CARE SPECIALIST): Stable. Cont. Current meds. Assessment & Plan (04/05/2019 9:29 AM CDT): Unchanged, on Vit B12 supp and amitriptyline. Assessment & Plan (10/25/2017 12:02 PM CDT): On Lyrica and amitriptyline, doing well, refill given. Atherosclerosis of [place] co ronary artery of [place] heart with stable angina pectoris 11/25/2013 Overview (10/14/2016): CAD (coronary artery disease) Assessment & Plan (02/11/2025 10:07 AM CDT): Assessment & Plan (06/10/2023 1:03 PM HUMAN SERVICES CARE SPECIALIST): Asymptomatic. Stable. Continue current prescription medications, carvedilol, atorvastatin. ASA. Assessment & Plan (06/18/2021 2:35 PM HUMAN SERVICES CARE SPECIALIST): Asymptomatic. Continue current prescription medications. Assessment & [...] Cardiology Assessment & Plan (06/10/2023 12:59 PM HUMAN SERVICES CARE SPECIALIST): Blood pressure at goal less than 140/90, continue current prescription medications, carvedilol, furosemide, losartan, spironolactone. Assessment & Plan (06/18/2021 2:36 PM HUMAN SERVICES CARE SPECIALIST): Clinically improved, continue current prescription medications. Assessment & Plan (11/25/2020 10:30 PM CDT): Controlled, cont current meds. Assessment & Plan (04/29/2020 4:21 PM CDT): Stable. Cont. Current meds. Managed by cardiology. Assessment & Plan (12/08/2019 11:07 AM CDT): Stable. Cont. Current meds. Assessment & Plan (08/02/2019 2:22 PM HUMAN SERVICES CARE SPECIALIST): Within normal range. Cont current meds. Assessment [...] next regular appointment. Type 2 diabetes mellitus, [facility] long-term current use of insulin 11/25/2013 Overview (11/25/2020): Managed by Endocrinology Assessment & Plan (12/09/2023 3:48 PM CDT): Well controlled. Continue present medications. This is managed by endocrinology Assessment & Plan (06/10/2023 1:05 PM HUMAN SERVICES CARE SPECIALIST): A1c at goal of less than 8.0, continue current prescription medications, Insulin, losartan, Ozempic. Assessment & Plan (02/16/2023 4:13 PM CDT): Suspect hypoglycemia. Recommend that they discontinue NovoLog, the mealtime insulin of 6 units at lunch and dinner. Encouraged daughter to contact patient's transmission calibration engineer to let them know what occurred today. [...] home. Assessment & Plan (06/18/2021 2:35 PM HUMAN SERVICES CARE SPECIALIST): A1c well controlled. Managed by Endocrinology. Continue current prescription medications. Assessment & Plan (11/25/2020 10:32 PM CDT): Keep upcoming new pt appt with Endocrinology. Labs ordered, will follow. Assessment & Plan (05/01/2020 8:55 AM CDT): Stable. Managed by Endocrinology. Assessment & Plan (12/08/2019 11:08 AM CDT): Managed by endocrinology. Assessment & Plan (08/02/2019 2:23 PM HUMAN SERVICES CARE SPECIALIST): Managed by endocrinology. Assessment & Plan (04/05/2019 [...] Namenda. Assessment & Plan (06/10/2023 1:02 PM HUMAN SERVICES CARE SPECIALIST): Stable. Cont. Current prescription medications, donepezil, memantine. Assessment & Plan (06/18/2021 2:33 PM HUMAN SERVICES CARE SPECIALIST): Add Namenda, continued Aricept. Assessment & Plan [...] NovoLog. She is been working with her transmission calibration engineer to try to wean off insulin. Adjustments [...] 04/29/2020 Assessment & Plan (08/02/2019 2:24 PM HUMAN SERVICES CARE SPECIALIST): Worsening. Encouraged patient to decrease weight, increase daily exercise, and modify diet. Assessment & Plan (12/03/2018 8:36 PM CDT): Stable BMI. No significant weight loss over the past 6 months. Assessment & Plan (08/22/2018 9:58 PM HUMAN SERVICES CARE SPECIALIST): BMI is 30.22 kg/m2. Weight management counseling [...] s/p implantable defibrillator; managed by cardiology- Dr. Oates Assessment & Plan (12/09/2023 3:51 PM CDT): [...] furosemide. Assessment & Plan (08/22/2018 9:53 PM HUMAN SERVICES CARE SPECIALIST): Currently the patient is on combination of carvedilol, furosemide and spironolactone. We will obtain a copy of his echocardiogram for review. Assessment & Plan (06/23/2018 2:07 PM HUMAN SERVICES CARE SPECIALIST): Appears to be at baseline. Rx given [...] Encounters Date Type Department Care Team Description 02/21/2025 1:00 PM CDT - 02/21/2025 4:05 PM CDT Surgery [facility] Electrophysiology Lab [address] [place] [id number] Marlene Oates MD INSERT/REPLACE IMPLANTABLE CARDIOVERTER-DEFIBRI LLATOR (ICD) DUAL CHAMBER SYSTEM [id number] 02/21/2025 1:00 PM CDT Anesthesia Event [facility] Electrophysiology Lab [address] [place] [address] Bay Cordova MD 02/21/2025 1:00 PM CDT Hospital Encounter [facility] Electrophysiology Lab [address] [place] [phone] Marlene Oates MD PVT (paroxysmal ventricular tachycardia) ([facility]); Chronic ischemic heart disease; Acute on chronic combined systolic and diastolic heart failure ([facility]) 02/14/2025 Telephone [facility] Primary Care at [address] [phone] Emmanuel Thomas MD Med Refill 02/12/2025 ACO Outreach [facility] [address] [place] [phone] Gigi Morrison RN 02/09/2025 10:00 AM CDT Office Visit [facility] Primary Care at [address] [phone] Emmanuel Thomas MD Atherosclerosis of [place] coronary artery of [place] heart with stable angina pectoris (Primary Dx); [...] Anxiety 02/08/2025 9:00 AM CDT Ancillary Procedure [facility] Representative at [address] [phone] Cardiomyopathy, ischemic; Paroxysmal [place] (HCC); Automatic implantable cardiac defibrillator in situ 02/08/2025 9:00 AM CDT Office Visit [facility] at [address] [phone] Marlene Oates MD Chronic ischemic heart disease (Primary Dx); Heart failure with preserved left ventricular function (HCC); Bilateral carotid bruits; Atherosclerosis of [place] creek arteries of extremities with intermittent claudication, bilateral legs 02/05/2025 Telephone [facility] Primary Care at [address] [phone] Emmanuel Thomas MD 01/29/2025 Orders Only [facility] Primary Care at [address] [phone] Mone Dumont NP Acquired hypothyroidism (Primary Dx) 01/17/2025 Telephone [facility] Primary Care at [place] [address] [facility] [address] [place] [phone] Emmanuel Thomas MD [facility] appointment 01/17/2025 [facility] IP Outreach [address] [address] Jacinta Dubois [place] 01/17/2025 [facility] Outreach [address] [address] Jacinta Dubois [place] 01/16/2025 11:10 AM CDT - 01/16/2025 12:15 PM CDT Surgery [facility] Cardiac Catheterization [address] [place] [address] Marianela Denson MD LEFT HEART CATHETERIZATION WITH CORONARY ANGIOGRAPHY AND WITH OR WITHOUT LEFT VENTRICULOGRAM [id number] 01/12/2025 9:18 PM CDT - 01/16/2025 6:35 PM CDT Hospital Encounter [facility] Acute Medicine [address] [place] [address] Yulisa Franklin MD Galicia, Edgar E., MD Huynh, Kiet T., MD Tobin, Leela Ragland, MD Valente, Sandeep Zambrano Jr., MD Shortness [...] home or self care 12/27/2024 Results Follow-Up [facility] at [address] [phone] Linda Bates MA DEVICE CHECK - REMOTE 12/27/2024 Orders Only [facility] at [address] [phone] Marlene Oates MD Heart failure with preserved left ventricular function (HCC) (Primary Dx); Chronic ischemic heart disease; Atherosclerosis of [place] coronary artery of [place] heart with stable angina pectoris 12/25/2024 8:15 AM CDT Ancillary Procedure [facility] Representative [address] [place] [phone] Cardiomyopathy, ischemic; Paroxysmal [place] (HCC); Automatic implantable cardiac defibrillator in situ 12/06/2024 Results Follow-Up [facility] Primary Care at [address] [phone] Emmanuel Thomas MD Hemoglobin A1c, Thyroid Function [place], Lipid panel, Additional followed-up results: 10 12/05/2024 9:30 AM CDT Lab [facility] Outpatient Lab - Outpatient Center at [address] [address] Type 2 diabetes mellitus with diabetic polyneuropathy, with long-term current use of insulin (HCC); Elevated TSH; Mixed hyperlipidemia; Stage 3b chronic kidney disease (HCC); History of CVA (cerebrovascular accident); Iron deficiency anemia due to chronic blood loss; Vitamin D deficiency 12/05/2024 9:00 AM CDT Office Visit [facility] Medical [facility] Primary Care at [address] [phone] Emmanuel Thomas MD Encounter for screening mammogram [...] ANGIOGRAPHY AND WITH OR WITHOUT LEFT VENTRICULOGRAM [id number]; Surgeon: Marianela Denson MD; Location: [facility] REC[facility]EL [facility]; Service: Cardiovascular; Laterality: Right; Medical devices from [...] COPD Father COPD; Coronary artery disease Father Grace nary artery disease; Diabetes Father Diabetes mellit us; [...] 1 970 - 2000 Smokeless Tobacco: Never Tobacco Cessation:Counseling Given: Not Answered Alcohol Use Standard Drinks/Week Comments Never 0 (1 standard drink = 0.6 oz pur e alcohol) [facility] Utilities Answer Date Recorded In the past 12 months has e [employer], gas, oil, or water [employer] threatened to shut off services in your [...] often do you attend chur ch or scientologist services? Never 01/15/2025 Do you belong to any clubs o r organizations such as anabaptist groups, unions, fraternal or athletic groups, or [...] any time in the past 12 [facility], were you homeless or living in a assisted (including now)? 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 Not on file [...] 02/09/2025 9:55 AM CDT Plan of Treatment Health Maintenance Due Date Last Done Comments Hepatitis B Screening 1968 Breast Cancer Screening-Mammogram 04/23/2016 04/23/2015, 04/23/2015 DTaP/Tdap/Td Vaccine (3 - Td or Tdap) 04/03/2020 04/03/2010, 04/03/2010 Colon Cancer Screening-Colonoscopy 05/19/2020 05/19/2017, 05/19/2017, 12/08/2011, Additional history exists Dilated Eye Exam 12/18/2021 12/18/2020, 08/2018, 02/28/2018, Additional history exists Covid-19 Vaccine () 03/12/2024 11/28/2020, 11/22/2020, 10/31/2020 Well Visit 65+ 06/10/2024 06/10/2023, 1209/2020, 04/29/2020, Additional history exists Foot Exam 12/08/2024 12/09/2023, 09/2020, 04/05/2019, Additional history exists Influenza Vaccine (#1) 2025 , 04/29/2020, 04/05/2019, Additional history exists Zoster Vaccine (2 of 3) 06/06/2025 12/29/2013 Post poned from 02/23/2014 (Patient declined, but will receive in the future) Hemoglobin A1C 06/07/2025 12/05/2024, 11/11, 06/13/2021, Additional history exists Albumin Creatinine Ratio, Urine 12/05/2025 12/05/2024, 12/09/2023, 06/13/2021 Lipid Panel 12/05/2025 12/05/2024, 11/11, 06/13/2021, Additional history exists TSH Level 12/05/2025 12/05/2024, 11/11, 06/13/2021, Additional history exists eGFR 01/16/2026 01/16/2025, 070 12/2024, 01/13/2025, Additional history exists Depression Screening [...] 01/04/2015, 07/12/2004 Medical Devices Implanted Type Area Configurator Device Identifier Shelf Expiration Date Model / Serial / Lot Miles Peripheral Vascular Lifestream 8mm 58mm 80cm Balloon Expandable Low Profile Cover [id number] - [id number] Implanted:Qty: 1 on 12/19/2021 by Bobby Judd MD at [facility] Peripheral Vascular 09/08/2024 [id number] / / [id number] Bard Peripheral Vascular Lifestream 8mm 26mm 80cm Balloon Expandable Low Profile Cover [id number] - [id number] Implanted:Qty: 1 on 12/19/2021 by Bobby Judd MD at [facility] Peripheral Vascular 04/10/2024 [id number] / / [id number] Angio-Seal Evolution 6fr Vascular Closure [id number] - [id number] Implanted:Qty: 1 on 12/19/2021 by Bobby Judd MD at [facility] [employer] 06/10/2022 [id number] / / [id number] [employer] Angio-Seal Vip 6fr Closere Device [id number] - [id number] Implanted:Qty: 1 on 01/16/2025 by Marianela Denson MD at [facility] Right: Groin [employer] 07/25/2025 [id number] / / [id number] Procedures Procedure Name Priority Date/Time Associated Diagnosis [...] FOOT EXAM Routine 04/05/2019 COLONOSCOPY REPORT 05/19/2017 HEPATITIS C SCREENING Routine 05/04/2016 DEXA SCAN Routine 05/29/2015 MAMMOGRAPHY Routine 04/23/2015 from Last 3 Months or Most Recently Relevant to Health Maintenance Results * DEVICE CHECK - IN OFFICE (02/08/2025 8:52 AM CDT) Anatomical Region Laterality Modality Other Narrative 02/08/2025 2:03 PM CDT Images from the original result were not included. 02/08/2025 [employer] [facility] in-office device check The complete report is attached to this R esult Text in Print Designer us Marlene Oates MD CV CARDIAC SERVICES [place] OCEDURES Final Result * POCT glucose (01/16/2025 4:41 PM CDT) Glucose, POC 157 70 - 199 mg/dL Blood 01/16/2025 4:41 PM CDT 01/16/2025 4:41 PM CDT us Sandeep Valente Jr., MD LAB POCT ORDERABLES - DEVICE Final Result Performing Organization Address City/[facility] Co de Phone Number [facility] GLENNIE [address] [facility] [place] [address] * POCT glucose (01/16/2025 1:01 PM CDT) Glucose, POC 147 70 - 199 mg/dL Blood 01/16/2025 1:01 PM CDT 01/16/2025 1:01 PM CDT Sandeep Valente Jr., MD LAB POCT ORDERABLES - DEVICE Final Result Performing Organization Address City/[facility] Co de Phone Number [facility] QUIN) [address] [facility] [place] [address] * LEFT HEART CATHETERIZATION WITH CORONARY ANGIOGRAPHY [...] arteriotomy site. GROIN Right groin. SHEATH A 5-Mauritanian sheath in the right femoral artery. MODERATE SEDATION: Patient received 2 mg of Versed and 50 mcg of fentanyl were utilized to induce moderate sedation for a procedure duration of 15 minutes that was completely supervised. PROCEDURE DETAILS After obtaining informed consent and administering lidocaine to the right groin, a 5-Mauritanian sheath was introduced into the right femoral [...] caliber vessel and is angiographically normal. 5. Sjnn-px-zjdkh collaterals show competitive flow in what appears to be a posterior descending artery branch of the RCA. 6. Elevated left ventricle filling pressures, end-diastolic pressure 15-20 millimeter of mercury. SUMMARY OF FINDINGS 1. Widely patent stent in the mid left anterior descending artery. 2. REHAB DIRECTOR RCA mid segment, with a large bridging [...] with a large bridging collateral reconstituting a REHAB DIRECTOR. Needs a high-risk PCI. Marianela Denson MD us John Domínguez MD CV CARDIAC CATH PROCEDURES Fi nal Result * (ABNORMAL) POCT glucose (01/16/2025 11:08 AM CDT) Glucose, POC 225(H) 70 - 199 mg/dL Blood 01/16/2025 11:0 8 AM CDT 01/16/2025 11:08 AM CDT us Sandeep Valente Jr., MD LAB POCT ORDERABLES - DEVICE Final Result [facility] (GLENNIE) [address] [facility] [place] [address] * POCT glucose (01/16/2025 8:51 AM CDT) [facility] Glucose, POC 182 70 - 199 mg/dL Blood 01/16/2025 8:51 AM CDT 01/16/2025 8:51 AM CDT us Sandeep Valente Jr., MD LAB POCT ORDERABLES - DEVICE Final Result Performing Organization Address City/[facility] Co de Phone Number [facility] (GLENNIE) [address] [place] [address] [place] [address] * (ABNORMAL) eGFR (01/16/2025 3:02 AM CDT) [...] MD LAB BLOOD ORDERABLES Susan benz Result [facility] (QUIN) [address] [facility] Department [place] [address] * (ABNORMAL) Basic metabolic panel (01/16/2025 3:02 AM CDT) Sodium 143 135 - 145 mmol/L Potassium, pl 4.2 3.3 - 4.9 mmol/L [facility] Chloride 102 97 - 110 mmol/L [facility] ([place]) CO2 27 22 - 32 mmol/L [facility] ([place]) Anion gap 14 2 - 15 mmol/L [facility] ([place]) BUN 19 6 - 25 mg/dL [facility] ([facility] Creatinine 1.20(H) 0.60 - 1.10 mg/dL [facility] (QUIN) Glucose 157 70 - 199 mg/dL [facility] ([facility]) Comment: Interpretive Data Fasting glucose [...] Calcium 10.2 8.5 - 10.3 mg/dL [facility] (GLENNIE) Blood 01/16/2025 3:02 AM CDT 01/16/2025 4:14 AM CDT Leela Tobin MD LAB BLOOD ORDERABLES Susan l Result [facility] (GLENNIE) 1 [facility] [place] [address] * POCT glucose (01/16/2025 2:31 AM CDT) Glucose, POC 160 70 - 199 mg/dL Blood 01/16/2025 2:31 AM CDT 01/16/2025 2:31 AM CDT Sandeep Valente Jr., MD LAB POCT ORDERABLES - DEVICE Final Result Performing Organization Address City/[facility] Co de Phone Number [facility] (GLENNIE) [address] [facility] [place] [address] * (ABNORMAL) POCT glucose (01/15/2025 8:00 PM CDT) Glucose, POC 258(H) 70 - 199 mg/dL Blood 01/15/2025 8:00 PM CDT 01/15/2025 8:00 PM CDT us Leela Tobin MD LAB POCT ORDERABLES - DEV ICE Final Result Performing Organization Address City/[facility]/ZIP Co de Phone Number [facility] (GLENNIE) [address] [facility] [place] [address] * POCT glucose (01/15/2025 4:42 PM CDT) Glucose, POC 194 70 - 199 mg/dL Blood 01/15/2025 4:42 PM CDT 01/15/2025 4:42 PM CDT Leela Tobin MD LAB POCT ORDERABLES - DEV ICE Final Result E[facility] BonnerGLENNIE) 1 [facility] [place] [address] * (ABNORMAL) POCT glucose (01/15/2025 11:28 AM CDT) Glucose, POC 283(H) 70 - 199 mg/dL Blood 01/15/2025 11:2 8 AM CDT 01/15/2025 11:28 AM CDT Leela Tobin MD LAB POCT ORDERABLES - DEV ICE Final Result Performing Organization Address [facility] Co de Phone Number ELOY BonnerGLENNIE) [address] [place] [address] * TRANSTHORACIC ECHO (TTE) COMPLETE W DOPPLER/CF WO CONTRAST (01/15/2025 8:15 AM CDT) Pathologist [facility] Estimated EF 20-25 % CONS SCIMAGE Anatomical Region Laterality Modality Ultrasound 01/15/2025 7:47 AM CDT Narrative 01/15/2025 2:46 PM CDT [address] [address] Echocardiogram Report Patient Name: JUAN THOMPSON : 1950 Study Date: 01/15/2025 7:47:03 AM Gender: F Tech: NABIL Location: [id number] Ref Provider: WILLI GUZMAN Height(Cm): BSA: Weight(Kg): [...] 0.96 m/s [ 0.40 - 0.80 ] [place] Peak Benny 0.96 m/s TR Peak Benny [...] Procedure Note Marianela Denson MD - 01/15/[address] [address] Echocardiogram Report Patient Name: JUAN THOMPSON : 1950 Study Date: 01/15/2025 7:47:03 AM Gender: F Tech: NABIL Location: [address] Provider: WILLI GUZMAN Height(Cm): BSA: Weight(Kg): Quality: [...] 0.96 m/s [ 0.40 - 0.80 ] [place] Peak Benny 0.96 m/s TR Peak Benny [...] 8:05 AM CDT 01/15/2025 8:05 AM CDT Leela Tobin MD LAB POCT ORDERABLES - DEV ICE Final Result Performing Organization Address City/[facility] Co de Phone Number [facility] (GLENNIE) [address] [facility] [place] [place] [address] * POCT glucose (01/15/2025 2:54 AM CDT) Glucose, POC 177 70 - 199 mg/dL Blood 01/15/2025 2:54 AM CDT 01/15/2025 2:54 AM CDT Leela Tobin MD LAB POCT ORDERABLES - DEV ICE Final Result Performing Organization Address City/[facility] Co de Phone Number [facility] (GLENNIE) [address] [facility] [place] [address] * (ABNORMAL) POCT glucose (01/14/2025 8:24 PM CDT) Glucose, POC 298(H) 70 - 199 mg/dL Comment:Glu2: RN/MD Notified Blood 01/14/2025 8:24 PM CDT 01/14/2025 8:24 PM CDT Leela Tobin MD LAB POCT ORDERABLES - DEV ICE Final Result Performing Organization Address City/[facility]/ZIP Co de Phone Number [facility] (GLENNIE) [address] [facility] [place] [address] * (ABNORMAL) POCT glucose (01/14/2025 4:46 PM CDT) Glucose, POC 252(H) 70 - 199 mg/dL Blood 01/14/2025 4:46 PM CDT 01/14/2025 4:46 PM CDT Leela Tobin MD LAB POCT ORDERABLES - DEV ICE Final Result Performing Organization Address [facility] Co de Phone Number [facility] (GLENNIE) 1 [facility] [place] [address] * (ABNORMAL) POCT glucose (01/14/2025 4:43 PM CDT) Glucose, POC 301(H) 70 - 199 mg/dL Blood 01/14/2025 4:43 PM CDT 01/14/2025 4:43 PM CDT Leela Tobin MD LAB POCT ORDERABLES - DEV ICE Final Result Performing Organization Address City/[facility]/ZIP Co de Phone Number [facility] (GLENNIE) 1 [facility] [place] [address] * POCT glucose (01/14/2025 11:13 AM CDT) Glucose, POC 184 70 - 199 mg/dL Blood 01/14/2025 11:1 3 AM CDT 01/14/2025 11:13 AM CDT Leela Tobin MD LAB POCT ORDERABLES - DEV ICE Final Result Performing Organization Address [facility]/ZIP Co de Phone Number ELOY [facility] (GLENNIE) 1 [facility] [place] [address] * Sepsis Lactate w/ Reflex (01/14/2025 9:43 AM CDT) Pathologist [facility] Sepsis Lactate 1.4 0.7 - 2.0 mmol/L Blood 01/14/2025 9:43 AM CDT 01/14/2025 9:55 AM CDT Leela Tobin MD LAB BLOOD ORDERABLES Susan l Result Performing Organization Address [facility] Co de Phone Number ELOY [facility] (GLENNIE) 1 [facility] [place] [address] * POCT glucose (01/14/2025 7:36 AM CDT) [facility] Glucose, POC 161 70 - 199 mg/dL Blood 01/14/2025 7:36 AM CDT 01/14/2025 7:36 AM CDT Leela Tobin MD LAB POCT ORDERABLES - DEV ICE Final Result Performing Organization Address [facility] Co de Phone Number ELOY [facility]ILL (GLENNIE) [address] [place] [address] [place] [address] * (ABNORMAL) eGFR (01/14/2025 4:14 AM CDT) Pathologist [facility] eGFR 41(L) >=60 mL/min/1. 73 m2 Comment: [...] MD LAB BLOOD ORDERABLES Final Resu lt [facility] (GLENNIE) 1 [facility] [place] [address] * (ABNORMAL) Basic metabolic panel (01/14/2025 4:14 AM CDT) Sodium 139 135 - 145 mmol/L Potassium, pl 3.7 3.3 - 4.9 mmol/L [facility] ([place] Chloride 101 97 - 110 mmol/L [facility] ([place]) CO2 24 22 - 32 mmol/L [facility] ([place]) Anion gap 14 2 - 15 mmol/L [facility] ([place]) BUN 19 6 - 25 mg/dL [facility] ([place]) Creatinine 1.36(H) 0.60 - 1.10 mg/dL [facility] (QU[place]) Glucose 142 70 - 199 mg/dL [facility] ([place]) Comment: Interpretive Data Fasting glucose [...] classification and Diagnosis of Diabetes Diabetes Care 2022; 46: S19-S40. Current interpretive data was last revised 2022. Calcium 9.4 8.5 - 10.3 mg/dL [facility] (GLENNIE) Blood 01/14/2025 4:14 AM CDT 01/14/2025 4:18 AM CDT Willi Guzman MD LAB BLOOD ORDERABLES Final Resu lt [facility]Y [facility] (GLENNIE) 1 [facility] [place] [address] * POCT glucose (01/14/2025 3:38 AM CDT) Glucose, POC 173 70 - 199 mg/dL Blood 01/14/2025 3:38 AM CDT 01/14/2025 3:38 AM CDT Leela Tobin MD LAB POCT ORDERABLES - DEV ICE Final Result Performing Organization Address [facility] Co de Phone Number ELOY [facility] (GLENNIE) 1 [facility] [place] [address] * (ABNORMAL) POCT glucose (01/13/2025 7:55 PM CDT) Glucose, POC 257(H) 70 - 199 mg/dL Blood 01/13/2025 7:55 PM CDT 01/13/2025 7:55 PM CDT Leela Tobin MD LAB POCT ORDERABLES - DEV ICE Final Result Performing Organization Address City/[facility]/ZIP Co de Phone Number ELOY [facility] (GLENNIE) 1 [facility] [place] [address] * POCT glucose (01/13/2025 4:04 PM CDT) Glucose, POC 186 70 - 199 mg/dL Blood 01/13/2025 4:04 PM CDT 01/13/2025 4:04 PM CDT Leela Tobin MD LAB POCT ORDERABLES - DEV ICE Final Result Performing Organization Address [facility] Co de Phone Number ELOY [facility] (GLENNIE) 1 [facility] [place] [address] * (ABNORMAL) POCT glucose (01/13/2025 11:28 AM CDT) Glucose, POC 315(H) 70 - 199 mg/dL Blood 01/13/2025 11:2 8 AM CDT 01/13/2025 11:28 AM CDT Leela Tobin MD LAB POCT ORDERABLES - DEV ICE Final Result Performing Organization Address [facility] Co de Phone Number ELOY HILL (GLENNIE) 1 [facility] [place] [address] * POCT glucose (01/13/2025 7:30 AM CDT) Glucose, POC 145 70 - 199 mg/dL Blood 01/13/2025 7:30 AM CDT 01/13/2025 7:30 AM CDT Willi Guzman MD LAB POCT ORDERABLES - DEVICE Fi nal Result Performing Organization Address [facility] Co de Phone Number ELOY [facility] (GLENNIE) 1 [facility] [place] [address] * CT Chest PE (CTA) W Contrast [...] William Holbrook M.D. KR: XAVIER Report ID: [id number] Reading Location: [place] [address] Procedure Note William Holbrook MD - 01/13/2025 [...] William Holbrook M.D. KR: XAVIER Report ID: [id number] Reading Location: [place] [address] us Willi Guzman MD IMG CT PROCEDURES Final Result * (ABNORMAL) Troponin [...] BLOOD ORDERABLE S Final Result ELOY [facility] (QUIN) 1 [facility] Department [place] [address] * (ABNORMAL) eGFR (01/13/2025 4:14 AM CDT) [...] ORDERABLES Final Resu lt Performing Organization Address [facility] Co de Phone Number ELOY [facility]ILL (QUIN) 1 [facility] [place] [address] * (ABNORMAL) D-dimer, quantitative (01/13/2025 4:14 AM [...] et al. Brit Med J. 2013;346:f2492. Marta MAI et al. Annals Int Med. 2015;163:701-11. Current interpretive data was last revised on 2019. Blood 01/13/2025 4:14 AM CDT 01/13/2025 4:35 AM CDT us Willi Guzman MD LAB BLOOD ORDERABLES Final Resu lt [facility] (QUIN) 1 [facility] [place] [address] * (ABNORMAL) Basic metabolic panel (01/13/2025 4:14 AM CDT) Sodium 140 135 - 145 mmol/L Potassium, pl 3.6 3.3 - 4.9 mmol/L [facility] (QUIN) Chloride 102 97 - 110 mmol/L [facility] ([place]) CO2 22 22 - 32 mmol/L [facility] (QU[place]) Anion gap 16(H) 2 - 15 mmol/L [facility] ([place]) BUN 19 6 - 25 mg/dL [facility] ([place]) Creatinine 1.44(H) 0.60 - 1.10 mg/dL [facility] (QU[place]) Glucose 166 70 - 199 mg/dL [facility] ([place]) Comment: Interpretive Data Fasting glucose [...] 2022. Calcium 9.7 8.5 - 10.3 mg/dL [facility] (QUIN) Blood 01/13/2025 4:14 AM CDT 01/13/2025 4:34 AM CDT us Willi Guzman MD LAB BLOOD ORDERABLES Final Resu lt Performing Organization Address City/[facility]/ZIP Co de Phone Number [facility] (QUIN) 1 [facility] [place] [address] * POCT glucose (01/13/2025 2:02 AM CDT) Glucose, POC 143 70 - 199 mg/dL Blood 01/13/2025 2:02 AM CDT 01/13/2025 2:02 AM CDT Willi Guzman MD LAB POCT ORDERABLES - DEVICE Fi nal Result Performing Organization Address [facility] de Phone Number [facility] (QUIN) 1 [facility] [place] [address] * (ABNORMAL) Troponin T high-sensitivity 4-hour (01/13/2025 [...] ORDERABLE S Final Result Performing Organization Address City/[facility]/ZIP Co de Phone Number ELOY HILL (QUIN) 1 [facility] [place] [address] * (ABNORMAL) Sepsis Lactate w/ Reflex (01/13/2025 12:58 AM CDT) Sepsis Lactate 2.6(H) 0.7 - 2.0 mmol/L Blood 01/13/2025 12:5 8 AM CDT 01/13/2025 1:02 AM CDT us Yulisa Franklin MD LAB BLOOD ORDERABLE S Final Result [facility] (QUIN) 1 [facility] Department [place] [address] * Urinalysis reflex to microscopic and culture [...] tendency for uric acid stone formation. Source: [facility] [employer] Current Interpretive Data was last revised on [...] GENERAL ORDERABLES Final Result Performing Organization Address [facility] Co de Phone Number ELOY HILL (GLENNIE) 1 [facility] [place] [address] * (ABNORMAL) Troponin T high-sensitivity 2-hour (01/12/2025 11:38 PM CDT) Trop T hs 17(H) <=14 ng/L Comment: Hemolysis present. Results may be affected. Interpretive Data For further hscTnT resources including the diagnostic algorithm and an aid in interpretation, copy and paste this link: https://nrl.testcatalog.org/show/hsTrop Current Interpretive Data last revised 2020. Trop T hs delta 0 ng/L [facility] (GLENNIE) Trop T hs interp Insignificant [facility] (QUIN) Blood 01/12/2025 11:3 8 PM CDT 01/12/2025 11:40 PM CDT Yulisa Franklin MD LAB BLOOD ORDERABLE S Final Result Performing Organization Address [facility] de Phone Number ELOY HILL (GLENNIE) 1 [facility] [place] [address] * ECG 12 lead (01/12/2025 11:32 PM CDT) 01/12/2025 11:3 2 PM CDT Narrative [facility] - 01/13/2025 8:08 PM CDT Vent Rate: 90 bpm RR Interval: 660 msec WY Interval: 165 msec QRS Duration: 141 msec QT Interval: 354 msec QTC Interval: 402 msec P-R-T [place]: 57 - -43 - 105 degrees IMPRESSION: SINUS RHYTHM POSSIBLE LEFT ATRIAL ENLARGEMENT [-0.1mV P-WAVE IN V1/V2] LEFT AXIS DEVIATION [QRS AXIS < -30] INTRAVENTRICULAR CONDUCTION DELAY [130+ ms QRS DURATION] LATERAL MYOCARDIAL INFARCTION , PROBABLYold NO CHANGE FROM PREVIOUS TRACING NOTED Electronically Signed By: Bobby Judd MD us Yulisa Franklin MD ECG ORDERABLES Fin al Result [facility] * XR Chest 1 Vw Portable (01/12/2025 [...] Aden Horn M.D. AR: BARBARA Report ID: [id number] Reading Location: [id number] Procedure Note Aden Horn MD - 01/12/2025 [...] Aden Horn M.D. AR: BARBARA Report ID: [id number] Reading Location: [id number] Yulisa Franklin MD IMG XR PROCEDURES F inal Result * (ABNORMAL) Sepsis Lactate w/ Reflex (01/12/2025 9:46 PM CDT) [facility] Sepsis Lactate 3.0(H) 0.7 - 2.0 mmol/L Blood 01/12/2025 9:46 PM CDT 01/12/2025 9:48 PM CDT Yulisa Franklin MD LAB BLOOD ORDERABLE S Final Result Performing Organization Address City/[facility]/ZIP Co de Phone Number ELOY HILL (GLENNIE) [address] [place] [address] [place] [address] * (ABNORMAL) Troponin T high-sensitivity series (baseline, 2hr, 4hr, 6hr) (01/12/2025 9:35 PM CDT) [facility] Trop T hs 17(H) <=14 ng/L Comment: Interpretive Data For further hscTnT resources including the diagnostic algorithm and an aid in interpretation, copy and paste this link: https://nrl.testcatalog.org/show/hsTrop Current Interpretive Data last revised 2020. Blood 01/12/2025 9:35 PM CDT 01/12/2025 9:39 PM CDT Yulisa Franklin MD LAB BLOOD ORDERABLE S Final Result ELOY [facility] (GLENNIE) 1 [facility] [employer] [place], [place] [id number] * Influenza A/B, RSV, and COVID-19 PCR Nasopharyngeal (01/12/2025 9:35 PM CDT) [facility] COVID-19 RNA Negative Negative Influenza A RNA Negative Negative [facility] (QU[place]) Influenza B RNA Negative Negative [facility] (QU[place]) RSV RNA Negative Negative [facility] (QUIN) Comment: Interpretive data: Testing performed by [facility]. This test is performed using the [employer] Xpert Xpress CoV-2/Flu/RSV plus assay. This is a multiplex, real- time reverse transcriptase PCR assay intended for the qualitative detection of nucleic acid from SARS-CoV-2, influenza A, influenza B, and respiratory syncytial virus. This assay has been cleared by the [place] Food and Drug administration. The performance characteristics have been verified by the [facility]. Results must be considered in the clinical context, and a negative result does not rule out infection. Interpretive Data last revised 2023 Nasopharyngeal 01/12/2025 9: 35 PM CDT 01/12/2025 9:41 PM CDT Narrative ROBBIENISHA [facility] (GLENNIE) - 01/12/2025 10:25 PM CDT Is the Patient experiencing symptoms consistent with COVID?->Yes Yulisa Franklin MD LAB MICROBIOLOGY - GENERAL ORDERABLES Final Result ELOY [facility]ILL (GLENNIE) 1 [facility] [place] [address] * (ABNORMAL) Sepsis Lactate w/ Reflex (01/12/2025 9:35 PM CDT) Sepsis Lactate 4.4(C) 0.7 - 2.0 mmol/L Comment:Critical result call ed to and read back by vanna tran (er) on 01/12/2025 21:43:52 CDT to kate salcedo. Blood 01/12/2025 9:35 PM CDT 01/12/2025 9:39 PM CDT Yulisa Franklin MD LAB BLOOD ORDERABLE S Final Result ELOY [facility] (GLENNIE) 1 [facility] Department [place] [address] * (ABNORMAL) eGFR (01/12/2025 9:35 PM CDT) [...] LAB BLOOD ORDERABLE S Final Result ELO[facility] (GLENNIE) 1 [facility] [place] [address] * Differential, auto (01/12/2025 9:35 PM CDT) [...] on 2017. Imm gran pct 0.3 % [facility] (QUIN) Comment: Interpretive Data Percent cell count reference ranges are not reported, since discordance with absolute values may lead to misinterpretation of CBC data. Current Interpretive Data was last revised on 2017. Lymphocyte pct 31.6 % [facility]BIENE R [facility]GIO (QUIN) Comment: Interpretive Data Percent cell count reference ranges are not reported, since discordance with absolute values may lead to misinterpretation of CBC data. Current Interpretive Data was last revised on 2017. Monocyte pct 9.9 % ELOY [facility] (QUIN) Comment: Interpretive Data Percent cell count reference ranges are not reported, since discordance with absolute values may lead to misinterpretation of CBC data. Current Interpretive Data was last revised on 2017. Eosinophil pct 1.7 % [facility] R [facility] (QUIN) Comment: Interpretive Data Percent cell count reference ranges are not reported, since discordance with absolute values may lead to misinterpretation of CBC data. Current Interpretive Data was last revised on 2017. Basophil pct 0.7 % [facility] (QUIN) Comment: Interpretive Data Percent cell count reference ranges are not reported, since discordance with absolute values may lead to misinterpretation of CBC data. Current Interpretive Data was last revised on 2017. Blood 01/12/2025 9:35 PM CDT 01/12/2025 9:39 PM CDT us Yulisa Franklin MD LAB BLOOD ORDERABLE S Final Result ELOY [facility]ILL (QUIN) 1 [facility] [place] [address] * (ABNORMAL) Pro B-type natriuretic peptide (01/12/2025 [...] Eur Heart J. 2006:27:330-337. 2. Cj RW, Valente AM. J. AM Cathy Cardiol: Cardiovasc Imag. 2009;2: 216- 225. Interpretive Data Last Revised Date: 2018. Blood 01/12/2025 9:35 PM CDT 01/12/2025 9:39 PM CDT us Yulisa Franklin MD LAB BLOOD ORDERABLE S Final Result ELOY [facility] (GLENNIE) 1 [facility] Department [place] [address] * CBC with auto differential (01/12/2025 9:35 PM CDT) WBC 7.24 3.80 - 9.90 K/cumm Hgb 14.0 11.9 - 15.5 g/dL [facility] (QU[place]) Hct 42.1 35.6 - 45.5 % [facility] (QUIN) Plt 252 150 - 400 K/cumm [facility] ([place]) MPV 9.9 9.1 - 12.3 fL [facility]Y [facility] (QU[place]) RBC 4.55 3.90 - 5.20 M/cumm [facility]Y [facility] (QU[place]) MCV 92.5 81.3 - 96.4 fL [facility] ([place]) MCH 30.8 27.1 - 33.3 pg [facility] ([place]) MCHC 33.3 32.3 - 35.7 g/dL [facility] ([place]) RDW CV 12.7 11.1 - 14.9 % [facility] ([place]) RDW SD 43.6 35.7 - 48.1 fL [facility]Y [facility] (QUIN) NRBC abs 0.00 0.00 - 0.01 K/cumm [facility] (QU[place]) Blood 01/12/2025 9:35 PM CDT 01/12/2025 9:39 PM CDT us Yulisa Franklin MD LAB BLOOD ORDERABLE S Final Result ELOY [facility] (QUIN) 1 [facility] Department of Laboratories [place] [id number] * (ABNORMAL) Protime-INR (01/12/2025 9:35 PM CDT) PT 16.0(H) 9.7 - 13.0 sec [facility] ([place]) INR 1.47(H) 0.90 - 1.20 [facility] (QUIN) Comment: Interpretive data Oral anticoagulant [...] BLOOD ORDERABLE S Final Result ELOY [facility] (QUIN) 1 [facility] [place] [address] * Magnesium (01/12/2025 9:35 PM CDT) Pathologist [facility] Magnesium 2.0 1.4 - 2.5 mg/dL Blood 01/12/2025 9:35 PM CDT 01/12/2025 9:39 PM CDT us Yulisa Franklin MD LAB BLOOD ORDERABLE S Final Result Performing Organization Address City/[facility]/ZIP Co de Phone Number ELOY HILL (QUIN) 1 [facility] [place] [address] * (ABNORMAL) Comprehensive metabolic panel (01/12/2025 9:35 PM CDT) Sodium 135 135 - 145 mmol/L Potassium, pl 3.7 3.3 - 4.9 mmol/L [facility] (QUIN) Chloride 96(L) 97 - 110 mmol/L [facility] ([place]) CO2 22 22 - 32 mmol/L [facility] (QU[place]) Anion gap 17(H) 2 - 15 mmol/L [facility] ([place]) BUN 18 6 - 25 mg/dL [facility] ([place]) Creatinine 1.36(H) 0.60 - 1.10 mg/dL [facility] (QUIN) Glucose 186 70 - 199 mg/dL [facility] (QUIN) Comment: Interpretive Data Fasting glucose >/= [...] Bilirubin, total 0.3 0.1 - 1.2 mg/dL [facility] ([place]) Protein, pl 7.3 6.5 - [...] ORDERABLE S Final Result Performing Organization Address City/[facility] Co de Phone Number [facility] (GLENNIE) [address] [place] [address] Department of Laboratories [place] [phone] * ECG 12 lead (01/12/2025 9:32 PM CDT) 01/12/2025 9:32 PM CDT Narrative [facility] - 01/13/2025 8:10 PM CDT Vent Rate: 83 bpm RR Interval: 716 msec WY Interval: 165 msec QRS Duration: 142 msec QT Interval: 404 msec QTC Interval: 444 msec P-R-T Bethel: 47 - -45 - 106 degrees IMPRESSION: SINUS RHYTHM WITH baseline artifact INTRAVENTRICULAR CONDUCTION DELAY [130+ ms QRS DURATION] LATERAL MYOCARDIAL INFARCTION , PROBABLY old Recommend repeat EKG with stable baseline Electronically Signed By: Bobby Judd MD Ronaldo Ramey MD ECG ORDERABLES Final Result Performing Organization Address [facility] Co de Phone Number [facility] [employer] [facility] * DEVICE CHECK - REMOTE (12/25/2024 11:22 AM CDT) Anatomical Region Laterality Modality Other Narrative 12/27/2024 11:42 AM CDT Images from the original result were not included. 12/25/2024 [employer] quarterly remote device check NOTE The following shows snippets from the complete quarterly report. The complete report in its entirety is attached to this Result Text in Print Designer. 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 She has not been seen in-office is > 2 yrs RVp < 0.1% No Alerts Device Nurse Review and Recommendations below Reviewed By Angelina Ortiz RN BSN at 9:35 AM Review and Recommendations below [...] Continue current device follow-up. Marlene Oates MD Marlene Oates MD [facility] [place] OCEDURES Final Result * (ABNORMAL) eGFR (12/05/2024 [...] was last reviewed 2021. Testing performed by: [address] [address] Blood 12/05/2024 9:33 AM CDT 12/05/2024 2:49 PM CDT us Emmanuel Thomas MD LAB BLOOD ORDERABLES Fin al Result [address] Department [place] [address] * Differential, auto (12/05/2024 9:33 AM CDT) Neutrophil abs 3.44 1.50 - 6.50 K/cumm Comment:Testing performed by : [address], [address] Imm gran abs 0.02 0.00 - 0.10 K/cumm [facility] Comment:Testing performed by : [address], [address] Lymphocyte abs 1.74 0.80 - 3.30 K/cumm [facility] Comment:Testing performed by : [address], [address] Monocyte abs 0.50 0.20 - 0.80 K/cumm [facility] Comment:Testing performed by : [address], [address] Eosinophil abs 0.30 0.00 - 0.50 K/cumm ELOY Comment:Testing performed by : [address], [address] Basophil abs 0.05 0.00 - 0.10 K/cumm ELOY Comment:Testing performed by : [facility], [address], [place]., [address] Neutrophil pct 56.8 % [facility] Comment: Interpretive Data Percent cell count reference ranges are not reported, since discordance with absolute values may lead to misinterpretation of CBC data. Current Interpretive Data was last revised on 2017. Testing performed by: [facility], [address] [place] [address]., [address] Imm gran pct 0.3 % [facility] Comment: Interpretive Data Percent cell count reference ranges are not reported, since discordance with absolute values may lead to misinterpretation of CBC data. Current Interpretive Data was last revised on 2017. Testing performed by: [facility], [address] [place] [address]., [address] Lymphocyte pct 28.8 % [facility] Comment: Interpretive Data Percent cell count reference ranges are not reported, since discordance with absolute values may lead to misinterpretation of CBC data. Current Interpretive Data was last revised on 2017. Testing performed by: [address] [address] Monocyte pct 8.3 % [facility] Comment: Interpretive Data Percent cell count reference ranges are not reported, since discordance with absolute values may lead to misinterpretation of CBC data. Current Interpretive Data was last revised on 2017. Testing performed by: [address] [address] Eosinophil pct 5.0 % [facility] Comment: Interpretive Data Percent cell count reference ranges are not reported, since discordance with absolute values may lead to misinterpretation of CBC data. Current Interpretive Data was last revised on 2017. Testing performed by: [address] [address] Basophil pct 0.8 % [facility] Comment: Interpretive Data Percent cell count reference ranges are not reported, since discordance with absolute values may lead to misinterpretation of CBC data. Current Interpretive Data was last revised on 2017. Testing performed by: [address] [address] Blood 12/05/2024 9:33 AM CDT 12/05/2024 2:35 PM CDT Emmanuel Thomas MD LAB BLOOD ORDERABLES Fin al Result Performing Organization Address [facility] Co de Phone Number ELOY [address] [facility] [place] [address] * (ABNORMAL) Thyroid Function [place] (12/05/2024 9:33 AM CDT) TSH 4.25(H) 0.30 - 4.20 mcIUnit/mL Comment:Testing performed by : [facility], [address] [place] [address], [id number] Blood 12/05/2024 9:33 AM CDT 12/05/2024 2:35 PM CDT Emmanuel Thomas MD LAB BLOOD ORDERABLES Fin al Result Performing Organization Address [facility] de Phone Number ELOY [phone] [place] [address] [place] [address] * Iron profile w/ IBC (12/05/2024 9:33 AM CDT) Pathologist [facility] Iron 140 35 - 145 mcg/dl Comment:Testing performed by : [address], [address] TIBC 279 250 - 400 mcg/dL ELOY Comment:Testing performed by : [facility], [address] [place] [address], [address] Transferrin saturation 50 20 - 50 % ELOY Comment:Testing performed by : [address], [address] Blood 12/05/2024 9:33 AM CDT 12/05/2024 2:35 PM CDT Emmanuel Thomas MD LAB BLOOD ORDERABLES Fin al Result Performing Organization Address [facility] Co de Phone Number ELOY [address] [facility] [place] [address] * CBC with auto differential (12/05/2024 9:33 AM CDT) WBC 6.05 3.80 - 9.90 K/cumm Comment:Testing performed by : [facility], [address] [place] [address], [address] Hgb 12.9 11.9 - 15.5 g/dL CERNER CH Comment:Testing performed by : [address], [address] Hct 40.0 35.6 - 45.5 % CERNER CH Comment:Testing performed by : [address], [address] Plt 203 150 - 400 K/cumm CERNER CH Comment:Testing performed by : [address], [address] MPV 11.0 9.1 - 12.3 fL CERNER CH Comment:Testing performed by : [address], [address] RBC 4.16 3.90 - 5.20 M/cumm CERNER CH Comment:Testing performed by : [address], [address] MCV 96.2 81.3 - 96.4 fL CERNER CH Comment:Testing performed by : [address], [address] MCH 31.0 27.1 - 33.3 pg CERNER CH Comment:Testing performed by : [address], [address] MCHC 32.3 32.3 - 35.7 g/dL CERNER CH Comment:Testing performed by : [address], [address] RDW CV 13.2 11.1 - 14.9 % CERNER CH Comment:Testing performed by : [address], [address] RDW SD 47.0 35.7 - 48.1 fL CERNER CH Comment:Testing performed by : [address], [address] NRBC abs 0.00 0.00 - 0.01 K/cumm CERNER CH Comment:Testing performed by : [address], [address] Blood 12/05/2024 9:33 AM CDT 12/05/2024 2:35 PM CDT Emmanuel Thomas MD LAB BLOOD ORDERABLES Fin al Result Performing Organization Address [facility] Co de Phone Number [facility] [phone] [address] [place] [address] * (ABNORMAL) Albumin Creatinine Ratio, Urine (12/05/2024 9:33 AM CDT) Albumin Ur 21.3 mg/L Comment: Interpretive Data No reference range established. Current interpretive data was last revised 2018. Testing performed by: [facility], [address] [place] [address]., [address] Creatinine Ur 25.2 mg/dL ELOY Comment: Interpretive Data No reference range established. Current interpretive data was last revised 2018. Testing performed by: [facility], [address] [place] [address]., [address] Albumin Creatinine Ratio, Ur 85(H) 1 - 29 mg/g ELOY Comment:Testing performed by : [facility], [address] [place] [address]., [address] Urine 12/05/2024 9:33 AM CDT 12/05/2024 2:35 PM CDT Emmanuel Thomas MD LAB URINE ORDERABLES Fin al Result Performing Organization Address [facility] de Phone Number [facility] [place] [address] * Vitamin D 25 hydroxy (12/05/2024 9:33 AM CDT) Vitamin D 25-OH 56 30 - 80 ng/mL Comment:Testing performed by : [address] [address] Blood 12/05/2024 9:33 AM CDT 12/05/2024 2:35 PM CDT Emmanuel Thomas MD LAB BLOOD ORDERABLES Fin al Result Performing Organization Address [facility] Co de Phone Number [facility] [address] [place] [address] * T4, free (12/05/2024 9:33 AM CDT) [facility] Free T4 0.99 0.90 - 1.70 ng/dL Comment:Testing performed by : [address] [address] Blood 12/05/2024 9:33 AM CDT 12/05/2024 2:49 PM CDT Emmanuel Thomas MD LAB BLOOD ORDERABLES Fin al Result Performing Organization Address [facility] [place] [address] * (ABNORMAL) Hemoglobin A1c (12/05/2024 9:33 AM CDT) [facility] Hgb A1C 9.0(H) 4.0 - 5.6 % Comment:Testing performed by : [address] [address] Estimated Average Glucose 212 mg/dL ELOY Comment: The ADA recommends reporting an estimated Average Glucose (eAG) with all Hemoglobin A1c results using the equation derived from a study of 507 normal and diabetic adults. Minority populations were underrepresented and children were not included. (Diabetes Care 31:3820-1039, 2008). The eAG is not equivalent to a fasting glucose. Testing performed by: [address] [address] Blood 12/05/2024 9:33 AM CDT 12/05/2024 2:35 PM CDT Emmanuel Thomas MD LAB BLOOD ORDERABLES Fin al Result ELOY [address] [facility] [place] [address] * (ABNORMAL) Ferritin (12/05/2024 9:33 AM CDT) [facility] Ferritin 277(H) 15 - 150 ng/mL Comment:Testing performed by : [facility], [address] [place] [address]., [address] Blood 12/05/2024 9:33 AM CDT 12/05/2024 2:35 PM CDT Emmanuel Thomas MD LAB BLOOD ORDERABLES Fin al Result Performing Organization Address [facility] Co de Phone Number [place] [phone] [facility] [place] [place] [address] * Vitamin B12 (12/05/2024 9:33 AM CDT) Vitamin B12 807 230 - 1,250 pg/mL Comment:Testing performed by : [facility], [address] [place] [address]., [address] Blood 12/05/2024 9:33 AM CDT 12/05/2024 2:35 PM CDT Emmanuel Thomas MD LAB BLOOD ORDERABLES Fin al Result Performing Organization Address [facility] de Phone Number [facility] [address] [address] [place] [address] * (ABNORMAL) Lipid panel (12/05/2024 9:33 AM [...] last revised on 2018. Testing performed by: [address] [address] Triglycerides 163(H) <=149 mg/dL [facility] Comment: Interpretive Data Ages < or = [...] last revised on 2018. Testing performed by: [facility], [address] [place] [address]., [address] HDL 57 >=40 mg/dL [facility] Comment: Interpretive Data Ages < or = [...] last revised on 2018. Testing performed by: [facility], [address] [place] [address]., [address] LDL, calculated 71 <=129 mg/dL ELOY Comment: Interpretive Data Ages < [...] 3. Cameron Lewis et al. SERENA Cardiol. 2019November 09;5(5):540548. doi: [email or web address] Current Interpretive Data was last revised on 2024. Testing performed by: [address] [address] Non-HDL Cholesterol 99 mg/dL ELOY Comment: Interpretive Data Ages < [...] last revised on 2018. Testing performed by: [address] [address] Chol/HDL ratio 3 ELOY Comment:Testing performed by : [address] [address] Blood 12/05/2024 9:33 AM CDT 12/05/2024 2:35 PM CDT Emmanuel Thomas MD LAB BLOOD ORDERABLES Fin al Result [facility] [address] [place] [address] * (ABNORMAL) Comprehensive metabolic panel (12/05/2024 9:33 AM CDT) Sodium 138 135 - 145 mmol/L Comment:Testing performed by : [address] [address] Potassium, pl 4.3 3.3 - 4.9 mmol/L ELOY Comment:Testing performed by : [address] [address] Chloride 99 97 - 110 mmol/L ELOY Comment:Testing performed by : [address] [address] CO2 29 22 - 32 mmol/L CERNER CH Comment:Testing performed by : [address] [address] Anion gap 10 2 - 15 mmol/L CERNER CH Comment:Testing performed by : [facility], [address] [place] [address]., [address] BUN 23 6 - 25 mg/dL CERNER CH Comment:Testing performed by : [address] [address] Creatinine 1.12(H) 0.60 - 1.10 mg/dL CERNER CH Comment:Testing performed by : [address], [address] Glucose 213(H) 70 - 199 mg/dL CERNER CH Comment: Interpretive Data Fasting glucose >/= 126 [...] was last revised 2022. Testing performed by: [address] [address] Calcium 10.2 8.5 - 10.3 mg/dL CERNER CH Comment:Testing performed by : [address] [address] Bilirubin, total 0.3 0.1 - 1.2 mg/dL CERNER CH Comment:Testing performed by : [address] [address] Protein, pl 7.0 6.5 - 8.5 g/dL CERNER CH Comment:Testing performed by : [address] [address] Albumin 4.3 3.5 - 5.0 g/dL CERNER CH Comment:Testing performed by : [address], [address] Alk phos 108 40 - 130 Units/L CERNER CH Comment:Testing performed by : [facility], [address] [place] [address]., [address] ALT 43 7 - 45 Units/L ELOY Comment:Testing performed by : [facility], [address] [place] [address]., [address] AST 40 10 - 45 Units/L ELOY Comment:Testing performed by : [facility], [address] [place] [address]., [address] Blood 12/05/2024 9:33 AM CDT 12/05/2024 2:35 PM CDT Emmanuel Thomas MD LAB BLOOD ORDERABLES Fin al Result [address] [place] [address] * Diabetic Eye Exam (12/18/2020) Narrative Rosa Welsh MA - 12/18/2020 Vision Source Examination Result [facility] [employer] Final Result * DIABETES FOOT EXAM (04/05/2019) [facility] Diabetic Foot Exam Abnormal Result [facility] [facility] [employer] Final Result * COLONOSCOPY REPORT (05/19/2017) Anatomical Region Laterality Modality Other Provider Scanning GI PROCEDURE ORDERABLES Final Result * HEPATITIS C SCREENING (05/04/2016) [facility] HEP C Normal Comment:Negative Result [facility] Provider HEALTH MAINTENANCE Final Result * DEXA SCAN (05/29/2015) [facility] DEXA Scan Abnormal Comment:Osteopenia Result [facility] [employer] Final Result * MAMMOGRAPHY (04/23/2015) [facility] Mammogram Normal Result [facility] [employer] [facility] [employer] Final Result from Last 3 Months or Most Recently Relevant to Health Maintenance Insurance HEALTHCARE HEALTHCARE MEDICARE HEALTHCARE Advance Directives For more information, please contact: [phone] * Full Code (Latest Code Status on File) Date Activated Date Inactivated Comments 01/13/2025 1:22 AM 01/16/2025 10:40 PM * Full Code Date Activated Date Inactivated Comments 12/19/2021 4:12 PM 12/20/2021 12:40 AM * Full Code Date Activated Date Inactivated Comments 01/19/2019 6:21 PM 01/20/2019 6:57 PM Care Teams Services Advisor Relationship Specialty Start Date End Date Emmanuel Thomas MD [address] [address] [place] [address] PCP - General Family Medicine 12/05/24 Marlene Oates MD [address] [place] [address] Consulting Physician Cardiology 11/01/18 Jamil Syed MD [address] [place] [address] Consulting Physician Neurology 11/01/18 Nikole Martinez DPM [address] [place] [address] Consulting Physician Foot and Ankle Surg 11/01/18 Aletha Arreola MD [address] [place] [address] [address] [place] [address] Consulting Physician Gastroenterology 04/29/20 Marilin Garcia PA [address] [place] [address] [place] [address] Physician Copy Editor Endocrinology 12/06/20
[2025-02-21 01:51] LABS: Alanine Aminotransferase 37 U/L (6-35); Albumin Level 4.1 g/dL (3.5-5.1); Alkaline Phosphatase 93 U/L (38-126); Anion Gap 10 mmol/L (4-12); Aspartate Amino Transferase 34 U/L (14-36); Bilirubin,Total 0.6 mg/dL (0.2-1.3); Blood Urea Nitrogen 17 mg/dL (7-17); Calcium 9.6 mg/dL (8.4-10.2); Carbon Dioxide 23 mmol/L (22-30); Chloride 100 mmol/L (98-107); Estimated CRCL calculation 40 ml/min; Estimated Glomerular Filt Rate 44; Glucose 219 mg/dL (65-110); Potassium 3.0 mmol/L (3.4-5.0); Sodium 133 mmol/L (137-145); Total Protein 7.0 g/dL (6.3-8.2)
--- NOTE | 2025-02-21 01:53 | PC.NURSE ---
Pt in CT at this time.
[2025-02-21] MEDS: LIDOCAINE 5% PATCH 1 PATCH TRANSDERM (02:05)
[2025-02-21] MEDS: diazePAM INJ (*CRX) 10 MG/2 ML SYRINGE 2.5 MG IV PUSH (02:05)
[2025-02-21] MEDS: POTASSIUM CHLORIDE 20 MEQ PACKET (FOR LIQUID) 40 MEQ PO (02:11)
[2025-02-21] MEDS: LACTATED RINGERS 1,000 ML 999 ML IV CONT (02:14)
[2025-02-21] MEDS: HYDROmorphone HCL INJ (*CRX) 2 MG/ML VIAL 0.5 MG IV PUSH (02:59)
== END 2025-02-21 03:15 | disposition home or self-care (01) ==
PROVIDERS: Emergency Provider Student in an Organized Health Care Education/Training Program
DX: M62.838 Other muscle spasm (principal); M51.369 Other intervertebral disc degeneration, lumbar region without mention of lumbar back pain or lower extremity pain; R10.9 Unspecified abdominal pain; J44.9 Chronic obstructive pulmonary disease, unspecified; I13.0 Hypertensive heart and chronic kidney disease with heart failure and stage 1 through stage 4 chronic kidney disease, or unspecified chronic kidney disease; E11.22 Type 2 diabetes mellitus with diabetic chronic kidney disease; N18.30 Chronic kidney disease, stage 3 unspecified; I50.9 Heart failure, unspecified; Z79.4 Long term (current) use of insulin; Z87.891 Personal history of nicotine dependence; Z79.899 Other long term (current) drug therapy; Z79.891 Long term (current) use of opiate analgesic
CPT/HCPCS: 36415; 72131; 80053; 81001; 83605; 85025; 96361; 96374; 96375; 99284; A9270; J1171; J2919; J3360; J7120